=== PATIENT | male | born 1955 | race Caucasian/White ===

== ENCOUNTER → 2016-08-11 | Outpatient (CLI) | payer BC ==
[~2016-08-11] MED LIST: ACT/15 PO; ALLO300T2 PO; ASPCH81X PO; CHOLTAB3 PO; COEN1CAP17 PO; FAMO20TA9 PO; FLAX10007 PO; GLIP-199 PO; MAGN250T3 PO; METO50TA7 PO; MULTTAB58 PO; MYCO250C7 PO; PLN5 PO; PRAV20TA PO; PRED-301 PO; TACR1CAP5 PO
[2016-08-11 09:55] LABS: ESTIMATED AVERAGE GLUCOSE 252 mg/dl; HA1C FLAG Normal (Normal)
== END | disposition home or self-care (01) ==
LOC: C.LAB 08:01
PROVIDERS: ATTEND Internal Medicine
DX: E78.00 Pure hypercholesterolemia, unspecified (principal)

== ENCOUNTER → 2016-10-03 | Outpatient (CLI) | payer BC | END | disposition home or self-care (01) | LOC: C.LAB 08:13 | PROVIDERS: ATTEND Internal Medicine | DX: E11.9 Type 2 diabetes mellitus without complications (principal) ==

== ENCOUNTER → 2017-03-23 | Outpatient (CLI) | payer BC ==
[2017-03-23 11:09] LABS: ESTIMATED AVERAGE GLUCOSE 143 mg/dl; HA1C FLAG Normal (Normal)
== END | disposition home or self-care (01) ==
LOC: C.LAB 07:42
PROVIDERS: ATTEND Internal Medicine
DX: E11.9 Type 2 diabetes mellitus without complications (principal)

== ENCOUNTER → 2017-07-07 | Outpatient (CLI) | payer BC ==
[2017-07-07 10:06] LABS: ESTIMATED AVERAGE GLUCOSE 146 mg/dl; HA1C FLAG Normal (Normal)
[2017-07-07 10:20] LABS: CHOLESTEROL/HDL RATIO 3.4; PROSTATE SPECIFIC ANTIGEN 1.57 ng/ml (0.000-4.000)
== END | disposition home or self-care (01) ==
LOC: C.LAB 07:39
PROVIDERS: ATTEND Internal Medicine
DX: E78.00 Pure hypercholesterolemia, unspecified (principal)

== ENCOUNTER → 2017-10-26 | Outpatient (CLI) | payer BC, OTHER ==
[~2017-10-26] MED LIST changes: -METO50TA7 PO; +METO50TA8 PO
[2017-10-26 10:01] LABS: HEMOGLOBIN A1C 6.8 % (4.5-5.6)
--- NOTE | 2017-11-06 08:41 | CODING QUERY NO DIAGNOSIS ---
TREATMENT RENDERED WITHOUT A DIAGNOSIS 54 To promote full compliance with coding requirements relating to patient care, physician participation is requested in all cases of balance wheel screw hole driller uncertainty. Please assist us with providing a diagnosis/symptom for the test(s) below: A diagnosis/symptom was not documented on your Order. A valid diagnosis/symptom is required to bill all insurances. Please remember that we are unable to code a diagnosis of rule out, probable, possible, questionable, or suspected. DOS 10/26/17 Tests that require a diagnosis: * HEMOGLOBIN A1C DIAGNOSIS: Provider Signature: Date: Thank you Cheryl [facility] [employer] Once completed, please kindly fax back to [phone] For questions please call [phone]
== END | disposition home or self-care (01) ==
LOC: C.LAB 08:20
PROVIDERS: ATTEND Internal Medicine
DX: E11.9 Type 2 diabetes mellitus without complications (principal)

== ENCOUNTER → 2017-11-05 | Outpatient (CLI) | payer OTHER ==
--- NOTE | 2017-11-05 17:17 | DIAGNOSTIC IMAGING REPORT ---
R KNEE 4 OR MORE VIEWS CLINICAL HISTORY: 62 years-old Male presenting with M25.561 Right knee pain after injury. TECHNIQUE: Frontal, lateral, tunnel, and sunrise views of the right knee were obtained. COMPARISON: None. FINDINGS: Chondrocalcinosis suggested in the lateral compartment. No significant joint space loss. No acute fracture or malalignment. No significant osteophytosis. No large knee joint effusion. Prominent ossicle in the distal patellar tendon. Suggest chronic degeneration or prior injury. No patellar subluxation. Atherosclerosis. IMPRESSION: 1. No acute osseous injury of the right knee. 2. No advanced degenerative change. Electronically signed by: Man Aguirre M.D. 11/05/2017 5:15 PM Dictated Date/Time: 11/05/2017 5:13 PM
== END | disposition home or self-care (01) ==
LOC: C.RAD1850 16:50
PROVIDERS: ATTEND Internal Medicine
DX: M25.561 Pain in right knee (principal)

== ENCOUNTER → 2017-11-30 | Outpatient (CLI) | payer OTHER ==
[~2017-11-30] MED LIST changes: +CHOL100010 PO; -CHOLTAB3 PO; +FAMO1TAB68 PO; -FAMO20TA9 PO; +INSU100I23 SQ
[2017-11-30 10:37] LABS: BASO % 0.3 %; BASO ABS # 0.02 K/uL (0-0.2); EOS % 2.6 %; EOS ABS # 0.19 K/uL (0-0.5); HEMATOCRIT 39.9 % (42-52); HEMOGLOBIN 13.2 g/dL (14.0-18.0); IG# 0.03 K/uL (0.00-0.02); LYMPH % 22.6 %; LYMPH ABS # 1.65 K/uL (1.2-3.4); MEAN CORPUSCULAR HEMOGLOBIN 33.1 pg (25-34); MEAN CORPUSCULAR HGB CONC 33.1 g/dl (32-36); MEAN PLATELET VOLUME 10.9 fL (7.4-10.4); MONO % 10.8 %; MONO ABS # 0.79 K/uL (0.11-0.59); NEUT % 63.3 %; NEUT ABS # 4.63 K/uL (1.4-6.5); PLATELET COUNT 194 K/uL (130-400); RED CELL DISTRIBUTION WIDTH CV 14.1 % (11.5-14.5); RED CELL DISTRIBUTION WIDTH SD 51.6 fL (36.4-46.3); WHITE BLOOD COUNT 7.31 K/uL (4.8-10.8)
[2017-11-30 11:04] LABS: BLOOD UREA NITROGEN 44 mg/dl (7-18); CALCIUM 10.1 mg/dl (8.5-10.1); CARBON DIOXIDE 24 mmol/L (21-32); CREATININE 1.98 mg/dl (0.60-1.40); GLUCOSE 172 mg/dl (70-99); POTASSIUM 4.1 mmol/L (3.5-5.1); SODIUM 140 mmol/L (136-145)
== END | disposition home or self-care (01) ==
LOC: C.CPL 08:46
PROVIDERS: ATTEND Physician Assistant
DX: Z01.818 Encounter for other preprocedural examination (principal)

== ENCOUNTER → 2017-12-08 | Day surgery (SDC) | payer OTHER ==
[2017-11-26 10:37] VITALS: Ht 195.6 cm; Wt 110.9 kg
[~2017-12-08] VITALS: Ht 195.6 cm; Wt 110.9 kg
[~2017-12-08] MED LIST changes: +ATROPINE SULFATE 0.1 MG/ML 5ML SYR IV PRN; +BUPIVACAINE/EPINEPHRINE 0.5% MPF 1:200,000 30 ML VIAL ONE; +CEFAZOLIN 2000MG IV PUSH 15 ML IV SCH; +DEXAMETHASONE SOD INJ 4 MG/ML VIAL ONE; +EpHEDrine SULFATE 50MG/5ML SYR ONE; +EpHEDrine SULFATE INJ 50 MG/ML AMP IV PRN; +FENTANYL CITRATE INJ 50 MCG/1 ML 2 ML VIAL ONE; +FLUMAZENIL 0.1 MG/1 ML 10 ML VIAL IV PRN; +HYDROCODONE/ACETAMIN 5/325MG TAB ONE; +HYDROCODONE/ACETAMIN 5/325MG TAB PO PRN; +HYDROCORTISONE SOD SUCCINATE 100 MG/2 ML VIAL IV SCH; +KETOROLAC TROMETHAMINE 30 MG/ML VIAL IV. PRN; +LABETALOL HCL IV 5 MG/ML 20ML IV PRN; +LACTATED RINGER'S 1000ML 1,000 ML IV SCH; +LIDOCAINE HCL 2% 2 ML VIAL (20MG/ML) ONE; +MIDAZOLAM HCL 1 MG/ML 2ML VIAL ONE; +MoRPHine SULFATE PF 1 MG/ML 10 ML AMP/VIAL ONE; +NALOXONE HCL 0.4 MG/1 ML VIAL/CARP IV PRN; +ONDANSETRON INJ 2 MG/ML 2 ML VIAL IV PRN; +ONDANSETRON INJ 2 MG/ML 2 ML VIAL ONE; +OXYCODONE/ACETAMINOPHEN 5-325 TAB PO PRN; +PROMETHAZINE HCL INJ 12.5 MG in SODIUM CHLORIDE 0.9% 50ML 50 ML IV PRN; +PROPOFOL IV EMULSION 10 MG/ML 20 ML VIAL ONE; +SODIUM CHLORIDE 0.9% 1000ML 1,000 ML IV SCH
--- NOTE | 2017-12-08 06:28 | History & Physical Bridge Note ---
H&P Re-Evaluation Bridge Note: I have examined the patient, reviewed the History & Physical and in the interval since the performance of the History & Physical I have noted the following changes of clinical significance: consent obtained.No changes noted
--- NOTE | 2017-12-08 06:30 | Discharge Instructions ---
Discharge Instructions Date of Service December 08, 2017. Visit Reason for Visit: Right Knee Medial And Lateral Meniscus Tears Discharge Discharge Diagnosis / Problem: same Discharge Goals Goal(s): Decrease discomfort, Improve function Medications Stopped Medications Name(s): na Restart Stopped Medication(s): use all scripts as directed Activity Recommendations Activity Limitations: per Instructions/Follow-up section Lifting Limitations: until after follow-up appointment Exercise/Sports Limitations: until after follow-up appointment May Resume Sexual Activity: after follow-up appointment Shower/Bathe: keep incision dry Driving or Machine Use: resume 3 days after discharge Weightbearing Status: Right weightbearing (as tolerated) Anesthesia . Post Anesthesia Instructions: If you have had General Anesthesia or IV Sedation: * Do not drive today. * Resume driving when surgeon permits. * Do not make important decisions or sign legal documents today. * Call surgeon for: 1. Temperature elevations greater than 101 degrees F. 2. Uncontrollable pain. 3. Excessive bleeding. 4. Persistent nausea and vomiting. 5. Medication intolerance (nausea, vomiting or rash). * For nausea and vomiting use only clear liquids such as: tea, soda, bouillon until nausea subsides, then gradually increase diet as tolerated. * If you have any concerns or questions, call your surgeon's office. If physician is unavailable and it is an emergency, call 911 or go to the nearest emergency room. . Instructions / Follow-Up Instructions / Follow-Up The following are instructions to follow after your Arthroscopic Knee Surgery. ACTIVITY RECOMMENDATIONS: * Minimize activity until your first visit after surgery. * No excessive walking, jogging, sports or laboring. * Return to activity is individualized. Most patients are able to return to every day activities within one month. * Return to sports or intensive labor usually occurs at 2-3 months. * Driving is not permitted until at least your first postoperative visit at a minimum. Please ask your doctor when it is safe to resume driving. If you have an automatic vehicle and your left leg has been operated on, then you may begin driving as soon as you are comfortable and can drive safely. SCHOOL/WORK RECOMMENDATIONS: * You may return to sedentary work or school when you are feeling more comfortable. This is usually 3-7 days after surgery. * Expect increased discomfort with increased activity. Continue to elevate and ice the leg as much as possible. MEDICATIONS: * You will have a prescription for pain medication and an anti-inflammatory medication after surgery. * Use the pain medication for severe pain and the anti-inflammatory for less severe pain. Once the pain medication has run out, try to use the anti-inflammatory medication. If this is not effective, contact the office for assistance. * The pain medication may cause nausea, constipation and drowsiness. You should see how they affect you before driving or similar activity. * The anti-inflammatory medication may cause stomach upset and bleeding. If this occurs let your doctor know immediately . * Take a stool softener like Colace or a laxative like Senokot to prevent constipation. DIET: * Resume previous diet. SPECIAL CARE: ICE: You have the option of an ice cooler, gel packs or ice bags. * If you have an ice cooler, refer to the instructions for that device. The ice cooler may be used continuously. * If you do not have an ice cooler, you will need to use ice bags or gel packs. Do not apply ice directly to the skin. Use a thin dressing or mike shirt between the skin and ice bag. Apply ice for 20-30 minutes and repeat every 2-4 hours. This is especially important for the first 7-10 days after surgery. Once the pain improves, use ice as needed. ELEVATION: * Keep your leg elevated at or above the level of your heart as much as possible. * Expect some increased discomfort and swelling if you are standing for any length of time. * When lying down, avoid placing anything under your knee. Rather, prop your leg up by placing several pillows under your heel or calf. DRESSING: * Your dressing will be changed at your first therapy appointment approximately 4-5 days after surgery. Band-aids, tape strips or gauze may be applied. You may then change your dressing daily. * Reapply dressing followed by the Aamir wrap or Tubi-human services program specialist stockinet and EBIce cooling pad (if chosen). * Always wash your hands prior to touching the incision area. * Once the stitches are removed, you may leave the wound open to air or cover with an Aamir wrap or Tubi-human services program specialist stockinet. * If you have been given a white elastic stocking (CRISTELA hose), wear as much as possible for the first 1-3 weeks depending on swelling. * Expect some bloody drainage for the first few days after surgery. * Leave the tape strips, if present, in place for 5-7 days. * Band-aids and gauze may be changed daily. CRUTCHES: * You will need to use crutches after surgery. * You may gradually progress to full weight bearing as tolerated and wean off the crutches unless otherwise advised. * Your therapist can provide assistance weaning off crutches. * Patients who have a microfracture done may need to be toe-touch weight- bearing for 4-6 weeks. BATHING: * You may shower or sponge-bathe immediately after surgery. * The dressing will need to be covered with a plastic bag or plastic wrap until the dressing is changed on the fourth or fifth day after surgery. * Once the dressing has been changed on the fourth or fifth day after surgery, you may shower and get the incision wet. * Wash with regular soap and water. * Do not bathe (submerge the incision), soak, swim or use a hot tub until the incision is completely healed over with normal skin and the doctor has given the OK to proceed. * There is no need to apply any ointments, powders or salves to your incision. * Do not apply alcohol or hydrogen peroxide directly to the incision. * Diluted peroxide (50:50 mixture with sterile saline) may be used to clean dried blood from around the incision area. BRACE: * Bracing is generally not needed after routine Arthroscopic Knee surgery. THERAPY: * You will begin therapy four or five days after surgery. * Organized therapy with the therapist is important for the first 4-6 weeks after surgery. During that time you will attend therapy 1-3 times per week. * You will also need to do daily exercises for range of motion and strength as instructed. PROBLEMS/QUESTIONS: * If you have any problems such as severe pain, numbness, tingling or high fevers or if you have any questions, please contact the office at [phone]. * It is not uncommon to have some numbness and tingling after the surgery especially if you have had a nerve block done. This should gradually improve over the first 1- 2 days. If this persists longer or worsens please contact the office. FOLLOW UP VISIT: * If not already scheduled, please call the office at to schedule a follow-up appointment for 10 days, 6 weeks and 3 months after surgery. Diet Recommendations Recommended Home Diet: resume previous diet Procedures Procedures Performed: see op note Pending Studies Studies pending at discharge: no Medical Emergencies . Who to Call and When: Medical Emergencies: If at any time you feel your situation is an emergency, please call 911 immediately. . Non-Emergent Contact Non-Emergency issues call your: Specialist Call Non-Emergent contact if: wound has increased drainage, wound has increased redness, wound has increased pain . . "Provider Documentation" section prepared by Juve Marti. .
--- NOTE | 2017-12-08 07:31 | [facility] Post Operative Brief Note ---
Immediate Operative Summary Operative Date December 08, 2017. Pre-Operative Diagnosis Right Knee Medial and Lateral Meniscal Tears Post-Operative Diagnosis Same Procedure(s) Performed Right Knee Arthroscopy, Partial Lateral Meniscectomy, Partial Medial Meniscectomy/chondroplasty trochlea Surgeon Dr. Marti Bender Machine Surgeon(s) Soco Draper PA-C Estimated Blood Loss Minimal Findings Consistent with Post-Op Diagnosis Fluids (cc crystalloids) 650cc Specimens None Drains None Anesthesia Type General Complication(s) none Disposition Accompanied Pt To Recovery: no Disposition: Recovery Room / PACU
[2017-12-08] MEDS: FENTANYL CITRATE INJ 50 MCG/1 ML 2 ML VIAL IV PRN ×2 (08:09→08:25)
[2017-12-08 09:00] VITALS: TEMP 36.4
--- NOTE | 2017-12-08 09:12 | Anesthesia Progress Nt - [facility] ---
Anesthesia Post Op Note Date & Time December 08, 2017 at 09:12 Vital Signs Pain Intensity: 2 Vital Signs Past 12 Hours Date Time Temp Pulse Resp B/P (MAP) Pulse Ox O2 Delivery O2 Flow Rate FiO2 12/08/17 08:47 64 5 94 12/08/17 08:47 63 5 12/08/17 08:46 63 9 12/08/17 08:46 63 9 93 12/08/17 08:45 144/69 12/08/17 08:42 36.3 63 12 144/69 93 Room Air 12/08/17 08:41 64 9 96 12/08/17 08:41 64 9 12/08/17 08:40 143/68 12/08/17 08:36 62 6 12/08/17 08:36 62 6 96 12/08/17 08:35 144/72 12/08/17 08:31 60 3 99 12/08/17 08:31 61 3 12/08/17 08:30 143/69 12/08/17 08:26 61 4 12/08/17 08:26 61 4 97 12/08/17 08:25 138/69 12/08/17 08:21 62 5 94 12/08/17 08:21 62 5 12/08/17 08:20 142/72 12/08/17 08:16 62 11 98 12/08/17 08:16 62 11 12/08/17 08:15 135/74 12/08/17 08:11 62 13 98 12/08/17 08:11 62 13 12/08/17 08:10 139/69 12/08/17 08:08 62 11 12/08/17 08:08 62 11 98 12/08/17 08:05 142/68 12/08/17 08:03 63 16 12/08/17 08:03 63 16 99 12/08/17 08:00 137/71 12/08/17 07:58 63 6 12/08/17 07:58 63 6 98 12/08/17 07:55 136/70 12/08/17 07:53 65 8 12/08/17 07:53 65 8 97 12/08/17 07:52 128/62 12/08/17 07:51 66 4 90 12/08/17 07:51 65 4 12/08/17 07:46 69 18 97 12/08/17 07:46 69 18 12/08/17 07:45 123/54 12/08/17 07:41 36.3 72 12 141/72 94 Room Air 6 12/08/17 07:41 72 141/72 91 12/08/17 07:41 72 12/08/17 06:44 36.7 74 16 155/82 (106) 95 Room Air Notes Mental Status: alert / awake / arousable, participated in evaluation Pt Amnestic to Procedure: Yes Nausea / Vomiting: adequately controlled Pain: adequately controlled Airway Patency, RR, SpO2: stable & adequate BP & HR: stable & adequate Hydration State: stable & adequate Anesthetic Complications: no major complications apparent
--- NOTE | 2017-12-08 09:31 | [facility] Operative Report ---
Operative Report Operative Date December 08, 2017. Pre-Operative Diagnosis Right Knee Medial and Lateral Meniscal Tears Post-Operative Diagnosis Right knee same Procedure(s) Performed Right Knee Arthroscopy, Partial Lateral Meniscectomy, Partial Medial Meniscectomy/chondroplasty trochlea Surgeon Dr. Marti Bulk Plant Manager Surgeon(s) Soco Draper PA-C Estimated Blood Loss Minimal Findings Medial and lateral meniscal tears, chondromalacia of the trochlea Fluids 650cc Specimens None Drains None Anesthesia Type General Complication(s) none Disposition no Recovery Room / PACU Indications This 62-year-old white male presented to the office with complaints of right knee pain. He had tried conservative care measures without improvement. X-ray and MRI were obtained. He elected to proceed with surgical intervention after being educated about potential risks and outcomes. Description of Procedure Patient was taken to the operating room where he was given general anesthesia. He was prepped and draped in usual sterile fashion. Please see Dr. Marti's operative report for specifics of the procedure. I was present for the entire case from initial patient positioning through final wound closure. Assistance was provided in patient positioning, arthroscopy, and final wound closure. Patient was taken to the recovery room in satisfactory condition. I attest to the content of the Intraoperative Record and any orders documented therein. Any exceptions are noted below.
[2017-12-08 09:46] VITALS: BP 160/74; PULSE 68; O2SAT 97
--- NOTE | 2017-12-08 10:22 | OPERATIVE REPORT ---
DATE OF OPERATION: 12/08/2017 SURGEON: Juve Marti MD INDIGO MIXER: Philippe Draper PA-C No resident or fellow available. PREOPERATIVE DIAGNOSIS: Medial and lateral meniscus tears, possible early articular disease, right knee. POSTOPERATIVE DIAGNOSIS: Medial and lateral meniscus tears, possible early articular disease, right knee with grade 4 disease, patellofemoral joint. OPERATION PERFORMED: 1. Exam under anesthesia. 2. Diagnostic arthroscopy. 3. Arthroscopic partial medial meniscectomy. 4. Arthroscopic partial lateral meniscectomy. 5. Arthroscopic chondroplasty of trochlea, grade 4 lesion with articular flaps. PERIOPERATIVE SITUATION: Medically cleared male with intractable pain, has history of having a kidney transplant. At this point in time, his standing x-rays did not reveal significant disease for knee replacement. However, he does have physical exam, x-ray, and MRI scan consistent with meniscal pathology. He wants to proceed with this. There was some articular disease of the patella. He understands that this may not cure him completely. DESCRIPTION OF PROCEDURE: The patient was appropriately identified, site verified, consent verified, 2 g of Ancef was being given. Right lower extremity was examined revealing no instability. He was then sterilely injected with 20 mL of 0.5% Marcaine with epinephrine and 5 mg of Duramorph for postop pain control. The knee was then prepped and draped in usual routine fashion. No tourniquet was utilized or applied. The inferomedial and inferolateral portals were then marked and injected with 5 mL of 0.5% Marcaine with epinephrine. The knee was then inspected through an inferolateral portal and the inferomedial portal made with needle localization, anterior synovectomy completed. The grade 4 disease of the medial trochlea noted. There were some articular flaps that they were debrided. There was also smaller area on the lateral trochlea, which was debrided that was about 50% of the lateral trochlea and was about 100% of the medial trochanter. The patella had some chondral changes which were incidentally debrided. The medial and lateral gutters were cleaned off any debris. Medial meniscus had a significant posterior horn tear with mucoid degeneration and horizontal cleavage tear. This was resected to a stable balanced contoured rim leaving approximately 70% of the meniscus. The articular surface of the medial compartment had some softening but no exposed bone. The ACL and PCL were normal. The lateral meniscus had a very large horizontal cleavage tear with a large flipped anterior fragments which was shaved and then debrided with hand and power instrumentation. The parameniscal cyst was then trephinated and decompressed. The lateral compartment articular surfaces were relatively healthy. Approximately 35% of the lateral meniscus was removed. The procedure was then terminated after all instruments and fluid removed and the parameniscal cyst was evacuated. The portals were closed with 3-0 nylon, dressed with Xeroform, 4 x 4 gauze, sterile Webril, ABD pads and above knee CRISTELA stocking. The patient will be weightbearing to tolerance. DVT prophylaxis with aspirin. Overall prognosis for knee replacement is relatively high based on the patellofemoral disease. He is that is likely where his articular surface problems have come from. I attest to the content of the Intraoperative Record and any orders documented therein. Any exception s are noted below.
== END | disposition home or self-care (01) ==
LOC: X.SURG 06:19
PROVIDERS: ATTEND Physical Medicine & Rehabilitation Sports Medicine
DX: S83.241A Other tear of medial meniscus, current injury, right knee, initial encounter (principal); S83.281A Other tear of lateral meniscus, current injury, right knee, initial encounter; X58.XXXA Exposure to other specified factors, initial encounter; I12.9 Hypertensive chronic kidney disease with stage 1 through stage 4 chronic kidney disease, or unspecified chronic kidney disease; E78.00 Pure hypercholesterolemia, unspecified; E10.22 Type 1 diabetes mellitus with diabetic chronic kidney disease; J45.909 Unspecified asthma, uncomplicated; Z94.0 Kidney transplant status; Z98.890 Other specified postprocedural states; Z79.899 Other long term (current) drug therapy; N18.9 Chronic kidney disease, unspecified; Z79.82 Long term (current) use of aspirin; Z98.41 Cataract extraction status, right eye; Z98.42 Cataract extraction status, left eye; Z90.89 Acquired absence of other organs

== ENCOUNTER → 2018-02-23 | Outpatient (CLI) | payer OTHER ==
[~2018-02-23] MED LIST changes: -ATROPINE SULFATE 0.1 MG/ML 5ML SYR IV PRN; -BUPIVACAINE/EPINEPHRINE 0.5% MPF 1:200,000 30 ML VIAL ONE; -CEFAZOLIN 2000MG IV PUSH 15 ML IV SCH; -DEXAMETHASONE SOD INJ 4 MG/ML VIAL ONE; -EpHEDrine SULFATE 50MG/5ML SYR ONE; -EpHEDrine SULFATE INJ 50 MG/ML AMP IV PRN; -FENTANYL CITRATE INJ 50 MCG/1 ML 2 ML VIAL ONE; -FLUMAZENIL 0.1 MG/1 ML 10 ML VIAL IV PRN; -HYDROCODONE/ACETAMIN 5/325MG TAB ONE; -HYDROCODONE/ACETAMIN 5/325MG TAB PO PRN; -HYDROCORTISONE SOD SUCCINATE 100 MG/2 ML VIAL IV SCH; -KETOROLAC TROMETHAMINE 30 MG/ML VIAL IV. PRN; -LABETALOL HCL IV 5 MG/ML 20ML IV PRN; -LACTATED RINGER'S 1000ML 1,000 ML IV SCH; -LIDOCAINE HCL 2% 2 ML VIAL (20MG/ML) ONE; -MIDAZOLAM HCL 1 MG/ML 2ML VIAL ONE; -MoRPHine SULFATE PF 1 MG/ML 10 ML AMP/VIAL ONE; -NALOXONE HCL 0.4 MG/1 ML VIAL/CARP IV PRN; -ONDANSETRON INJ 2 MG/ML 2 ML VIAL IV PRN; -ONDANSETRON INJ 2 MG/ML 2 ML VIAL ONE; -OXYCODONE/ACETAMINOPHEN 5-325 TAB PO PRN; -PROMETHAZINE HCL INJ 12.5 MG in SODIUM CHLORIDE 0.9% 50ML 50 ML IV PRN; -PROPOFOL IV EMULSION 10 MG/ML 20 ML VIAL ONE; -SODIUM CHLORIDE 0.9% 1000ML 1,000 ML IV SCH
[2018-02-24 05:53] LABS: HEMOGLOBIN A1C 7.2 % (4.5-5.6)
== END | disposition home or self-care (01) ==
LOC: C.LAB1850 13:22
PROVIDERS: ATTEND Internal Medicine
DX: E11.9 Type 2 diabetes mellitus without complications (principal)

== ENCOUNTER 2019-07-14 05:35 | Inpatient (IN) ==
[2019-07-14] MEDS ORDERED: SODIUM CHLORIDE 0.9% 1000ML 1,000 ML IV ONE (05:48)
[2019-07-14] MEDS ORDERED: fentaNYL citrate 100 MCG/2 ML VIAL IV STA ×2 (05:51→06:10)
[2019-07-14 05:56] LABS: Hematocrit (blood only) 38.6 % (42-52); Hemoglobin 12.5 g/dL (14.0-18.0); Mean Corpuscular Hemoglobin 32.1 pg (25-34); Mean Corpuscular Hgb Conc 32.4 g/dL (32-36); Mean Platelet Volume 9.9 fL (7.4-10.4); Platelet Count 236 K/uL (130-400); White Blood Count 12.02 K/uL (4.8-10.8)
--- NOTE | 2019-07-14 06:08 | XRay Report ---
XR chest 1V portable CLINICAL HISTORY: Chest Pain dyspnea COMPARISON STUDY: 04/07/2016 FINDINGS: Increased pulmonary vessels compared to the prior exam. Mild cardiac enlargement. Diaphragm s are smooth. IMPRESSION: Developing congestive failure versus early pulmonary edema. The above report was generated using voice recognition software. It may contain grammatical, syntax or spelling errors. Electronically signed by: Jose Ochoa M.D. 07/14/2019 6:06 AM
[2019-07-14 06:13] LABS: BUN Creatinine Ratio 16.9 (10-20); Calcium 9.2 mg/dl (8.5-10.1); Creatinine Clr Calc Pharmacy 37.9 ml/min; Potassium 3.1 mmol/L (3.5-5.1)
[2019-07-14 06:18] LABS: Albumin Globulin Ratio 0.9 (0.9-2); Bilirubin,Total 0.2 mg/dl (0.2-1); Globulin 3.4 gm/dl (2.5-4.0); Total Protein 6.4 gm/dl (6.4-8.2); Troponin I 0.033 ng/ml (0-0.045)
[2019-07-14] MEDS ORDERED: NiCARDipine HCL INJ 2.5 MG/ML 10 ML AMP ONE (06:20)
[2019-07-14] MEDS ORDERED: HEPARIN (PORCINE) 1000 UNIT/ML 10 ML (CATH LAB USE ONLY) ONE ×2 (06:20→07:06)
[2019-07-14] MEDS ORDERED: MIDAZOLAM HCL 1 MG/ML 2ML VIAL ONE (06:21)
[2019-07-14] MEDS ORDERED: fentaNYL citrate 100 MCG/2 ML VIAL ONE ×2 (06:21→09:18)
[2019-07-14 06:23] LABS: iSTAT Creatinine 2.6 mg/dl (0.6-1.3); iSTAT Hemoglobin 12.2 g/dl (14.0-18.0); iSTAT Ionized Calcium 1.23 mmol/l (1.12-1.32)
[2019-07-14] MEDS ORDERED: NITROGLYCERIN/D5W 100MCG/ML 20ML SYR ONE (06:25)
--- NOTE | 2019-07-14 06:46 | Pre Anesthesia Assessment ---
Date of Service July 14, 2019 Pre Sedation Assessment Vital Signs Temp Pulse Pulse Resp BP BP Pulse Ox 07/14/19 06:35 67 17 114/60 99 07/14/19 06:30 66 20 119/61 100 07/14/19 06:25 69 20 105/57 L 100 07/14/19 06:20 66 20 102/58 L 100 07/14/19 06:15 64 25 H 99/51 L 100 07/14/19 06:10 66 19 94/55 L 100 07/14/19 06:04 65 25 H 95/52 L 100 07/14/19 05:59 66 19 95/52 L 99 07/14/19 05:53 69 19 111/54 L 99 07/14/19 05:50 68 15 99 07/14/19 05:41 97.9 F 65 21 104/62 100 Cardiovascular RRR, no murmur, no edema Respiratory normal respiratory effort, lungs clear to auscultation Pre-Sedation Airway Assessment Smoking Status: Never smoker Hx Sleep Apnea: No Hx Difficult Intubation: No Short, Thick Neck: No Thyromental Distance: > or= 3.5 Finger Breadths Mallampati Class: III ASA: ASA4 Procedure Planning Contraindications for Sedation: none Notes The planned sedation has been discussed with the patient. Informed Consent was obtained. I have identified the patient, determined the appropriateness of sedation and have assessed the patient immediately prior to the procedure. All medicine(s) and interventions are by my order.
--- NOTE | 2019-07-14 06:46 | Cardiology Consultation ---
Date of Consultation July 14, 2019 Assessment & Plan (1) ST elevation myocardial infarction (STEMI): Presentation consistent with anterior STEMI and recommend proceeding with emergent cardiac catheterization and likely primary PCI. No apparent contraindications to procedure. Discussed risks, benefits, alternatives of procedure with patient and they are willing to proceed. Further recommendations pending findings of coronary angiography. History of Present Illness Attending Physician: Rickey Daley MD History of Present Illness 64-year-old man here with acute chest pain and ECG concerning for acute OH. Patient seen emergently in the ED after heart alert activated after second EKG. No prior cardiac history. Patient has a history of polycystic kidney disease post renal transplant in the followed by Dr. Eugene. History of steroid- induced insulin-dependent diabetes, hypertension, osteoarthritis. Chest pain began approximately 90 minutes prior to arrival while in bed. No prior similar pain in the past. Chest pain at time of arrival 04/12. Hemodynamically stable. Subsequent EKG showed anterior ST elevations with inferior ST depressions. Allergies Allergy/AdvReac Type Severity Reaction Status Date / Time No Known Allergies Allergy Unverified 07/14/19 06:02 Home Medications Home Medications Medication Instructions Recorded Confirmed Type allopurinol 300 mg tablet 300 mg PO DAILY #90 tab 03/03/19 07/14/19 History coenzyme Q10 100 mg capsule 100 mg PO BID cap 03/03/19 07/14/19 History famotidine 10 mg tablet 10 mg PO DAILY 03/03/19 07/14/19 History felodipine 5 mg tablet,extended 5 mg PO DAILY 03/03/19 07/14/19 History release 24 hr flaxseed oil 1,000 mg capsule 1,000 mg PO DAILY cap 03/03/19 07/14/19 History glipizide 10 mg tablet 10 mg PO BID 03/03/19 07/14/19 History insulin glargine 100 unit/mL (3 20 units SUBCUT DAILY #6 ml 03/03/19 07/14/19 History mL) subcutaneous pen magnesium oxide 250 mg (as 250 mg PO BID tab 03/03/19 07/14/19 History magnesium oxide) tablet metoprolol succinate 50 mg 50 mg PO DAILY #90 tab 03/03/19 07/14/19 History tablet,extended release 24 hr multivitamin 1 tab PO DAILY 03/03/19 07/14/19 History mycophenolate mofetil 500 mg tablet See Rx Instructions PO BID tab 03/03/19 07/14/19 History prednisone 5 mg tablet 5 mg PO DAILY #90 tab 03/03/19 07/14/19 History tacrolimus 1 mg capsule 1 mg PO Q12H cap 03/03/19 07/14/19 History blood sugar diagnostic #10 ea 03/24/19 06/10/19 History blood sugar diagnostic #10 ea 03/24/19 06/10/19 History blood-glucose meter #1 ea 03/24/19 06/10/19 History lancets #50 ea 03/24/19 06/10/19 History lancets 30 gauge #25 ea 03/24/19 06/10/19 History pen needle, diabetic 32 gauge x #10 ea 03/24/19 06/10/19 History " pravastatin 20 mg tablet 20 mg PO DAILY #90 tab 06/10/19 07/14/19 Rx pioglitazone 15 mg tablet 30 mg PO .COMPLEX #60 tab 06/20/19 07/14/19 Rx Patient History Medical History Diverticulosis (Acute) Gout, joint (Acute) Hypercholesterolemia (Acute) Myalgia (Acute) Polycystic kidney (Acute) Renal insufficiency (Acute) Surgical History Renal transplant recipient (Acute) Social History Feels Safe at Home: Yes Smoking Status: Never smoker Review of Systems Review of Systems: Not obtained the setting of emergent situation Physical Exam Physical Exam: General: Uncomfortable HEENT: Sclerae anicteric, mucous membranes moist Lungs: Clear to auscultation bilaterally Cardiac: Regular rate and rhythm, no murmurs. Abdomen: Soft, nontender, nondistended, positive bowel sounds. Extremities: Warm, well perfused, no edema. 2+ radial pulses Skin: No rashes or lesions. Neuro: Nonfocal Psych: Alert orient x3 Results & Data Vital Signs (Past 12 Hours) Vital Signs Temp Pulse Pulse Resp BP BP Pulse Ox 07/14/19 06:35 67 17 114/60 99 07/14/19 06:30 66 20 119/61 100 07/14/19 06:25 69 20 105/57 L 100 07/14/19 06:20 66 20 102/58 L 100 07/14/19 06:15 64 25 H 99/51 L 100 07/14/19 06:10 66 19 94/55 L 100 07/14/19 06:04 65 25 H 95/52 L 100 07/14/19 05:59 66 19 95/52 L 99 07/14/19 05:53 69 19 111/54 L 99 07/14/19 05:50 68 15 99 07/14/19 05:41 97.9 F 65 21 104/62 100 PG Care Time/CCT Total # of Minutes Spent Total Time Spent with Patient: Total time spent is greater than 50% in coordination of care (as documented) at patient's floor/unit and/or counseling patient: (1) ST elevation myocardial infarction (STEMI) Involved coronary artery: unspecified coronary artery Qualified Code(s): I21.3 - ST elevation (STEMI) myocardial infarction of unspecified site
[2019-07-14 06:52] LABS: Basophils # (auto) 0.02 K/uL (0-0.2); Basophils % (auto) 0.2 %; Eosinophils # (auto) 0.12 K/uL (0-0.5); Immature Granulocytes # (auto) 0.03 K/uL (0.00-0.02); Immature Granulocytes % (auto) 0.2 %; Lymphocytes % (auto) 43.3 %; Monocytes # (auto) 1.26 K/uL (0.11-0.59); Monocytes % (auto) 10.5 %; Neutrophils # (auto) 5.39 K/uL (1.4-6.5); Neutrophils % (auto) 44.8 %
[2019-07-14] MEDS ORDERED: EPTIFIBATIDE 2 MG/ML 10 ML VIAL (CATH LAB USE ONLY) IV ONE (07:02)
[2019-07-14] MEDS ORDERED: ATROPINE SULFATE 0.1 MG/ML 10ML SYR IV ONE ×2 (07:06→07:23)
[2019-07-14] MEDS ORDERED: NOREPINEPHRINE BITARTRATE 1 MG/ML 4 ML VIAL (CATH LAB USE ONLY) ONE (07:06)
--- NOTE | 2019-07-14 07:06 | Emergency Department Note ---
Entered by Rina Mei acting as a scribe for Hair Kern DO History of Present Illness General Chief complaint: Chest Pain Stated complaint: CHEST PAIN,PAIN UNDER ARM,NAUSEA Source: patient History of Present Illness Provider complaint: chest pain Onset (ago): hour(s) 1 Location: chest Severity: similar to prior episodes (slightly) Quality: + other (chest pain) Relieved By: + rest Exacerbated By: + movement Associated symptoms: + nausea/vomiting (Positive nausea; Negative vomiting) and + other (Negative abdominal pain) The patient, who is a 64 year old male with a medical history of diverticulosis, myalgia and diabetes, renal transplant on tacrolimus, who presents to the Emergency Room with complaints of chest pain that started just over an hour ago. The patient states that 0430 he felt pain on the right side of his chest towards the armpit shoulder region. The patient states that this pain radiates down his right arm. The patient expresses that he is nauseous. The patient denies abdominal pain. The patient explains that he had mildly similar episodes throughout the he received when he was exerting himself. The patient states that during thee previous episodes this chest pain was alleviated with rest. The patient denies any previous artifacts. Patient also admits to history of diabetes, HLD in combination with his hypertension. Home Medications Home Medications Medication Instructions Recorded Confirmed Type allopurinol 300 mg tablet 300 mg PO DAILY #90 tab 03/03/19 07/14/19 History coenzyme Q10 100 mg capsule 100 mg PO BID cap 03/03/19 07/14/19 History famotidine 10 mg tablet 10 mg PO DAILY 03/03/19 07/14/19 History felodipine 5 mg tablet,extended 5 mg PO DAILY 03/03/19 07/14/19 History release 24 hr flaxseed oil 1,000 mg capsule 1,000 mg PO DAILY cap 03/03/19 07/14/19 History glipizide 10 mg tablet 10 mg PO BID 03/03/19 07/14/19 History insulin glargine 100 unit/mL (3 20 units SUBCUT DAILY #6 ml 03/03/19 07/14/19 History mL) subcutaneous pen magnesium oxide 250 mg (as 250 mg PO BID tab 03/03/19 07/14/19 History magnesium oxide) tablet metoprolol succinate 50 mg 50 mg PO DAILY #90 tab 03/03/19 07/14/19 History tablet,extended release 24 hr multivitamin 1 tab PO DAILY 03/03/19 07/14/19 History mycophenolate mofetil 500 mg tablet See Rx Instructions PO BID tab 03/03/19 07/14/19 History prednisone 5 mg tablet 5 mg PO DAILY #90 tab 03/03/19 07/14/19 History tacrolimus 1 mg capsule 1 mg PO Q12H cap 03/03/19 07/14/19 History blood sugar diagnostic #10 ea 03/24/19 06/10/19 History blood sugar diagnostic #10 ea 03/24/19 06/10/19 History blood-glucose meter #1 ea 03/24/19 06/10/19 History lancets #50 ea 03/24/19 06/10/19 History lancets 30 gauge #25 ea 03/24/19 06/10/19 History pen needle, diabetic 32 gauge x #10 ea 03/24/19 06/10/19 History 5/32" pravastatin 20 mg tablet 20 mg PO DAILY #90 tab 06/10/19 07/14/19 Rx pioglitazone 15 mg tablet 30 mg PO .COMPLEX #60 tab 06/20/19 07/14/19 Rx Allergies Allergy/AdvReac Type Severity Reaction Status Date / Time No Known Allergies Allergy Unverified 07/14/19 06:02 Past Med/Surg History Medical History Diverticulosis (Acute) Gout, joint (Acute) Hypercholesterolemia (Acute) Myalgia (Acute) Polycystic kidney (Acute) Renal insufficiency (Acute) Surgical History Renal transplant recipient (Acute) Social History Feels Safe at Home: Yes Smoking Status: Never smoker Review of Systems See HPI for pertinent positives & negatives. and A total of 10 systems reviewed and were otherwise negative Physical Exam Vital Signs Vital Signs - 24 hr 07/14/19 05:41 07/14/19 05:50 07/14/19 05:53 Temperature 36.6 C Temperature Source Oral Pulse Rate 65 68 Pulse Rate [Apical] 69 Respiratory Rate 21 15 19 Respiratory Effort / Characteristics Labored Labored Blood Pressure 104/62 Blood Pressure [Right Arm] 111/54 L Blood Pressure Mean 76 Blood Pressure Mean [Right Arm] 73 Blood Pressure Position [Right Arm] Lying Pulse Oximetry 100 99 99 Oxygen Delivery Method Room Air Room Air Room Air Oxygen Flow Rate Sepsis Recent Fever Within 48 Hours No Sepsis Action Taken by Nursing No Action Required 07/14/19 05:59 07/14/19 06:04 07/14/19 06:10 Temperature Temperature Source Pulse Rate Pulse Rate [Apical] 66 65 66 Respiratory Rate 19 25 H 19 Respiratory Effort / Characteristics Labored Blood Pressure Blood Pressure [Right Arm] 95/52 L 95/52 L 94/55 L Blood Pressure Mean Blood Pressure Mean [Right Arm] 66 66 68 Blood Pressure Position [Right Arm] Lying Lying Lying Pulse Oximetry 99 100 100 Oxygen Delivery Method Room Air Nasal Cannula Nasal Cannula Oxygen Flow Rate 2 2 Sepsis Recent Fever Within 48 Hours Sepsis Action Taken by Nursing 07/14/19 06:15 07/14/19 06:20 07/14/19 06:25 Temperature Temperature Source Pulse Rate Pulse Rate [Apical] 64 66 69 Respiratory Rate 25 H 20 20 Respiratory Effort / Characteristics Blood Pressure Blood Pressure [Right Arm] 99/51 L 102/58 L 105/57 L Blood Pressure Mean Blood Pressure Mean [Right Arm] 67 72 73 Blood Pressure Position [Right Arm] Lying Lying Pulse Oximetry 100 100 100 Oxygen Delivery Method Nasal Cannula Nasal Cannula Nasal Cannula Oxygen Flow Rate 2 2 2 Sepsis Recent Fever Within 48 Hours Sepsis Action Taken by Nursing 07/14/19 06:30 07/14/19 06:35 Temperature Temperature Source Pulse Rate Pulse Rate [Apical] 66 67 Respiratory Rate 20 17 Respiratory Effort / Characteristics Blood Pressure Blood Pressure [Right Arm] 119/61 114/60 Blood Pressure Mean Blood Pressure Mean [Right Arm] 80 78 Blood Pressure Position [Right Arm] Lying Lying Pulse Oximetry 100 99 Oxygen Delivery Method Nasal Cannula Nasal Cannula Oxygen Flow Rate 2 2 Sepsis Recent Fever Within 48 Hours Sepsis Action Taken by Nursing GENERAL: laying in bed, diaphoretic, ill-appearing EYE EXAM: normal conjunctiva OROPHARYNX: no exudate, no erythema, lips, buccal mucosa, and tongue normal and mucous membranes are moist NECK: supple, no nuchal rigidity, no adenopathy, non-tender LUNGS: Clear to auscultation. Normal chest wall mechanics HEART: no murmurs, S1 normal and S2 normal ABDOMEN: abdomen soft, non-tender, normo-active bowel sounds, no masses, no rebound or guarding. old lower abdomen incision SKIN: no rashes and no bruising UPPER EXTREMITIES: upper extremities are grossly normal. fistula left distal forearm with thrill LOWER EXTREMITIES: Faint pitting edema NEURO EXAM: Normal sensorium, cranial nerves II-XII grossly intact, normal speech, no gross weakness of arms, no gross weakness of legs. Course Course ED COURSE: Vital signs were reviewed and showed hypotensive. The patients medical record was reviewed The above diagnostic studies were performed and reviewed. ED treatments and interventions as stated above. 0543: The patient was evaluated in room A10. A complete history and physical examination was performed. 0551: I reviewed the patient's case with Dr. Daley, Cardiology. He suggested to repeat and EKG in 10 minutes and he will evaluate the patient for further management. 0555: I reassessed the patient and ordered Fentanyl to be administered. The EKG being repeated. 0608: I reassessed the patient who is doing fine and expresses his pain is getting better. 0613: I reassessed the patient who had a BP of 94. The patient is improving. I observed that the patients creatine was 2.6. 25 mcg of Fentanyl has been administered. 0616: I reviewed the patient's case with Dr. [facility]. He will evaluate the patient for further management. Based on the patients age, coexisting illnesses, exam and lab findings the decision to treat as an inpatient was made. The patient remained stable while under my care. The patient will be evaluated for further management. Consultations Consultation #1: I reviewed the patient's case with Dr. Daley, Cardiology. He suggested to repeat and EKG in 0 minutes and he will evaluate the patient for further management. Time: 05:51 Consultation #2: I reviewed the patient's case with Dr. Landers [facility]. He will evaluate the patient for further management. Time: 06:16 Administered Medications Discontinued Medications Fentanyl Citrate (Fentanyl Citrate) 50 mcg IV NOW STA Stop: 07/14/19 05:52 Last Admin: 07/14/19 05:55 Dose: 50 mcg Documented by: [id number] Fentanyl Citrate (Fentanyl Citrate) 50 mcg IV NOW STA Stop: 07/14/19 06:11 Last Admin: 07/14/19 06:11 Dose: 25 mcg Documented by: [id number] Fentanyl Citrate (Fentanyl Citrate) Confirm Administered Dose 100 mcg .ROUTE .STK-MED ONE Stop: 07/14/19 06:22 Last Admin: 07/14/19 06:29 Dose: 25 mcg Documented by: [id number] Sodium Chloride (Nss 1000ml) 1,000 mls @ 999 mls/hr IV .Q1H1M ONE Stop: 07/14/19 06:48 Last Admin: 07/14/19 05:49 Dose: 999 mls/hr Documented by: [id number] Critical Care Time Critical Care Time: Yes Total Critical Care Time: 35 I have personally spent 35 minutes of critical care time in the direct management of this patient. This includes bedside care, interpretation of diagnostic studies, and testing, discussion with consultants, patient, and family members, and other required patient management activities. This 35 minutes is in excess of all separately billable procedures. Medical Decision Making Differential Diagnosis Differential diagnosis includes: cardiac ischemia, aortic dissection, pulmonary embolism, pneumonia, pneumothorax, musculoskeletal, infections, pericarditis, myocarditis, esophageal rupture, gastrointestinal, as well as others were entertained. Medical Records Attestation: I reviewed the patient's medical records. Home Medications Current Medication List: was personally reviewed by me Laboratory Data Attestation: I reviewed the patient's lab results. Result diagrams: 07/14/19 05:45 07/14/19 05:46 Lab Results 07/14/19 07/14/19 07/14/19 Range/Units 05:43 05:45 05:46 WBC 12.02 H (4.8-10.8) K/uL RBC 3.90 L (4.7-6.1) M/uL Hgb 12.5 L (14.0-18.0) g/dL POC Hgb (14.0-18.0) g/dl Hct 38.6 L (42-52) % POC Hct (42-52) % MCV 99.0 (80-100) fL MCH 32.1 (25-34) pg MCHC 32.4 (32-36) g/dL RDW Std Deviation 50.0 H (36.4-46.3) fL RDW Coeff of Mir 14.0 (11.5-14.5) % Plt Count 236 (130-400) K/uL MPV 9.9 (7.4-10.4) fL Immature Gran % (Auto) 0.2 % Neut % (Auto) 44.8 % Lymph % (Auto) 43.3 % [place] % (Auto) 10.5 % Eos % (Auto) 1.0 % Baso % (Auto) 0.2 % Immature Gran # (Auto) 0.03 H (0.00-0.02) K/uL Neut # (Auto) 5.39 (1.4-6.5) K/uL Lymph # (Auto) 5.20 H (1.2-3.4) K/uL [place] # (Auto) 1.26 H (0.11-0.59) K/uL Eos # (Auto) 0.12 (0-0.5) K/uL Baso # (Auto) 0.02 (0-0.2) K/uL POC Sodium (135-144) mEq/L Sodium 140 (136-145) mmol/L POC Potassium (3.3-5.0) mEq/L Potassium 3.1 L (3.5-5.1) mmol/L POC Chloride (101-112) mEq/L Chloride 111 H (98-107) mmol/L Carbon Dioxide 23 (21-32) mmol/L POC Total CO2 (24-31) mEq/l Anion Gap 6.0 (3-11) POC Anion Gap (16-25) mmol/L POC BUN (7-18) mg/dl BUN 44 H (7-18) mg/dl Creatinine 2.58 H (0.6-1.4) mg/dl POC Creatinine (0.6-1.3) mg/dl Est Cr Clr Drug Dosing 37.9 ml/min Est GFR ( Amer) 29.0 Est GFR (Non-Af Amer) 25.0 BUN/Creatinine Ratio 16.9 (10-20) Glucose 185 H (70-99) mg/dl POC Glucose 201 H (70-99) POC Glucose (other) (70-99) mg/dl Calcium 9.2 (8.5-10.1) mg/dl POC Ioniz Calcium Maren (1.12-1.32) mmol/l Total Bilirubin 0.2 (0.2-1) mg/dl AST 17 (15-37) U/L ALT 20 (12-78) U/L Alkaline Phosphatase 81 (45-117) U/L Troponin I 0.033 (0-0.045) ng/ml Total Protein 6.4 (6.4-8.2) gm/dl Albumin 3.0 L (3.4-5.0) gm/dl Globulin 3.4 (2.5-4.0) gm/dl Albumin/Globulin Ratio 0.9 (0.9-2) Lipase 242 (73-393) U/L 07/14/19 Range/Units 06:11 WBC (4.8-10.8) K/uL RBC (4.7-6.1) M/uL Hgb (14.0-18.0) g/dL POC Hgb 12.2 L (14.0-18.0) g/dl Hct (42-52) % POC Hct 36 L (42-52) % MCV (80-100) fL MCH (25-34) pg MCHC (32-36) g/dL RDW Std Deviation (36.4-46.3) fL RDW Coeff of Mir (11.5-14.5) % Plt Count (130-400) K/uL MPV (7.4-10.4) fL Immature Gran % (Auto) % Neut % (Auto) % Lymph % (Auto) % [place] % (Auto) % Eos % (Auto) % Baso % (Auto) % Immature Gran # (Auto) (0.00-0.02) K/uL Neut # (Auto) (1.4-6.5) K/uL Lymph # (Auto) (1.2-3.4) K/uL [place] # (Auto) (0.11-0.59) K/uL Eos # (Auto) (0-0.5) K/uL Baso # (Auto) (0-0.2) K/uL POC Sodium 140 (135-144) mEq/L Sodium (136-145) mmol/L POC Potassium 3.0 L (3.3-5.0) mEq/L Potassium (3.5-5.1) mmol/L POC Chloride 109 (101-112) mEq/L Chloride (98-107) mmol/L Carbon Dioxide (21-32) mmol/L POC Total CO2 19 L (24-31) mEq/l Anion Gap (3-11) POC Anion Gap 16.0 (16-25) mmol/L POC BUN 38 H (7-18) mg/dl BUN (7-18) mg/dl Creatinine (0.6-1.4) mg/dl POC Creatinine 2.6 H (0.6-1.3) mg/dl Est Cr Clr Drug Dosing ml/min Est GFR ( Amer) Est GFR (Non-Af Amer) BUN/Creatinine Ratio (10-20) Glucose (70-99) mg/dl POC Glucose (70-99) POC Glucose (other) 188 H (70-99) mg/dl Calcium (8.5-10.1) mg/dl POC Ioniz Calcium Maren 1.23 (1.12-1.32) mmol/l Total Bilirubin (0.2-1) mg/dl AST (15-37) U/L ALT (12-78) U/L Alkaline Phosphatase (45-117) U/L Troponin I (0-0.045) ng/ml Total Protein (6.4-8.2) gm/dl Albumin (3.4-5.0) gm/dl Globulin (2.5-4.0) gm/dl Albumin/Globulin Ratio (0.9-2) Lipase (73-393) U/L Imaging Data My Impression: Portable AP upright 1 View No focal infiltrate Cephalization with a widen mediastinum. ECG Data Attestation: I personally reviewed and interpreted this ECG as follows: Indication: + chest pain Rate (beats per minute): 64 Rhythm: + sinus rhythm ECG ST segments: + ST depression, + ST elevation and + T-wave inversions (Inferior) ECG Findings: + Peaked T waves (Hyperacute T waves in V2 and V3) Additional Comments: T wave unchanged from old MDM Narrative Patient is a 64-year-old male who presents the ER for chest pain associated with shortness of breath rating to his right arm. Upon arrival he is ill-appearing and diaphoretic. IV was established blood work was obtained. EKG was initially concerning and consequently I contacted Dr. Daley from interventional cardiology. Patient was given IV fluids and oral aspirin. Systolic blood pressures were marginal at 100 and consequently he was not given any nitro. Patient was given several doses of IV fentanyl 25 mcg intermittently. Pain did improve. Chest x-ray with some CHF and a slightly enlarged mediastinum in comparison to old. Shortly after read as normal per radiology following my bedside ultrasound. Labs show a leukocytosis of 12,000. Mild anemia 12.5. BMP with mild hypokalemia 3.1 and a creatinine at 2.58 up from a baseline of about 1.7. LFTs were unremarkable. Troponin was detectable at 0.033 but not positive. Lipase was unremarkable. Bedside ultrasound showed no pericardial effusion. On reevaluation just under 10 minutes repeat EKG shows STEMI. STEMI alert was called. Patient was monitored closely and reassessed on multiple occ asions. Held on heparin drip and bolus as patient was taken emergently to the [facility] by interventional cardiology. Heart rate was in the low 60s and consequently held on Lopressor as well at this time. Pain did improve with the fentanyl as stated previously. Do not favor that this consistent with a dissection. Impression & Plan ST elevation myocardial infarction (STEMI), CHF (congestive heart failure), WERNER (acute kidney injury) Discharge Plan Visit Data *Final* Discharge Date/Time: 07/14/19 06:45 Chief Complaint: Chest Pain Stated Complaint: CHEST PAIN,PAIN UNDER ARM,NAUSEA ED Provider: Hair Kern Discharge Problem: ST elevation myocardial infarction (STEMI), CHF (congestive heart failure), WERNER (acute kidney injury) Patient Disposition: Admitted As Inpatient Discharge Instructions Interventions: ED Discharge Assessment Last Done: 07/14/19 06:40 Discharge Problem: ST elevation myocardial infarction (STEMI) Qualifiers: Involved coronary artery: unspecified coronary artery Qualified Code(s): I21.3 - ST elevation (STEMI) myocardial infarction of unspecified site CHF (congestive heart failure) Qualifiers: Heart failure type: unspecified Heart failure chronicity: unspecified Qualified Code(s): I50.9 - Heart failure, unspecified The scribe's documentation has been prepared under my direction and personally reviewed by me in its entirety. I confirm that the note above accurately reflects all work, treatment, procedures, and medical decision making performed by me.
[2019-07-14] MEDS ORDERED: EPTIFIBATIDE 0.75 MG/ML 75MG VIAL (CATH LAB USE ONLY) ONE (07:12)
[2019-07-14] MEDS ORDERED: DOBUTamine 500MG / 250ML D5W (CATH LAB USE ONLY) ONE (07:44)
[2019-07-14] MEDS ORDERED: TICAGRELOR 90 MG TAB PO ONE (08:25)
--- NOTE | 2019-07-14 08:36 | Post Anesthesia Assessment ---
Date of Service July 14, 2019 Post Sedation Assessment Vital Signs Temp Pulse Pulse Resp BP BP Pulse Ox 07/14/19 06:35 67 17 114/60 99 07/14/19 06:30 66 20 119/61 100 07/14/19 06:25 69 20 105/57 L 100 07/14/19 06:20 66 20 102/58 L 100 07/14/19 06:15 64 25 H 99/51 L 100 07/14/19 06:10 66 19 94/55 L 100 07/14/19 06:04 65 25 H 95/52 L 100 07/14/19 05:59 66 19 95/52 L 99 07/14/19 05:53 69 19 111/54 L 99 07/14/19 05:50 68 15 99 07/14/19 05:41 97.9 F 65 21 104/62 100 Discharge Sedation Level of Care: Higher Level of Care Post Sedation Plan On clinical assessment, the patient appears to have tolerated the sedation without complications. Patient is recovering as anticipated. Patient will continue to be monitored by nursing and may be discharged when sedation discharge criteria are met per below protocol. Upon Completions of procedure up to 15 minutes continue every 5 minute vital signs and the P.A.R. score; then discharge to a Phase I or Fast Track to Phase II per the following guidelines: * Discharge Patient to appropriate Phase II area if PAR is 8 or greater or return to pre- procedure baseline. The post - procedure orders will be as directed. * If PAR score is less than 8 or not return to pre-procedure baseline then patient will follow Phase I monitoring till PAR is reached for Phase II. The Phase I may be done in procedure room or may call to secure a Phase I area. * If naloxone or flumazenil are used for reversal, hold in Phase I for continued monitoring from when last reversal dose was given for a minimum of 60 minutes or longer pending the nurse and/or physician discretion of patient condition before discharge to Phase II. Please call the Sedation Physician to re-evaluate and complete post-note for discharge to Phase II area. Do NOT discharge from procedure sedation or Phase 1 until post- sedation evaluation note is complete by procedure /sedation MD Sedation Discharge Instructions to be given to the patient at discharge to home.
--- NOTE | 2019-07-14 09:01 | Critical Care Consultation ---
Date of Consultation July 14, 2019 History of Present Illness Attending Physician: Rickey Daley MD Allergies Allergy/AdvReac Type Severity Reaction Status Date / Time No Known Allergies Allergy Unverified 07/14/19 06:02 Home Medications Home Medications Medication Instructions Recorded Confirmed Type allopurinol 300 mg tablet 300 mg PO DAILY #90 tab 03/03/19 07/14/19 History coenzyme Q10 100 mg capsule 100 mg PO BID cap 03/03/19 07/14/19 History famotidine 10 mg tablet 10 mg PO DAILY 03/03/19 07/14/19 History felodipine 5 mg tablet,extended 5 mg PO DAILY 03/03/19 07/14/19 History release 24 hr flaxseed oil 1,000 mg capsule 1,000 mg PO DAILY cap 03/03/19 07/14/19 History glipizide 10 mg tablet 10 mg PO BID 03/03/19 07/14/19 History insulin glargine 100 unit/mL (3 20 units SUBCUT DAILY #6 ml 03/03/19 07/14/19 History mL) subcutaneous pen magnesium oxide 250 mg (as 250 mg PO BID tab 03/03/19 07/14/19 History magnesium oxide) tablet metoprolol succinate 50 mg 50 mg PO DAILY #90 tab 03/03/19 07/14/19 History tablet,extended release 24 hr multivitamin 1 tab PO DAILY 03/03/19 07/14/19 History mycophenolate mofetil 500 mg tablet See Rx Instructions PO BID tab 03/03/19 07/14/19 History prednisone 5 mg tablet 5 mg PO DAILY #90 tab 03/03/19 07/14/19 History tacrolimus 1 mg capsule 1 mg PO Q12H cap 03/03/19 07/14/19 History blood sugar diagnostic #10 ea 03/24/19 06/10/19 History blood sugar diagnostic #10 ea 03/24/19 06/10/19 History blood-glucose meter #1 ea 03/24/19 06/10/19 History lancets #50 ea 03/24/19 06/10/19 History lancets 30 gauge #25 ea 03/24/19 06/10/19 History pen needle, diabetic 32 gauge x #10 ea 03/24/19 06/10/19 History 5/32" pravastatin 20 mg tablet 20 mg PO DAILY #90 tab 06/10/19 07/14/19 Rx pioglitazone 15 mg tablet 30 mg PO .COMPLEX #60 tab 06/20/19 07/14/19 Rx Patient History Medical History Diverticulosis (Acute) Gout, joint (Acute) Hypercholesterolemia (Acute) Myalgia (Acute) Polycystic kidney (Acute) Renal insufficiency (Acute) Surgical History Renal transplant recipient (Acute) Social History Feels Safe at Home: Yes Smoking Status: Never smoker Results & Data Vital Signs (Past 12 Hours) Vital Signs Temp Pulse Pulse Resp BP BP Pulse Ox 07/14/19 06:35 67 17 114/60 99 07/14/19 06:30 66 20 119/61 100 07/14/19 06:25 69 20 105/57 L 100 07/14/19 06:20 66 20 102/58 L 100 07/14/19 06:15 64 25 H 99/51 L 100 07/14/19 06:10 66 19 94/55 L 100 07/14/19 06:04 65 25 H 95/52 L 100 07/14/19 05:59 66 19 95/52 L 99 07/14/19 05:53 69 19 111/54 L 99 07/14/19 05:50 68 15 99 07/14/19 05:41 36.6 C 65 21 104/62 100 Laboratory Results 07/14/19 07/14/19 07/14/19 Range/Units 06:11 05:46 05:45 WBC 12.02 H (4.8-10.8) K/uL RBC 3.90 L (4.7-6.1) M/uL Hgb 12.5 L (14.0-18.0) g/dL POC Hgb 12.2 L (14.0-18.0) g/dl Hct 38.6 L (42-52) % POC Hct 36 L (42-52) % MCV 99.0 (80-100) fL MCH 32.1 (25-34) pg MCHC 32.4 (32-36) g/dL RDW Std Deviation 50.0 H (36.4-46.3) fL RDW Coeff of Mir 14.0 (11.5-14.5) % Plt Count 236 (130-400) K/uL MPV 9.9 (7.4-10.4) fL Immature Gran % (Auto) 0.2 % Neut % (Auto) 44.8 % Lymph % (Auto) 43.3 % [place] % (Auto) 10.5 % Eos % (Auto) 1.0 % Baso % (Auto) 0.2 % Immature Gran # (Auto) 0.03 H (0.00-0.02) K/uL Neut # (Auto) 5.39 (1.4-6.5) K/uL Lymph # (Auto) 5.20 H (1.2-3.4) K/uL [place] # (Auto) 1.26 H (0.11-0.59) K/uL Eos # (Auto) 0.12 (0-0.5) K/uL Baso # (Auto) 0.02 (0-0.2) K/uL Blood Smear Review POC Sodium 140 (135-144) mEq/L Sodium 140 (136-145) mmol/L POC Potassium 3.0 L (3.3-5.0) mEq/L Potassium 3.1 L (3.5-5.1) mmol/L POC Chloride 109 (101-112) mEq/L Chloride 111 H (98-107) mmol/L Carbon Dioxide 23 (21-32) mmol/L POC Total CO2 19 L (24-31) mEq/l Anion Gap 6.0 (3-11) POC Anion Gap 16.0 (16-25) mmol/L POC BUN 38 H (7-18) mg/dl BUN 44 H (7-18) mg/dl Creatinine 2.58 H (0.6-1.4) mg/dl POC Creatinine 2.6 H (0.6-1.3) mg/dl Est Cr Clr Drug Dosing 37.9 ml/min Est GFR ( Amer) 29.0 Est GFR (Non-Af Amer) 25.0 BUN/Creatinine Ratio 16.9 (10-20) Glucose 185 H (70-99) mg/dl POC Glucose (70-99) POC Glucose (other) 188 H (70-99) mg/dl Calcium 9.2 (8.5-10.1) mg/dl POC Ioniz Calcium Maren 1.23 (1.12-1.32) mmol/l Total Bilirubin 0.2 (0.2-1) mg/dl AST 17 (15-37) U/L ALT 20 (12-78) U/L Alkaline Phosphatase 81 (45-117) U/L Troponin I 0.033 (0-0.045) ng/ml Total Protein 6.4 (6.4-8.2) gm/dl Albumin 3.0 L (3.4-5.0) gm/dl Globulin 3.4 (2.5-4.0) gm/dl Albumin/Globulin Ratio 0.9 (0.9-2) Lipase 242 (73-393) U/L 07/14/19 Range/Units 05:43 WBC (4.8-10.8) K/uL RBC (4.7-6.1) M/uL Hgb (14.0-18.0) g/dL POC Hgb (14.0-18.0) g/dl Hct (42-52) % POC Hct (42-52) % MCV (80-100) fL MCH (25-34) pg MCHC (32-36) g/dL RDW Std Deviation (36.4-46.3) fL RDW Coeff of Mir (11.5-14.5) % Plt Count (130-400) K/uL MPV (7.4-10.4) fL Immature Gran % (Auto) % Neut % (Auto) % Lymph % (Auto) % [place] % (Auto) % Eos % (Auto) % Baso % (Auto) % Immature Gran # (Auto) (0.00-0.02) K/uL Neut # (Auto) (1.4-6.5) K/uL Lymph # (Auto) (1.2-3.4) K/uL [place] # (Auto) (0.11-0.59) K/uL Eos # (Auto) (0-0.5) K/uL Baso # (Auto) (0-0.2) K/uL Blood Smear Review POC Sodium (135-144) mEq/L Sodium (136-145) mmol/L POC Potassium (3.3-5.0) mEq/L Potassium (3.5-5.1) mmol/L POC Chloride (101-112) mEq/L Chloride (98-107) mmol/L Carbon Dioxide (21-32) mmol/L POC Total CO2 (24-31) mEq/l Anion Gap (3-11) POC Anion Gap (16-25) mmol/L POC BUN (7-18) mg/dl BUN (7-18) mg/dl Creatinine (0.6-1.4) mg/dl POC Creatinine (0.6-1.3) mg/dl Est Cr Clr Drug Dosing ml/min Est GFR ( Amer) Est GFR (Non-Af Amer) BUN/Creatinine Ratio (10-20) Glucose (70-99) mg/dl POC Glucose 201 H (70-99) POC Glucose (other) (70-99) mg/dl Calcium (8.5-10.1) mg/dl POC Ioniz Calcium Maren (1.12-1.32) mmol/l Total Bilirubin (0.2-1) mg/dl AST (15-37) U/L ALT (12-78) U/L Alkaline Phosphatase (45-117) U/L Troponin I (0-0.045) ng/ml Total Protein (6.4-8.2) gm/dl Albumin (3.4-5.0) gm/dl Globulin (2.5-4.0) gm/dl Albumin/Globulin Ratio (0.9-2) Lipase (73-393) U/L
--- NOTE | 2019-07-14 09:05 | Cardiac Catheterization ---
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 Cardiac Status Clinical evaluation leading to the procedure CAD Presenation: STEMI Anginal Classification: CCS IV Heart Failure: No Cardiogenic Shock within 24 Hours: No Cardiac Arrest within 24 Hours: No Imaging Studies Past 6 Months: No Stress Studies Past 6 Months: No Diagnostic Physicians Name: Rickey Daley MD Status: Emergency Closure Device Percutaneous Entry Location: Radial Closure Device: Radial Band Recommendations: PCI without planned CABG PCI Indication: Immediate PCI for STEMI Lesion Segment Name: proximal LAD Culprit Artery: Yes Stenosis Prior to Rx (%): 100 Chronic Total Occlusion: No IVUS: No FFR: No Pre-Procedure CLARE Flow: 0 Previously Treated Lesion: No Lesion Complexity: Non-High/Non-C Lesion Length (mm): 15 Thrombus Present: Yes Bifurcation Lesion: No Guidewire Across Lesion: Stenosis Post-Procedure (%): 0 Post-Procedure CLARE Flow: 3 Devices(s) Deployed: Yes Yes Intraprocedure Events Significant Disection: No Perforation: No Cardiac Cath Procedure Full Procedure Date July 14, 2019 Pre-Procedure Diagnosis Pre-Procedure Diagnosis: STEMI AUC Score AUC Score: 9 Post-Procedure Diagnosis Post-Procedure Diagnosis: Severe CAD, Successful PCI, Decreased LV Systolic Function and Elevated Intracardiac Pressures Procedure(s) Performed Procedure(s) Performed: Coronary Angiography, Left Heart Cath, Right Heart Cath, Drug Eluting Stent and Ultrasound Guided Vascular Access Toe Stripper Rickey Daley MD Language Therapist(s) Angel Estimated Blood Loss Estimated Blood Loss: 15 Medication(s) Medication(s): Atropine, Fentanyl, Heparin, Integrilin, Lidocaine 1%, Nicardipine, Nitroglycerin and Versed Medication(s): Norepinephrine, dobutamine Summary of Findings Indication: STEMI/Heart Alert Access: 6 Fr right radial artery Catheters: EBU 3.5 guide Findings: LM -medium caliber, luminal irregularities LAD -acute 100% proximal occlusion Circumflex -medium caliber vessel, luminal irregularities RCA -large caliber vessel, dominant, distal luminal regularities. Large PDA, PLB without significant disease -- PCI -- Antithrombotic therapy: Heparin, Integrilin, ticagrelor Procedure: Left main cannulated with EBU 3.5 guide BMW wire passed across lesion into distal vessel Proximal LAD lesion predilated with 2.5 compliant balloon Dilated lesion stented with 3.5 x 23 Xience Amy drug-eluting stent Slow flow with possible thrombus in distal LAD and started on Integrilin Stent post-dilated with 3.5 noncompliant balloon Post procedure CLARE 3 flow, stent well expanded with minimal residual stenosis. Intraprocedure patient hypotensive requiring norepinephrine, IV fluids Bradycardic with high degree AV block Hypoxic with O2 sats in the high 80s on 10 to 15 L O2 nonrebreather Started on dobutamine with improved HRs, Pa Sat Post procedure right heart catheterization RA 7 RV 54/7 PA 55/21 (33) LV 23 Initial on 10 L PaSat 34% AoSat 80% On 15 L, 10 dobutamine PaSat 49% Arterial Closure: TR band Summary: 1. Anterior STEMI/100% proximal LAD occlusion 2. Minimal non-culprit vessel coronary artery disease 3. Cardiogenic shock 4. High degree AV block 5. Successful PCI of proximal LAD with single drug-eluting stent (3.5 x 23 mm Xience Amy). Recommendations: Discussed with critical care and [facility] information technology security analyst. In the setting of cardiogenic shock, chronic kidney disease post kidney transplant will plan to transfer to [facility] for additional monitoring potential need for additional hemodynamic support. 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 Any exceptions are noted below. [facility] Card Cath Procedure Codes Cardiac Catheterization Procedure 1: Cardiovascular Cath Procedures: 07301 Coronaries & LHC (+/-LV) & RHC Therapeutic Services & Ancillary Proc Procedure 1: Cardiovascular Tx and Anc Procedures: 40567 Ultrasonic Guidance Vascular Access Moderate Sedation Procedure 1: Sedation/Anesthesia: 39763 Mod Sedation by the same physician;Init15 Min Child Age 5 & Up Procedure 2: Sedation/Anesthesia: 75235 Mod Sedation by the same physician; Ea [id number] Minutes Stenting Procedure 1: Cardiovascular Stent Procedures: 13040 Perc transluminal revascularization of acute sub/total occl, aMI PG Care Time/CCT Total # of Minutes Spent Total Time Spent with Patient: Total time spent is greater than 50% in coordination of care (as documented) at patient's floor/unit and/or counseling patient:
[2019-07-14] MEDS ORDERED: ONDANSETRON INJ 2 MG/ML 2 ML VIAL IV PRN (09:13)
[2019-07-14] MEDS ORDERED: SODIUM CHLORIDE 0.9% 1000ML 1,000 ML IV SCH (09:15)
[2019-07-14] MEDS ORDERED: NITROGLYCERIN/D5W 100MCG/ML 250 ML IV SCH ×2 (09:17→09:45)
[2019-07-14] MEDS ORDERED: fentaNYL citrate 100 MCG/2 ML VIAL IV PRN (09:17)
[2019-07-14] MEDS ORDERED: DOBUTamine / D5W 500 MG/250 ML BAG IV SCH (09:17)
[2019-07-14] MEDS ORDERED: NITROGLYCERIN/D5W 100 MCG/ML BTL ONE (09:25)
--- NOTE | 2019-07-14 09:27 | Critical Care Consultation ---
Date of Consultation July 14, 2019 Assessment & Plan (1) Admitted to intensive care unit: (2) WERNER (acute kidney injury): (3) CHF (congestive heart failure): (4) ST elevation myocardial infarction (STEMI): (5) Hypercholesterolemia: (6) Myalgia: (7) Polycystic kidney: (8) Renal insufficiency: (9) Renal transplant recipient: (10) Type 2 diabetes mellitus: (11) Fatigue: (12) Fever: History of Present Illness Attending Physician: Rickey Daley MD Allergies Allergy/AdvReac Type Severity Reaction Status Date / Time No Known Allergies Allergy Unverified 07/14/19 06:02 Home Medications Home Medications Medication Instructions Recorded Confirmed Type allopurinol 300 mg tablet 300 mg PO DAILY #90 tab 03/03/19 07/14/19 History coenzyme Q10 100 mg capsule 100 mg PO BID cap 03/03/19 07/14/19 History famotidine 10 mg tablet 10 mg PO DAILY 03/03/19 07/14/19 History felodipine 5 mg tablet,extended 5 mg PO DAILY 03/03/19 07/14/19 History release 24 hr flaxseed oil 1,000 mg capsule 1,000 mg PO DAILY cap 03/03/19 07/14/19 History glipizide 10 mg tablet 10 mg PO BID 03/03/19 07/14/19 History insulin glargine 100 unit/mL (3 20 units SUBCUT DAILY #6 ml 03/03/19 07/14/19 History mL) subcutaneous pen magnesium oxide 250 mg (as 250 mg PO BID tab 03/03/19 07/14/19 History magnesium oxide) tablet metoprolol succinate 50 mg 50 mg PO DAILY #90 tab 03/03/19 07/14/19 History tablet,extended release 24 hr multivitamin 1 tab PO DAILY 03/03/19 07/14/19 History mycophenolate mofetil 500 mg tablet See Rx Instructions PO BID tab 03/03/19 07/14/19 History prednisone 5 mg tablet 5 mg PO DAILY #90 tab 03/03/19 07/14/19 History tacrolimus 1 mg capsule 1 mg PO Q12H cap 03/03/19 07/14/19 History blood sugar diagnostic #10 ea 03/24/19 06/10/19 History blood sugar diagnostic #10 ea 03/24/19 06/10/19 History blood-glucose meter #1 ea 03/24/19 06/10/19 History lancets #50 ea 03/24/19 06/10/19 History lancets 30 gauge #25 ea 03/24/19 06/10/19 History pen needle, diabetic 32 gauge x #10 ea 03/24/19 06/10/19 History 5/32" pravastatin 20 mg tablet 20 mg PO DAILY #90 tab 06/10/19 07/14/19 Rx pioglitazone 15 mg tablet 30 mg PO .COMPLEX #60 tab 06/20/19 07/14/19 Rx Patient History Medical History Diverticulosis (Acute) Gout, joint (Acute) Hypercholesterolemia (Acute) Myalgia (Acute) Polycystic kidney (Acute) Renal insufficiency (Acute) Surgical History Renal transplant recipient (Acute) Social History Feels Safe at Home: Yes Smoking Status: Never smoker Results & Data Vital Signs (Past 12 Hours) Vital Signs Temp Pulse Pulse Resp BP BP Pulse Ox 07/14/19 09:01 73 12 199/86 H 94 07/14/19 09:00 77 9 L 93 07/14/19 08:56 89 13 198/76 H 94 07/14/19 08:52 96 H 23 196/85 H 95 07/14/19 08:50 103 H 25 H 92 07/14/19 08:46 101 H 19 198/77 H 95 07/14/19 08:45 98 H 18 95 07/14/19 06:35 67 17 114/60 99 07/14/19 06:30 66 20 119/61 100 07/14/19 06:25 69 20 105/57 L 100 07/14/19 06:20 66 20 102/58 L 100 07/14/19 06:15 64 25 H 99/51 L 100 07/14/19 06:10 66 19 94/55 L 100 07/14/19 06:04 65 25 H 95/52 L 100 07/14/19 05:59 66 19 95/52 L 99 07/14/19 05:53 69 19 111/54 L 99 07/14/19 05:50 68 15 99 07/14/19 05:41 36.6 C 65 21 104/62 100 (1) CHF (congestive heart failure) Heart failure chronicity: unspecified Heart failure type: unspecified Qualified Code(s): I50.9 - Heart failure, unspecified (2) ST elevation myocardial infarction (STEMI) Involved coronary artery: unspecified coronary artery Qualified Code(s): I21.3 - ST elevation (STEMI) myocardial infarction of unspecified site
[2019-07-14] MEDS ORDERED: ONDANSETRON INJ 2 MG/ML 2 ML VIAL ONE (09:29)
[2019-07-14] MEDS ORDERED: DOBUTamine / D5W 500 MG/250 ML BAG IV PRN (09:45)
--- NOTE | 2019-07-14 15:38 | Critical Care Consultation ---
Date of Consultation July 14, 2019 History of Present Illness Attending Physician: Rickey Daley MD History of Present Illness Attending: Dr. Avendaño Is a 64-year-old male that was brought over to the intensive care pending transfer. He was in the cardiac catheterization lab and it was decided that the patient to be transferred to a tertiary care facility. Patient was admitted but was not seen by the intensive care staff. No orders were placed on this patient by critical care staff Patient was not examined by critical care staff prior to transfer emergently via helicopter Please do not charge for a consult for the patient as no critical care services were provided. Allergies Allergy/AdvReac Type Severity Reaction Status Date / Time No Known Allergies Allergy Unverified 07/14/19 06:02 Home Medications Home Medications Medication Instructions Recorded Confirmed Type allopurinol 300 mg tablet 300 mg PO DAILY #90 tab 03/03/19 07/14/19 History coenzyme Q10 100 mg capsule 100 mg PO BID cap 03/03/19 07/14/19 History famotidine 10 mg tablet 10 mg PO DAILY 03/03/19 07/14/19 History felodipine 5 mg tablet,extended 5 mg PO DAILY 03/03/19 07/14/19 History release 24 hr flaxseed oil 1,000 mg capsule 1,000 mg PO DAILY cap 03/03/19 07/14/19 History glipizide 10 mg tablet 10 mg PO BID 03/03/19 07/14/19 History insulin glargine 100 unit/mL (3 20 units SUBCUT DAILY #6 ml 03/03/19 07/14/19 History mL) subcutaneous pen magnesium oxide 250 mg (as 250 mg PO BID tab 03/03/19 07/14/19 History magnesium oxide) tablet metoprolol succinate 50 mg 50 mg PO DAILY #90 tab 03/03/19 07/14/19 History tablet,extended release 24 hr multivitamin 1 tab PO DAILY 03/03/19 07/14/19 History mycophenolate mofetil 500 mg tablet See Rx Instructions PO BID tab 03/03/19 07/14/19 History prednisone 5 mg tablet 5 mg PO DAILY #90 tab 03/03/19 07/14/19 History tacrolimus 1 mg capsule 1 mg PO Q12H cap 03/03/19 07/14/19 History blood sugar diagnostic #10 ea 03/24/19 06/10/19 History blood sugar diagnostic #10 ea 03/24/19 06/10/19 History blood-glucose meter #1 ea 03/24/19 06/10/19 History lancets #50 ea 03/24/19 06/10/19 History lancets 30 gauge #25 ea 03/24/19 06/10/19 History pen needle, diabetic 32 gauge x #10 ea 03/24/19 06/10/19 History 5/32" pravastatin 20 mg tablet 20 mg PO DAILY #90 tab 06/10/19 07/14/19 Rx pioglitazone 15 mg tablet 30 mg PO .COMPLEX #60 tab 06/20/19 07/14/19 Rx Patient History Medical History Diverticulosis (Acute) Gout, joint (Acute) Hypercholesterolemia (Acute) Myalgia (Acute) Polycystic kidney (Acute) Renal insufficiency (Acute) Surgical History Renal transplant recipient (Acute) Social History Feels Safe at Home: Yes Smoking Status: Never smoker Results & Data Vital Signs (Past 12 Hours) Vital Signs Temp Pulse Pulse Resp BP BP Pulse Ox 07/14/19 09:37 205/87 H 96 07/14/19 09:31 100 H 12 205/87 H 94 07/14/19 09:30 99 H 15 98 07/14/19 09:26 103 H 20 210/79 H 95 07/14/19 09:21 91 H 16 193/90 H 97 07/14/19 09:20 95 H 17 96 07/14/19 09:17 96 H 23 188/84 H 96 07/14/19 09:12 88 19 148/85 H 96 07/14/19 09:10 87 19 96 07/14/19 09:07 89 15 180/82 H 95 07/14/19 09:01 73 12 199/86 H 94 07/14/19 09:00 77 9 L 93 07/14/19 08:56 89 13 198/76 H 94 07/14/19 08:52 96 H 23 196/85 H 95 07/14/19 08:50 103 H 25 H 92 07/14/19 08:46 101 H 19 198/77 H 95 07/14/19 08:45 98 H 18 95 07/14/19 06:35 67 17 114/60 99 07/14/19 06:30 66 20 119/61 100 07/14/19 06:25 69 20 105/57 L 100 07/14/19 06:20 66 20 102/58 L 100 07/14/19 06:15 64 25 H 99/51 L 100 07/14/19 06:10 66 19 94/55 L 100 07/14/19 06:04 65 25 H 95/52 L 100 07/14/19 05:59 66 19 95/52 L 99 07/14/19 05:53 69 19 111/54 L 99 07/14/19 05:50 68 15 99 07/14/19 05:41 36.6 C 65 21 104/62 100 Coding Level of Care Code None Comment Patient transferred emergently by helicopter before being seen by critical care staff.
[2019-07-14] MEDS ORDERED: TICAGRELOR 90 MG TAB PO SCH (21:00)
[2019-07-15] MEDS ORDERED: ASPIRIN 81 MG ECTAB PO SCH (09:00)
--- NOTE | 2019-07-16 17:50 | Discharge Summary ---
Date of Service July 16, 2019 Admission HPI Per Admitting Provider 64-year-old man here with acute chest pain and ECG concerning for acute MO. Patient seen emergently in the ED after heart alert activated after second EKG. No prior cardiac history. Patient has a history of polycystic kidney disease post renal transplant in the followed by Dr. Eugene. History of steroid- induced insulin-dependent diabetes, hypertension, osteoarthritis. Chest pain began approximately 90 minutes prior to arrival while in bed. No prior similar pain in the past. Chest pain at time of arrival 04/12. Hemodynamically stable. Subsequent EKG showed anterior ST elevations with inferior ST depressions. Discharge Data Consultations 07/14/19 06:14 ED Decision to Admit Stat 07/14/19 06:20 ED Decision to Admit Stat 07/14/19 08:54 Consult Is/It Project Manager Routine Procedures Performed Operation Date: 07/14/19 06:00 Actual Procedures s Cineradiography w/Routine Exam - Jeronimo Daley MD p Cath, Right and Left Heart - Jeronimo Daley MD p Aspiration/PCI w/ALEXUS for Stemi - Jeronimo Daley MD s Ins/RemTemporary Transvenous Pacer - Jeronimo Daley MD s Ultrasound Vascular Access(Not Applicable) - Jeronimo Daley MD Hospital Course (1) ST elevation myocardial infarction (STEMI): Emergent cardiac cath revealed a proximal LAD occlusion treated with 1 ALEXUS. Intraprocedure patient hypotensive requiring norepinephrine/IV fluids, bradycardic with high degree AV block, and hypoxic with O2 sats in the high 80s on 10 to 15 L O2 nonrebreather. Started on dobutamine with improved HRs, Pa Sat. Discussed with critical care and [facility] graphic designer. In the setting of cardiogenic shock, chronic kidney disease post kidney transplant decision made to transfer to [facility] for additional monitoring potential need for hemodynamic support or ELECTRON MICROSCOPIST. Patient monitored briefly in ICU. Norepinephrine weaned off and was actually hypertensive to 180s. Dobutamine reduced and nitro drip started. Transferred to [facility] via air.
[2019-07-18 07:45] LABS: iSTAT Arterial Blood Gas HCO3 16 meg/L (19-24); iSTAT Arterial Blood Gas pCO2 30 mmHg (35-46); iSTAT Arterial Blood Gas pH 7.33 (7.35-7.45); iSTAT Arterial Blood Gas pO2 46 mmHg (80-95); iSTAT Carbon Dioxide 16 mEq/l (24-31)
[2019-07-18 07:45] LABS: iSTAT Arterial Blood Gas HCO3 18 meg/L (19-24); iSTAT Arterial Blood Gas pCO2 35 mmHg (35-46); iSTAT Arterial Blood Gas pH 7.32 (7.35-7.45); iSTAT Arterial Blood Gas pO2 < 32 mmHg (80-95); iSTAT Carbon Dioxide 19 mEq/l (24-31)
== END 2019-07-14 10:07 | disposition short-term general hospital (02) | DRG 229 ==
LOC: ED 05:35 → CC 06:45 → 1E 08:53

== ENCOUNTER 2021-01-31 07:56 | Inpatient (IN) ==
[2021-01-31] MEDS ORDERED: SODIUM CHLORIDE 0.9% 1000ML 1,000 ML IV SCH (08:15)
--- NOTE | 2021-01-31 08:15 | Emergency Department Note ---
History of Present Illness General Chief complaint: Illness Stated complaint: WEAKNESS, ILLNESS Time Seen by Provider: 01/31/21 07:58 Source: patient Mode of arrival: ambulatory Limitations: no limitations History of Present Illness Provider complaint: weakness, dizziness, chills Onset (ago): day(s) 2 Associated symptoms: + fever/chills, + loss of appetite, + malaise and + weakness; no nausea/vomiting and no shortness of breath Treatments prior to arrival: other This is a 66-year-old male presents the emergency department due to weakness and dizziness. Patient states 2 days ago he began noting weakness and dizziness, and shortly after that began having subjective fevers and chills. He denies any known sick contact. Denies any change in his medications. He denies chest pain, abdominal pain, cough, shortness of breath, headaches, nausea or vomiting. Patient had one episode of diarrhea, nonbloody. Patient is a former transplant patient, of about 24 years. No issues since the transplant, he no longer needs dialysis. He denies leg swelling, rashes or sores. EMS reports mildly low glucose in the low 70s initially, so he was given 1 tube of oral glucose, repeat check by the director of home care hospice was 99. Patient also noted to be mildly hypoxic at 89 to 90% on room air on BLS arrival, he was placed on 2 L via nasal cannula and had improvement of 97%. Patient does still follow with [facility] transplant doctors. Pt seen during a time of high acuity and national emergency pandemic while we aring PPE. Home Medications Medication Instructions Recorded Confirmed Type coenzyme Q10 100 mg capsule 100 mg PO BID cap 03/03/19 01/31/21 History famotidine 10 mg tablet 10 mg PO QAM 03/03/19 01/31/21 History flaxseed oil 1,000 mg capsule 1,000 mg PO QAM cap 03/03/19 01/31/21 History magnesium oxide 250 mg PO BID tab 03/03/19 01/31/21 History multivitamin 1 tab PO QAM 03/03/19 01/31/21 History prednisone 5 mg tablet 5 mg PO QAM #90 tab 03/03/19 01/31/21 History blood-glucose meter #1 ea 03/24/19 01/03/21 History atorvastatin 40 mg tablet 40 mg PO PM 09/13/19 01/31/21 History carvedilol 12.5 mg tablet 6.25 mg PO BID tab 05/07/20 01/31/21 History pen needle, diabetic 32 gauge x #90 ea 09/26/20 01/03/21 Rx 5/32" glipizide 10 mg tablet 10 mg PO BID #90 tab 11/30/20 01/31/21 Rx lancets #4 box 12/06/20 01/03/21 Rx blood sugar diagnostic #4 box 12/25/20 01/03/21 Rx tacrolimus 0.5 mg capsule, 0.5 mg PO Q12H cap 01/24/21 01/31/21 History immediate-release acetaminophen [Tylenol Extra 500 mg PO Q6H PRN 01/31/21 01/31/21 History Strength] allopurinol 300 mg PO PM 01/31/21 01/31/21 History amoxicillin 500 mg PO ONCE 01/31/21 01/31/21 History furosemide [Lasix] 40 mg PO QAM 01/31/21 01/31/21 History insulin glargine [Basaglar KwikPen 20 unit SUBCUT PM 01/31/21 01/31/21 History U-100 Insulin] losartan 50 mg PO QAM 01/31/21 01/31/21 History mycophenolate mofetil 250 mg PO BID 01/31/21 01/31/21 History Allergies Allergy/AdvReac Type Severity Reaction Status Date / Time No Known Allergies Allergy Verified 01/31/21 09:55 Past Med/Surg History Medical History Diverticulosis Gout, joint Hypercholesterolemia Myalgia Myocardial Infarction Polycystic kidney Renal insufficiency Surgical History History of heart artery stent Renal transplant recipient Social History (Updated 01/31/21 @ 15:50 by Larry Stokes MD) Smoking Status: Never smoker Hx Alcohol Use: No Hx Substance Use: No Preferred Language: Syriac Communication Ability: Effective Envelope Maker Required: No Beliefs That Will Affect Care: None Current Living Situation: Spouse 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 and A total of 10 systems reviewed and were otherwise negative Physical Exam Vital Signs Vital Signs - 24 hr 01/31/21 08:00 01/31/21 08:04 01/31/21 08:09 Temperature 37.9 C H Temperature Source Oral Pulse Rate 94 H 93 H Pulse Rate [Apical] Pulse Rate from SpO2 Sensor 93 H Pulse Rhythm Regular Pulse Rhythm [Apical] Pulse Strength Normal Respiratory Rate 24 33 H Respiratory Effort / Characteristics Non-Labored Spontaneous Respiratory Depth Normal Respiratory Pattern Regular Blood Pressure 144/65 H 144/65 H Blood Pressure [Right Arm] Blood Pressure Mean 91 91 Blood Pressure Mean [Right Arm] Blood Pressure Position Lying Blood Pressure Position [Right Arm] Pulse Oximetry 93 93 93 Oxygen Delivery Method Room Air Room Air Room Air Oxygen Flow Rate Sepsis Recent Fever Within 48 Hours Yes Sepsis New/Unexplained Change in Mental Status No Sepsis Action Taken by Nursing No Action Required 01/31/21 08:30 01/31/21 09:00 01/31/21 09:30 Temperature Temperature Source Pulse Rate 90 90 94 H Pulse Rate [Apical] Pulse Rate from SpO2 Sensor 90 88 94 H Pulse Rhythm Pulse Rhythm [Apical] Pulse Strength Respiratory Rate 32 H 26 H 27 H Respiratory Effort / Characteristics Respiratory Depth Respiratory Pattern Blood Pressure 149/58 H 133/57 L 150/61 H Blood Pressure [Right Arm] Blood Pressure Mean 88 82 90 Blood Pressure Mean [Right Arm] Blood Pressure Position Blood Pressure Position [Right Arm] Pulse Oximetry 93 90 94 Oxygen Delivery Method Room Air Room Air Room Air Oxygen Flow Rate Sepsis Recent Fever Within 48 Hours Sepsis New/Unexplained Change in Mental Status Sepsis Action Taken by Nursing 01/31/21 11:00 Temperature 37.2 C Temperature Source Oral Pulse Rate Pulse Rate [Apical] 86 Pulse Rate from SpO2 Sensor Pulse Rhythm Pulse Rhythm [Apical] Regular Pulse Strength Respiratory Rate 14 Respiratory Effort / Characteristics Non-Labored Respiratory Depth Normal Respiratory Pattern Blood Pressure Blood Pressure [Right Arm] 101/47 L Blood Pressure Mean Blood Pressure Mean [Right Arm] 65 Blood Pressure Position Blood Pressure Position [Right Arm] Lying Pulse Oximetry 92 Oxygen Delivery Method Nasal Cannula Oxygen Flow Rate 2 Sepsis Recent Fever Within 48 Hours Sepsis New/Unexplained Change in Mental Status Sepsis Action Taken by Nursing GENERAL: alert, unwell appearing, well nourished, no distress, non-toxic, shivering EYE EXAM: normal conjunctiva, PERRL and EOM's grossly intact OROPHARYNX: no exudate, no erythema, lips, buccal mucosa, and tongue normal and mucous membranes are moist NECK: supple, no nuchal rigidity, no adenopathy, non-tender LUNGS: Clear to auscultation. Normal chest wall mechanics, no w/r/r HEART: no murmurs, S1 normal and S2 normal ABDOMEN: abdomen soft, non-tender, normo-active bowel sounds, no masses, no rebound or guarding. BACK: Back is symmetrical on inspection and there is no deformity, no midline tenderness, no CVA tenderness. SKIN: no rashes and no bruising UPPER EXTREMITIES: upper extremities are grossly normal. FROM, nml pulses b/l. Fistula noted to left forearm. LOWER EXTREMITIES: No pitting edema. FROM, nml pulses b/l. NEURO EXAM: Normal sensorium, cranial nerves II-XII grossly intact, normal speech, no gross weakness of arms, no gross weakness of legs. Gross sensation intact. Course Course 901: Discussed with pt's at bedside. She states pt began having diarrhea Thursday night after eating clams from [place]. She states they both had salmon and she did not get sick however she states she did not have any other clams as he did. She states he has had numerous episodes of explosive diarrhea over the last several days. She has not noted any blood. She states with this he has become weaker and more washed out. She states they were attempting to keep him hydrated despite not having an appetite. Administered Medications Lactated Ringer's (Lr) 1,000 mls @ 100 mls/hr IV .Q10H ZOEY Stop: 03/02/21 13:19 Last Admin: 01/31/21 14:04 Dose: 100 mls/hr Documented by: [id number] Discontinued Medications Sodium Chloride (Nss 1000ml) 1,000 mls @ 125 mls/hr IV .Q8H ZOEY Stop: 03/02/21 08:14 Last Admin: 01/31/21 08:42 Dose: 125 mls/hr Documented by: [id number] Cefepime HCl (Maxipime) 2,000 mg in 20 mls @ 5 mls/min IV NOW STA Stop: 01/31/21 08:56 Last Admin: 01/31/21 09:24 Dose: 5 mls/min Documented by: [id number] Acetaminophen (Ofirmev) 1,000 mg in 100 mls @ 400 mls/hr IV NOW STA Stop: 01/31/21 09:08 Last Infusion: 01/31/21 09:51 Dose: 0 mls/hr Documented by: [id number] Admin: 01/31/21 09:27 Dose: 400 mls/hr Documented by: [id number] Medical Decision Making Differential Diagnosis Differential diagnosis: Etiologies such as viral syndrome, otitis, pharyngitis, pneumonia, influenza, meningitis, urinary tract infection, sepsis, bacteremia, as well as others were entertained. Medical Records Attestation: I reviewed the patient's medical records. Home Medications Current Medication List: was personally reviewed by me Laboratory Data Attestation: I reviewed the patient's lab results. Result diagrams: 01/31/21 08:18 01/31/21 08:18 Lab Results 01/31/21 01/31/21 01/31/21 Range/Units 08:18 08:18 08:18 WBC 5.68 (4.8-10.8) K/uL RBC 2.92 L (4.7-6.1) M/uL Hgb 9.4 L (14.0-18.0) g/dL Hct 29.0 L (42-52) % MCV 99.3 (80-100) fL MCH 32.2 (25-34) pg MCHC 32.4 (32-36) g/dL RDW Std Deviation 49.7 H (36.4-46.3) fL RDW Coeff of Mir 13.8 (11.5-14.5) % Plt Count 110 L (130-400) K/uL MPV 12.6 H (7.4-10.4) fL Immature Gran % (Auto) 0.2 % Neut % (Auto) 92.9 % Lymph % (Auto) 3.9 % [place] % (Auto) 3.0 % Eos % (Auto) 0.0 % Baso % (Auto) 0.0 % Neut # (Auto) 5.28 (1.4-6.5) K/uL Lymph # (Auto) 0.22 L (1.2-3.4) K/uL [place] # (Auto) 0.17 (0.11-0.59) K/uL Eos # (Auto) 0.00 (0-0.5) K/uL Baso # (Auto) 0.00 (0-0.2) K/uL Immature Gran # (Auto) 0.01 (0.00-0.02) K/uL Toxic Vacuolation 1+ Acanthocytes (Spur) 1+ PT (9.0-12.0) Seconds INR (0.9-1.1) APTT (21.0-31.0) Seconds PTT Ratio Sodium 134 L (136-145) mmol/L Potassium 4.6 (3.5-5.1) mmol/L Chloride 106 (98-107) mmol/L Carbon Dioxide 19 L (21-32) mmol/L Anion Gap 9.0 (3-11) BUN 86 H (7-18) mg/dl Creatinine 4.77 H* (0.6-1.4) mg/dl Est Cr Clr Drug Dosing 18.9 ml/min Est GFR ( Amer) 13.6 ml/min Est GFR (Non-Af Amer) 11.7 ml/min BUN/Creatinine Ratio 17.8 (10-20) Glucose 177 H (70-99) mg/dl Lactate (0.4-2.0) mmol/L Calcium 8.4 L (8.5-10.1) mg/dl Magnesium 2.0 (1.8-2.4) mg/dl Total Bilirubin 0.4 (0.2-1) mg/dl AST 22 (15-37) U/L ALT 17 (12-78) U/L Alkaline Phosphatase 59 (45-117) U/L Troponin I 0.096 H* (0-0.045) ng/ml Total Protein 5.7 L (6.4-8.2) gm/dl Albumin 2.9 L (3.4-5.0) gm/dl Globulin 2.8 (2.5-4.0) gm/dl Albumin/Globulin Ratio 1.0 (0.9-2) Procalcitonin 2.32 H (0-0.5) ng/ml COVID-19 Eval Order SARS-CoV-2 (PCR) (Negative) 01/31/21 01/31/21 01/31/21 Range/Units 08:18 08:18 08:19 WBC (4.8-10.8) K/uL RBC (4.7-6.1) M/uL Hgb (14.0-18.0) g/dL Hct (42-52) % MCV (80-100) fL MCH (25-34) pg MCHC (32-36) g/dL RDW Std Deviation (36.4-46.3) fL RDW Coeff of Mir (11.5-14.5) % Plt Count (130-400) K/uL MPV (7.4-10.4) fL Immature Gran % (Auto) % Neut % (Auto) % Lymph % (Auto) % [place] % (Auto) % Eos % (Auto) % Baso % (Auto) % Neut # (Auto) (1.4-6.5) K/uL Lymph # (Auto) (1.2-3.4) K/uL [place] # (Auto) (0.11-0.59) K/uL Eos # (Auto) (0-0.5) K/uL Baso # (Auto) (0-0.2) K/uL Immature Gran # (Auto) (0.00-0.02) K/uL Toxic Vacuolation Acanthocytes (Spur) PT 11.2 (9.0-12.0) Seconds INR 1.1 (0.9-1.1) APTT 31.3 H (21.0-31.0) Seconds PTT Ratio 1.2 Sodium (136-145) mmol/L Potassium (3.5-5.1) mmol/L Chloride (98-107) mmol/L Carbon Dioxide (21-32) mmol/L Anion Gap (3-11) BUN (7-18) mg/dl Creatinine (0.6-1.4) mg/dl Est Cr Clr Drug Dosing ml/min Est GFR ( Amer) ml/min Est GFR (Non-Af Amer) ml/min BUN/Creatinine Ratio (10-20) Glucose (70-99) mg/dl Lactate 2.7 H* (0.4-2.0) mmol/L Calcium (8.5-10.1) mg/dl Magnesium (1.8-2.4) mg/dl Total Bilirubin (0.2-1) mg/dl AST (15-37) U/L ALT (12-78) U/L Alkaline Phosphatase (45-117) U/L Troponin I (0-0.045) ng/ml Total Protein (6.4-8.2) gm/dl Albumin (3.4-5.0) gm/dl Globulin (2.5-4.0) gm/dl Albumin/Globulin Ratio (0.9-2) Procalcitonin (0-0.5) ng/ml COVID-19 Eval Order Covid19 at [facility] SARS-CoV-2 (PCR) (Negative) 01/31/21 01/31/21 Range/Units 08:19 10:10 WBC (4.8-10.8) K/uL RBC (4.7-6.1) M/uL Hgb (14.0-18.0) g/dL Hct (42-52) % MCV (80-100) fL MCH (25-34) pg MCHC (32-36) g/dL RDW Std Deviation (36.4-46.3) fL RDW Coeff of Mir (11.5-14.5) % Plt Count (130-400) K/uL MPV (7.4-10.4) fL Immature Gran % (Auto) % Neut % (Auto) % Lymph % (Auto) % [place] % (Auto) % Eos % (Auto) % Baso % (Auto) % Neut # (Auto) (1.4-6.5) K/uL Lymph # (Auto) (1.2-3.4) K/uL [place] # (Auto) (0.11-0.59) K/uL Eos # (Auto) (0-0.5) K/uL Baso # (Auto) (0-0.2) K/uL Immature Gran # (Auto) (0.00-0.02) K/uL Toxic Vacuolation Acanthocytes (Spur) PT (9.0-12.0) Seconds INR (0.9-1.1) APTT (21.0-31.0) Seconds PTT Ratio Sodium (136-145) mmol/L Potassium (3.5-5.1) mmol/L Chloride (98-107) mmol/L Carbon Dioxide (21-32) mmol/L Anion Gap (3-11) BUN (7-18) mg/dl Creatinine (0.6-1.4) mg/dl Est Cr Clr Drug Dosing ml/min Est GFR ( Amer) ml/min Est GFR (Non-Af Amer) ml/min BUN/Creatinine Ratio (10-20) Glucose (70-99) mg/dl Lactate 1.4 (0.4-2.0) mmol/L Calcium (8.5-10.1) mg/dl Magnesium (1.8-2.4) mg/dl Total Bilirubin (0.2-1) mg/dl AST (15-37) U/L ALT (12-78) U/L Alkaline Phosphatase (45-117) U/L Troponin I (0-0.045) ng/ml Total Protein (6.4-8.2) gm/dl Albumin (3.4-5.0) gm/dl Globulin (2.5-4.0) gm/dl Albumin/Globulin Ratio (0.9-2) Procalcitonin (0-0.5) ng/ml COVID-19 Eval Order SARS-CoV-2 (PCR) NEGATIVE (Negative) Imaging Data Radiologist's Impression: Chest X-Ray 01/31/21 08:04 XR chest 1V portable CLINICAL HISTORY: SEPSIS COMPARISON STUDY: 07/14/2019 FINDINGS: The heart is enlarged. There is mild interstitial thickening less pronounced than on the prior study. There is no lobar consolidation. There are no significant pleural effusions[ IMPRESSION: 1. Mild nonspecific interstitial thickening, a finding less pronounced than on the preceding study 2. No evidence of lobar consolidation ACT 112: Negative or not required by law. Electronically signed by: Amrit Wood M.D. 01/31/2021 9:09 AM ECG Data Attestation: I personally reviewed and interpreted this ECG as follows: Indication: + weakness Rate (beats per minute): 94 Rhythm: + normal sinus ECG Intervals/blocks: + Normal QRS and + Normal QT ECG Lynch: + Normal ECG ST segments: + Nonspecific ST abnormalities MDM Narrative This is a 66-year-old male who presents with plaints of weakness and diarrhea. Patient with remote history of a renal transplant, has been well controlled and does follow with nephrology regularly. Patient's provided much more additional details and the patient did stating that he began getting sick after eating clams on Thursday evening and has had multiple episodes of diarrhea over the last 3 days. No blood noted. She was concerned this patient continued to become weaker with poor appetite. She was concern for possible dehydration and injury to his kidneys. Patient was found to have acute on chronic renal failure likely secondary to volume loss and dehydration. He was started on cautious IV fluid rehydration. Labs including cultures were sent. Stool cultures were ordered also in case of episodes here that could be tested. Patient denied abdominal pain and had a soft and nontender abdomen on exam. When asked about prior episodes of pain over the last 3 days he denies. Patient had no leukocytosis, did have an elevated lactic acid which did improve on repeat after IV fluids. Procalcitonin was also elevated. Due to initial report of possible respiratory component given mild hypoxia noted, patient was given 2 g of cefepime IV for possible pulmonary etiology. Patient was hemodynamically stable here despite symptoms. Patient's troponin found to be elevated also otherwise suspect this is likely from WERNER and less likely from cardiac etiology. An order was placed for continuous cardiac monitoring. The monitor shows a rate of _88_ with normal sinus_ rhythm. Impression & Plan Weakness, Dehydration, WERNER (acute kidney injury), Diarrhea, Elevated troponin, Anemia, Thrombocytopenia Discharge Plan Visit Data Chief Complaint: Illness Stated Complaint: WEAKNESS, ILLNESS ED Provider: Mahsa Madison Discharge Problem: Weakness, Dehydration, WERNER (acute kidney injury), Diarrhea, Elevated troponin, Anemia, Thrombocytopenia Patient Disposition: Admitted As Inpatient Discharge Instructions Interventions: ED Discharge Assessment Last Done: 01/31/21 12:36 Discharge Problem: Diarrhea Qualifiers: Diarrhea type: unspecified type Qualified Code(s): R19.7 - Diarrhea, unsp ecified Anemia Qualifiers: Anemia type: unspecified type Qualified Code(s): D64.9 - Anemia, unspecified
[2021-01-31 08:36] LABS: Hemoglobin 9.4 g/dL (14.0-18.0); Mean Corpuscular Hemoglobin 32.2 pg (25-34); Mean Corpuscular Hgb Conc 32.4 g/dL (32-36); Mean Corpuscular Volume 99.3 fL (80-100); RDW Coefficient of Variation 13.8 % (11.5-14.5); RDW Standard Deviation 49.7 fL (36.4-46.3); Red Blood Count 2.92 M/uL (4.7-6.1); White Blood Count 5.68 K/uL (4.8-10.8)
[2021-01-31 08:42] LABS: INR 1.1 (0.9-1.1); Partial Thromboplastin Ratio 1.2; Partial Thromboplastin Time 31.3 Seconds (21.0-31.0); Prothrombin Time 11.2 Seconds (9.0-12.0)
[2021-01-31] MEDS ORDERED: CEFEPIME 2,000 MG/20 ML VIAL IV STA (08:53)
[2021-01-31] MEDS ORDERED: ACETAMINOPHEN 1,000 MG/100 ML VIAL IV STA (08:54)
[2021-01-31 09:00] LABS: Albumin Level 2.9 gm/dl (3.4-5.0); BUN Creatinine Ratio 17.8 (10-20); Bilirubin,Total 0.4 mg/dl (0.2-1); Calcium 8.4 mg/dl (8.5-10.1); Creatinine Clr Calc Pharmacy 18.9 ml/min; Est GFR (African American) 13.6 ml/min; Est GFR (Non-African American) 11.7 ml/min; Globulin 2.8 gm/dl (2.5-4.0); Potassium 4.6 mmol/L (3.5-5.1); Total Protein 5.7 gm/dl (6.4-8.2); Troponin I 0.096 ng/ml (0-0.045)
[2021-01-31 09:06] LABS: Acanthocytes 1+; Immature Granulocytes # (auto) 0.01 K/uL (0.00-0.02); Immature Granulocytes % (auto) 0.2 %; Lymphocytes # (auto) 0.22 K/uL (1.2-3.4); Lymphocytes % (auto) 3.9 %; Mean Platelet Volume 12.6 fL (7.4-10.4); Monocytes # (auto) 0.17 K/uL (0.11-0.59); Neutrophils # (auto) 5.28 K/uL (1.4-6.5); Neutrophils % (auto) 92.9 %; Platelet Count 110 K/uL (130-400); Toxic Vacuolation 1+
--- NOTE | 2021-01-31 09:11 | XRay Report ---
XR chest 1V portable CLINICAL HISTORY: SEPSIS COMPARISON STUDY: 07/14/2019 FINDINGS: The heart is enlarged. There is mild interstitial thickening less pronounced than on the pr ior study. There is no lobar consolidation. There are no significant pleural effusions[ IMPRESSION: 1. Mild nonspecific interstitial thickening, a finding less pronounced than on the preceding study 2. No evidence of lobar consolidation ACT 112: Negative or not required by law. Electronically signed by: Amrit Wood M.D. 01/31/2021 9:09 AM
--- NOTE | 2021-01-31 11:48 | History & Physical Report ---
Date of Service January 31, 2021 Assessment & Plan (1) Diarrhea: (2) Acute renal failure: (3) CKD (chronic kidney disease), stage IV: (4) Renal transplant recipient: (5) Hypotension: (6) Type 2 diabetes mellitus: (7) CHF (congestive heart failure): (8) Coronary artery disease: (9) HTN (hypertension): (10) Hypercholesterolemia: (11) Weakness: 66 y/o M with h/o renal transplant here with diarrhea and feeling weak Sepsis - Procalcitonin of 2.3 (CKD and shock could raise procal level). Lactate 2.7. Normal WBC. had blood culture drawn. CXR with interstitial infiltrate but no respiratory symptoms. COVID neg. UA pending. Stool studies as below. started on cefepime in ED- continue. added daptomycin. Nausea and Diarrhea- sec to food poisoning. check stool culture. less likely c diff - will rule out. Clear liquids and advance as tolerate. Hypotension - sec to sepsis. Received 1L NSS in ED. continue LR. hold carvedilol, losartan, lasix. On 5mgs prednisone - since BP stable - hold stress dose steroid. Thrombocytopenia - infection response. WERNER on CKD-4 - sec to sepsis. hold diurectics. IVF. hold nephrotoxics - losartan. consult nephro s/p Kidney transplant - tacrolimus, mycophenolate, prednisone. DM - with hypoglyemic this am. hold glipizide. continue lantus home dose. add SSI. BSG CAD - holding b benjamin, losartan. hold statin while on daptomycin. Chronic systolic chf - recent increase in diuretics 2 wks ago for fluid overload. currently hypovolemic. holding lasix. Heparin, LR at 100ml/hr carb consistent, heart healthy diet full code History of Present Illness Primary Care Provider: Jayson Eugene MD 66 y/o M with h/o renal transplant and on chronic immunosuppression here with complain of watery, non-bloody diarrhea since 2 days and weakness & dizziness. He had clams from store followed by two explosive loose stools and another one the day after. Last loose stool was this am. Denied any vomiting, abdominal pain. Appetite has been low. [place] feverish with temp of 99 degrees in ED. Denied chest pain, cough, shortness of breath, headache. Per EMS - his bsg was in 70s initially and he received oral glucose. Recheck bsg was 90s. Also noted to have lower pulse ox of 89-90% on RA. Pulse at the time of exam was 97% on RA. He was recently diuresed aggressively by double of home dose lasix 2 wks ago. His leg swelling has significantly decreased since then. Allergies Allergy/AdvReac Type Severity Reaction Status Date / Time No Known Allergies Allergy Verified 01/31/21 09:55 Home Medications Medication Instructions Recorded Confirmed Type coenzyme Q10 100 mg capsule 100 mg PO BID cap 03/03/19 01/31/21 History famotidine 10 mg tablet 10 mg PO QAM 03/03/19 01/31/21 History flaxseed oil 1,000 mg capsule 1,000 mg PO QAM cap 03/03/19 01/31/21 History magnesium oxide 250 mg PO BID tab 03/03/19 01/31/21 History multivitamin 1 tab PO QAM 03/03/19 01/31/21 History prednisone 5 mg tablet 5 mg PO QAM #90 tab 03/03/19 01/31/21 History blood-glucose meter #1 ea 03/24/19 01/03/21 History atorvastatin 40 mg tablet 40 mg PO PM 09/13/19 01/31/21 History carvedilol 12.5 mg tablet 6.25 mg PO BID tab 05/07/20 01/31/21 History pen needle, diabetic 32 gauge x #90 ea 09/26/20 01/03/21 Rx 5/32" glipizide 10 mg tablet 10 mg PO BID #90 tab 11/30/20 01/31/21 Rx lancets #4 box 12/06/20 01/03/21 Rx blood sugar diagnostic #4 box 12/25/20 01/03/21 Rx tacrolimus 0.5 mg capsule, 0.5 mg PO Q12H cap 01/24/21 01/31/21 History immediate-release acetaminophen [Tylenol Extra 500 mg PO Q6H PRN 01/31/21 01/31/21 History Strength] allopurinol 300 mg PO PM 01/31/21 01/31/21 History amoxicillin 500 mg PO ONCE 01/31/21 01/31/21 History furosemide [Lasix] 40 mg PO QAM 01/31/21 01/31/21 History insulin glargine [Basaglar KwikPen 20 unit SUBCUT PM 01/31/21 01/31/21 History U-100 Insulin] losartan 50 mg PO QAM 01/31/21 01/31/21 History mycophenolate mofetil 250 mg PO BID 01/31/21 01/31/21 History Past Med/Surg History Medical History Diverticulosis Gout, joint Hypercholesterolemia Myalgia Myocardial Infarction Polycystic kidney Renal insufficiency Surgical History History of heart artery stent Renal transplant recipient Family History (Updated 01/31/21 @ 18:34 by Sayda Patel MD) Mother Breast cancer Father Stroke Polycystic kidney disease Social History (Updated 01/31/21 @ 15:50 by Larry Stokes MD) Smoking Status: Never smoker Hx Alcohol Use: No Hx Substance Use: No Preferred Language: Yemeni Communication Ability: Effective Shoe Cutter Required: No Beliefs That Will Affect Care: None Current Living Situation: Spouse 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 ENMT: external ear and nose normal, oropharynx normal Neck: trachea midline, no thyromegaly Respiratory: normal respiratory effort, lungs clear to auscultation Cardiovascular: RRR, no murmur, no edema Gastrointestinal (Abdomen): normal bowel sounds, soft, nontender, no hepatosplenomegaly Musculoskeletal: no cyanosis or clubbing, extremities motor strength 5/5 Skin: no rashes, warm and dry Neurologic: No focal deficits Psychiatric: A+Ox3, euthymic affect Results & Data Results & Data ([facility]) Vital Signs (Past 12 Hours) Vital Signs Temp Pulse Pulse Resp BP BP Pulse Ox 01/31/21 11:00 37.2 C 86 14 101/47 L 92 01/31/21 09:30 94 H 27 H 150/61 H 94 01/31/21 09:00 90 26 H 133/57 L 90 01/31/21 08:30 90 32 H 149/58 H 93 01/31/21 08:09 93 H 33 H 144/65 H 93 01/31/21 08:04 93 01/31/21 08:00 37.9 C H 94 H 24 144/65 H 93 (1) CHF (congestive heart failure) Heart failure chronicity: unspecified Heart failure type: unspecified Qualified Code(s): I50.9 - Heart failure, unspecified
[2021-01-31] MEDS ORDERED: GLUCOSE 40% GEL 15 GM TUBE PO PRN (13:20)
[2021-01-31] MEDS ORDERED: ONDANSETRON INJ 2 MG/ML 2 ML VIAL IV PRN (13:20)
[2021-01-31] MEDS ORDERED: GLUCAGON FOR INJ 1 MG VIAL SQ PRN (13:20)
[2021-01-31] MEDS ORDERED: GLUCOSE 10 TABS/TUBE PO PRN (13:20)
[2021-01-31] MEDS: LACTATED RINGER'S 1,000 ML IV SCH ×2 (14:04→23:59)
--- NOTE | 2021-01-31 15:18 | Electrocardiogram Report ---
Test Reason : Blood Pressure : / mmHG Vent. Rate : 094 BPM Atrial Rate : 094 BPM P-R Int : 172 ms QRS Dur : 074 ms QT Int : 322 ms P-R-T Axes : -12 012 101 degrees QTc Int : 402 ms Poor data quality, interpretation may be adversely affected Normal sinus rhythm Nonspecific ST and T wave abnormality Abnormal ECG When compared with ECG of 14-JUL-2019 09:09, Premature ventricular complexes are no longer Present Confirmed by Barry Palm ([id number]) on 01/31/2021 3:17:32 PM Referred By: REFERRED SELF Confirmed By:Barry Palm
--- NOTE | 2021-01-31 15:38 | Nephrology Consultation ---
Date of Consultation January 31, 2021 Assessment & Plan (1) Acute renal failure: * WERNER related to diarrhea, dehydration * Hold Losartan * Agree w/ IV LR * Will order transplant renal US * Monitor PRP * No acute indication for HD at this time (2) CKD (chronic kidney disease), stage IV: * ADPKD s/p renal transplant * Baseline Cr 4.2 (3) Kidney transplanted: * Continue current immunosuppressive regimen (4) Diarrhea: * Resolved * Blood and urine cultures are pending * Recommend stool studies for pathogens History of Present Illness Reason for Consultation: WERNER/CKD Attending Physician: Sayda Patel MD History of Present Illness Mr. Andrea is a 66 year old white male who is seen at the request of Dr. Patel for evaluation of WERNER/CKD. Medical records in the EMR were reviewed today and are summarized as follows: Mr. Andrea has ADPKD. In 1996 he [place] [facility] [place] Cr stabilized at ~ 1.5. Immunosuppressive regimen has consisted of Tacrolimus, Cellcept and Prednisone. 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 He has been on oral hypoglycemic agents. Insulin was added ~ 1 year ago. In 11/21 renal allograft biopsy was performed at [facility] due to progressive CKD w/ proteinuria. 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 Losartan was added to his medical regimen. Despite these measures, Cr increased to 3.2 and evaluation for possible second transplant has been initiated at [facility]. Mr. Andrea presented to the ED this morning for evaluation of diarrhea, weakness and rigors. He recently had eaten seafood from the local grocery store. This was followed by at least 3 episodes of diarrhea and rigors. In the ED Mr. Andrea was found to be hypoglycemic and febrile to 37.9. Cr has risen to 4.7. Blood cultures have been obtained and IV LR provided. Patient has received 2g IV Cefepime. PMH: ADPKD s/p transplant 1996, PTDM, HTN, gout, hypercholesterolemia and ASCVD s/p ALEXUS to proximal LAD 07/14 Allergies Allergy/AdvReac Type Severity Reaction Status Date / Time No Known Allergies Allergy Verified 01/31/21 09:55 Home Medications Medication Instructions Recorded Confirmed Type coenzyme Q10 100 mg capsule 100 mg PO BID cap 03/03/19 01/31/21 History famotidine 10 mg tablet 10 mg PO QAM 03/03/19 01/31/21 History flaxseed oil 1,000 mg capsule 1,000 mg PO QAM cap 03/03/19 01/31/21 History magnesium oxide 250 mg PO BID tab 03/03/19 01/31/21 History multivitamin 1 tab PO QAM 03/03/19 01/31/21 History prednisone 5 mg tablet 5 mg PO QAM #90 tab 03/03/19 01/31/21 History blood-glucose meter #1 ea 03/24/19 01/03/21 History atorvastatin 40 mg tablet 40 mg PO PM 09/13/19 01/31/21 History carvedilol 12.5 mg tablet 6.25 mg PO BID tab 05/07/20 01/31/21 History pen needle, diabetic 32 gauge x #90 ea 09/26/20 01/03/21 Rx 5/32" glipizide 10 mg tablet 10 mg PO BID #90 tab 11/30/20 01/31/21 Rx lancets #4 box 12/06/20 01/03/21 Rx blood sugar diagnostic #4 box 12/25/20 01/03/21 Rx tacrolimus 0.5 mg capsule, 0.5 mg PO Q12H cap 01/24/21 01/31/21 History immediate-release acetaminophen [Tylenol Extra 500 mg PO Q6H PRN 01/31/21 01/31/21 History Strength] allopurinol 300 mg PO PM 01/31/21 01/31/21 History amoxicillin 500 mg PO ONCE 01/31/21 01/31/21 History furosemide [Lasix] 40 mg PO QAM 01/31/21 01/31/21 History insulin glargine [Basaglar KwikPen 20 unit SUBCUT PM 01/31/21 01/31/21 History U-100 Insulin] losartan 50 mg PO QAM 01/31/21 01/31/21 History mycophenolate mofetil 750 mg PO BID 01/31/21 01/31/21 History Patient History Medical History Diverticulosis Gout, joint Hypercholesterolemia Myalgia Myocardial Infarction Polycystic kidney Renal insufficiency Surgical History History of heart artery stent Renal transplant recipient Family History (Updated 01/31/21 @ 18:34 by Sayda Patel MD) Mother Breast cancer Father Stroke Polycystic kidney disease Social History (Updated 01/31/21 @ 15:50 by Larry Stokes MD) Smoking Status: Never smoker Hx Alcohol Use: No Hx Substance Use: No Preferred Language: [place] Communication Ability: Effective Quality Assurance Manager Required: No Beliefs That Will Affect Care: None Current Living Situation: Spouse 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 Other Information That Helps Us Care for You: No Feels Safe at Home: Yes Safety Concerns: Feels Safe At This Time Assistive Devices: None Review of Systems Constitutional: + fever, + chills and + weakness Eyes: no problem reported Ear, Nose, Mouth, Throat: no problem reported Respiratory: no dyspnea Cardiovascular: no chest pain, no palpitations and no edema Gastrointestinal: + nausea and + diarrhea/loose stools; no abdominal pain and no vomiting Genitourinary: no dysuria, no urinary hesitancy and no hematuria Musculoskeletal: no back pain Integumentary: no rash Neurologic: no dizziness and no confusion Physical Exam Constitutional: + ill appearing (with rigors) Eyes: PERRL, conjunctivae normal, anicteric sclerae ENMT: external ear and nose normal, oropharynx normal Neck: trachea midline, no thyromegaly Respiratory: normal respiratory effort, lungs clear to auscultation Cardiovascular: RRR, no murmur, no edema Gastrointestinal (Abdomen): Inspection/Auscultation: normal bowel sounds Percussion/Palpation: abdomen soft; abdomen nontender and no guarding LLQ kidney allograft NT, no bruit Musculoskeletal: Extremities: no cyanosis Skin: no rashes, warm and dry Neurologic: awake; not confused Results & Data ([facility]) Vital Signs (Past 12 Hours) Vital Signs Temp Pulse Pulse Resp BP BP Pulse Ox 01/31/21 13:22 37.9 C H 80 18 122/61 94 01/31/21 12:36 85 16 106/49 L 93 01/31/21 11:00 37.2 C 86 14 101/47 L 92 01/31/21 09:30 94 H 27 H 150/61 H 94 01/31/21 09:00 90 26 H 133/57 L 90 01/31/21 08:30 90 32 H 149/58 H 93 01/31/21 08:09 93 H 33 H 144/65 H 93 01/31/21 08:04 93 01/31/21 08:00 37.9 C H 94 H 24 144/65 H 93 Laboratory Tests 01/31/21 01/31/21 01/31/21 08:18 08:18 08:19 WBC 5.68 Hgb 9.4 L Hct 29.0 L Plt Count 110 L Sodium 134 L Potassium 4.6 Chloride 106 Carbon Dioxide 19 L BUN 86 H Creatinine 4.77 H* Glucose 177 H Calcium 8.4 L Magnesium 2.0 Troponin I 0.096 H* Albumin 2.9 L SARS-CoV-2 (PCR) NEGATIVE CXR 01/31/21: The heart is enlarged. There is mild interstitial thickening less pronounced than on the prior study. There is no lobar consolidation. There are n o significant pleural effusions PG Care Time/CCT Total # of Minutes Spent Total Time Spent with Patient: Total time spent is greater than 50% in coordination of care (as documented) at patient's floor/unit and/or counseling patient: Coding Level of Care Code 01636 Inpt Consult Level 5 Diagnoses Acute renal failure N17.9 CKD (chronic kidney disease), stage IV N18.4 Kidney transplanted Z94.0 Diarrhea R19.7
[2021-01-31] MEDS: HEPARIN SOD 5,000 UNIT/0.5 ML VIAL SQ SCH ×2 (16:43→21:08)
[2021-01-31] MEDS: ACETAMINOPHEN 325 MG TAB PO PRN ×2 (16:48→23:22)
--- NOTE | 2021-01-31 16:51 | Ultrasound Report ---
ULTRASOUND RENAL TRANSPLANT CLINICAL HISTORY: Acute renal insufficiency. COMPARISON STUDY: Renal ultrasound dated 11/09/2020. TECHNIQUE: Multiple rocha scale, color Doppler, and spectral Doppler sonograms of the transplanted shoshana imller were obtained in the transverse and longitudinal planes. FINDINGS: The transcend kidney is identified in the left pelvis, and measures 13.5 cm in length. Bibiana l echotexture is within normal limits with no evidence of hydronephrosis. A 1.7 cm cyst is noted in t he lower pole. The resistive indices measure 1.0 throughout. Velocities within the main renal artery measure up to 106 cm/s. Mildly elevated velocities are suggested at the anastomosis measuring 194 cm/ s. The main renal vein is patent. No perirenal fluid collection is seen. The prostate gland is enlarged noting median lobe hypertrophy. The bladder wall is thickened and trab eculated indicating chronic outlet obstruction. IMPRESSION: 1. The renal transplant is normal in size and without hydronephrosis. 2. Elevated intrarenal resistive indices suggest medical renal disease. 3. Mildly elevated velocities at the arterial anastomosis are nonspecific and may be related to turbu lent flow. Normal arterial velocities are seen within the main renal artery. ACT 112: Negative or not required by law. Electronically signed by: Eliceo Rojas M.D. 01/31/2021 4:50 PM
[2021-01-31] MEDS ORDERED: DAPTOmycin 525 MG in SYRINGE 0 ML IV ONE (17:00)
[2021-01-31] MEDS: INSULIN ASPART 100 UNITS/ML 3 ML PEN SC SCH ×2 (17:01→21:10)
[2021-01-31] MEDS: MAGNESIUM OXIDE 400 MG TAB PO SCH (20:17)
[2021-01-31] MEDS: allopurinoL 300 MG TAB PO SCH (20:17)
[2021-01-31] MEDS: TACROLIMUS 0.5 MG CAP PO SCH (20:17)
[2021-01-31] MEDS ORDERED: MYCOPHENOLATE MOFETIL 250 MG CAP PO SCH (21:00)
[2021-01-31] MEDS ORDERED: NON-FORMULARY MEDICATION (Coenzyme Q10 100 mg capsule) PO SCH (21:00)
[2021-01-31] MEDS ORDERED: ATORVASTATIN 40 MG TAB PO SCH (21:00)
[2021-01-31] MEDS ORDERED: INSULIN GLARGINE SOLOSTAR 100 UNITS/ML 3 ML PEN SQ SCH (21:00)
[2021-01-31] MEDS: MYCOPHENOLATE MOFETIL 250 MG CAP PO SCH (21:08)
[2021-01-31 22:06] LABS: Appearance Urine Cloudy (Clear); Bacteria Urine Automated Negative (Negative); Bilirubin Urine Negative (Negative); Blood Urine 1+ (Negative); Color Urine Yellow; Glucose Urine UA Negative (Negative); Ketones Urine Negative (Negative); Leukocyte Esterase Urine Negative (Negative); Nitrite Urine Negative (Negative); Protein Urine 3+ (Negative); RBC Urine Automated 0-4 /hpf (0-4); Specific Gravity Urine 1.019 (1.000-1.030); Urobilinogen Urine Negative (Negative)
[2021-02-01] MEDS: HEPARIN SOD 5,000 UNIT/0.5 ML VIAL SQ SCH ×3 (05:20→21:36)
[2021-02-01 06:07] LABS: Albumin Level 2.7 gm/dl (3.4-5.0); BUN Creatinine Ratio 18.5 (10-20); Bilirubin,Total 0.5 mg/dl (0.2-1); Calcium 8.4 mg/dl (8.5-10.1); Creatinine Clr Calc Pharmacy 18.4 ml/min; Est GFR (African American) 13.2 ml/min; Est GFR (Non-African American) 11.4 ml/min; Globulin 2.8 gm/dl (2.5-4.0); Potassium 4.1 mmol/L (3.5-5.1); Total Protein 5.5 gm/dl (6.4-8.2)
[2021-02-01] MEDS: CARBOHYDRATES FOR HYPOGLYCEMIA PO PRN (06:08)
[2021-02-01 06:13] LABS: Hematocrit (blood only) 31.2 % (42-52); Hemoglobin 10.1 g/dL (14.0-18.0); Lymphocytes # (auto) 0.25 K/uL (1.2-3.4); Lymphocytes % (auto) 7.4 %; Mean Corpuscular Hemoglobin 32.3 pg (25-34); Mean Corpuscular Hgb Conc 32.4 g/dL (32-36); Mean Corpuscular Volume 99.7 fL (80-100); Mean Platelet Volume 13.2 fL (7.4-10.4); Monocytes # (auto) 0.04 K/uL (0.11-0.59); Monocytes % (auto) 1.2 %; Neutrophils % (auto) 91.4 %; Platelet Count 65 K/uL (130-400); Platelet Estimate Decreased (Normal); RDW Coefficient of Variation 13.9 % (11.5-14.5); RDW Standard Deviation 50.7 fL (36.4-46.3); Red Blood Count 3.13 M/uL (4.7-6.1); White Blood Count 3.39 K/uL (4.8-10.8)
[2021-02-01] MEDS: DEXTROSE 50% 50 ML SYRINGE IV PRN (06:39)
[2021-02-01] MEDS: ACETAMINOPHEN 325 MG TAB PO PRN ×4 (07:40→21:49)
[2021-02-01] MEDS ORDERED: CEFEPIME 2,000 MG in SYRINGE 0 ML IV SCH (08:00)
[2021-02-01] MEDS ORDERED: SODIUM CHLORIDE 0.9% 250 ML IV ONE (08:33)
--- NOTE | 2021-02-01 08:44 | XRay Report ---
XR chest 1V portable CLINICAL HISTORY: tachypnea/hypoxia COMPARISON STUDY: Chest radiograph January 31, 2021. FINDINGS: Lung volumes are normal. There is no pneumothorax or pleural effusion. Cardiomediastinal si lhouette is stable. Mild nonspecific interstitial thickening persists. There may be mild left basilar opacity. IMPRESSION: 1. Possible minimal left basilar opacity. 2. Stable mild nonspecific interstitial thickening. ACT 112: Negative or not required by law. Electronically signed by: Gino Whyte M.D. 02/01/2021 8:43 AM
[2021-02-01] MEDS: INSULIN ASPART 100 UNITS/ML 3 ML PEN SC SCH ×4 (09:00→21:34)
[2021-02-01] MEDS: MAGNESIUM OXIDE 400 MG TAB PO SCH ×2 (09:02→19:35)
[2021-02-01] MEDS: FAMOTIDINE 10 MG TABLET PO SCH (09:02)
[2021-02-01] MEDS: predniSONE 5 MG TAB PO SCH (09:02)
[2021-02-01] MEDS: MULTIVITAMIN TAB PO SCH (09:02)
[2021-02-01] MEDS: TACROLIMUS 0.5 MG CAP PO SCH ×2 (09:03→19:35)
[2021-02-01] MEDS: MYCOPHENOLATE MOFETIL 250 MG CAP PO SCH ×2 (09:03→19:36)
[2021-02-01 09:28] LABS: Anaplasmosis Smear(Rpt to DOH) Pos for Anaplasma
--- NOTE | 2021-02-01 09:38 | Medical Student Progress Note ---
Date of Service February 01, 2021 Assessment & Plan (1) Acute renal failure: Mr. 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 Sepsis secondary to anaplasmosis Acute febrile illness, pancytopenia, elevated AST, smear positive for anaplasmosis, and negative blood culture to date suggestive of anaplasmosis - Fever, hypotension, elevated lactate- sepsis - WBC 3.39, Hgb 10.1, Plt 65, lactate 318 - Blood culture no growth 24 hours - UA culture pending - Stool culture ordered - Began doxycycline 100mg PO BID x14 days - Cefepime/Daptomycin discontinued - trend CBC daily WERNER on CKD IV, secondary to infection - Baseline Cr 4.2 --> 4.9 today - Secondary to acute illness, dehydration, and diarrhea - Recommendations from nephro appreciated - LR 70mls/hr, NSS bolus this morning Acute hypoxic respiratory failure, secondary to infection - tachypneic to mid 20-30s, no O2 requirement at home now needing 4-6L- continue as needed - CXR unremarkable and unchanged from yesterday Elevated troponin - 0.226, trending to peak - Pt asymptomatic, likely due to demand ischemia H/o Kidney transplant - Continue home prednisone, tacrolimus, and mycophenolate T2DM -Insulin glargine 20u QPM, SSI CHF - Hold furosemide HLD - Hold atorvastatin and CoQ10 HTN - Hold losartan, carvedilol, atorvastatin Gout - Hold allopurinol Dispo: PCU with tele FEN/GI: Carb consistent, heart healthy, LR @70cc/hr DVT prophylaxis: heparin SQ Code Status: FULL CODE Admission and Anticipated Discharge Date Admission Date: January 31, 2021 Subjective Appears tachypneic on 4 L of O2, saturating in the low 90s. Was on up to 6L of O2 earlier after desaturations into the low 80s were noted by nursing. Pt appears more confused than yesterday and has rigors. Fever also noted earlier this morning. Denies any headache, chest pain, shortness of breath, abdominal pain, nausea/ vomiting. Denies subjective fever/ chill at this time. Per nursing he has an episode of bowel and urinary incontinence last night. Review of Systems Review of Systems: See HPI Physical Exam Physical Exam: GENERAL: ill appearing with rigors HEENT: conjunctiva without injection b/l, oropharynx dry, external nose and pinna are normal CHEST: tachypnic, cta bilaterally with no wheezes, rhonchi or rales CARDIOVASCULAR: heart regular rate and rhythm, no murmurs, gallops or rubs, no lower extremity edema ABD: no hepatosplenomegaly or masses, nontender to palpation, nondistended, normal active bowel sounds SKIN: no rashes or suspicious lesions noted NEURO: PERRLA, confused but oriented to person, place, and time when prompted Results & Data ([facility]) Vital Signs (Past 12 Hours) Vital Signs Temp Pulse Resp BP Pulse Ox 02/01/21 07:32 39.2 C H 94 H 20 147/77 H 100 02/01/21 03:36 36.6 C 89 20 154/74 H 92 02/01/21 01:28 92 01/31/21 23:58 38.8 C H 01/31/21 23:27 37.3 C 92 H 24 133/83 92 Resident Activity Tracking Resident Involvement: Resident Care Provided Care Provided: [facility] Medicine Addendum (Blank) Addendum February 01, 2021 16:32 I was present with the medical student during the service, interview and the physical exam. I independently interviewed the patient and performed the physical exam, reviewed the chart and verified the documentation and I agree with the assessment and plan of Vira Judd. Attending Physicain Medical Student Supervision Note: I independently interviewed and examined the patient and verified the jarrett history and physical, reviewed labs and image studies, discussed the case with the medical student Vira Judd and the Resident physician Dr. Ballesteros and agree with the findings and care plan.
--- NOTE | 2021-02-01 09:44 | Nephrology Progress Note ---
Date of Service February 01, 2021 Assessment & Plan (1) Acute renal failure: * WERNER related to diarrhea, dehydration * Remains nonoliguric. Electrolyte balance is acceptable. No acute indication for HD at this time * Hold Losartan * Appears volume contracted. Continue IV hydration * US renal allograft: No obstruction * Urinalysis w/ pyuria. Await urine culture. No casts reported * Monitor PRP (2) CKD (chronic kidney disease), stage IV: * ADPKD s/p renal transplant * Baseline Cr 4.2 (3) Kidney transplanted: * Continue current immunosuppressive regimen (4) Diarrhea: * Resolved * Blood and urine cultures are pending * Recommend stool studies for pathogens * On Cefepime and Doxycycline * Pancytopenia w/ progressive thrombocytopenia and elevated LDH. Will consult pathology/hematology for review of peripheral blood smear Admission and Anticipated Discharge Date Admission Date: January 31, 2021 Subjective Mr. Andrea was seen & examined in his hospital room this morning. He is febrile and agitated but oriented x3. He reports that his diarrhea has resolved and denies dysuria, pain overlying his renal allograft, dyspnea or abdominal discomfort. Review of Systems Constitutional: + fever and + weakness Eyes: no problem reported Ear, Nose, Mouth, Throat: no problem reported Respiratory: no dyspnea Cardiovascular: no chest pain, no palpitations and no edema Gastrointestinal: + nausea and + diarrhea/loose stools; no abdominal pain and no vomiting Genitourinary: no dysuria, no urinary hesitancy and no hematuria Musculoskeletal: no back pain Integumentary: no rash Neurologic: no dizziness and no confusion Physical Exam Constitutional: + ill appearing Eyes: PERRL, conjunctivae normal, anicteric sclerae ENMT: external ear and nose normal, oropharynx normal Neck: trachea midline, no thyromegaly Respiratory: normal respiratory effort, lungs clear to auscultation Cardiovascular: RRR, no murmur, no edema Gastrointestinal (Abdomen): Inspection/Auscultation: normal bowel sounds Percussion/Palpation: abdomen soft; abdomen nontender and no guarding Musculoskeletal: Extremities: no cyanosis Skin: no rashes, warm and dry Neurologic: awake; not confused Results & Data ([facility]) Vital Signs (Past 12 Hours) Vital Signs Temp Pulse Resp BP Pulse Ox 02/01/21 07:32 39.2 C H 94 H 20 147/77 H 100 02/01/21 03:36 36.6 C 89 20 154/74 H 92 02/01/21 01:28 92 01/31/21 23:58 38.8 C H 01/31/21 23:27 37.3 C 92 H 24 133/83 92 Laboratory Tests 01/15/21 01/31/21 02/01/21 07:56 08:18 05:22 WBC 3.39 L Hgb 10.1 L Hct 31.2 L Plt Count 65 L Sodium Potassium Chloride Carbon Dioxide BUN Creatinine 3.18 H 4.77 H* Glucose Calcium Total Bilirubin AST ALT Lactate Dehydrogenase Albumin 02/01/21 02/01/21 05:22 05:22 WBC Hgb Hct Plt Count Sodium 137 Potassium 4.1 Chloride 111 H Carbon Dioxide 19 L BUN 91 H Creatinine 4.90 H* Glucose 49 L* Calcium 8.4 L Total Bilirubin 0.5 AST 62 H ALT 26 Lactate Dehydrogenase 318 H Albumin 2.7 L Laboratory Tests 01/31/21 08:18 INR 1.1 01/31/21 US renal allograft: Transplant kidney in the left pelvis, and measures 13.5 cm. Renal echotexture is within normal limits with no evidence of hydronephrosis. A 1.7 cm cyst is noted in the lower pole. The resistive indices measure 1.0 throughout. Velocities within the main renal artery measure up to 106 cm/s. Mildly elevated velocities are suggested at the anastomosis measuring 194 cm/s. The main renal vein is patent. No perirenal fluid collection is seen. The prostate gland is enlarged noting median lobe hypertrophy. The bladder wall is thickened and trabeculated indicating chronic outlet obstruction. PG Care Time/CCT Total # of Minutes Spent Total Time Spent with Patient: Total time spent is greater than 50% in coordination of care (as documented) at patient's floor/unit and/or counseling patient: Coding Level of Care Code 08633 Subseq Hosp Care Lvl 3 Diagnoses Acute renal failure N17.9 CKD (chronic kidney disease), stage IV N18.4 Kidney transplanted Z94.0 Diarrhea R19.7 Diarrhea type: unspecified type (1) Diarrhea Diarrhea type: unspecified type Qualified Code(s): R19.7 - Diarrhea, unspecified
[2021-02-01] MEDS ORDERED: CEFEPIME CONSULT ACTIVE PRN (09:55)
[2021-02-01] MEDS: LACTATED RINGER'S 1,000 ML IV SCH ×2 (09:56→18:10)
[2021-02-01 10:06] LABS: Troponin I 0.226 ng/ml (0-0.045)
[2021-02-01] MEDS: DOXYCYCLINE HYCLATE 100 MG in DEXTROSE 5% 100 ML IV SCH ×2 (11:26→21:43)
[2021-02-01] MEDS: allopurinoL 300 MG TAB PO SCH (19:35)
[2021-02-01] MEDS: INSULIN GLARGINE SOLOSTAR 100 UNITS/ML 3 ML PEN SQ SCH (21:33)
[2021-02-02] MEDS: ACETAMINOPHEN 325 MG TAB PO PRN (03:10)
[2021-02-02] MEDS: HEPARIN SOD 5,000 UNIT/0.5 ML VIAL SQ SCH ×3 (05:37→20:25)
[2021-02-02 07:16] LABS: Mean Corpuscular Hgb Conc 33.2 g/dL (32-36)
[2021-02-02 07:20] LABS: Hematocrit (blood only) 28.3 % (42-52); Hemoglobin 9.4 g/dL (14.0-18.0); Mean Corpuscular Hemoglobin 31.9 pg (25-34); Mean Corpuscular Volume 95.9 fL (80-100); RDW Coefficient of Variation 13.9 % (11.5-14.5); RDW Standard Deviation 48.5 fL (36.4-46.3); Red Blood Count 2.95 M/uL (4.7-6.1); White Blood Count 3.03 K/uL (4.8-10.8)
[2021-02-02 07:44] LABS: Echinocytes 1+; Lymphocytes # (auto) 0.61 K/uL (1.2-3.4); Lymphocytes % (auto) 20.1 %; Monocytes # (auto) 0.19 K/uL (0.11-0.59); Monocytes % (auto) 6.3 %; Neutrophils # (auto) 2.23 K/uL (1.4-6.5); Neutrophils % (auto) 73.6 %; Platelet Count 42 K/uL (130-400); Platelet Estimate Decreased (Normal)
[2021-02-02] MEDS: CARBOHYDRATES FOR HYPOGLYCEMIA PO PRN ×2 (07:49→08:05)
[2021-02-02 08:18] LABS: Albumin Globulin Ratio 0.9 (0.9-2); Albumin Level 2.3 gm/dl (3.4-5.0); BUN Creatinine Ratio 18.1 (10-20); Bilirubin,Total 0.4 mg/dl (0.2-1); Calcium 8.4 mg/dl (8.5-10.1); Creatinine Clr Calc Pharmacy 17.2 ml/min; Est GFR (African American) 12.1 ml/min; Est GFR (Non-African American) 10.4 ml/min; Globulin 2.5 gm/dl (2.5-4.0); Magnesium 2.2 mg/dl (1.8-2.4); Phosphorus 4.5 mg/dl (2.5-4.9); Potassium 4.3 mmol/L (3.5-5.1); Total Protein 4.8 gm/dl (6.4-8.2)
[2021-02-02] MEDS: DEXTROSE 50% 50 ML SYRINGE IV PRN (08:25)
[2021-02-02] MEDS: DOXYCYCLINE HYCLATE 100 MG in DEXTROSE 5% 100 ML IV SCH ×2 (09:51→20:39)
[2021-02-02] MEDS: MYCOPHENOLATE MOFETIL 250 MG CAP PO SCH ×2 (09:52→20:27)
[2021-02-02] MEDS: predniSONE 5 MG TAB PO SCH (09:52)
[2021-02-02] MEDS: TACROLIMUS 0.5 MG CAP PO SCH ×2 (09:53→20:27)
[2021-02-02] MEDS: FAMOTIDINE 10 MG TABLET PO SCH (09:53)
[2021-02-02] MEDS: MULTIVITAMIN TAB PO SCH (09:53)
[2021-02-02] MEDS: MAGNESIUM OXIDE 400 MG TAB PO SCH ×2 (09:53→20:27)
[2021-02-02] MEDS: INSULIN ASPART 100 UNITS/ML 3 ML PEN SC SCH ×4 (10:26→20:35)
--- NOTE | 2021-02-02 10:33 | Hospitalist Progress Note ---
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 Sepsis secondary to anaplasmosis Acute febrile illness, pancytopenia, elevated AST, smear positive for anaplasmosis, and negative blood culture to date suggestive of anaplasmosis - fever, hypotension, elevated lactate- sepsis - WBC 3, Hgb 9.4, Plt 38, lactate 318 - blood culture no growth 48 hours - UA culture no growth final - stool culture ordered - continue Doxycycline 100mg PO BID x14 days - Cefepime/Daptomycin discontinued Thrombocytopenia in the setting of Anaplasmosis Differential includes DIC as a complication of Anaplasmosis as the patient is immunosuppression, although DIC labs reassuring expected elevation in aPTT in setting of heparin use otherwise nl. fibrinogen and PT - platelet count: 65 --> 42 --> 38 - continue to monitor platelet count and signs of bleeding WERNER on CKD IV, secondary to infection - Baseline Cr 4.2 --> 4.9 --> 5.26 today - Secondary to acute illness, dehydration, and diarrhea - Nephro consulted - potentially 2/2 progression of CKD - EPO started - L arm precautions - LR 70mls/hr. Once adequate PO intake - d/c IVF Acute hypoxic respiratory failure, - no O2 requirement at home. - tachypneic to mid 20-30s, needed 4-6L- continue as needed - CXR unremarkable x 2. - Resolved Elevated troponin - elevated and stabilized at 0.321 - Pt asymptomatic, likely due to demand ischemia/anaplasmosis related myocardial enzyme leak. H/o Kidney transplant - Continue home prednisone, tacrolimus, and mycophenolate T2DM - hypoglycemic this morning to the 50's - Insulin glargine decreased to 15U QPM, SSI CHF - Hold furosemide HLD - Hold atorvastatin and CoQ10 HTN - Hold losartan, carvedilol, atorvastatin Gout - Hold allopurinol Dispo: PCU with tele FEN/GI: Carb consistent, heart healthy, LR @70cc/hr DVT prophylaxis: heparin SQ Code Status: FULL CODE Supervising Physician Co-Signing Physician Notes Resident Physician Supervision Note: I independently interviewed and examined the patient and verified the jarrett history and physical, reviewed labs and image studies and agree with resident Dr. Donnelly findings and care plan. Subjective Rafael Andrea was doing okay this morning. He felt warm and was having chills overnight, and has had a cough for over a month that has been stable. He said he also felt presyncopal this morning when his blood sugar was in the 50's. We reviewed his creatinine, platelets and troponin level. Review of Systems Review of Systems: Constitutional: admits fevers, chills Cardiac: denies chest pain, palpitations; admits pre-syncope (relates to hypoglycemia) GI: denies nausea, vomiting Pulm.: denies shortness of breath, sputum production; admits chronic cough Physical Exam Constitutional: WD/WN, vitals as above Eyes: PERRL, conjunctivae normal, anicteric sclerae ENMT: external ear and nose normal, oropharynx normal Neck: normal visual inspection Respiratory: normal respiratory effort, lungs clear to auscultation Cardiovascular: RRR, no murmur, no edema Gastrointestinal (Abdomen): normal bowel sounds, soft, nontender, no hepatosplenomegaly Skin: - slight, petechia in the right upper chest Neurologic: awake; not confused Results & Data Results & Data ([facility]) Vital Signs (Past 12 Hours) Vital Signs Temp Pulse Pulse Resp BP Pulse Ox 02/02/21 07:37 36.4 C L 68 18 116/69 99 02/02/21 03:54 36.5 C 72 20 120/69 91 02/02/21 03:12 36.6 C 68 18 98/65 L 99 02/01/21 23:44 36.6 C 72 20 127/72 97 CBC Results Results Complete Blood Count Results: RBC 2.88 M/uL (4.7-6.1) L 02/02/21 WBC 2.32 K/uL (4.8-10.8) L 02/02/21 Hgb 9.3 g/dL (14.0-18.0) L 02/02/21 Hct 27.5 % (42-52) L 02/02/21 Plt Count 38 K/uL (130-400) L 02/02/21 Chemistry (BMP) Results BMP Results: Sodium 138 mmol/L (136-145) 02/02/21 Potassium 4.3 mmol/L (3.5-5.1) 02/02/21 Chloride 112 mmol/L (98-107) H 02/02/21 BUN 95 mg/dl (7-18) H 02/02/21 Creatinine 5.26 mg/dl (0.6-1.4) H* 02/02/21 Glucose 48 mg/dl (70-99) L* 02/02/21 Resident Activity Tracking Resident Involvement: Resident Care Provided Care Provided: [facility] Medicine
[2021-02-02] MEDS: LACTATED RINGER'S 1,000 ML IV SCH (10:40)
[2021-02-02 11:49] LABS: Echinocytes 2+; Hematocrit (blood only) 27.5 % (42-52); Hemoglobin 9.3 g/dL (14.0-18.0); Lymphocytes # (auto) 0.47 K/uL (1.2-3.4); Lymphocytes % (auto) 20.3 %; Mean Corpuscular Hemoglobin 32.3 pg (25-34); Mean Corpuscular Hgb Conc 33.8 g/dL (32-36); Mean Corpuscular Volume 95.5 fL (80-100); Monocytes # (auto) 0.15 K/uL (0.11-0.59); Monocytes % (auto) 6.5 %; Neutrophils % (auto) 73.2 %; Platelet Count 38 K/uL (130-400); Platelet Estimate SIGNIFIC DECREASED (Normal); RDW Coefficient of Variation 13.8 % (11.5-14.5); RDW Standard Deviation 48.4 fL (36.4-46.3); Red Blood Count 2.88 M/uL (4.7-6.1); White Blood Count 2.32 K/uL (4.8-10.8)
[2021-02-02 12:19] LABS: Fibrinogen 264 mg/dl (184-400); INR 1.1 (0.9-1.1); Partial Thromboplastin Ratio 4.1; Prothrombin Time 11.2 Seconds (9.0-12.0)
[2021-02-02] MEDS ORDERED: EPOETIN ALFA 20,000 UNITS/ML VIAL SQ STA (12:33)
--- NOTE | 2021-02-02 12:33 | Nephrology Progress Note ---
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 admitted to the hospital on 01/31/2021 with 2 days history of fever, chills, diarrhea, progres sive fatigue and weakness for days to weeks. On admission he was thought to be volume depleted with a prior diarrhea and being on diuretic. 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 Has been getting IV hydration. His on admission creatinine was 4.7 which has been slowly worsening and up to 5.3 this morning. Has metabolic acidosis. Hemoglobin has been low, decent iron store. History of renal transplant in 1995 after being on dialysis for 3 years for ADP KD. Had left radiocephalic AV fistula which currently nonfunctional. Renal function has been slowly worsening with high-grade proteinuria up prompting allograft biopsy which showed diabetic nephropathy. he was started on Lasix 40 mg twice a day for lower extremity edema which resolved and has been taking 40 mg at home. Also he was on losartan 100 mg daily both currently on hold. Following with [facility] for evaluation for another transplant. Renal function has been slowly worsening however has been voiding normally, blood pressure well controlled, potassium normal. no sign of volume overload. Has anemia and metabolic acidosis. WERNER could be secondary to volume depletion with recent diarrhea and being on diuretics. -- encourage increase p.o. intake, If p.o. intake remained adequate blood pressure well controlled, IV fluid can be discontinued -- start on sodium bicarbonate 650 mg twice a day -- Epogen 50750 units x 1 dose -- no indication for dialysis at this time however will need close monitoring of renal function, electrolyte and volume status -- left arm nephrology precaution for possible need for AV fistula in future will follow. (2) CKD (chronic kidney disease), stage IV: (3) Anemia: (4) Metabolic acidosis: (5) Renal transplant recipient: (6) Coronary artery disease: (7) HTN (hypertension): Admission and Anticipated Discharge Date Admission Date: January 31, 2021 Subjective Rafael feeling slightly better today, denies shortness of breath or chest pain. No episode of fever or chills. No nausea, vomiting or abdominal pain. P.o. intake has been low because of being on liquid diet which he did not like. Feels hungry as diet changes to regular, looking forward to have lunch. has been voiding normally. Blood pressure stable. Renal function continues to worsen with the metabolic acidosis and anemia. Review of Systems Review of Systems: All systems reviewed & are unremarkable except as noted in Subjective Physical Exam Constitutional: well developed and well nourished; no acute distress Respiratory: normal respiratory effort, lungs clear to auscultation Cardiovascular: RRR, no murmur, no edema Neurologic: moves all extremities and awake; not confused Psychiatric: A+Ox3, euthymic affect Results & Data ([facility]) Vital Signs (Past 12 Hours) Vital Signs Temp Pulse Pulse Pulse Resp BP Pulse Ox 02/02/21 11:56 36.7 C 80 18 123/76 96 02/02/21 08:00 72 02/02/21 07:37 36.4 C L 68 18 116/69 99 02/02/21 03:54 36.5 C 72 20 120/69 91 02/02/21 03:12 36.6 C 68 18 98/65 L 99 Pulse Ox 02/02/21 11:56 02/02/21 08:00 94 02/02/21 07:37 02/02/21 03:54 02/02/21 03:12 PG Care Time/CCT Total # of Minutes Spent Total Time Spent with Patient: Total time spent is greater than 50% in coordination of care (as documented) at patient's floor/unit and/or counseling patient: Coding Level of Care Code 02666 Subseq Hosp Care Lvl 3 Diagnoses Acute renal failure N17.9 CKD (chronic kidney disease), stage IV N18.4 Anemia D64.9 Anemia type: unspecified type Metabolic acidosis E87.2 Renal transplant recipient Z94.0 Coronary artery disease I25.10 HTN (hypertension) I10 (1) Anemia Anemia type: unspecified type Qualified Code(s): D64.9 - Anemia, unspecified
[2021-02-02] MEDS: CALCIUM CARBONATE 500 MG CHEWABLE TAB PO PRN (12:59)
[2021-02-02] MEDS: SODIUM BICARBONATE 650 MG TAB PO SCH (20:27)
[2021-02-02] MEDS: allopurinoL 300 MG TAB PO SCH (20:27)
[2021-02-02] MEDS: INSULIN GLARGINE SOLOSTAR 100 UNITS/ML 3 ML PEN SQ SCH (20:34)
[2021-02-03] MEDS: LACTATED RINGER'S 1,000 ML IV SCH ×3 (04:45→20:41)
[2021-02-03] MEDS: HEPARIN SOD 5,000 UNIT/0.5 ML VIAL SQ SCH ×3 (04:47→20:48)
[2021-02-03 06:23] LABS: Mean Corpuscular Hgb Conc 33.7 g/dL (32-36)
[2021-02-03 06:29] LABS: Hematocrit (blood only) 28.8 % (42-52); Hemoglobin 9.7 g/dL (14.0-18.0); RDW Standard Deviation 48.3 fL (36.4-46.3); Red Blood Count 3.03 M/uL (4.7-6.1); White Blood Count 3.02 K/uL (4.8-10.8)
--- NOTE | 2021-02-03 07:00 | Hospitalist Progress Note ---
Date of Service February 03, 2021 Assessment & Plan (1) Acute renal failure: Mr. 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 Sepsis secondary to anaplasmosis Acute febrile illness, pancytopenia, elevated AST, smear positive for anaplasmosis, and negative blood culture to date suggestive of anaplasmosis - Fever, hypotension, elevated lactate- sepsis - WBC 3.39, Hgb 10.1, Plt 65, lactate 318 - Blood culture no growth 48 hours, urine cx negative - Continue doxycycline 100mg PO BID x14 days (day 314) - platelet count improving - 41k - trend CBC daily WERNER on CKD IV, WERNER resolving Suspect ATN 2/2 sepsis. Cr 5.26 --> 4.66 today - Nephrology on board - appreciate recs - s/p Epoetin abbey 20,000 units x1 on 02/02 - continue mIVFs: LR 70mls/hr - continue sodium bicarbonate 650mg PO BID - trend BMP daily Acute hypoxic respiratory failure, resolved Initially tachypneic to mid 20-30s and required 4-6L NC - weaned to RA today. Suspect 2/2 sepsis which is improving with Doxycycline. Elevated troponin Trop peak at 0.321, EKG without ST/T changes, no chest pain --> suspect demand ischemia H/o Kidney transplant - Continue home prednisone, tacrolimus, and mycophenolate T2DM -Insulin glargine 20u QPM, SSI CHF - Hold furosemide HLD - Hold atorvastatin and CoQ10 HTN - Hold losartan and carvedilol Gout - Hold allopurinol Dispo: PCU with tele FEN/GI: Carb consistent, heart healthy, LR @70cc/hr DVT prophylaxis: heparin SQ Code Status: FULL CODE Admission and Anticipated Discharge Date Admission Date: January 31, 2021 Supervising Physician Co-Signing Physician Notes Resident Physician Supervision Note: I independently interviewed and examined the patient and verified the jarrett history and physical, reviewed labs and image studies and agree with resident Dr. Ballesteros findings and care plan. Subjective No acute events overnight. Patient has been afebrile for >48 hours. No complaints this morning. Feels better with more energy and has a good appetite. Review of Systems Review of Systems: Denies fever/chills, chest pain, palpitations, SOB, cough, N/V, abdominal pain, rash. Physical Exam Physical Exam: General: A&Ox3. NAD. Cooperative. HEENT: Atraumatic, normocephalic. Pulm: CTAB A&P. -wheezes, -rales, -rhonchi. Symmetrical chest rise. No increase work of breathing. No respiratory distress. Cardiac: RRR, -mrg. Radial pulses intact and symmetrical. Abdominal: soft, non-tender, non-distended, BS x 4 Skin: warm, dry, no rash. Results & Data Results & Data ([facility]) Vital Signs (Past 12 Hours) Vital Signs Temp Pulse Resp BP Pulse Ox 02/03/21 04:46 36.4 C L 71 18 159/83 H 97 02/02/21 23:26 36.3 C L 74 22 150/74 H 99 02/02/21 20:17 36.6 C 74 16 147/80 H 98 Resident Activity Tracking Resident Involvement: Resident Care Provided Care Provided: Adult Hospital Medicine
[2021-02-03 07:22] LABS: Albumin Level 2.3 gm/dl (3.4-5.0); BUN Creatinine Ratio 19.5 (10-20); Calcium 8.6 mg/dl (8.5-10.1); Creatinine Clr Calc Pharmacy 19.4 ml/min; Est GFR (Non-African American) 12.1 ml/min; Phosphorus 3.2 mg/dl (2.5-4.9); Potassium 4.5 mmol/L (3.5-5.1)
[2021-02-03 07:25] LABS: Platelet Count 41 K/uL (130-400); Platelet Estimate Decreased (Normal)
[2021-02-03] MEDS: MAGNESIUM OXIDE 400 MG TAB PO SCH ×2 (08:18→20:06)
[2021-02-03] MEDS: predniSONE 5 MG TAB PO SCH (08:18)
[2021-02-03] MEDS: FAMOTIDINE 10 MG TABLET PO SCH (08:18)
[2021-02-03] MEDS: MULTIVITAMIN TAB PO SCH (08:18)
[2021-02-03] MEDS: TACROLIMUS 0.5 MG CAP PO SCH ×2 (08:18→20:05)
[2021-02-03] MEDS: MYCOPHENOLATE MOFETIL 250 MG CAP PO SCH ×2 (08:19→20:06)
[2021-02-03] MEDS: SODIUM BICARBONATE 650 MG TAB PO SCH ×2 (08:19→20:06)
[2021-02-03] MEDS: INSULIN ASPART 100 UNITS/ML 3 ML PEN SC SCH ×4 (09:16→20:42)
[2021-02-03] MEDS: CALCIUM CARBONATE 500 MG CHEWABLE TAB PO PRN ×2 (11:18→20:04)
[2021-02-03] MEDS: DOXYCYCLINE HYCLATE 100 MG in DEXTROSE 5% 100 ML IV SCH ×2 (11:18→21:37)
--- NOTE | 2021-02-03 11:40 | Nephrology Progress Note ---
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 admitted to the hospital on 01/31/2021 with 2 days history of fever, chills, diarrhea, progres sive fatigue and weakness for days to weeks. On admission he was thought to be volume depleted with a prior diarrhea and being on diuretic. 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 Has been getting IV hydration. His on admission creatinine was 4.7 which has been slowly worsening and up to 5.3 this morning. Has metabolic acidosis. Hemoglobin has been low, decent iron store. History of renal transplant in 1995 after being on dialysis for 3 years for ADP KD. Had left radiocephalic AV fistula which currently nonfunctional. Renal function has been slowly worsening with high-grade proteinuria up prompting allograft biopsy which showed diabetic nephropathy. he was started on Lasix 40 mg twice a day for lower extremity edema which resolved and has been taking 40 mg at home. Also he was on losartan 100 mg daily both currently on hold. Following with [facility]ito for evaluation for another transplant. Renal function Started to improve, creatinine down to 4.7, potassium normal. Bicarb stable. -- encourage increase p.o. intake. -- on sodium bicarbonate 650 mg twice a day -- Epogen 56776 units x 1 dose Given on 02/02/2021 -- left arm nephrology precaution for possible need for AV fistula in future -- hopefully discharge tomorrow if clinically stable and renal function continues to improve the will follow. (2) CKD (chronic kidney disease), stage IV: * ADPKD s/p renal transplant * Baseline Cr 4.2 (3) Anemia: (4) Metabolic acidosis: (5) Renal transplant recipient: (6) Coronary artery disease: (7) HTN (hypertension): Admission and Anticipated Discharge Date Admission Date: January 31, 2021 Subjective Rafael feels well and denies any specific symptoms. BP and Volume status acceptable. Net negative more than 1 liter. renal function improved, creatinine down to 4.7. Hemoglobin and platelet stable. Review of Systems Review of Systems: All systems reviewed & are unremarkable except as noted in Subjective Physical Exam Constitutional: well developed and well nourished; no acute distress Respiratory: normal respiratory effort, lungs clear to auscultation Cardiovascular: RRR, no murmur, no edema Neurologic: moves all extremities and awake; not confused Psychiatric: A+Ox3, euthymic affect Results & Data ([facility]) Vital Signs (Past 12 Hours) Vital Signs Temp Pulse Pulse Resp BP Pulse Ox Pulse Ox 02/03/21 08:00 71 95 02/03/21 07:34 36.7 C 66 18 145/78 H 95 02/03/21 04:46 36.4 C L 71 18 159/83 H 97 PG Care Time/CCT Total # of Minutes Spent Total Time Spent with Patient: Total time spent is greater than 50% in coordination of care (as documented) at patient's floor/unit and/or counseling patient: Coding Level of Care Code 81992 Subseq Hosp Care Lvl 3 Diagnoses Acute renal failure N17.9 CKD (chronic kidney disease), stage IV N18.4 Anemia D64.9 Anemia type: unspecified type Metabolic acidosis E87.2 Renal transplant recipient Z94.0 Coronary artery disease I25.10 HTN (hypertension) I10 (1) Anemia Anemia type: unspecified type Qualified Code(s): D64.9 - Anemia, unspecified
[2021-02-03] MEDS: allopurinoL 300 MG TAB PO SCH (20:06)
[2021-02-03] MEDS: INSULIN GLARGINE SOLOSTAR 100 UNITS/ML 3 ML PEN SQ SCH (20:45)
[2021-02-04] MEDS: HEPARIN SOD 5,000 UNIT/0.5 ML VIAL SQ SCH (06:05)
[2021-02-04 07:20] LABS: Hematocrit (blood only) 28.5 % (42-52); Hemoglobin 9.6 g/dL (14.0-18.0); Mean Corpuscular Hemoglobin 31.9 pg (25-34); Mean Corpuscular Hgb Conc 33.7 g/dL (32-36); Mean Corpuscular Volume 94.7 fL (80-100); Mean Platelet Volume 13.6 fL (7.4-10.4); Platelet Count 57 K/uL (130-400); RDW Standard Deviation 48.1 fL (36.4-46.3); Red Blood Count 3.01 M/uL (4.7-6.1)
[2021-02-04 07:21] LABS: Platelet Estimate Decreased (Normal)
[2021-02-04 07:32] LABS: Albumin Level 2.4 gm/dl (3.4-5.0); BUN Creatinine Ratio 20.7 (10-20); Calcium 8.9 mg/dl (8.5-10.1); Est GFR (African American) 15.4 ml/min; Est GFR (Non-African American) 13.3 ml/min; Potassium 4.4 mmol/L (3.5-5.1)
[2021-02-04 07:38] LABS: Phosphorus 2.5 mg/dl (2.5-4.9)
[2021-02-04] MEDS: SODIUM BICARBONATE 650 MG TAB PO SCH (08:00)
[2021-02-04] MEDS: MYCOPHENOLATE MOFETIL 250 MG CAP PO SCH (08:00)
[2021-02-04] MEDS: predniSONE 5 MG TAB PO SCH (08:00)
[2021-02-04] MEDS: MAGNESIUM OXIDE 400 MG TAB PO SCH (08:00)
[2021-02-04] MEDS: TACROLIMUS 0.5 MG CAP PO SCH (08:01)
[2021-02-04] MEDS: FAMOTIDINE 10 MG TABLET PO SCH (08:01)
[2021-02-04] MEDS: MULTIVITAMIN TAB PO SCH (08:01)
[2021-02-04] MEDS: INSULIN ASPART 100 UNITS/ML 3 ML PEN SC SCH ×2 (09:05→12:58)
[2021-02-04] MEDS: DOXYCYCLINE HYCLATE 100 MG in DEXTROSE 5% 100 ML IV SCH (09:50)
--- NOTE | 2021-02-04 11:08 | Nephrology Progress Note ---
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 admitted to the hospital on 01/31/2021 with 2 days history of fever, chills, diarrhea, progressive f atigue and weakness for days to weeks. On admission he was thought to be volume depleted with a prior diarrhea and being on diuretic. 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 Has been getting IV hydration. Cr on admission was 4.7 which has worsened up to 5.3 this morning. Has metabolic acidosis. Hemoglobin has been low, decent iron store. History of renal transplant in 1995 after being on dialysis for 3 years for ADPKD. Had left radiocephalic AV fistula which currently nonfunctional. Renal function has been slowly worsening with high- grade proteinuria prompting allograft biopsy which showed diabetic nephropathy. He was started on Lasix 40 mg twice a day for lower extremity edema which resolved and has been taking 40 mg at home. Also he was on losartan 100 mg daily both currently on hold. Following with Julito for evaluation for another transplant. Renal function continues to improve, creatinine down to 4.3, potassium normal. Bicarb stable. -- DC IV fluid, encourage increase p.o. intake. -- plan to continue Doxycycline 100 bid for total 14 days -- continue on sodium bicarbonate 650 mg twice a day on DC -- Epogen 72063 units x 1 dose Given on 02/02/2021 -- left arm nephrology precaution for possible need for AV fistula in future -- Continue to hold Losartan and Lasix on DC, OK to be discharged, has outpt f/u with Dr. Eugene on 02/05/21. will follow while inpatient. (2) CKD (chronic kidney disease), stage IV: * ADPKD s/p renal transplant * Baseline Cr 4.2 (3) Anemia: (4) Metabolic acidosis: (5) Renal transplant recipient: (6) Coronary artery disease: (7) HTN (hypertension): Admission and Anticipated Discharge Date Admission Date: January 31, 2021 Subjective Rafael has been afebrile >48 h. Overall he continues to feel well and denies any specific symptoms. BP and Volume status acceptable. Renal function continues to improve, creatinine down to 4.3. Hemoglobin stable and platelet improving. Review of Systems Review of Systems: All systems reviewed & are unremarkable except as noted in Subjective Physical Exam Constitutional: well developed and well nourished; no acute distress Respiratory: normal respiratory effort, lungs clear to auscultation Cardiovascular: RRR, no murmur, no edema Neurologic: moves all extremities and awake; not confused Psychiatric: A+Ox3, euthymic affect Results & Data ([facility]) Vital Signs (Past 12 Hours) Vital Signs Temp Pulse Pulse Resp BP Pulse Ox Pulse Ox 02/04/21 11:03 36.8 C 70 18 151/81 H 97 02/04/21 08:00 68 96 02/04/21 07:08 36.7 C 76 18 146/76 H 97 02/04/21 04:17 36.9 C 72 20 156/83 H 96 02/04/21 00:09 36.5 C 73 18 168/82 H 99 02/04/21 00:00 73 PG Care Time/CCT Total # of Minutes Spent Total Time Spent with Patient: Total time spent is greater than 50% in coordination of care (as documented) at patient's floor/unit and/or counseling patient: Coding Level of Care Code 11085 Subseq Hosp Care Lvl 3 Diagnoses Acute renal failure N17.9 CKD (chronic kidney disease), stage IV N18.4 Anemia D64.9 Anemia type: unspecified type Metabolic acidosis E87.2 Renal transplant recipient Z94.0 Coronary artery disease I25.10 HTN (hypertension) I10 (1) Anemia Anemia type: unspecified type Qualified Code(s): D64.9 - Anemia, unspecified
--- NOTE | 2021-02-04 13:59 | Discharge Summary ---
Date of Service February 04, 2021 Admission HPI Per Admitting Provider 66 y/o M with h/o renal transplant and on chronic immunosuppression here with complain of watery, non-bloody diarrhea since 2 days and weakness & dizziness. He had clams from store followed by two explosive loose stools and another one the day after. Last loose stool was this am. Denied any vomiting, abdominal pain. Appetite has been low. [place] feverish with temp of 99 degrees in ED. Denied chest pain, cough, shortness of breath, headache. Per EMS - his bsg was in 70s initially and he received oral glucose. Recheck bsg was 90s. Also noted to have lower pulse ox of 89-90% on RA. Pulse at the time of exam was 97% on RA. He was recently diuresed aggressively by double of home dose lasix 2 wks ago. His leg swelling has significantly decreased since then. Admission Exam Per Admitting Provider Constitutional: well developed and + ill appearing Eyes: Normal conjunctiva. ENMT: external ear and nose normal, oropharynx normal Neck: trachea midline, no thyromegaly Respiratory: normal respiratory effort, lungs clear to auscultation Cardiovascular: RRR, no murmur, no edema Gastrointestinal (Abdomen): normal bowel sounds, soft, nontender, no hepatosplenomegaly Musculoskeletal: no cyanosis or clubbing, extremities motor strength 5/5 Skin: no rashes, warm and dry Neurologic: No focal deficits Psychiatric: A+Ox3, euthymic affect Principal Diagnosis anaplasmosis, ARF on CKD IV Discharge Exam Constitutional: elderly appearing, in no apparent distress, sitting comfortably in bed, in good spirits Eyes: EOMI, pupils equal and reactive bilaterally, no scleral icterus Cardiac: RRR, no murmurs, gallops or rubs. Normal S1, S2 Pulm: CTA BL, no wheezes, rhonchi, crackles or rubs, moving air well throughout both lungs Abd: soft, nontender, nondistended, normal bowel sounds, no rebound or guarding Extremities: 2+ peripheral pulses, no edema Neuro: no focal deficits, moving all 4 limbs, A&Ox3 Discharge Data Allergies Allergy/AdvReac Type Severity Reaction Status Date / Time No Known Allergies Allergy Verified 01/31/21 09:55 Consultations 01/31/21 10:13 ED Decision to Admit Stat 01/31/21 13:20 Consult Nephrology Routine Ordered Studies 01/31/21 15:22 US renal transplant LT Routine Hospital Course (1) Acute renal failure: Mr. 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 Sepsis secondary to anaplasmosis Acute febrile illness, pancytopenia, elevated AST, smear positive for anaplasmosis, and negative blood culture to date suggestive of anaplasmosis Treated with Doxycycline 100 mg BID, 10 day course to be completed on 02/10/21. WERNER on CKD IV in patient s/p renal transplant - s/p Epoetin abbey 20,000 units x1 on 02/02 - continue sodium bicarbonate 650mg PO BID - encourage PO fluid intake - recommend follow up BMP. Discharge Cr 4.3 - lasix, losartan held during admission for renal protection. Discuss restarting medications at hospital follow up. All other medical problems managed per home regimens. Total Time Total Time Spent Total Time Spent (In Minutes): <30 Discharge Plan Discharge Items Patient Disposition: Home - Self-Care Reason For Visit: ACUTE RENAL FAILURE DEHYDRATION Discharge Diagnosis: Anaplasmosis, Acute Renal Failure Activity: Resume your previous activity Non-emergency contact: Primary Care Provider and Mechanical Maintenance Supervisor Call non-emergency contact if: you have any medication questions Follow-up/Referrals: Mi Stallworth CRNP [Nurse Practitioner] - 02/05/21 1:00 pm Diet: Dialysis Renal Ambulatory Orders: Basic Metabolic Panel (Routine) Timeframe: 3 Days Location: Determined by Patient Ordered By: Nery Ventura Complete Blood Count no Diff (Routine) Timeframe: 3 Days Location: Determined by Patient Ordered By: Nery Ventura Addtl Attending Provider Instructions: You were seen in the hospital for acute diarrhea and ill symptoms found to be secondary to a tick-borne illness called Anaplasmosis. You were appropriately t reated with antibiotics and will finish this course of antibiotics at home. Because of the stress of illness and dehydration, your kidneys went into acute renal failure, but have been improving with fluid management and treatment of the illness. We recommend following up with your primary care physician and getting follow up labs in the next 2-3 days to make sure your kidney function continues to improve. Medication Changes: - stopped Lasix and Losartan [discuss restarting with PCP at follow up] - started Bicarbonate tabs twice a day - Doxycycline (Antibiotic) 1 tab twice a day for a total of 10 days. Last day of treatment is 02/10/21. Pending Studies at Discharge: No Stand-Alone Forms: My [facility], Smoking Cessation Medications and DC Order Prescriptions: New sodium bicarbonate 650 mg Tablet 650 mg PO BID 30 Days Qty: 60 RF: 0 doxycycline monohydrate 100 mg capsule 100 mg PO BID Qty: 12 RF: 0 Continued (DME) pen needle, diabetic [BD Ultra-Fine Onedia Pen Needle] 32 gauge x 5/32" needle See Dose Instructions .ROUTE .MEDSUPPLY Qty: 90 RF: 3 glipizide 10 mg tablet 10 mg PO BID Qty: 90 RF: 3 (DME) lancets [Accu-Chek Softclix Lancets] Misc See Rx Instructions .ROUTE .MEDSUPPLY Qty: 4 RF: 3 (DME) Accu-Chek Anastacia Plus test strp Strip See Dose Instructions .ROUTE .MEDSUPPLY Qty: 4 RF: 3 tacrolimus [Prograf] 0.5 mg capsule 0.5 mg PO Q12H RF: 0 (DME) blood-glucose meter [Accu-Chek Anastacia Plus Meter] misc See Dose Instructions .ROUTE .MEDSUPPLY Qty: 1 RF: 0 coenzyme Q10 100 mg capsule 100 mg PO BID RF: 0 flaxseed oil 1,000 mg capsule 1,000 mg PO QAM RF: 0 magnesium oxide 250 mg magnesium tablet 250 mg PO BID RF: 0 famotidine 10 mg tablet 10 mg PO QAM RF: 0 multivitamin [Multiple Vitamins] tablet 1 tab PO QAM RF: 0 prednisone 5 mg tablet 5 mg PO QAM Qty: 90 RF: 0 atorvastatin 40 mg tablet 40 mg PO PM RF: 0 carvedilol 12.5 mg tablet 6.25 mg PO BID RF: 0 mycophenolate mofetil 250 mg capsule 750 mg PO BID RF: 0 acetaminophen [Tylenol Extra Strength] 500 mg Tablet 500 mg PO Q6H PRN (Reason: Pain) RF: 0 amoxicillin 500 mg capsule 500 mg PO ONCE RF: 0 allopurinol 300 mg tablet 300 mg PO PM RF: 0 Basaglar KwikPen U-100 Insulin 100 unit/mL (3 mL) insulin pen 20 unit subcut PM RF: 0 Discontinued losartan 50 mg tablet 50 mg PO QAM RF: 0 furosemide [Lasix] 40 mg tablet 40 mg PO QAM RF: 0 Discharge Orders: Discharge Order (Routine); Ordered 02/04/21 Ordered By: Nery Ventura Admission Data Admit Date/Time: 01/31/21 11:56 Attending Provider: Hair Luz Admit Provider: Sayda Patel Primary Care Provider: Jayson Eugene Other Providers: Sayda Patel ; Jayson Eugene Other Interventions: Discharge Summary Assessment (RN) Last Done: 02/04/21 12:12 Supervising Physician Co-Signing Physician Notes I personally examined the patient and verified all jarrett points of history and exam, discussed case, and agree with decision making with Dr Ventura feeling better overall feeling up to going home vitals noted nad heent nc at mmm breathing unlabored no accessory muscles good effort skin no rashes no pallor or icterus anaplasmosis, ARF on CKD IV -- all improving. safe for home on doxy (ADRs outlined) f/u as outpt otherwise as above Resident Activity Tracking Resident Involvement: Resident Care Provided Care Provided: Adult Hospital Medicine
--- NOTE | 2021-02-04 15:09 | Billing Data ---
Date of Service February 04, 2021 Coding Level of Care Code D/C Day Management <30 mins
== END 2021-02-04 13:12 | disposition home or self-care (01) | DRG 871 ==
LOC: ED 07:56 → 2E 11:56 → SUATTDRO 11:56 → 2E 12:36

== ENCOUNTER 2021-06-03 14:40 | Inpatient (IN) ==
--- NOTE | 2021-06-03 15:14 | Emergency Department Note ---
Impression & Plan Acute subdural hematoma, CKD (chronic kidney disease), stage IV, Headache, Chronic subdural hematoma ED Provider Note NAME: MICHAEL VENTURA AGE: 66 SEX: M ARRIVES VIA: Walk-In INFORMANT: Patient, ED PROVIDER(S): Juan Bueno MD CHIEF COMPLAINT: Headache, weakness. PLAN: Disposition: Admit MEDICAL DECISION MAKING: The patient is a pleasant 66-year-old gentleman with a past medical history of subdural hematoma which occurred in March 2021 and then required second evacuation the end of April 2021in setting being diagnosed with anaplasmos is, history of failed kidney transplant/CKD, hypertension, CAD who presents to the emergency department accompanied by his for generalized weakness, malaise, nausea, lightheadedness in his concern for recurrence of left leg weakness which is what he had experienced as a deficit related to a subdural hematoma. The patient reports that since doing physical therapy he was recently released several weeks ago and to his impression felt that his strength recovered completely though he does acknowledge that he was recommended by his therapist to walk with a cane. He denies any fevers but has felt malaise, feverishness. He had his COVID-19 booster numerous weeks ago. He denies any known COVID-19 exposures. He denies diarrhea, constipation, urinary symptoms. Patient admits he has not been eating or drinking much and did not drink any thing today. He reports today he got significantly lightheaded and felt weak where he ended up falling in the bathroom but did not hit his head but fell onto his tailbone. The patient is chronically ill-appearing, fatigued but no acute distress, afeb rile stable vital signs. He appears clinically dry. Orthostatic vital signs per RN were positive suggestive of component of dehydration. He has 4-4+/5 strength of the left lower extremity. He has 5/5 strength of all other extremities. EKG without overt acute ischemia. Chest x-ray negative for acute cardiopulmonary process. WBC and platelets within normal limits. H/H 9.6/30.8 similar to prior range of values. Chemistry without significant acidosis. Creatinine 3 at patient's baseline for CKD. Electrolytes LFTs without significant abnormality. Troponin 0.037, within normal limits. Lipase is not elevated. TSH within normal limits. COVID-[address] of the head demonstrates "Interval development of acute subdural hematoma along the right tentorium and falx and adjacent to the left parietal lobe" and "increase in size of subacute and chronic subdural hematomas bilaterally", with increase in size proximately 6 mm. I reviewed the patient's case with [place]gr[place], [facility] [place] He does agree with plan for transfer and accepts the patient. However, unfortunately they have no beds available at this time with no definitive timeframe when 1 will be available though it is suspected and has been the pattern that 1 should become available in the morning. Thus, given the patient's neurologic status is stable no indication to emergently transfer for intervention. Agrees with admission here if possible until a bed becomes available. They are available for consultation for any questions. The patient agrees with plan for admission here until [facility] [place]. Case was discussed with Dr. Smith, [facility] hospitalist, and [facility] who will evaluate the patient for admission. Triage Nursing notes reviewed and agree them. Prior medical records reviewed Vital Signs: reviewed and remarkable for hypertension. Differential diagnosis: Migraine headache, meningitis, sinusitis, CO exposure, ICH, SAH, infection, tumor, headache, sinus thrombosis, arterial dissection, as well as other patholo gies. ER treatment provided: See below. Diagnostics interpreted by me: ECG: Normal sinus rhythm with PACs, 75 bpm, LVH, T wave abnormality, no overt ST elevation or depression, QTC 431, QRS 82. Cardiac Monitoring: An order for continuous cardiac monitoring was placed and demonstrated Normal sinus rhythm with PACs, 75 bpm. Laboratory studies: See below Imaging studies: See below Consultation(s): Dr. Negron, [facility] [place]. [place]. Smith, [facility] hospitalist, and [facility] HPI: The patient is a pleasant 66-year-old gentleman with a past medical history of subdural hematoma which occurred in March 2021 and then required second evacuation the end of April 2021in setting being diagnosed with anaplasmosis, history of failed kidney transplant/CKD, hypertension, CAD who presents to the emergency department accompanied by his for generalized weakness, malaise, nausea, lightheadedness in his concern for recurrence of left leg weakness which is what he had experienced as a deficit related to a subdural hematoma. The patient reports that since doing physical therapy he was recently released several weeks ago and to his impression felt that his strength recove red completely though he does acknowledge that he was recommended by his therapist to walk with a cane. He denies any fevers but has felt malaise, feverishness. He had his COVID-19 booster numerous weeks ago. He denies any known COVID-19 exposures. He denies diarrhea, constipation, urinary symptoms. Patient admits he has not been eating or drinking much and did not drink any thing today. He reports today he got significantly lightheaded and felt weak where he ended up falling in the bathroom but did not hit his head but fell onto his tailbone. ROS: See above HPI for pertinent positives & negatives. A total of 10 systems reviewed and were otherwise negative. PAST MEDICAL HISTORY:See Below PAST SURGICAL HISTORY:See Below FAMILY HISTORY:See Below SOCIAL HISTORY:See Below HOME MEDICATIONS:See Below ALLERGIES:See Below VITALS:See Below PHYSICAL EXAMINATION: GENERAL: Awake, alert, chronically ill-appearing, in no distress HENT: Normocephalic, atraumatic. Oropharynx with dry mucous membranes and otherwise unremarkable. EYES: Normal conjunctiva. Sclera non-icteric. NECK: Supple. No nuchal rigidity. FROM. No JVD. RESPIRATORY: Clear to auscultation. CARDIAC: Regular rate, normal rhythm. Extremities warm and well perfused. Pulses equal. ABDOMEN: Soft, non-distended. No tenderness to palpation. No rebound or guarding. No masses. RECTAL: Deferred. MUSCULOSKELETAL: Chest examination reveals no tenderness. The back is symmetrical on inspection without obvious abnormality. There is no CVA tenderness to palpation. No joint edema. LOWER EXTREMITIES: Calves are equal size bilaterally and non-tender. No edema. No discoloration. NEURO: 4-4+/5 strength of the left lower extremity. He has 5/5 strength of all other extremities. SKIN: No rash or jaundice noted. ED COURSE: Critical Care: I have personally spent greater than 35 minutes of critical care time in the direct management of this patient. This includes bedside care, interpretation of diagnostic studies, and testing, discussion with consultants, patient, and family members, and other required patient management activities. This 35 minutes is in excess of all separately billable procedures. Juan Bueno MD Past Med/Surg History Medical History WERNER (acute kidney injury) Anaplasmosis CHF (congestive heart failure) COVID-19 vaccine administered Dehydration Diarrhea Diverticulosis Elevated troponin Gout, joint Hypercholesterolemia Myocardial Infarction Polycystic kidney ST elevation myocardial infarction (STEMI) Weakness Surgical History History of heart artery stent Renal transplant recipient Family History Mother Breast cancer Father Stroke Polycystic kidney disease Denies family history of Ovarian cancer Prostate cancer Myocardial infarction Colorectal cancer Social History Smoking Status: Never smoker Hx Alcohol Use: No Hx Substance Use: No Preferred Language: Burkinan Communication Ability: Effective Protection [employer] Required: No Beliefs That Will Affect Care: None marital status: Current Living Situation: Spouse 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 Other Information That Helps Us Care for You: No Feels Safe at Home: Yes Safety Concerns: Feels Safe At This Time Dental Care, Regularly: Yes Physical Activity Frequency: 3-4 Times per Week Seatbelt Use: always Assistive Devices: Cane, Glasses and Walker Allergies Allergies Allergy/AdvReac Type Severity Reaction Status Date / Time No Known Allergies Allergy Verified 06/03/21 15:53 Home Meds Home Medications Medication Instructions Recorded Confirmed coenzyme Q10 100 mg capsule (Co 100 mg PO BID cap 03/03/19 06/03/21 Q-10) famotidine 10 mg tablet (Acid 10 mg PO QAM 03/03/19 06/03/21 [employer] (Cad) (famotidine)) flaxseed oil 1,000 mg capsule 1,000 mg PO HS cap 03/03/19 06/03/21 ([place]-3 Flaxseed Oil) magnesium oxide 250 mg PO BID tab 03/03/19 06/03/21 multivitamin (Multiple Vitamins) 1 tab PO QAM 03/03/19 06/03/21 prednisone 5 mg tablet 5 mg PO QAM #90 tab 03/03/19 06/03/21 atorvastatin 40 mg tablet (Lipitor) 40 mg PO HS 09/13/19 06/03/21 carvedilol 12.5 mg tablet (Coreg) 6.25 mg PO BID tab 05/07/20 06/03/21 tacrolimus 0.5 mg capsule, 0.5 mg PO Q12H cap 01/24/21 06/03/21 immediate-release (Prograf) allopurinol 300 mg tablet 300 mg PO HS 01/31/21 06/03/21 amoxicillin 500 mg capsule 500 mg PO DIRECTED PRN 01/31/21 06/03/21 mycophenolate mofetil 250 mg 750 mg PO BID 01/31/21 06/03/21 capsule (CellCept) glipizide 10 mg tablet (Glucotrol) 10 mg PO QAM tab 03/16/21 06/03/21 mecobalamin (vitamin B12) 1,000 1,000 mcg PO QAM 03/26/21 06/03/21 mcg chewable tablet (B12 Active) insulin glargine 100 unit/mL (3 15 unit SUBCUT HS ml 05/19/21 06/03/21 mL) subcutaneous pen (Basaglar KwikPen U-100 Insulin) Previous Rx's Medication Instructions Recorded ondansetron 4 mg disintegrating 4 - 8 mg PO Q8H PRN #14 tab 04/30/21 tablet losartan 25 mg tablet 25 mg PO DAILY #90 tab 05/28/21 glipizide 5 mg tablet 2.5 mg PO HS #45 tab 05/30/21 Results & Data (ED) Vital Signs Vital Signs - 24 hr 06/03/21 14:44 06/03/21 15:01 06/03/21 15:12 Temperature 36.6 C Temperature Source Temporal Artery Scan Pulse Rate - Lying 75 Pulse Rate - Sitting 75 Pulse Rate - Standing 92 H Pulse Rate 90 81 Pulse Rate [Left Radial] Pulse Rate from SpO2 Sensor Pulse Rhythm Regular Pulse Strength Normal Respiratory Rate 20 15 Respiratory Effort / Characteristics Non-Labored Spontaneous Respiratory Depth Normal Respiratory Pattern Regular Blood Pressure - Lying 163/94 H Blood Pressure - Sitting 162/100 H Blood Pressure- Standing 136/99 Blood Pressure 152/91 H 165/88 H Blood Pressure [Right Arm] Blood Pressure Mean 111 113 Blood Pressure Mean [Right Arm] Blood Pressure Position Sitting Pulse Oximetry 98 Oxygen Delivery Method Room Air Sepsis Recent Fever Within 48 Hours No Sepsis New/Unexplained Change in Mental Status No Sepsis Action Taken by Nursing No Action Required 06/03/21 15:30 06/03/21 16:00 06/03/21 16:30 Temperature Temperature Source Pulse Rate - Lying Pulse Rate - Sitting Pulse Rate - Standing Pulse Rate 73 74 72 Pulse Rate [Left Radial] Pulse Rate from SpO2 Sensor Pulse Rhythm Pulse Strength Respiratory Rate 16 15 21 Respiratory Effort / Characteristics Respiratory Depth Respiratory Pattern Blood Pressure - Lying Blood Pressure - Sitting Blood Pressure- Standing Blood Pressure Blood Pressure [Right Arm] Blood Pressure Mean Blood Pressure Mean [Right Arm] Blood Pressure Position Pulse Oximetry Oxygen Delivery Method Sepsis Recent Fever Within 48 Hours Sepsis New/Unexplained Change in Mental Status Sepsis Action Taken by Nursing 06/03/21 17:00 06/03/21 17:30 06/03/21 18:00 Temperature Temperature Source Pulse Rate - Lying Pulse Rate - Sitting Pulse Rate - Standing Pulse Rate 75 76 74 Pulse Rate [Left Radial] Pulse Rate from SpO2 Sensor Pulse Rhythm Pulse Strength Respiratory Rate 22 14 18 Respiratory Effort / Characteristics Respiratory Depth Respiratory Pattern Blood Pressure - Lying Blood Pressure - Sitting Blood Pressure- Standing Blood Pressure 165/91 H 179/93 H Blood Pressure [Right Arm] Blood Pressure Mean 115 121 Blood Pressure Mean [Right Arm] Blood Pressure Position Pulse Oximetry Oxygen Delivery Method Sepsis Recent Fever Within 48 Hours Sepsis New/Unexplained Change in Mental Status Sepsis Action Taken by Nursing 06/03/21 18:30 06/03/21 19:45 06/03/21 20:00 Temperature Temperature Source Pulse Rate - Lying Pulse Rate - Sitting Pulse Rate - Standing Pulse Rate 75 72 Pulse Rate [Left Radial] 71 Pulse Rate from SpO2 Sensor 71 Pulse Rhythm Pulse Strength Respiratory Rate 17 18 13 Respiratory Effort / Characteristics Respiratory Depth Respiratory Pattern Blood Pressure - Lying Blood Pressure - Sitting Blood Pressure- Standing Blood Pressure 167/91 H Blood Pressure [Right Arm] 171/102 H Blood Pressure Mean 116 Blood Pressure Mean [Right Arm] 125 Blood Pressure Position Pulse Oximetry 97 98 Oxygen Delivery Method Room Air Sepsis Recent Fever Within 48 Hours Sepsis New/Unexplained Change in Mental Status Sepsis Action Taken by Nursing 06/03/21 20:30 Temperature Temperature Source Pulse Rate - Lying Pulse Rate - Sitting Pulse Rate - Standing Pulse Rate 71 Pulse Rate [Left Radial] Pulse Rate from SpO2 Sensor Pulse Rhythm Pulse Strength Respiratory Rate 19 Respiratory Effort / Characteristics Respiratory Depth Respiratory Pattern Blood Pressure - Lying Blood Pressure - Sitting Blood Pressure- Standing Blood Pressure Blood Pressure [Right Arm] Blood Pressure Mean Blood Pressure Mean [Right Arm] Blood Pressure Position Pulse Oximetry Oxygen Delivery Method Sepsis Recent Fever Within 48 Hours Sepsis New/Unexplained Change in Mental Status Sepsis Action Taken by Nursing Laboratory Data Attestation: I reviewed the patient's lab results. Result diagrams: 06/03/21 15:08 06/03/21 15:08 Lab Results 06/03/21 06/03/21 06/03/21 Range/Units 15:08 15:08 16:31 WBC 6.40 (4.8-10.8) K/uL RBC 3.02 L (4.7-6.1) M/uL Hgb 9.6 L (14.0-18.0) g/dL Hct 30.8 L (42-52) % MCV 102.0 H (80-100) fL MCH 31.8 (25-34) pg MCHC 31.2 L (32-36) g/dL RDW Std Deviation 55.3 H (36.4-46.3) fL RDW Coeff of Mir 14.9 H (11.5-14.5) % Plt Count 214 (130-400) K/uL MPV 10.9 H (7.4-10.4) fL Immature Gran % (Auto) 0.2 % Neut % (Auto) 77.4 % Lymph % (Auto) 13.8 % Harrison % (Auto) 8.3 % Eos % (Auto) 0.3 % Baso % (Auto) 0.0 % Neut # (Auto) 4.96 (1.4-6.5) K/uL Lymph # (Auto) 0.88 L (1.2-3.4) K/uL Harrison # (Auto) 0.53 (0.11-0.59) K/uL Eos # (Auto) 0.02 (0-0.5) K/uL Baso # (Auto) 0.00 (0-0.2) K/uL Immature Gran # (Auto) 0.01 (0.00-0.02) K/uL PT (9.0-12.0) Seconds INR (0.9-1.1) APTT (21.0-31.0) Seconds PTT Ratio Fibrinogen (184-400) mg/dl Sodium 137 (136-145) mmol/L Potassium 4.7 (3.5-5.1) mmol/L Chloride 110 H (98-107) mmol/L Carbon Dioxide 20 L (21-32) mmol/L Anion Gap 7.0 (3-11) BUN 52 H (7-18) mg/dl Creatinine 3.00 H (0.6-1.4) mg/dl Est Cr Clr Drug Dosing Not Reportable Est GFR ( Amer) 23.8 ml/min Est GFR (Non-Af Amer) 20.5 ml/min BUN/Creatinine Ratio 17.4 (10-20) Glucose 196 H (70-99) mg/dl Calcium 9.5 (8.5-10.1) mg/dl Phosphorus 3.0 (2.5-4.9) mg/dl Magnesium 2.1 (1.8-2.4) mg/dl Total Bilirubin 0.3 (0.2-1) mg/dl AST 12 L (15-37) U/L ALT 19 (12-78) U/L Alkaline Phosphatase 89 (45-117) U/L Troponin I 0.037 (0-0.045) ng/ml Total Protein 5.9 L (6.4-8.2) gm/dl Albumin 2.9 L (3.4-5.0) gm/dl Globulin 3.0 (2.5-4.0) gm/dl Albumin/Globulin Ratio 1.0 (0.9-2) Lipase 322 (73-393) U/L TSH 1.050 (0.300-4.500) uIu/ml COVID-19 Eval Order Covid19 at [facility] SARS-CoV-2 (PCR) (Negative) 06/03/21 06/03/21 Range/Units 16:31 20:27 WBC (4.8-10.8) K/uL RBC (4.7-6.1) M/uL Hgb (14.0-18.0) g/dL Hct (42-52) % MCV (80-100) fL MCH (25-34) pg MCHC (32-36) g/dL RDW Std Deviation (36.4-46.3) fL RDW Coeff of Mir (11.5-14.5) % Plt Count (130-400) K/uL MPV (7.4-10.4) fL Immature Gran % (Auto) % Neut % (Auto) % Lymph % (Auto) % Harrison % (Auto) % Eos % (Auto) % Baso % (Auto) % Neut # (Auto) (1.4-6.5) K/uL Lymph # (Auto) (1.2-3.4) K/uL Harrison # (Auto) (0.11-0.59) K/uL Eos # (Auto) (0-0.5) K/uL Baso # (Auto) (0-0.2) K/uL Immature Gran # (Auto) (0.00-0.02) K/uL PT 10.3 (9.0-12.0) Seconds INR 1.0 (0.9-1.1) APTT 27.6 (21.0-31.0) Seconds PTT Ratio 1.0 Fibrinogen 269 (184-400) mg/dl Sodium (136-145) mmol/L Potassium (3.5-5.1) mmol/L Chloride (98-107) mmol/L Carbon Dioxide (21-32) mmol/L Anion Gap (3-11) BUN (7-18) mg/dl Creatinine (0.6-1.4) mg/dl Est Cr Clr Drug Dosing Est GFR ( Amer) ml/min Est GFR (Non-Af Amer) ml/min BUN/Creatinine Ratio (10-20) Glucose (70-99) mg/dl Calcium (8.5-10.1) mg/dl Phosphorus (2.5-4.9) mg/dl Magnesium (1.8-2.4) mg/dl Total Bilirubin (0.2-1) mg/dl AST (15-37) U/L ALT (12-78) U/L Alkaline Phosphatase (45-117) U/L Troponin I (0-0.045) ng/ml Total Protein (6.4-8.2) gm/dl Albumin (3.4-5.0) gm/dl Globulin (2.5-4.0) gm/dl Albumin/Globulin Ratio (0.9-2) Lipase (73-393) U/L TSH (0.300-4.500) uIu/ml COVID-19 Eval Order SARS-CoV-2 (PCR) NEGATIVE (Negative) Administered Medications Atorvastatin Calcium (Atorvastatin 40 Mg Tab) 40 mg PO HS ZOEY Stop: 07/03/21 21:59 Last Admin: 06/03/21 22:59 Dose: 40 mg Documented by: [id number] Carvedilol (Carvedilol 6.25 Mg Tab) 6.25 mg PO BID ZOEY Stop: 07/03/21 21:59 Last Admin: 06/03/21 22:58 Dose: 6.25 mg Documented by: [id number] Insulin Aspart (Insulin Aspart 100 Units/Ml 3 Ml Pen) 0 units SC ACHS ZOEY Stop: 07/03/21 21:59 Last Admin: 06/03/21 23:01 Dose: Not Given Documented by: [id number] Cosigned by: [id number] Insulin Glargine (Insulin Glargine Solostar 100 Units/Ml 3 Ml Pen) 15 units SQ HS ZOEY Stop: 07/03/21 21:59 Last Admin: 06/03/21 23:02 Dose: 15 units Documented by: [id number] Cosigned by: [id number] Mycophenolate Mofetil (Mycophenolate Mofetil 250 Mg Cap) 750 mg PO BID ZOEY Stop: 07/03/21 21:59 Last Admin: 06/03/21 22:55 Dose: 750 mg Documented by: [id number] Tacrolimus (Tacrolimus 0.5 Mg Cap) 0.5 mg PO BID ZOEY Stop: 07/03/21 21:59 Last Admin: 06/03/21 22:55 Dose: 0.5 mg Documented by: [id number] Discontinued Medications Dexamethasone Sodium Phosphate (DexamethasonePf 10 Mg/Ml Vial) 10 mg IV NOW ONE Stop: 06/03/21 18:25 Last Admin: 06/03/21 19:01 Dose: 10 mg Documented by: [id number] Sodium Chloride (Nss 1000ml) 1,000 mls @ 999 mls/hr IV .Q1H1M ONE Stop: 06/03/21 16:32 Last Infusion: 06/03/21 17:37 Dose: 0 mls/hr Documented by: [id number] Admin: 06/03/21 16:05 Dose: 999 mls/hr Documented by: [id number] Famotidine (Pepcid 20mg Iv Push) 20 mg in 5 mls @ 2.5 mls/min IV NOW STA Stop: 06/03/21 15:35 Last Admin: 06/03/21 16:04 Dose: 2.5 mls/min Documented by: [id number] Acetaminophen (Ofirmev) 1,000 mg in 100 mls @ 400 mls/hr IV NOW STA Stop: 06/03/21 17:51 Last Infusion: 06/03/21 19:13 Dose: 0 mls/hr Documented by: [id number] Admin: 06/03/21 17:45 Dose: 400 mls/hr Documented by: [id number] Imaging Data Radiologist's Impression: Head CT 06/03/21 15:32 CT head/brain wo con CLINICAL HISTORY: weakness, h/o SDH with previous surgery, LLE weakness from baseline . Headache for 2 days. COMPARISON STUDY: 05/08/2021 CT DOSE: 691.05 mGy.cm TECHNIQUE: Standard CT of the Brain was performed without IV contrast. A dose lowering technique was utilized adhering to the principles of ALARA. FINDINGS: Extraaxial space: Compared to the previous examination, there has been interval development of an acute subdural hematoma on the right with increased attenuation blood seen along the right tentorium and also within the falx. There is also minimal amount of acute hemorrhage seen along the left parietal lobe as seen on image 20 of 36. Additionally, there is increase in subacute and chronic subdural hematomas as well bilaterally. The right-sided subdural fluid collection anteriorly now measures 1.8 cm compared to 1.2 cm in the previous study. The left-sided anterior subdural fluid collection now measures 1.6 cm when compared to 1.0 cm in the previous study. Ventricles and cisterns: The ventricles are normal in size and configuration. There is no evidence for midline shift or mass effect. Parenchyma: There is no subarachnoid or intraparenchymal hemorrhage. There is no evidence for an acute infarct or cerebral edema. There is homogeneous attenuation of the brain parenchyma. There are no gross mass lesions. Osseous structures: Previous craniotomy defects are again seen. There is no evidence for an acute fracture. The visualized paranasal sinuses are clear. The mastoid air cells are clear bilaterally. Soft tissues: There is no evidence for focal soft tissue swelling. IMPRESSION: 1. Interval development of acute subdural hematoma along the right tentorium and falx and adjacent to the left parietal lobe. 2. Increase in size of subacute and chronic subdural hematomas bilaterally. 3. No intraparenchymal hematoma or subarachnoid hemorrhage is identified. A stat report will be called to the emergency Department. ACT 112: Negative or not required by law. Electronically signed by: Tong Ashton 06/03/2021 4:42 PM Discharge Plan Visit Data Chief Complaint: Weakness Stated Complaint: HEADACHE,WEAKNESS ON LEFT SIDE,FALL ED Provider: Juan Bueno Discharge Problem: Acute subdural hematoma, CKD (chronic kidney disease), stage IV, Headache, Chr onic subdural hematoma Patient Disposition: Admitted As Inpatient Discharge Instructions Interventions: ED Discharge Assessment Last Done: 06/03/21 21:22 Discharge Problem: Headache Qualifiers: Headache type: unspecified Headache chronicity pattern: chronic headache Intractability: not intractable Qualified Code(s): R51.9 - Headache, unspecified
[2021-06-03 15:19] LABS: Eosinophils # (auto) 0.02 K/uL (0-0.5); Eosinophils % (auto) 0.3 %; Hematocrit (blood only) 30.8 % (42-52); Hemoglobin 9.6 g/dL (14.0-18.0); Immature Granulocytes # (auto) 0.01 K/uL (0.00-0.02); Immature Granulocytes % (auto) 0.2 %; Lymphocytes # (auto) 0.88 K/uL (1.2-3.4); Lymphocytes % (auto) 13.8 %; Mean Corpuscular Hemoglobin 31.8 pg (25-34); Mean Corpuscular Hgb Conc 31.2 g/dL (32-36); Mean Platelet Volume 10.9 fL (7.4-10.4); Monocytes # (auto) 0.53 K/uL (0.11-0.59); Monocytes % (auto) 8.3 %; Neutrophils # (auto) 4.96 K/uL (1.4-6.5); Neutrophils % (auto) 77.4 %; Platelet Count 214 K/uL (130-400); RDW Coefficient of Variation 14.9 % (11.5-14.5); RDW Standard Deviation 55.3 fL (36.4-46.3); Red Blood Count 3.02 M/uL (4.7-6.1)
[2021-06-03] MEDS ORDERED: SODIUM CHLORIDE 0.9% 1000ML 1,000 ML IV ONE (15:32)
--- NOTE | 2021-06-03 15:32 | XRay Report ---
XR chest 1V portable CLINICAL HISTORY: weakness COMPARISON STUDY: Chest CT March 26, 2021. Chest radiograph April 22, 2021. FINDINGS: Lung volumes are normal. Lungs are clear. There is no pneumothorax or pleural effusion. Car diac size is normal. Mediastinal contours are normal. There is no evidence for pulmonary edema. Subtl e interstitial thickening is unchanged and likely reflects underlying interstitial lung disease. IMPRESSION: No acute cardiopulmonary findings. ACT 112: Negative or not required by law. Electronically signed by: Gino Whyte M.D. 06/03/2021 3:31 PM
[2021-06-03] MEDS ORDERED: FAMOTIDINE 20MG IV PUSH 20 MG/5 ML SYR IV STA (15:34)
[2021-06-03 15:48] LABS: Alanine Aminotransferase 19 U/L (12-78); Albumin Level 2.9 gm/dl (3.4-5.0); Aspartate Aminotransferase 12 U/L (15-37); BUN Creatinine Ratio 17.4 (10-20); Blood Urea Nitrogen 52 mg/dl (7-18); Calcium 9.5 mg/dl (8.5-10.1); Carbon Dioxide 20 mmol/L (21-32); Chloride 110 mmol/L (98-107); Est GFR (African American) 23.8 ml/min; Est GFR (Non-African American) 20.5 ml/min; Glucose 196 mg/dl (70-99); Potassium 4.7 mmol/L (3.5-5.1); Sodium 137 mmol/L (136-145)
[2021-06-03 15:51] LABS: Alkaline Phosphatase 89 U/L (45-117); Bilirubin,Total 0.3 mg/dl (0.2-1); Total Protein 5.9 gm/dl (6.4-8.2)
[2021-06-03 15:58] LABS: Lipase 322 U/L (73-393); Magnesium 2.1 mg/dl (1.8-2.4); Troponin I 0.037 ng/ml (0-0.045)
--- NOTE | 2021-06-03 17:32 | Electrocardiogram Report ---
Test Reason : Blood Pressure : / mmHG Vent. Rate : 075 BPM Atrial Rate : 075 BPM P-R Int : 176 ms QRS Dur : 082 ms QT Int : 386 ms P-R-T Axes : 011 -25 116 degrees QTc Int : 431 ms Normal sinus rhythm with pacs Minimal voltage criteria for LVH, may be normal variant Cannot rule out Anterior infarct (cited on or before 03-JUN-2021) T wave abnormality, consider lateral ischemia Abnormal ECG Confirmed by Rickey James ([id number]) on 06/03/2021 5:32:22 PM Referred By: Confirmed By:Simeon James
[2021-06-03] MEDS ORDERED: ACETAMINOPHEN 1,000 MG/100 ML VIAL IV STA (17:37)
--- NOTE | 2021-06-03 17:50 | CT Scan Report ---
CT head/brain wo con CLINICAL HISTORY: weakness, h/o SDH with previous surgery, LLE weakness from baseline . Headache for 2 days. COMPARISON STUDY: 05/08/2021 CT DOSE: 691.05 mGy.cm TECHNIQUE: Standard CT of the Brain was performed without IV contrast. A dose lowering technique was utilized adhering to the principles of ALARA. FINDINGS: Extraaxial space: Compared to the previous examination, there has been interval development of an acu te subdural hematoma on the right with increased attenuation blood seen along the right tentorium and also within the falx. There is also minimal amount of acute hemorrhage seen along the left parietal lobe as seen on image 20 of 36. Additionally, there is increase in subacute and chronic subdural hematomas as well bilaterally. The r ight-sided subdural fluid collection anteriorly now measures 1.8 cm compared to 1.2 cm in the previou s study. The left-sided anterior subdural fluid collection now measures 1.6 cm when compared to 1.0 c m in the previous study. Ventricles and cisterns: The ventricles are normal in size and configuration. There is no evidence f or midline shift or mass effect. Parenchyma: There is no subarachnoid or intraparenchymal hemorrhage. There is no evidence for an acu te infarct or cerebral edema. There is homogeneous attenuation of the brain parenchyma. There are no gross mass lesions. Osseous structures: Previous craniotomy defects are again seen. There is no evidence for an acute fra cture. The visualized paranasal sinuses are clear. The mastoid air cells are clear bilaterally. Soft tissues: There is no evidence for focal soft tissue swelling. IMPRESSION: 1. Interval development of acute subdural hematoma along the right tentorium and falx and adjacent to the left parietal lobe. 2. Increase in size of subacute and chronic subdural hematomas bilaterally. 3. No intraparenchymal hematoma or subarachnoid hemorrhage is identified. A stat report will be called to the emergency Department. ACT 112: Negative or not required by law. Electronically signed by: Tong Ahston 06/03/2021 4:42 PM
[2021-06-03] MEDS ORDERED: dexAMETHasone**PF** 10 MG/ML VIAL IV ONE (18:24)
--- NOTE | 2021-06-03 19:42 | History & Physical Report ---
Date of Service June 03, 2021 Assessment & Plan (1) Subdural hematoma: Plan: acute/subacute/chronic- with interval increase from imaging in May - GCS 15 with brisk pupils, normal respirations and pulse oximeter - Left leg weakness / - Normotensive/hypertensive at this time- PRN Labetalol for SBP > 180 or DBP > 100 - should receive his night time medications and maintain normo to slight hypertension - IF acute worsening in symptoms evaluate for emergent transfer- discuss with [facility] neurosurgery for osmotic therapy prior to emergent transfer - Neuro checks q2 hours (2) CKD (chronic kidney disease), stage IV: Plan: Chronic with renal transplant recipient- secondary to renal allograft diabetic nephropathy - Baseline 2.7-3.2 - continue with cell cept, prednisone, and tacrolimus (3) Renal transplant recipient: Plan: As above - Last tacrolimus level in April-4.2 - Seen 05/28/21- continue evaluation for re-isting as transplant [facility] - If remains in house- consult nephrology to follow renal function and tacrolimus levels (4) Anemia: Plan: Iron deficient in past as well as macrocytic - follow was on B12 supplementation in January - Not acute (5) HTN (hypertension): Plan: Continue ARB- follow renal function - Continue Carvedilol - Labetalol PRN SBP>180 and/or DBP >100 (6) Type 2 diabetes mellitus: Plan: Continue Lantus - Aspart sliding scale with CF 20 and 1:10 carb ratio (7) Hypercholesterolemia: Plan: Cotninue statin History of Present Illness Primary Care Provider: Shelli Ashraf MD 66 YOM with past medical history of: Anaplasmosis, Renal Transplant on chronic immunosuppression, CKD IV, HTN, DMII, HLD, Sub-dural hematoma x2 requiring evacuation-03/27 and 04/23 at [facility]. The patient presents today again with headache on the left temporal and pressure behind his eyes and feels his left leg is weaker than it has been. In the EMD the patient had a repeat head CT scan that revealed Interval development of acute subdural hematoma along the right tentorium and falx 1.8 (1.2) CM and adjacent to the left parietal lobe and Increase in size 1.6CM(1.0) of subacute and chronic subdural hematomas barbara aterally; without midline shift or mass effect. The patient has been accepted to [facility] neurosurgery Dr. Negron; however a bed is not available. It was relayed that: not emergent need for intervention that patient be admitted until a bed becomes available, the hospitalist service was consulted for admission. Patient is not on any antiplatelet medications or blood thinners. PT/PTT/INR and Fibrinogen sent. He received 10mg of Decadron in EMD. Patient is awake and alert, pupils are equal and reactive, he has 4/5 strength to his left upper arm and 3/5 strength to his left lower extremity and right side is 5/5 upper and lower. His pupils are brisk and equal, he has normal respirations. Patient denies any trauma or strenuous activity over the past 2 weeks. He does state that he fell off his bench today but was on to his buttocks secondary to his left leg weakness, he says that he caught himself and lowered himself down. He has no bruises and head is a-traumatic. Patient will be admitted to PCU for frequent neurological exams and BP control, while awaiting bed at [facility]. Patient has had his COVID vaccine and his COVID test on admission is: NEGATIVE Allergies Allergy/AdvReac Type Severity Reaction Status Date / Time No Known Allergies Allergy Verified 06/03/21 15:53 Home Medications Medication Instructions Recorded Confirmed Type coenzyme Q10 100 mg capsule (Co 100 mg PO BID cap 03/03/19 06/03/21 History Q-10) famotidine 10 mg tablet (Acid 10 mg PO QAM 03/03/19 06/03/21 History Rebar Worker (famotidine)) flaxseed oil 1,000 mg capsule 1,000 mg PO HS cap 03/03/19 06/03/21 History ([place]-3 Flaxseed Oil) magnesium oxide 250 mg PO BID tab 03/03/19 06/03/21 History multivitamin (Multiple Vitamins) 1 tab PO QAM 03/03/19 06/03/21 History prednisone 5 mg tablet 5 mg PO QAM #90 tab 03/03/19 06/03/21 History atorvastatin 40 mg tablet (Lipitor) 40 mg PO HS 09/13/19 06/03/21 History carvedilol 12.5 mg tablet (Coreg) 6.25 mg PO BID tab 05/07/20 06/03/21 History tacrolimus 0.5 mg capsule, 0.5 mg PO Q12H cap 01/24/21 06/03/21 History immediate-release (Prograf) allopurinol 300 mg tablet 300 mg PO HS 01/31/21 06/03/21 History amoxicillin 500 mg capsule 500 mg PO DIRECTED PRN 01/31/21 06/03/21 History mycophenolate mofetil 250 mg 750 mg PO BID 01/31/21 06/03/21 History capsule (CellCept) glipizide 10 mg tablet (Glucotrol) 10 mg PO QAM tab 03/16/21 06/03/21 History mecobalamin (vitamin B12) 1,000 1,000 mcg PO QAM 03/26/21 06/03/21 History mcg chewable tablet (B12 Active) ondansetron 4 mg disintegrating 4 - 8 mg PO Q8H PRN #14 tab 04/30/21 06/03/21 Rx tablet insulin glargine 100 unit/mL (3 15 unit SUBCUT HS ml 05/19/21 06/03/21 History mL) subcutaneous pen (Basaglar KwikPen U-100 Insulin) losartan 25 mg tablet 25 mg PO DAILY #90 tab 05/28/21 06/03/21 Rx glipizide 5 mg tablet 2.5 mg PO HS #45 tab 05/30/21 06/03/21 Rx Past Med/Surg History Medical History WERNER (acute kidney injury) Anaplasmosis CHF (congestive heart failure) COVID-19 vaccine administered Dehydration Diarrhea Diverticulosis Elevated troponin Gout, joint Hypercholesterolemia Myocardial Infarction Polycystic kidney ST elevation myocardial infarction (STEMI) Weakness Surgical History History of heart artery stent Renal transplant recipient Family History Mother Breast cancer Father Stroke Polycystic kidney disease Denies family history of Ovarian cancer Prostate cancer Myocardial infarction Colorectal cancer Social History Smoking Status: Never smoker Hx Alcohol Use: No Hx Substance Use: No Preferred Language: Albanian Communication Ability: Effective Manager Progressive Care Required: No Beliefs That Will Affect Care: None marital status: Current Living Situation: Spouse 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 Other Information That Helps Us Care for You: No Feels Safe at Home: Yes Safety Concerns: Feels Safe At This Time Dental Care, Regularly: Yes Physical Activity Frequency: 3-4 Times per Week Seatbelt Use: always Assistive Devices: Cane, Glasses and Walker Review of Systems Review of Systems: REVIEW OF SYSTEMS: Constitutional: (+) headache, No fever, sweats or chills Eyes: No diplopia, no worsening or blurred vision ENT: normal hearing, no trouble swallowing Respiratory: No cough, sputum, dyspnea at rest or on exertion Cardiovascular: No chest pain, tightness or palpitations Abdomen: No pain, nausea, vomiting, diarrhea or constipation Musculoskeletal: No joint pain, calf pain, swelling Neurologic: (+) weakness left leg, numbness/tingling, or balance problems Psychiatric: No anxiety or depression Skin: No rash or itch Physical Exam Physical Exam: PHYSICAL EXAM: General: awake, alert, Head: Normocephalic, atraumatic ENT: PERRL, EOMI, no pharyngeal exudate, mucous membranes moist Neuro: AAO x 3, speech clear and appropriate, strength intact bilaterally 5/5 right, 4/5 LUE 3/5 LLE, sensation intact and equal all extremities and dermatomes, no nausea, no vision changes, Pupils brisk Chest: equal rise and fall of the chest, no accessory muscle use, no heaves or thrills, Clear to auscultation, on room air, Cardiac: Regular rate and rhythm, telemetry reviewed, skin warm dry, cap refill <3 seconds, peripheral pules +2 no JVD, no murmur, no edema GI: NABS x 4 quadrants, soft, nontender to palpation, no rebound, guarding or tenderness : Spontaneously voiding, no pain, no CVA tenderness, Extremities: Normal inspection, no peripheral edema or erythema, calfs nontender to palpation Psych: Normal mood and affect Skin: no rash or erythema Results & Data Results & Data ([facility]) Vital Signs (Past 12 Hours) Vital Signs Temp Pulse Resp BP Pulse Ox 06/03/21 18:30 75 17 06/03/21 18:00 74 18 179/93 H 06/03/21 17:30 76 14 165/91 H 06/03/21 17:00 75 22 06/03/21 16:30 72 21 06/03/21 16:00 74 15 06/03/21 15:30 73 16 06/03/21 15:01 81 15 165/88 H 06/03/21 14:44 36.6 C 90 20 152/91 H 98 Laboratory Results Abnormal lab results 06/03/21 06/03/21 Range/Units 15:08 15:08 RBC 3.02 L (4.7-6.1) M/uL Hgb 9.6 L (14.0-18.0) g/dL Hct 30.8 L (42-52) % MCV 102.0 H (80-100) fL MCHC 31.2 L (32-36) g/dL RDW Std Deviation 55.3 H (36.4-46.3) fL RDW Coeff of Mir 14.9 H (11.5-14.5) % MPV 10.9 H (7.4-10.4) fL Lymph # (Auto) 0.88 L (1.2-3.4) K/uL Chloride 110 H (98-107) mmol/L Carbon Dioxide 20 L (21-32) mmol/L BUN 52 H (7-18) mg/dl Creatinine 3.00 H (0.6-1.4) mg/dl Glucose 196 H (70-99) mg/dl AST 12 L (15-37) U/L Total Protein 5.9 L (6.4-8.2) gm/dl Albumin 2.9 L (3.4-5.0) gm/dl Diagnostic Findings Chest X-Ray 06/03/21 14:49 XR chest 1V portable CLINICAL HISTORY: weakness COMPARISON STUDY: Chest CT March 26, 2021. Chest radiograph April 22, 2021. FINDINGS: Lung volumes are normal. Lungs are clear. There is no pneumothorax or pleural effusion. Cardiac size is normal. Mediastinal contours are normal. There is no evidence for pulmonary edema. Subtle interstitial thickening is unchanged and likely reflects underlying interstitial lung disease. IMPRESSION: No acute cardiopulmonary findings. ACT 112: Negative or not required by law. Electronically signed by: Gino Whyte M.D. 06/03/2021 3:[address] 06/03/21 15:32 CT head/brain wo con CLINICAL HISTORY: weakness, h/o SDH with previous surgery, LLE weakness from baseline . Headache for 2 days. COMPARISON STUDY: 05/08/2021 CT DOSE: 691.05 mGy.cm TECHNIQUE: Standard CT of the Brain was performed without IV contrast. A dose lowering technique was utilized adhering to the principles of ALARA. FINDINGS: Extraaxial space: Compared to the previous examination, there has been interval development of an acute subdural hematoma on the right with increased attenuation blood seen along the right tentorium and also within the falx. There is also minimal amount of acute hemorrhage seen along the left parietal lobe as seen on image 20 of 36. Additionally, there is increase in subacute and chronic subdural hematomas as well bilaterally. The right-sided subdural fluid collection anteriorly now measures 1.8 cm compared to 1.2 cm in the previous study. The left-sided anterior subdural fluid collection now measures 1.6 cm when compared to 1.0 cm in the previous study. Ventricles and cisterns: The ventricles are normal in size and configuration. There is no evidence for midline shift or mass effect. Parenchyma: There is no subarachnoid or intraparenchymal hemorrhage. There is no evidence for an acute infarct or cerebral edema. There is homogeneous attenuation of the brain parenchyma. There are no gross mass lesions. Osseous structures: Previous craniotomy defects are again seen. There is no evidence for an acute fracture. The visualized paranasal sinuses are clear. The mastoid air cells are clear bilaterally. Soft tissues: There is no evidence for focal soft tissue swelling. IMPRESSION: 1. Interval development of acute subdural hematoma along the right tentorium and falx and adjacent to the left parietal lobe. 2. Increase in size of subacute and chronic subdural hematomas bilaterally. 3. No intraparenchymal hematoma or subarachnoid hemorrhage is identified. A stat report will be called to the emergency Department. ACT 112: Negative or not required by law. Electronically signed by: Tong Ashton 06/03/2021 4:42 PM Medications Administered Home Medications coenzyme Q10 100 mg capsule (Co Q-10) 100 mg PO BID cap 03/03/19 [History Confirmed 06/03/21] famotidine 10 mg tablet (Acid Rebar Worker (famotidine)) 10 mg PO QAM 03/03/19 [History Confirmed 06/03/21] flaxseed oil 1,000 mg capsule ([place]-3 Flaxseed Oil) 1,000 mg PO HS cap 03/03/19 [History Confirmed 06/03/21] magnesium oxide 250 mg PO BID tab 03/03/19 [History Confirmed 06/03/21] multivitamin (Multiple Vitamins) 1 tab PO QAM 03/03/19 [History Confirmed 06/03/21] prednisone 5 mg tablet 5 mg PO QAM #90 tab 03/03/19 [History Confirmed 06/03/21] atorvastatin 40 mg tablet (Lipitor) 40 mg PO HS 09/13/19 [History Confirmed 06/03/21] carvedilol 12.5 mg tablet (Coreg) 6.25 mg PO BID tab 05/07/20 [History Confir med 06/03/21] tacrolimus 0.5 mg capsule, immediate-release (Prograf) 0.5 mg PO Q12H cap 01/24/21 [History Confirmed 06/03/21] allopurinol 300 mg tablet 300 mg PO HS 01/31/21 [History Confirmed 06/03/21] amoxicillin 500 mg capsule 500 mg PO DIRECTED PRN 01/31/21 [History Confirmed 06/03/21] mycophenolate mofetil 250 mg capsule (CellCept) 750 mg PO BID 01/31/21 [History Confirmed 06/03/21] glipizide 10 mg tablet (Glucotrol) 10 mg PO QAM tab 03/16/21 [History Confirmed 06/03/21] mecobalamin (vitamin B12) 1,000 mcg chewable tablet (B12 Active) 1,000 mcg PO QAM 03/26/21 [History Confirmed 06/03/21] ondansetron 4 mg disintegrating tablet 4 - 8 mg PO Q8H PRN #14 tab 04/30/21 [Rx Confirmed 06/03/21] insulin glargine 100 unit/mL (3 mL) subcutaneous pen (Basaglar KwikPen U-100 Insulin) 15 unit SUBCUT HS ml 05/19/21 [History Confirmed 06/03/21] losartan 25 mg tablet 25 mg PO DAILY #90 tab 05/28/21 [Rx Confirmed 06/03/21] glipizide 5 mg tablet 2.5 mg PO HS #45 tab 05/30/21 [Rx Confirmed 06/03/21] Discontinued Medications Dexamethasone Sodium Phosphate (DexamethasonePf 10 Mg/Ml Vial) 10 mg IV NOW ONE Stop: 06/03/21 18:25 Last Admin: 06/03/21 19:01 Dose: 10 mg Documented by: [id number] Sodium Chloride (Nss 1000ml) 1,000 mls @ 999 mls/hr IV .Q1H1M ONE Stop: 06/03/21 16:32 Last Infusion: 06/03/21 17:37 Dose: 0 mls/hr Documented by: [id number] Admin: 06/03/21 16:05 Dose: 999 mls/hr Documented by: [id number] Famotidine (Pepcid 20mg Iv Push) 20 mg in 5 mls @ 2.5 mls/min IV NOW STA Stop: 06/03/21 15:35 Last Admin: 06/03/21 16:04 Dose: 2.5 mls/min Documented by: [id number] Acetaminophen (Ofirmev) 1,000 mg in 100 mls @ 400 mls/hr IV NOW STA Stop: 06/03/21 17:51 Last Infusion: 06/03/21 19:13 Dose: 0 mls/hr Documented by: [id number] Admin: 06/03/21 17:45 Dose: 400 mls/hr Documented by: [id number] ECG Additional Comments: Normal sinus rhythm with pacs Minimal voltage criteria for LVH, may be normal variant Cannot rule out Anterior infarct (cited on or before 03-JUN-2021) T wave abnormality, consider lateral ischemia Abnormal ECG Code Status & VTE Plan Code Status CODE: FULL VTE: SCDs, No chemoprophylaxis Supervising Physician Co-Signing Physician Notes Attending Attestation & Admission Note - Pt seen/examined, chart reviewed, care plan d/w TAQUERIA Estrada. I agree w/ the jarrett components of his admission documentation. 66yo male - renal transplant patient on multiple immunosuppressants and baseline CKD stage 4 of his transplant, SDH s/p evacuation x 2 in March and then in April, macrocytic anemia, T2DM - presents with several days of frontal headaches with development of LLE weakness starting this am. LUE also with trace amount of weakness as well. Headache improved s/p steroids in ER. ER attending did speak with neurosurgery at [facility] (where he had prior evacuations of his SDH) and he has been accepted there in transfer but no bed available at this time. PMH, PSH, allergies, meds, sochx, famhx - reviewed VSS, afebrile gen - speech clear, a/o x 3 eyes - PERRL, EOMI neck - no JVD heart - RRR, s1 s2, no murmur lungs - CTA b/l abd - soft NT ND BS+, no HSM; scar LLQ (renal transplant) ext - no edema, pulses 2+ b/l; AV fistula LUE neuro - 4-5/5 strength LUE; RUE/RLE 5/5; LLE - 3-4/5 strength hip flexion, ankle dorsiflexion/plantarflexion labs reviewed CT head reviewed A/P: 1. acute/chronic SDH with recent h/o evacuation x 2 at [facility]; etiology of recurrent SDH? No trauma/falls. Platelets wnl. No coagulopathy. On no antiplatelet agents or anticoagulants. Related to immunosuppressant agents?? 2. LLE weakness +/- LUE weakness - 2nd to #1. 3. renal transplant status with CKD stage 4, Cr today 3 4. macrocytic anemia with B12 def 5. T2DM 6. headache - 2nd to #1 - improved * serial neuro checks * defer on additional IV steroids * cont immunosuppressant agents for #3 * would inform Dr Grissom and/or transplant team at [facility] about pt's status - can defer that until the am * repeat CT head at 24 hour vandana (tomorrow - noon) while awaiting transfer to [facility] * labs am * repeat INR pending * would stop sulfonylurea given his impaired renal function - this would put him at risk of hypoglycemia, etc Jayson Smith MD PG Care Time/CCT Total # of Minutes Spent Total Time Spent with Patient: Total time spent is greater than 50% in coordination of care (as documented) at patient's floor/unit and/or counseling patient: Coding Level of Care Code 80462 Initial Inpt Care Lvl 3 Diagnoses Subdural hematoma S06.5X9A CKD (chronic kidney disease), stage IV N18.4 Renal transplant recipient Z94.0 Anemia D64.9 Anemia type: unspecified type HTN (hypertension) I10 Type 2 diabetes mellitus E11.9 Hypercholesterolemia E78.00 (1) Anemia Anemia type: unspecified type Qualified Code(s): D64.9 - Anemia, unspecified
[2021-06-03 21:11] LABS: Fibrinogen 269 mg/dl (184-400); Partial Thromboplastin Time 27.6 Seconds (21.0-31.0); Prothrombin Time 10.3 Seconds (9.0-12.0)
--- NOTE | 2021-06-03 21:23 | Discharge Summary ---
Date of Service June 03, 2021 Admission HPI Per Admitting Provider 66 YOM with past medical history of: Anaplasmosis, Renal Transplant on chronic immunosuppression, CKD IV, HTN, DMII, HLD, Sub-dural hematoma x2 requiring evacuation-03/27 and 04/23 at [facility]. The patient presents today again with headache on the left temporal and pressure behind his eyes and feels his left leg is weaker than it has been. In the EMD the patient had a repeat head CT scan that revealed Interval development of acute subdural hematoma along the right tentorium and falx 1.8 (1.2) CM and adjacent to the left parietal lobe and Increase in size 1.6CM(1.0) of subacute and chronic subdural hematomas bilaterally; without midline shift or mass effect. The patient has been accepted to [facility] neurosurgery Dr. Negron; however a bed is not available. It was relayed that: not emergent need for intervention that patient be admitted until a bed becomes available, the hospitalist service was consulted for admission. Patient is not on any antiplatelet medications or blood thinners. PT/PTT/INR and Fibrinogen sent. He received 10mg of Decadron in EMD. Patient is awake and alert, pupils are equal and reactive, he has 4/5 strength to his left upper arm and 3/5 strength to his left lower extremity and right side is 5/5 upper and lower. His pupils are brisk and equal, he has normal respirations. Patient denies any trauma or strenuous activity over the past 2 weeks. He does state that he fell off his bench today but was on to his buttocks secondary to his left leg weakness, he says that he caught himself and lowered himself down. He has no bruises and head is a-traumatic. Patient will be admitted to PCU for frequent neurological exams and BP control, while awaiting bed at [facility]. Patient has had his COVID vaccine and his COVID test on admission is: NEGATIVE Discharge Data Consultations 06/03/21 18:41 ED Decision to Admit Stat Hospital Course (1) Subdural hematoma: acute/subacute/chronic- with interval increase from imaging in May - GCS 15 with brisk pupils, normal respirations and pulse oximeter - Left leg weakness 3/5 - Normotensive/hypertensive at this time- PRN Labetalol for SBP > 180 or DBP > 100 - should receive his night time medications and maintain normo to slight hypertension - IF acute worsening in symptoms evaluate for emergent transfer- discuss with [facility] neurosurgery for osmotic therapy prior to emergent transfer - Neuro checks q2 hours - CT non con daily to follow SDH (2) CKD (chronic kidney disease), stage IV: Chronic with renal transplant recipient- secondary to renal allograft diabetic nephropathy - Baseline 2.7-3.2 - continue with cell cept, prednisone, and tacrolimus (3) Renal transplant recipient: As above - Last tacrolimus level in April-4.2 - Seen 05/28/21- continue evaluation for re-isting as transplant [facility] - If remains in house- consult nephrology to follow renal function and tacrolimus levels (4) Anemia: Iron deficient in past as well as macrocytic - follow was on B12 supplementation in January - Not acute (5) HTN (hypertension): Continue ARB- follow renal function - Continue Carvedilol - Labetalol PRN SBP>180 and/or DBP >100 (6) Type 2 diabetes mellitus: Continue Lantus - Aspart sliding scale with CF 20 and 1:10 carb ratio (7) Hypercholesterolemia: Cotninue statin Coding Level of Care Code D/C DAY MANAGEMENT >30 MINS Diagnoses Subdural hematoma S06.5X9A CKD (chronic kidney disease), stage IV N18.4 Renal transplant recipient Z94.0 Anemia D64.9 Anemia type: unspecified type HTN (hypertension) I10 Type 2 diabetes mellitus E11.9 Hypercholesterolemia E78.00
[2021-06-03] MEDS ORDERED: GLUCAGON FOR INJ 1 MG VIAL SQ PRN (21:27)
[2021-06-03] MEDS ORDERED: GLUCOSE 10 TABS/TUBE PO PRN (21:27)
[2021-06-03] MEDS ORDERED: GLUCOSE 40% GEL 15 GM TUBE PO PRN (21:27)
[2021-06-03] MEDS ORDERED: LABETALOL HCL IV 5 MG/ML 20ML IV PRN (21:27)
[2021-06-03] MEDS ORDERED: DEXTROSE 50% 50 ML SYRINGE IV PRN (21:27)
[2021-06-03] MEDS ORDERED: CARBOHYDRATES FOR HYPOGLYCEMIA PO PRN (21:27)
[2021-06-03] MEDS ORDERED: POLYETHYLENE (MIRALAX) 17 GM PACK PO PRN (21:27)
[2021-06-03] MEDS ORDERED: INSULIN GLARGINE SOLOSTAR 100 UNITS/ML 3 ML PEN SQ SCH (22:00)
[2021-06-03] MEDS: TACROLIMUS 0.5 MG CAP PO SCH (22:55)
[2021-06-03] MEDS: MYCOPHENOLATE MOFETIL 250 MG CAP PO SCH (22:55)
[2021-06-03] MEDS: carvediloL 6.25 MG TAB PO SCH (22:58)
[2021-06-03] MEDS: ATORVASTATIN 40 MG TAB PO SCH (22:59)
[2021-06-03] MEDS: INSULIN ASPART 100 UNITS/ML 3 ML PEN SC SCH (23:01)
[2021-06-04 06:11] LABS: Hematocrit (blood only) 31.5 % (42-52); Hemoglobin 9.8 g/dL (14.0-18.0); Immature Granulocytes # (auto) 0.01 K/uL (0.00-0.02); Immature Granulocytes % (auto) 0.2 %; Lymphocytes % (auto) 11.3 %; Mean Corpuscular Hemoglobin 32.1 pg (25-34); Mean Corpuscular Hgb Conc 31.1 g/dL (32-36); Mean Corpuscular Volume 103.3 fL (80-100); Mean Platelet Volume 11.2 fL (7.4-10.4); Monocytes # (auto) 0.08 K/uL (0.11-0.59); Monocytes % (auto) 1.3 %; Neutrophils # (auto) 5.38 K/uL (1.4-6.5); Neutrophils % (auto) 87.2 %; Platelet Count 197 K/uL (130-400); RDW Coefficient of Variation 14.6 % (11.5-14.5); RDW Standard Deviation 55.4 fL (36.4-46.3); Red Blood Count 3.05 M/uL (4.7-6.1); White Blood Count 6.17 K/uL (4.8-10.8)
[2021-06-04 07:01] LABS: BUN Creatinine Ratio 18.4 (10-20); Calcium 9.3 mg/dl (8.5-10.1); Creatinine Clr Calc Pharmacy 25.9 ml/min; Est GFR (African American) 23.3 ml/min; Est GFR (Non-African American) 20.1 ml/min; Magnesium 2.1 mg/dl (1.8-2.4)
[2021-06-04] MEDS: INSULIN ASPART 100 UNITS/ML 3 ML PEN SC SCH ×4 (08:18→20:27)
[2021-06-04] MEDS: carvediloL 6.25 MG TAB PO SCH ×2 (08:18→20:29)
[2021-06-04] MEDS: FAMOTIDINE 10 MG TABLET PO SCH (08:18)
[2021-06-04] MEDS: LOSARTAN POTASSIUM 25 MG TAB PO SCH (08:18)
[2021-06-04] MEDS: MYCOPHENOLATE MOFETIL 250 MG CAP PO SCH ×2 (08:19→20:27)
[2021-06-04] MEDS: predniSONE 5 MG TAB PO SCH (08:19)
[2021-06-04] MEDS: TACROLIMUS 0.5 MG CAP PO SCH ×2 (08:19→20:28)
--- NOTE | 2021-06-04 11:39 | Hospitalist Progress Note ---
Date of Service June 04, 2021 Assessment & Plan (1) Subdural hematoma: Plan: acute/subacute/chronic- with interval increase from imaging in May - Left leg weakness -11/05 - Mildly hypertensive at this time- PRN Labetalol on board for SBP > 180 or DBP > 100 - Received Coreg and Losartan this AM. Continue monitoring BP. - If acute worsening in symptoms evaluate for emergent transfer- discuss with [facility] [place] for osmotic therapy prior to emergent transfer - Continue Neuro checks q2 hours - Follow up head CT @ noon - Await bed assignment from [facility] (2) CKD (chronic kidney disease), stage IV: Plan: Chronic with renal transplant recipient- secondary to renal allograft diabetic nephropathy - Stable within his baseline 2.7-3.2 - Continue with CellCept, prednisone, and tacrolimus (3) Renal transplant recipient: Plan: As above - Last tacrolimus level in April-. - Seen 05/28/21- continue evaluation for re-isting as transplant [facility] - Transfer pending, in the interim will consult nephrology to follow renal function and tacrolimus levels (4) Anemia: Plan: Iron deficient in past as well as macrocytic - Stable, previously on B12 supplementation in January - Not acute (5) HTN (hypertension): Plan: Continue Losartan- follow renal function - Continue Carvedilol - Labetalol PRN SBP>180 and/or DBP >100 (6) Type 2 diabetes mellitus: Plan: Continue Lantus, uptitrate to 20 at HS for better glycemic control - FBS this AM 227 - Aspart sliding scale with CF 20 and 1:10 carb ratio (7) Hypercholesterolemia: Plan: Continue statin Admission and Anticipated Discharge Date Admission Date: June 03, 2021 Subjective Mr. Andrea was seen on rounds this morning. Pt is a 66 yo WM w/ h/o renal transplant w/ CKD stage 4 and recent h/o SDH s/p evacuation x 2 at [facility], first in Mar and second in Apr 23. Pt presented to ED yesterday c/o headaches. CT findings noted new acute SDH R tentorium and falx and adjacent L parietal lobe, in addition to increase in size of acute on chronic SDH bilaterally. Pt accepted to [facility]; however, no bed available at this time and subsequently admitted to hospitalists service until bed available. Pt currently resting comfortably in bed, offers no new complaints. Reports headaches have subsided, rated 1/10, right jew area. No blurred vision, denies focal weakness other than LLE weakness which he states has been present since first event in Mar. Pt denies numbness, tingling, dysphagia, chest pain, dyspnea, n/v/d, fever, chills, or symptoms. Pt remains in ED awaiting bed assignment. No issues verbalized by RN in ED. Review of Systems Review of Systems: All systems reviewed & are unremarkable except as noted in HPI & below Neurologic: + headache(s) (see subjective) Physical Exam Constitutional: WD/WN, vitals as above Eyes: PERRL, conjunctivae normal, anicteric sclerae Respiratory: normal respiratory effort, lungs clear to auscultation Cardiovascular: RRR, no murmur, no edema Gastrointestinal (Abdomen): normal bowel sounds, soft, nontender, no hepatosplenomegaly Musculoskeletal: Extremities: extremities normal to inspection and + abnormal strength (strength in RLE 5/5 and 3-4/5 in LLE) Skin: no rashes, warm and dry Neurologic: CN's II-XI intact bilaterally and moves all extremities Psychiatric: A+Ox3, euthymic affect Results & Data Results & Data ([facility]) Vital Signs (Past 12 Hours) Vital Signs Temp Pulse Pulse Resp BP Pulse Ox 06/04/21 10:29 85 16 162/87 H 98 06/04/21 05:01 36.9 C 78 19 163/93 H 98 06/04/21 00:29 95 Laboratory Results Laboratory Results - last 24 hr 06/03/21 06/03/21 06/03/21 15:08 15:08 16:31 WBC 6.40 RBC 3.02 L Hgb 9.6 L Hct 30.8 L MCV 102.0 H MCH 31.8 MCHC 31.2 L RDW Std Deviation 55.3 H RDW Coeff of Imr 14.9 H Plt Count 214 MPV 10.9 H Immature Gran % (Auto) 0.2 Neut % (Auto) 77.4 Lymph % (Auto) 13.8 Storey % (Auto) 8.3 Eos % (Auto) 0.3 Baso % (Auto) 0.0 Neut # (Auto) 4.96 Lymph # (Auto) 0.88 L Storey # (Auto) 0.53 Eos # (Auto) 0.02 Baso # (Auto) 0.00 Immature Gran # (Auto) 0.01 PT INR APTT PTT Ratio Fibrinogen Sodium 137 Potassium 4.7 Chloride 110 H Carbon Dioxide 20 L Anion Gap 7.0 BUN 52 H Creatinine 3.00 H Est Cr Clr Drug Dosing Not Reportable Est GFR ( Amer) 23.8 Est GFR (Non-Af Amer) 20.5 BUN/Creatinine Ratio 17.4 Glucose 196 H POC Glucose Calcium 9.5 Phosphorus 3.0 Magnesium 2.1 Total Bilirubin 0.3 AST 12 L ALT 19 Alkaline Phosphatase 89 Troponin I 0.037 Total Protein 5.9 L Albumin 2.9 L Globulin 3.0 Albumin/Globulin Ratio 1.0 Lipase 322 TSH 1.050 COVID-19 Eval Order Covid19 at [facility] SARS-CoV-2 (PCR) 06/03/21 06/03/21 06/03/21 16:31 20:27 21:17 WBC RBC Hgb Hct MCV MCH MCHC RDW Std Deviation RDW Coeff of Mir Plt Count MPV Immature Gran % (Auto) Neut % (Auto) Lymph % (Auto) Storey % (Auto) Eos % (Auto) Baso % (Auto) Neut # (Auto) Lymph # (Auto) Storey # (Auto) Eos # (Auto) Baso # (Auto) Immature Gran # (Auto) PT 10.3 INR 1.0 APTT 27.6 PTT Ratio 1.0 Fibrinogen 269 Sodium Potassium Chloride Carbon Dioxide Anion Gap BUN Creatinine Est Cr Clr Drug Dosing Est GFR ( Amer) Est GFR (Non-Af Amer) BUN/Creatinine Ratio Glucose POC Glucose 125 H Calcium Phosphorus Magnesium Total Bilirubin AST ALT Alkaline Phosphatase Troponin I Total Protein Albumin Globulin Albumin/Globulin Ratio Lipase TSH COVID-19 Eval Order SARS-CoV-2 (PCR) NEGATIVE 06/04/21 06/04/21 06/04/21 05:37 05:37 07:41 WBC 6.17 RBC 3.05 L Hgb 9.8 L Hct 31.5 L MCV 103.3 H MCH 32.1 MCHC 31.1 L RDW Std Deviation 55.4 H RDW Coeff of Mir 14.6 H Plt Count 197 MPV 11.2 H Immature Gran % (Auto) 0.2 Neut % (Auto) 87.2 Lymph % (Auto) 11.3 Storey % (Auto) 1.3 Eos % (Auto) 0.0 Baso % (Auto) 0.0 Neut # (Auto) 5.38 Lymph # (Auto) 0.70 L Storey # (Auto) 0.08 L Eos # (Auto) 0.00 Baso # (Auto) 0.00 Immature Gran # (Auto) 0.01 PT INR APTT PTT Ratio Fibrinogen Sodium 139 Potassium 5.0 Chloride 113 H Carbon Dioxide 18 L Anion Gap 8.0 BUN 56 H Creatinine 3.05 H Est Cr Clr Drug Dosing 25.9 Est GFR ( Amer) 23.3 Est GFR (Non-Af Amer) 20.1 BUN/Creatinine Ratio 18.4 Glucose 227 H POC Glucose 231 H Calcium 9.3 Phosphorus Magnesium 2.1 Total Bilirubin AST ALT Alkaline Phosphatase Troponin I Total Protein Albumin Globulin Albumin/Globulin Ratio Lipase TSH COVID-19 Eval Order SARS-CoV-2 (PCR) Diagnostic Findings Chest X-Ray 06/03/21 14:49 XR chest 1V portable CLINICAL HISTORY: weakness COMPARISON STUDY: Chest CT March 26, 2021. Chest radiograph April 22, 2021. FINDINGS: Lung volumes are normal. Lungs are clear. There is no pneumothorax or pleural effusion. Cardiac size is normal. Mediastinal contours are normal. There is no evidence for pulmonary edema. Subtle interstitial thickening is unchanged and likely reflects underlying interstitial lung disease. IMPRESSION: No acute cardiopulmonary findings. ACT 112: Negative or not required by law. Electronically signed by: Gino Whyte M.D. 06/03/2021 3:[address] 06/03/21 15:32 CT head/brain wo con CLINICAL HISTORY: weakness, h/o SDH with previous surgery, LLE weakness from baseline . Headache for 2 days. COMPARISON STUDY: 05/08/2021 CT DOSE: 691.05 mGy.cm TECHNIQUE: Standard CT of the Brain was performed without IV contrast. A dose lowering technique was utilized adhering to the principles of ALARA. FINDINGS: Extraaxial space: Compared to the previous examination, there has been interval development of an acute subdural hematoma on the right with increased attenuation blood seen along the right tentorium and also within the falx. There is also minimal amount of acute hemorrhage seen along the left parietal lobe as seen on image 20 of 36. Additionally, there is increase in subacute and chronic subdural hematomas as well bilaterally. The right-sided subdural fluid collection anteriorly now measures 1.8 cm compared to 1.2 cm in the previous study. The left-sided anterior subdural fluid collection now measures 1.6 cm when compared to 1.0 cm in the previous study. Ventricles and cisterns: The ventricles are normal in size and configuration. There is no evidence for midline shift or mass effect. Parenchyma: There is no subarachnoid or intraparenchymal hemorrhage. There is no evidence for an acute infarct or cerebral edema. There is homogeneous attenuation of the brain parenchyma. There are no gross mass lesions. Osseous structures: Previous craniotomy defects are again seen. There is no evidence for an acute fracture. The visualized paranasal sinuses are clear. The mastoid air cells are clear bilaterally. Soft tissues: There is no evidence for focal soft tissue swelling. IMPRESSION: 1. Interval development of acute subdural hematoma along the right tentorium and falx and adjacent to the left parietal lobe. 2. Increase in size of subacute and chronic subdural hematomas bilaterally. 3. No intraparenchymal hematoma or subarachnoid hemorrhage is identified. A stat report will be called to the emergency Department. ACT 112: Negative or not required by law. Electronically signed by: Tong Ashton 06/03/2021 4:42 PM Medications Administered Current Medications Acetaminophen (Acetaminophen 325 Mg Tab) 650 mg PO Q4H PRN PRN Reason: Pain or Fever Stop: 07/03/21 21:26 Atorvastatin Calcium (Atorvastatin 40 Mg Tab) 40 mg PO HS ZOEY Stop: 07/03/21 21:59 Last Admin: 06/03/21 22:59 Dose: 40 mg Documented by: Carvedilol (Carvedilol 6.25 Mg Tab) 6.25 mg PO BID ZOEY Stop: 07/03/21 21:59 Last Admin: 06/04/21 08:18 Dose: 6.25 mg Documented by: Famotidine (Famotidine 10 Mg Tablet) 10 mg PO QAM ZOEY Stop: 07/04/21 08:59 Last Admin: 06/04/21 08:18 Dose: 10 mg Insulin Aspart (Insulin Aspart 100 Units/Ml 3 Ml Pen) 0 units SC ACHS ZOEY Stop: 07/03/21 21:59 Last Admin: 06/04/21 08:18 Dose: 10 units Insulin Glargine (Insulin Glargine Solostar 100 Units/Ml 3 Ml Pen) 15 units SQ HS ZOEY Stop: 07/03/21 21:59 Last Admin: 06/03/21 23:02 Dose: 15 units Labetalol HCl (Labetalol Hcl Iv 5 Mg/Ml 20ml) 10 mg IV Q4H PRN PRN Reason: SBP >180 or DBP >100 Stop: 07/03/21 21:26 Losartan Potassium (Losartan Potassium 25 Mg Tab) 25 mg PO DAILY ZOEY Stop: 07/04/21 08:59 Last Admin: 06/04/21 08:18 Dose: 25 mg Miscellaneous (Carbohydrates For Hypoglycemia ) 15 - 30 gm PO UD PRN PRN Reason: Hypoglycemia Protocol Stop: 07/03/21 21:26 Mycophenolate Mofetil (Mycophenolate Mofetil 250 Mg Cap) 750 mg PO BID [facility] Stop: 07/03/21 21:59 Last Admin: 06/04/21 08:19 Dose: 750 mg Ondansetron HCl (Ondansetron Inj 2 Mg/Ml 2 Ml Vial) 4 mg IV Q6H PRN PRN Reason: Nausea Stop: 07/03/21 21:26 Polyethylene Glycol (Polyethylene (Miralax) 17 Gm Pack) 17 gm PO DAILY PRN PRN Reason: Constipation Stop: 07/03/21 21:26 Prednisone (Prednisone 5 Mg Tab) 5 mg PO QAM [facility] Stop: 07/04/21 08:59 Last Admin: 06/04/21 08:19 Dose: 5 mg Tacrolimus (Tacrolimus 0.5 Mg Cap) 0.5 mg PO BID ZOEY Stop: 07/03/21 21:59 Last Admin: 06/04/21 08:19 Dose: 0.5 mg PG Care Time/CCT Total # of Minutes Spent Total Time Spent with Patient: Total time spent is greater than 50% in coordination of care (as documented) at patient's floor/unit and/or counseling patient: Prolonged Care Time Prolonged Care Time: No Critical Care Time: No [place] [address] Subseq Hosp Care Lvl 2 Patient Type Established History Expanded Problem Focused Exam Comprehensive Medical Decision Making Moderate Complexity Diagnoses Subdural hematoma S06.5X9A CKD (chronic kidney disease), stage IV N18.4 Renal transplant recipient Z94.0 Anemia D64.9 Anemia type: unspecified type HTN (hypertension) I10 Type 2 diabetes mellitus E11.9 Hypercholesterolemia E78.00 (1) Anemia Anemia type: unspecified type Qualified Code(s): D64.9 - Anemia, unspecified
--- NOTE | 2021-06-04 12:23 | CT Scan Report ---
CT head/brain wo con CLINICAL HISTORY: 66 years-old Male with interval change SDH. Follow-up study in a patient with know n subdural hematoma TECHNIQUE: Multiple axial CT images of the head were obtained without contrast. A dose lowering tech nique was utilized adhering to the principles of ALARA. CT DOSE: 788.63 mGycm COMPARISON: Head CT 06/03/2021, 05/08/2021 FINDINGS: Prior right-sided craniotomy. Subacute appearing bilateral subdural hematomas have increased in atten uation from prior however are stable in size measuring 2.1 cm on the right and 1 cm on the left. Smal l amount of acute subdural hematoma layering along the right aspect of the falx cerebri and tentorium measures up to 5 mm, unchanged from yesterday's study. Acute subdural hematoma of the right middle c ranial fossa measuring up to 4 mm on image 8 series 2 is also unchanged. No midline shift. Mass effec t of the right frontal lobe is unchanged. No acute intra-axial hemorrhage. Cerebral vascular calcific ations. No acute territorial infarct or hydrocephalus. No acute calvarial fracture. Unremarkable soft tissues and orbits. Prior bilateral lens repair. IMPRESSION: 1. Right greater than left subacute subdural hematomas measuring up to approximately 2 cm on the righ t and 1 cm on the left are generally unchanged in size from yesterday's exam however demonstrate incr eased attenuation compatible with mixing of acute and subacute blood products. 2. Subcentimeter acute subdural hematoma layering along the falx cerebri and tentorium extending into the right middle cranial fossa is unchanged from 06/03/2021. 3. Mass effect of the right frontal lobe redemonstrated without midline shift or hydrocephalus. ACT 112: Negative or not required by law. The above report was generated using voice recognition software. It may contain grammatical, syntax o r spelling errors. Electronically signed by: Geovanni Murillo M.D. 06/04/2021 12:22 PM
--- NOTE | 2021-06-04 16:00 | Nephrology Consultation ---
Date of Consultation June 04, 2021 Assessment & Plan (1) Renal transplant recipient: * CHANNEL ROUGHER function is stable at this time (baseline cr 3.2). Volume status and electrolyte balance are acceptable * Continue current immunosuppressive regimen of Prograf, Mycophenolate and Prednisone * Monitor PRP * Obtain urine for urinalysis w/ microscopy (2) Subdural hematoma: * Physical exam is negative for focal neurologic deficit. Recommend close monitoring * Await transfer to tertiary care center for Neurosurgical evaluation (question whether SDH is associated w/ underlying ADPKD) (3) HTN (hypertension): * Target average SBP 140 mm Hg * Continue Carvedilol and Losartan * PRN Labetalol is available with hold parameters for HR and BP History of Present Illness Reason for Consultation: CHANNEL ROUGHER Attending Physician: Ziggy Erickson MD History of Present Illness Mr. Andrea is a 66 year old white male who is seen at the request of [facility] Hospitalist for evaluation of CHANNEL ROUGHER. Medical records in the EMR were reviewed today and are summarized as follows: Mr. Andrea's primary Furniture Mover Driver is Dr. Grissom. The patient has ADPKD. In 1992 he progress to ESRD and was started on HD. In 1996 he underwent CHANNEL ROUGHER w/ [place]jon [place] [facility] Post transplant Cr was 1.5. Immunosuppressive regimen consisted of Tacrolimus, Cellcept and Prednisone. Mr. Andrea developed PTDM and was started on oral hypoglycemic agents. Insulin was added ~ 1.5 years ago. In 11/21 renal allograft biopsy was performed at [facility] due to progressive CKD w/ proteinuria. 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 Losartan was added to his medical regimen. Despite these measures, Cr increased to 3.2 and evaluation for possible second transplant has been initiated at [facility]. Mr. Andrea presented to the ED yesterday evening for evaluation of AVILEZ. He has a h/o SDH. CT revealed new acute SDH and an increase in the size of his prior SDH. He denies any focal neurologic deficit. He is awaiting transfer [place] [facility] [place]. 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, SDH s/p R mini-craniotomy [place] [facility] 03/[place] Allergies Allergy/AdvReac Type Severity Reaction Status Date / Time No Known Allergies Allergy Verified 06/03/21 15:53 Home Medications Medication Instructions Recorded Confirmed Type coenzyme Q10 100 mg capsule (Co 100 mg PO BID cap 03/03/19 06/03/21 History Q-10) famotidine 10 mg tablet (Acid 10 mg PO QAM 03/03/19 06/03/21 History Oil Refinery Process Technician (famotidine)) flaxseed oil 1,000 mg capsule 1,000 mg PO HS cap 03/03/19 06/03/21 History ([place]-3 Flaxseed Oil) magnesium oxide 250 mg PO BID tab 03/03/19 06/03/21 History multivitamin (Multiple Vitamins) 1 tab PO QAM 03/03/19 06/03/21 History prednisone 5 mg tablet 5 mg PO QAM #90 tab 03/03/19 06/03/21 History atorvastatin 40 mg tablet (Lipitor) 40 mg PO HS 09/13/19 06/03/21 History carvedilol 12.5 mg tablet (Coreg) 6.25 mg PO BID tab 05/07/20 06/03/21 History tacrolimus 0.5 mg capsule, 0.5 mg PO Q12H cap 01/24/21 06/03/21 History immediate-release (Prograf) allopurinol 300 mg tablet 300 mg PO HS 01/31/21 06/03/21 History amoxicillin 500 mg capsule 500 mg PO DIRECTED PRN 01/31/21 06/03/21 History mycophenolate mofetil 250 mg 750 mg PO BID 01/31/21 06/03/21 History capsule (CellCept) glipizide 10 mg tablet (Glucotrol) 10 mg PO QAM tab 03/16/21 06/03/21 History mecobalamin (vitamin B12) 1,000 1,000 mcg PO QAM 03/26/21 06/03/21 History mcg chewable tablet (B12 Active) ondansetron 4 mg disintegrating 4 - 8 mg PO Q8H PRN #14 tab 04/30/21 06/03/21 Rx tablet insulin glargine 100 unit/mL (3 15 unit SUBCUT HS ml 05/19/21 06/03/21 History mL) subcutaneous pen (Basaglar ChristinePen U-100 Insulin) losartan 25 mg tablet 25 mg PO DAILY #90 tab 05/28/21 06/03/21 Rx glipizide 5 mg tablet 2.5 mg PO HS #45 tab 05/30/21 06/03/21 Rx Patient History Medical History WERNER (acute kidney injury) Anaplasmosis CHF (congestive heart failure) COVID-19 vaccine administered Dehydration Diarrhea Diverticulosis Elevated troponin Gout, joint Hypercholesterolemia Myocardial Infarction Polycystic kidney ST elevation myocardial infarction (STEMI) Weakness Surgical History History of heart artery stent Renal transplant recipient Family History Mother Breast cancer Father Stroke Polycystic kidney disease Denies family history of Ovarian cancer Prostate cancer Myocardial infarction Colorectal cancer Social History Smoking Status: Never smoker Hx Alcohol Use: No Hx Substance Use: No Preferred Language: Arabic Communication Ability: Effective Overweaver Required: No Beliefs That Will Affect Care: None marital status: Current Living Situation: Spouse 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 Other Information That Helps Us Care for You: No Feels Safe at Home: Yes Safety Concerns: Feels Safe At This Time Dental Care, Regularly: Yes Physical Activity Frequency: 3-4 Times per Week Seatbelt Use: always Assistive Devices: Cane and Walker Review of Systems Constitutional: no fever Eyes: no worsening vision Ear, Nose, Mouth, Throat: no problem reported Respiratory: no cough and no dyspnea Cardiovascular: no chest pain, no palpitations and no edema Gastrointestinal: no abdominal pain, no nausea, no vomiting and no diarrhea/loose stools Genitourinary: no dysuria, no urinary hesitancy or no hematuria Musculoskeletal: no back pain Integumentary: no rash Neurologic: no dizziness and no confusion Physical Exam Constitutional: not in distress Eyes: PERRL, conjunctivae normal, anicteric sclerae ENMT: external ear and nose normal, oropharynx normal Neck: trachea midline, no thyromegaly Respiratory: normal respiratory effort, lungs clear to auscultation Cardiovascular: RRR, no murmur, no edema Gastrointestinal (Abdomen): Inspection/Auscultation: normal bowel sounds Percussion/Palpation: abdomen soft; abdomen nontender and no guarding LLQ kidney allograft NT, no bruit Musculoskeletal: Extremities: no cyanosis Skin: no rashes, warm and dry Neurologic: awake; not confused Results & Data ([place]) Vital Signs (Past 12 Hours) Vital Signs Temp Pulse Pulse Resp BP Pulse Ox 06/04/21 10:29 85 16 162/87 H 98 06/04/21 05:01 36.9 C 78 19 163/93 H 98 Laboratory Results Laboratory Tests 04/30/21 06/03/21 06/04/21 07:43 20:27 05:37 WBC 6.17 Hgb 9.8 L Hct 31.5 L Plt Count 197 INR 1.0 Sodium Potassium Chloride Carbon Dioxide BUN Creatinine Glucose Calcium Magnesium Tacrolimus 4.2 L 06/04/21 05:37 WBC Hgb Hct Plt Count INR Sodium 139 Potassium 5.0 Chloride 113 H Carbon Dioxide 18 L BUN 56 H Creatinine 3.05 H Glucose 227 H Calcium 9.3 Magnesium 2.1 Tacrolimus PG Care Time/CCT Total # of Minutes Spent Total Time Spent with Patient: Total time spent is greater than 50% in coordination of care (as documented) at patient's floor/unit and/or counseling patient: Coding Level of Care Code 60069 Inpt Consult Level 5 Diagnoses Renal transplant recipient Z94.0 Subdural hematoma S06.5X9A HTN (hypertension) I10
[2021-06-04] MEDS: INSULIN GLARGINE SOLOSTAR 100 UNITS/ML 3 ML PEN SQ SCH (20:26)
[2021-06-04] MEDS: ATORVASTATIN 40 MG TAB PO SCH (20:29)
[2021-06-04] MEDS: ACETAMINOPHEN 325 MG TAB PO PRN (23:36)
[2021-06-04 23:53] LABS: Appearance Urine Clear (Clear); Bacteria Urine Automated Negative (Negative); Bilirubin Urine Negative (Negative); Blood Urine Trace (Negative); Color Urine Yellow; Glucose Urine UA 2+ (Negative); Ketones Urine Negative (Negative); Leukocyte Esterase Urine Negative (Negative); Nitrite Urine Negative (Negative); Protein Urine 3+ (Negative); RBC Urine Automated 0-4 /hpf (0-4); Specific Gravity Urine 1.019 (1.000-1.030); Urobilinogen Urine Negative (Negative)
[2021-06-05 05:55] LABS: Hematocrit (blood only) 26.9 % (42-52); Hemoglobin 8.6 g/dL (14.0-18.0); Immature Granulocytes # (auto) 0.01 K/uL (0.00-0.02); Immature Granulocytes % (auto) 0.1 %; Lymphocytes # (auto) 1.11 K/uL (1.2-3.4); Lymphocytes % (auto) 15.9 %; Mean Platelet Volume 11.4 fL (7.4-10.4); Monocytes # (auto) 0.65 K/uL (0.11-0.59); Monocytes % (auto) 9.3 %; Neutrophils # (auto) 5.19 K/uL (1.4-6.5); Neutrophils % (auto) 74.7 %; Platelet Count 194 K/uL (130-400); RDW Coefficient of Variation 14.5 % (11.5-14.5); RDW Standard Deviation 52.5 fL (36.4-46.3); Red Blood Count 2.69 M/uL (4.7-6.1); White Blood Count 6.96 K/uL (4.8-10.8)
[2021-06-05 06:29] LABS: Calcium 8.9 mg/dl (8.5-10.1); Creatinine Clr Calc Pharmacy 26.6 ml/min; Est GFR (African American) 20.5 ml/min; Est GFR (Non-African American) 17.7 ml/min; Magnesium 2.2 mg/dl (1.8-2.4); Potassium 4.9 mmol/L (3.5-5.1)
[2021-06-05] MEDS: MYCOPHENOLATE MOFETIL 250 MG CAP PO SCH ×2 (08:11→20:32)
[2021-06-05] MEDS: LOSARTAN POTASSIUM 25 MG TAB PO SCH (08:11)
[2021-06-05] MEDS: TACROLIMUS 0.5 MG CAP PO SCH ×2 (08:11→20:32)
[2021-06-05] MEDS: carvediloL 6.25 MG TAB PO SCH ×2 (08:11→20:31)
[2021-06-05] MEDS: FAMOTIDINE 10 MG TABLET PO SCH (08:11)
[2021-06-05] MEDS: predniSONE 5 MG TAB PO SCH (08:11)
[2021-06-05] MEDS: INSULIN ASPART 100 UNITS/ML 3 ML PEN SC SCH ×4 (08:12→20:35)
--- NOTE | 2021-06-05 08:24 | Hospitalist Progress Note ---
Date of Service June 05, 2021 Assessment & Plan (1) Subdural hematoma: Plan: acute/subacute/chronic- with interval increase from imaging in May -- CT from 06/04 demonstrates stable findings. Will repeat CT head w/o contrast today to continue monitoring closely. ICU equal opportunity representative to touch base with [facility] [place] get [place] bed availability. Continue neuro checks q2. BP acceptable. If acute worsening symptoms, will evaluate for emergent transfer- discuss with [facility] [place] for osmotic therapy prior to emergent transfer (2) CKD (chronic kidney disease), stage IV: Plan: Chronic with renal transplant recipient- secondary to renal allograft diabetic nephropathy. Baseline creat 2.7-3.2, creat uptrending. Nephrology on board. Will initiate gentle IVF hydration. Hold ARB. Continue with cell cept, prednisone, and tacrolimus (3) Renal transplant recipient: Plan: As above - Last tacrolimus level in April-.2 - Nephro following (4) Anemia: Plan: Iron deficient in past as well as macrocytic. Was on B12 supplementation in January. Hgb 8.6 this AM, anticipated slight drop with hydration (dilutional). Will follow. Asymptomatic. (5) HTN (hypertension): Plan: Continue Carvedilol. Labetalol ordered PRN SBP>180 and/or DBP >100. Hold ARB due to uptrending creatinine. (6) Type 2 diabetes mellitus: Plan: Continue Lantus, increased HS dose with improvement in FBS this AM. Continue Aspart sliding scale with CF 20 and 1:10 carb ratio Admission and Anticipated Discharge Date Admission Date: June 03, 2021 Subjective Mr. Andrea was seen on rounds this morning. Pt is a 66 yo WM w/ h/o renal transplant w/ CKD stage 4 and recent h/o SDH s/p [place] x 2 [place] [facility] first in Mar and second in Apr 23. Remains hospitalized with worsening SDH bilaterally awaiting bed [place] [facility]. Repeat head CT yesterday afternoon showed stable findings. Pt currently resting comfortably in bed, offers no new complaints. Denies headache, blurred vision, denies focal weakness other than LLE weakness which he states has been present since first event in Mar. Pt denies numbness, tingling, dysphagia, chest pain, dyspnea, n/v/d, fever, chills, or symptoms. No issues verbalized by RN. No updates from [facility] [place] bed availability at this time. Review of Systems Review of Systems: All systems reviewed & are unremarkable except as noted in HPI & below Neurologic: + localized weakness (LLE) Physical Exam Constitutional: WD/WN, vitals as above Eyes: PERRL, conjunctivae normal, anicteric sclerae Respiratory: normal respiratory effort, lungs clear to auscultation Cardiovascular: RRR, no murmur, no edema Gastrointestinal (Abdomen): normal bowel sounds, soft, nontender, no hepatosplenomegaly Musculoskeletal: Extremities: extremities normal to inspection and + abnormal strength (strength in RLE 5/5 and 3-4/5 in LLE) Skin: no rashes, warm and dry Neurologic: CN's II-XI intact bilaterally, normal sensation to monofilament, moves all extremities and awake Psychiatric: A+Ox3, euthymic affect Results & Data Results & Data ([facility]) Vital Signs (Past 12 Hours) Vital Signs Temp Pulse Resp BP Pulse Ox 06/05/21 03:49 36.6 C 85 23 158/100 H 97 06/04/21 23:49 36.6 C 75 14 155/84 H 98 Laboratory Results Laboratory Results - last 24 hr 06/04/21 06/04/21 06/04/21 16:29 16:30 20:18 WBC RBC Hgb Hct MCV MCH MCHC RDW Std Deviation RDW Coeff of Mir Plt Count MPV Immature Gran % (Auto) Neut % (Auto) Lymph % (Auto) [place] % (Auto) Eos % (Auto) Baso % (Auto) Neut # (Auto) Lymph # (Auto) [place] # (Auto) Eos # (Auto) Baso # (Auto) Immature Gran # (Auto) Sodium Potassium Chloride Carbon Dioxide Anion Gap BUN Creatinine Est Cr Clr Drug Dosing Est GFR ( Amer) Est GFR (Non-Af Amer) BUN/Creatinine Ratio Glucose POC Glucose 337 H* 325 H* 186 H Calcium Magnesium Urine Color Urine Appearance Urine pH Ur Specific [place] Urine Protein Urine Glucose (UA) Urine Ketones Urine Blood Urine Nitrite Urine Bilirubin Urine Urobilinogen Ur Leukocyte Esterase Urine WBC (Auto) Urine RBC (Auto) U Hyaline Cast (Auto) U Epithel Cells (Auto) Urine Bacteria (Auto) 06/04/21 06/05/21 06/05/21 23:20 05:12 05:12 WBC 6.96 RBC 2.69 L Hgb 8.6 L Hct 26.9 L MCV 100.0 MCH 32.0 MCHC 32.0 RDW Std Deviation 52.5 H RDW Coeff of Mir 14.5 Plt Count 194 MPV 11.4 H Immature Gran % (Auto) 0.1 Neut % (Auto) 74.7 Lymph % (Auto) 15.9 [place] % (Auto) 9.3 Eos % (Auto) 0.0 Baso % (Auto) 0.0 Neut # (Auto) 5.19 Lymph # (Auto) 1.11 L [place] # (Auto) 0.65 H Eos # (Auto) 0.00 Baso # (Auto) 0.00 Immature Gran # (Auto) 0.01 Sodium 138 Potassium 4.9 Chloride 111 H Carbon Dioxide 22 Anion Gap 5.0 BUN 68 H Creatinine 3.39 H D Est Cr Clr Drug Dosing 26.6 Est GFR ( Amer) 20.5 Est GFR (Non-Af Amer) 17.7 BUN/Creatinine Ratio 20.0 Glucose 177 H POC Glucose Calcium 8.9 Magnesium 2.2 Urine Color Yellow Urine Appearance Clear Urine pH 5.0 Ur Specific [place] 1.019 Urine Protein 3+ H Urine Glucose (UA) 2+ H Urine Ketones Negative Urine Blood Trace H Urine Nitrite Negative Urine Bilirubin Negative Urine Urobilinogen Negative Ur Leukocyte Esterase Negative Urine WBC (Auto) 1-5 Urine RBC (Auto) 0-4 U Hyaline Cast (Auto) 1-5 U Epithel Cells (Auto) 5-10 H Urine Bacteria (Auto) Negative Diagnostic Findings Head CT 06/04/21 12:00 CT head/brain wo con CLINICAL HISTORY: 66 years-old Male with interval change SDH. Follow-up study in a patient with known subdural hematoma TECHNIQUE: Multiple axial CT images of the head were obtained without contrast. A dose lowering technique was utilized adhering to the principles of ALARA. CT DOSE: 788.63 mGycm COMPARISON: Head CT 06/03/2021, 05/08/2021 FINDINGS: Prior right-sided craniotomy. Subacute appearing bilateral subdural hematomas have increased in attenuation from prior however are stable in size measuring 2.1 cm on the right and 1 cm on the left. Small amount of acute subdural hematoma layering along the right aspect of the falx cerebri and tentorium measures up to 5 mm, unchanged from yesterday's study. Acute subdural hematoma of the right middle cranial fossa measuring up to 4 mm on image 8 series 2 is also unchanged. No midline shift. Mass effect of the right frontal lobe is unchanged. No acute intra-axial hemorrhage. Cerebral vascular calcifications. No acute territorial infarct or hydrocephalus. No acute calvarial fracture. Unremarkable soft tissues and orbits. Prior bilateral lens repair. IMPRESSION: 1. Right greater than left subacute subdural hematomas measuring up to approximately 2 cm on the right and 1 cm on the left are generally unchanged in size from yesterday's exam however demonstrate increased attenuation compatible with mixing of acute and subacute blood products. 2. Subcentimeter acute subdural hematoma layering along the falx cerebri and tentorium extending into the right middle cranial fossa is unchanged from 06/03/2021. 3. Mass effect of the right frontal lobe redemonstrated without midline shift or hydrocephalus. ACT 112: Negative or not required by law. The above report was generated using voice recognition software. It may contain grammatical, syntax or spelling errors. Electronically signed by: Geovanni Murillo M.D. 06/04/2021 12:22 PM Medications Administered Current Medications Acetaminophen (Acetaminophen 325 Mg Tab) 650 mg PO Q4H PRN PRN Reason: Pain or Fever Stop: 07/03/21 21:26 Last Admin: 06/04/21 23:36 Dose: 650 mg Atorvastatin Calcium (Atorvastatin 40 Mg Tab) 40 mg PO HS ZOEY Stop: 07/03/21 21:59 Last Admin: 06/04/21 20:29 Dose: 40 mg Carvedilol (Carvedilol 6.25 Mg Tab) 6.25 mg PO BID ZOEY Stop: 07/03/21 21:59 Last Admin: 06/05/21 08:11 Dose: 6.25 mg Dextrose (Dextrose 50% 50 Ml Syringe) 25 - 50 ml IV UD PRN; Protocol PRN Reason: Hypoglycemia Protocol Stop: 07/03/21 21:26 Famotidine (Famotidine 10 Mg Tablet) 10 mg PO QAM ZOEY Stop: 07/04/21 08:59 Last Admin: 06/05/21 08:11 Dose: 10 mg Documented by: Glucagon (Glucagon For Inj 1 Mg Vial) 1 mg SQ UD PRN; Protocol PRN Reason: Hypoglycemia Protocol Stop: 07/03/21 21:26 Glucose (Glucose 10 Tabs/Tube) 4 - 8 tabs PO UD PRN; Protocol PRN Reason: Hypoglycemia Protocol Stop: 07/03/21 21:26 Glucose (Glucose 40% Gel 15 Gm Tube) 15 - 30 gm PO UD PRN; Protocol PRN Reason: Hypoglycemia Protocol Stop: 07/03/21 21:26 Sodium Chloride (1/2 Nss) 1,000 mls @ 80 mls/hr IV .[id number] [facility] Stop: 07/05/21 08:29 Last Admin: 06/05/21 08:43 Dose: 80 mls/hr Documented by: Insulin Aspart (Insulin Aspart 100 Units/Ml 3 Ml Pen) 0 units SC ACHS ZOEY Stop: 07/03/21 21:59 Last Admin: 06/05/21 12:30 Dose: 7 units Insulin Glargine (Insulin Glargine Solostar 100 Units/Ml 3 Ml Pen) 20 units SQ HS [facility] Stop: 07/04/21 20:59 Last Admin: 06/04/21 20:26 Dose: 20 units Labetalol HCl (Labetalol Hcl Iv 5 Mg/Ml 20ml) 10 mg IV Q4H PRN PRN Reason: SBP >180 or DBP >100 Stop: 07/03/21 21:26 Miscellaneous (Carbohydrates For Hypoglycemia ) 15 - 30 gm PO UD PRN PRN Reason: Hypoglycemia Protocol Stop: 07/03/21 21:26 Mycophenolate Mofetil (Mycophenolate Mofetil 250 Mg Cap) 750 mg PO BID [facility] Stop: 07/03/21 21:59 Last Admin: 06/05/21 08:11 Dose: 750 mg Documented by: Ondansetron HCl (Ondansetron Inj 2 Mg/Ml 2 Ml Vial) 4 mg IV Q6H PRN PRN Reason: Nausea Stop: 07/03/21 21:26 Polyethylene Glycol (Polyethylene (Miralax) 17 Gm Pack) 17 gm PO DAILY PRN PRN Reason: Constipation Stop: 07/03/21 21:26 Prednisone (Prednisone 5 Mg Tab) 5 mg PO QAM [facility] Stop: 07/04/21 08:59 Last Admin: 06/05/21 08:11 Dose: 5 mg Tacrolimus (Tacrolimus 0.5 Mg Cap) 0.5 mg PO BID [facility] Stop: 07/03/21 21:59 Last Admin: 06/05/21 08:11 Dose: 0.5 mg PG Care Time/CCT Total # of Minutes Spent Total Time Spent with Patient: Total time spent is greater than 50% in coordination of care (as documented) at patient's floor/unit and/or counseling patient: C[place] [address] Subseq Hosp Care Lvl 3 Patient Type Established History Expanded Problem Focused Exam Comprehensive Medical Decision Making High Complexity Diagnoses Subdural hematoma S06.5X9A CKD (chronic kidney disease), stage IV N18.4 Renal transplant recipient Z94.0 Anemia D64.9 Anemia type: unspecified type HTN (hypertension) I10 Type 2 diabetes mellitus E11.9 (1) Anemia Anemia type: unspecified type Qualified Code(s): D64.9 - Anemia, unspecified
[2021-06-05] MEDS: SODIUM CHLORIDE 0.45 % 1,000 ML IV SCH ×2 (08:43→22:54)
--- NOTE | 2021-06-05 09:15 | Nephrology Progress Note ---
Date of Service June 05, 2021 Assessment & Plan (1) Renal transplant recipient: Plan: * [employer] function is stable at this time (baseline cr 3.2) * On physical exam, patient appears hypovolemic. Agree w/ gentle hydration * Continue current immunosuppressive regimen of Prograf, Mycophenolate and Prednisone * Monitor PRP * Urinalysis is + for protein, c/w prior diagnosis of DKD/FSGS involving renal allograft. Urine microscopy reveals only 0 - 4 rbc/hpf (2) Subdural hematoma: Plan: * Physical exam is negative for focal neurologic deficit. Recommend close monitoring * Question whether recurrent SDH is associated w/ underlying ADPKD. Patient may benefit from MRA. Await transfer to tertiary care center for Neurosurgical evaluation (3) HTN (hypertension): Plan: * Target average SBP 140 mm Hg * Consider increasing Carvedilol to 12.5 mg po BID to improve BP control * Losartan placed on hold yesterday Admission and Anticipated Discharge Date Admission Date: June 03, 2021 Subjective Mr. Andrea was evaluated in the ICU this morning. He was alert and oriented x3. He denied AVILEZ or focal neurologic weakness. He voiced no new medical concerns Review of Systems Constitutional: no fever Eyes: no worsening vision Ear, Nose, Mouth, Throat: no problem reported Respiratory: no cough and no dyspnea Cardiovascular: no chest pain, no palpitations and no edema Gastrointestinal: no abdominal pain, no nausea, no vomiting and no diarrhea/loose stools Genitourinary: no dysuria, no urinary hesitancy or no hematuria Musculoskeletal: no back pain Integumentary: no rash Neurologic: no dizziness and no confusion Physical Exam Constitutional: not in distress Eyes: PERRL, conjunctivae normal, anicteric sclerae ENMT: external ear and nose normal, oropharynx normal Neck: trachea midline, no thyromegaly Respiratory: normal respiratory effort, lungs clear to auscultation Cardiovascular: RRR, no murmur, no edema Gastrointestinal (Abdomen): Inspection/Auscultation: normal bowel sounds Percussion/Palpation: abdomen soft; abdomen nontender and no guarding Musculoskeletal: Extremities: no cyanosis Skin: no rashes, warm and dry Neurologic: awake; not confused Results & Data ([facility]) Vital Signs (Past 12 Hours) Vital Signs Temp Pulse Resp BP Pulse Ox 06/05/21 03:49 36.6 C 85 23 158/100 H 97 1102/21 23:49 36.6 C 75 14 155/84 H 98 Laboratory Results Laboratory Tests 06/05/21 06/05/21 05:12 05:12 WBC 6.96 Hgb 8.6 L Hct 26.9 L Plt Count 194 Sodium 138 Potassium 4.9 Chloride 111 H Carbon Dioxide 22 BUN 68 H Creatinine 3.39 H D PG Care Time/CCT Total # of Minutes Spent Total Time Spent with Patient: Total time spent is greater than 50% in coordination of care (as documented) at patient's floor/unit and/or counseling patient: Coding Level of Care Code 74997 Subseq Hosp Care Lvl 3 Diagnoses Renal transplant recipient Z94.0 Subdural hematoma S06.5X9A HTN (hypertension) I10
[2021-06-05] MEDS: ACETAMINOPHEN 325 MG TAB PO PRN ×2 (15:46→22:47)
--- NOTE | 2021-06-05 16:35 | CT Scan Report ---
HEAD CT NONCONTRAST CT DOSE: 887.21 mGycm HISTORY: Follow-up subdural hematoma. TECHNIQUE: Multiaxial CT images of the head were performed without the use of intravenous contrast. A utomated exposure control was utilized for this study. A dose lowering technique was utilized adheri ng to the principles of ALARA. Comparison: Head CT 06/04/2021. Findings: The paranasal sinuses and mastoid air cells are clear. Postoperative changes consistent wit h prior right-sided craniotomy. Similar appearing bilateral acute on chronic subdural hematomas with significant mass effect along the bilateral frontal lobes, right greater the left. The right frontal subdural hematoma measures up to 2.2 cm in thickness in the left frontal subdural hematoma measuring up to 1.2 centers in thickness. Persistent mass effect along the lateral ventricles and third ventric le. Stable appearance to the posterior fossa. There is 1 mm left midline shift, unchanged. Impression: Moderate to large bilateral acute on chronic subdural hematomas which are similar in size compared to the prior study. There is persistent mass effect along the frontal lobes and lateral ventricles. The re is associated 1 mm of left midline shift, unchanged. ACT 112: Negative or not required by law. Electronically signed by: Kennedy Castellanos M.D. 06/05/2021 4:34 PM
[2021-06-05] MEDS: ATORVASTATIN 40 MG TAB PO SCH (20:31)
[2021-06-05] MEDS: INSULIN GLARGINE SOLOSTAR 100 UNITS/ML 3 ML PEN SQ SCH (20:33)
[2021-06-05] MEDS ORDERED: traMADol HCL 50 MG TABLET PO STA (23:45)
[2021-06-06] MEDS: ONDANSETRON INJ 2 MG/ML 2 ML VIAL IV PRN ×3 (00:32→21:47)
[2021-06-06] MEDS: ACETAMINOPHEN 325 MG TAB PO PRN ×3 (04:56→16:07)
[2021-06-06 05:35] LABS: Eosinophils # (auto) 0.04 K/uL (0-0.5); Eosinophils % (auto) 0.5 %; Hematocrit (blood only) 28.2 % (42-52); Immature Granulocytes # (auto) 0.01 K/uL (0.00-0.02); Immature Granulocytes % (auto) 0.1 %; Lymphocytes # (auto) 1.18 K/uL (1.2-3.4); Mean Corpuscular Hemoglobin 32.3 pg (25-34); Mean Corpuscular Hgb Conc 31.9 g/dL (32-36); Mean Corpuscular Volume 101.1 fL (80-100); Mean Platelet Volume 10.8 fL (7.4-10.4); Monocytes # (auto) 0.87 K/uL (0.11-0.59); Monocytes % (auto) 11.8 %; Neutrophils # (auto) 5.29 K/uL (1.4-6.5); Neutrophils % (auto) 71.6 %; Platelet Count 203 K/uL (130-400); RDW Coefficient of Variation 14.5 % (11.5-14.5); RDW Standard Deviation 53.4 fL (36.4-46.3); Red Blood Count 2.79 M/uL (4.7-6.1); White Blood Count 7.39 K/uL (4.8-10.8)
[2021-06-06 06:16] LABS: BUN Creatinine Ratio 21.9 (10-20); Calcium 8.8 mg/dl (8.5-10.1); Est GFR (African American) 25.7 ml/min; Est GFR (Non-African American) 22.1 ml/min; Potassium 4.1 mmol/L (3.5-5.1)
--- NOTE | 2021-06-06 06:37 | CT Scan Report ---
CT OF THE HEAD WITHOUT CONTRAST CLINICAL HISTORY: known subdural, worsening headache COMPARISON STUDY: Head CT June 05, 2021. CT DOSE: 691.05 mGy.cm TECHNIQUE: Helical axial images of the head were obtained without IV contrast. Automated exposure con trol was utilized for the study. A dose lowering technique was utilized adhering to the principles o f ALARA. FINDINGS: Right-sided craniotomy is again noted. Moderate to large bilateral acute on chronic subdura l hematomas are again noted, right larger than left. Right subdural hematoma measures 2.3 cm in thick ness and the left measures 1.2 cm. Layering hyperdense blood is noted posteriorly. 2 mm of leftward m idline shift is similar to prior exam. Ventricular system is stable. Acute subdural hemorrhage along the right aspect of the tentorium and anterior to the right temporal lobe is unchanged. Sulcal efface ment is unchanged.-Both densities within the bilateral external capsules are unchanged. There are no findings to suggest acute dural sinus thrombosis or acute territorial infarct. No acute calvarial fra cture is noted. IMPRESSION: Moderate to large bilateral acute on chronic subdural hematomas, similar to prior exam. P ersistent mass effect with sulcal effacement with mass effect on the frontal lobes and ventricular sy stem. 2 mm of leftward midline shift which is similar to prior exam. Continued short-term CT follow-u p is recommended. ACT 112: Negative or not required by law. Electronically signed by: Gino Whyte M.D. 06/06/2021 6:35 AM
[2021-06-06] MEDS: INSULIN ASPART 100 UNITS/ML 3 ML PEN SC SCH ×4 (09:37→20:39)
[2021-06-06] MEDS: TACROLIMUS 0.5 MG CAP PO SCH ×2 (09:40→20:39)
[2021-06-06] MEDS: MYCOPHENOLATE MOFETIL 250 MG CAP PO SCH ×2 (09:40→20:39)
[2021-06-06] MEDS: carvediloL 6.25 MG TAB PO SCH (09:40)
[2021-06-06] MEDS: predniSONE 5 MG TAB PO SCH (09:40)
[2021-06-06] MEDS: FAMOTIDINE 10 MG TABLET PO SCH (09:40)
--- NOTE | 2021-06-06 09:58 | Nephrology Progress Note ---
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 Will stop IVF * Continue current immunosuppressive regimen of Prograf, Mycophenolate and Prednisone * Monitor PRP * Urinalysis is + for protein, c/w prior diagnosis of DKD/FSGS involving renal allograft. Urine microscopy reveals only 0 - 4 rbc/hpf (2) Subdural hematoma: Plan: * Physical exam is negative for focal neurologic deficit. 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 Patient may benefit from MRA. Await transfer to tertiary care center for Neurosurgical evaluation (3) HTN (hypertension): Plan: * Target average SBP 140 mm Hg * Consider increasing Carvedilol to 12.5 mg po BID to improve BP control * Losartan placed on hold by primary service Admission and Anticipated Discharge Date Admission Date: June 03, 2021 Subjective Mr. Andrea was evaluated in the ICU this morning. He was alert and oriented x3. His primary concern this morning is AVILEZ Review of Systems Constitutional: no fever Eyes: no worsening vision Ear, Nose, Mouth, Throat: no problem reported Respiratory: no cough and no dyspnea Cardiovascular: no chest pain, no palpitations and no edema Gastrointestinal: no abdominal pain, no nausea, no vomiting and no diarrhea/loose stools Genitourinary: no dysuria, no urinary hesitancy or no hematuria Musculoskeletal: no back pain Integumentary: no rash Neurologic: no dizziness and no confusion Physical Exam Constitutional: not in distress Eyes: PERRL, conjunctivae normal, anicteric sclerae ENMT: external ear and nose normal, oropharynx normal Neck: trachea midline, no thyromegaly Respiratory: normal respiratory effort, lungs clear to auscultation Cardiovascular: RRR, no murmur, no edema Gastrointestinal (Abdomen): Inspection/Auscultation: normal bowel sounds Percussion/Palpation: abdomen soft; abdomen nontender and no guarding Musculoskeletal: Extremities: no cyanosis Skin: no rashes, warm and dry Neurologic: awake; not confused Results & Data ([facility]) Vital Signs (Past 12 Hours) Vital Signs Temp Pulse Pulse Resp BP Pulse Ox 06/06/21 08:02 76 06/06/21 07:50 36.6 C 64 10 L 162/88 H 06/06/21 04:09 36.7 C 61 9 L 175/97 H 96 06/06/21 00:21 36.4 C L 71 16 171/100 H 96 Laboratory Results Laboratory Tests 06/06/21 06/06/21 04:57 04:57 WBC 7.39 Hgb 9.0 L Hct 28.2 L Plt Count 203 Sodium 138 Potassium 4.1 D Chloride 111 H Carbon Dioxide 21 BUN 62 H Creatinine 2.82 H D Glucose 124 H Calcium 8.8 PG Care Time/CCT Total # of Minutes Spent Total Time Spent with Patient: Total time spent is greater than 50% in coordination of care (as documented) at patient's floor/unit and/or counseling patient: Coding Level of Care Code 97969 Subseq Hosp Care Lvl 3 Diagnoses Renal transplant recipient Z94.0 Subdural hematoma S06.5X9A HTN (hypertension) I10
[2021-06-06] MEDS: SODIUM CHLORIDE 0.45 % 1,000 ML IV SCH (10:40)
[2021-06-06] MEDS ORDERED: carvediloL 6.25 MG TAB PO ONE (11:44)
--- NOTE | 2021-06-06 11:53 | Hospitalist Progress Note ---
Date of Service June 06, 2021 Assessment & Plan (1) Subdural hematoma: Plan: acute/subacute/chronic- with interval increase from imaging in May -- CT from 06/05 and early 06/06 (~3am) demonstrates stable findings. Will repeat CT head w/o contrast this afternoon to continue monitoring closely. Continue neuro checks q2. Need better BP control, will adjust Coreg since Losartan has been held. I personally called [facility] [place] transfer line, they were hoping to have a bed for him today, but uncertain. Will send most updated head CTs to [facility] [place] [facility] for neurosurgery to review and make recommendations on dispo. If acute worsening symptoms, will evaluate for emergent transfer. 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 Baseline creat 2.7-3.2, Nephrology on board. Creat uptrending yesterday and has improved with gentle IVF hydration. Pt now appears euvolemic and IVF were discontinued by renal. Continue holding ARB. Continue with cell cept, prednisone, and tacrolimus. (3) Renal transplant recipient: Plan: As above. Last tacrolimus level in April-.2. Nephro following. (4) Anemia: Plan: Iron deficient in past as well as macrocytic. Was on B12 supplementation in Jan. Hgb stable. (5) HTN (hypertension): Plan: Ideally would prefer to see better BP control SBP ~130-140 mmHg. Will increase Coreg to 12.5mg BID, one time dose of 6.25mg PO now. Labetalol ordered PRN SBP>180 and/or DBP >100. ARB held due to worsening renal function. If remains stable could resume tomorrow AM. (6) Type 2 diabetes mellitus: Plan: Continue Lantus, increased HS dose with improvement in FBS this AM. Continue Aspart sliding scale with CF 20 and 1:10 carb ratio Plan: Patient clinically stable - prognosis guarded. Await call back from neurosurgery after imaging reviewed. Still waiting for bed at tertiary center for neurosurgery eval. Admission and Anticipated Discharge Date Admission Date: June 03, 2021 Subjective Mr. Andrea seen on rounds this morning. Remains in ICU as tele overflow with acute on chronic moderate SDH bilaterally. Pt today c/o worsening right sided headache, rated 5/10. Denies blurred vision, photophobia, or phonophobia. Reports he did not sleep well last evening. Denies cp, dyspnea, n/v/d, f/c, or gu symptoms. Still waiting for bed at [facility] [place] under neurosurgery. Review of Systems Review of Systems: All systems reviewed & are unremarkable except as noted in HPI & below Neurologic: + localized weakness (LLE) and + headache(s) Physical Exam Constitutional: WD/WN, vitals as above Eyes: PERRL, conjunctivae normal, anicteric sclerae Respiratory: normal respiratory effort, lungs clear to auscultation Cardiovascular: RRR, no murmur, no edema Gastrointestinal (Abdomen): normal bowel sounds, soft, nontender, no hepatosplenomegaly Musculoskeletal: Extremities: extremities normal to inspection and + abnormal strength (strength in RLE 5/5 and in LLE 3/5 ) Skin: no rashes, warm and dry Neurologic: normal touch/pain/proprioception, CN's II-XI intact bilaterally and moves all extremities decreased LOC today compared to yesterday Psychiatric: A+Ox3, euthymic affect Results & Data Results & Data ([facility]) Vital Signs (Past 12 Hours) Vital Signs Temp Pulse Pulse Resp BP Pulse Ox 06/06/21 08:02 76 06/06/21 07:50 36.6 C 64 10 L 162/88 H 06/06/21 04:09 36.7 C 61 9 L 175/97 H 96 06/06/21 00:21 36.4 C L 71 16 171/100 H 96 Laboratory Results Laboratory Results - last 24 hr 06/05/21 06/05/21 06/06/21 15:50 19:59 04:57 WBC 7.39 RBC 2.79 L Hgb 9.0 L Hct 28.2 L MCV 101.1 H MCH 32.3 MCHC 31.9 L RDW Std Deviation 53.4 H RDW Coeff of Mir 14.5 Plt Count 203 MPV 10.8 H Immature Gran % (Auto) 0.1 Neut % (Auto) 71.6 Lymph % (Auto) 16.0 Bledsoe % (Auto) 11.8 Eos % (Auto) 0.5 Baso % (Auto) 0.0 Neut # (Auto) 5.29 Lymph # (Auto) 1.18 L Bledsoe # (Auto) 0.87 H Eos # (Auto) 0.04 Baso # (Auto) 0.00 Immature Gran # (Auto) 0.01 Sodium Potassium Chloride Carbon Dioxide Anion Gap BUN Creatinine Est Cr Clr Drug Dosing Est GFR ( Amer) Est GFR (Non-Af Amer) BUN/Creatinine Ratio Glucose POC Glucose 197 H 214 H Calcium Magnesium 06/06/21 06/06/21 06/06/21 04:57 07:29 11:41 WBC RBC Hgb Hct MCV MCH MCHC RDW Std Deviation RDW Coeff of Mir Plt Count MPV Immature Gran % (Auto) Neut % (Auto) Lymph % (Auto) Bledsoe % (Auto) Eos % (Auto) Baso % (Auto) Neut # (Auto) Lymph # (Auto) Bledsoe # (Auto) Eos # (Auto) Baso # (Auto) Immature Gran # (Auto) Sodium 138 Potassium 4.1 D Chloride 111 H Carbon Dioxide 21 Anion Gap 6.0 BUN 62 H Creatinine 2.82 H D Est Cr Clr Drug Dosing 32.0 Est GFR ( Amer) 25.7 Est GFR (Non-Af Amer) 22.1 BUN/Creatinine Ratio 21.9 H Glucose 124 H POC Glucose 139 H 124 H Calcium 8.8 Magnesium 2.[address] 06/05/21 15:[address] DOSE: 887.21 mGycm HISTORY: Follow-up subdural hematoma. TECHNIQUE: Multiaxial CT images of the head were performed without the use of intravenous contrast. Automated exposure control was utilized for this study. A dose lowering technique was utilized adhering to the principles of ALARA. Comparison: Head CT 06/04/2021. Findings: The paranasal sinuses and mastoid air cells are clear. Postoperative changes consistent with prior right-sided craniotomy. Similar appearing bilateral acute on chronic subdural hematomas with significant mass effect along the bilateral frontal lobes, right greater the left. The right frontal subdural hematoma measures up to 2.2 cm in thickness in the left frontal subdural hematoma measuring up to 1.2 centers in thickness. Persistent mass effect along the lateral ventricles and third ventricle. Stable appearance to the posterior fossa. There is 1 mm left midline shift, unchanged. Impression: Moderate to large bilateral acute on chronic subdural hematomas which are similar in size compared to the prior study. There is persistent mass effect along the frontal lobes and lateral ventricles. There is associated 1 mm of left midline shift, unchanged. ACT 112: Negative or not required by law. Electronically signed by: Kennedy Castellanos M.D. 06/05/2021 4:[address] 06/06/21 03:26 CT OF THE HEAD WITHOUT CONTRAST CLINICAL HISTORY: known subdural, worsening headache COMPARISON STUDY: Head CT June 05, 2021. CT DOSE: 691.05 mGy.cm TECHNIQUE: Helical axial images of the head were obtained without IV contrast. Automated exposure control was utilized for the study. A dose lowering technique was utilized adhering to the principles of ALARA. FINDINGS: Right-sided craniotomy is again noted. Moderate to large bilateral acute on chronic subdural hematomas are again noted, right larger than left. Right subdural hematoma measures 2.3 cm in thickness and the left measures 1.2 cm. Layering hyperdense blood is noted posteriorly. 2 mm of leftward midline shift is similar to prior exam. Ventricular system is stable. Acute subdural hemorrhage along the right aspect of the tentorium and anterior to the right temporal lobe is unchanged. Sulcal effacement is unchanged.-Both densities within the bilateral external capsules are unchanged. There are no findings to suggest acute dural sinus thrombosis or acute territorial infarct. No acute calvarial fracture is noted. IMPRESSION: Moderate to large bilateral acute on chronic subdural hematomas, similar to prior exam. Persistent mass effect with sulcal effacement with mass effect on the frontal lobes and ventricular system. 2 mm of leftward midline shift which is similar to prior exam. Continued short-term CT follow-up is rec ommended. ACT 112: Negative or not required by law. Electronically signed by: Gino Whyte M.D. 06/06/2021 6:35 AM Medications Administered Current Medications Acetaminophen (Acetaminophen 325 Mg Tab) 650 mg PO Q4H PRN PRN Reason: Pain or Fever Stop: 07/03/21 21:26 Last Admin: 06/06/21 09:41 Dose: 650 mg Atorvastatin Calcium (Atorvastatin 40 Mg Tab) 40 mg PO HS ZOEY Stop: 07/03/21 21:59 Last Admin: 06/05/21 20:31 Dose: 40 mg Carvedilol (Carvedilol 12.5 Mg Tab) 12.5 mg PO BID ZOEY Stop: 07/06/21 20:59 Dextrose (Dextrose 50% 50 Ml Syringe) 25 - 50 ml IV UD PRN; Protocol PRN Reason: Hypoglycemia Protocol Stop: 07/03/21 21:26 Famotidine (Famotidine 10 Mg Tablet) 10 mg PO QAM [facility] Stop: 07/04/21 08:59 Last Admin: 06/06/21 09:40 Dose: 10 mg Glucagon (Glucagon For Inj 1 Mg Vial) 1 mg SQ UD PRN; Protocol PRN Reason: Hypoglycemia Protocol Stop: 07/03/21 21:26 Glucose (Glucose 10 Tabs/Tube) 4 - 8 tabs PO UD PRN; Protocol PRN Reason: Hypoglycemia Protocol Stop: 07/03/21 21:26 Glucose (Glucose 40% Gel 15 Gm Tube) 15 - 30 gm PO UD PRN; Protocol PRN Reason: Hypoglycemia Protocol Stop: 07/03/21 21:26 Insulin Aspart (Insulin Aspart 100 Units/Ml 3 Ml Pen) 0 units SC ACHS [facility] Stop: 07/03/21 21:59 Last Admin: 06/06/21 09:37 Dose: Not Given Insulin Glargine (Insulin Glargine Solostar 100 Units/Ml 3 Ml Pen) 20 units SQ HS [facility] Stop: 07/04/21 20:59 Last Admin: 06/05/21 20:33 Dose: 20 units Labetalol HCl (Labetalol Hcl Iv 5 Mg/Ml 20ml) 10 mg IV Q4H PRN PRN Reason: SBP >180 or DBP >100 Stop: 07/03/21 21:26 Miscellaneous (Carbohydrates For Hypoglycemia ) 15 - 30 gm PO UD PRN PRN Reason: Hypoglycemia Protocol Stop: 07/03/21 21:26 Mycophenolate Mofetil (Mycophenolate Mofetil 250 Mg Cap) 750 mg PO BID [facility] Stop: 07/03/21 21:59 Last Admin: 06/06/21 09:40 Dose: 750 mg Ondansetron HCl (Ondansetron Inj 2 Mg/Ml 2 Ml Vial) 4 mg IV Q6H PRN PRN Reason: Nausea Stop: 07/03/21 21:26 Last Admin: 06/06/21 00:32 Dose: 4 mg Polyethylene Glycol (Polyethylene (Miralax) 17 Gm Pack) 17 gm PO DAILY PRN PRN Reason: Constipation Stop: 07/03/21 21:26 Prednisone (Prednisone 5 Mg Tab) 5 mg PO QAM [facility] Stop: 07/04/21 08:59 Last Admin: 06/06/21 09:40 Dose: 5 mg Tacrolimus (Tacrolimus 0.5 Mg Cap) 0.5 mg PO BID ZOEY Stop: 07/03/21 21:59 Last Admin: 06/06/21 09:40 Dose: 0.5 mg PG Care Time/CCT Total # of Minutes Spent Total Time Spent with Patient: Total time spent is greater than 50% in coordination of care (as documented) at patient's floor/unit and/or counseling patient: C[place] [address] Subseq Hosp Care Lvl 3 Patient Type Established History Expanded Problem Focused Exam Comprehensive Medical Decision Making High Complexity Diagnoses Subdural hematoma S06.5X9A CKD (chronic kidney disease), stage IV N18.4 Renal transplant recipient Z94.0 Anemia D64.9 Anemia type: unspecified type HTN (hypertension) I10 Type 2 diabetes mellitus E11.9 (1) Anemia Anemia type: unspecified type Qualified Code(s): D64.9 - Anemia, unspecified
--- NOTE | 2021-06-06 12:39 | CT Scan Report ---
CT head/brain wo con CLINICAL HISTORY: f/u SDH Technique: Contiguous axial CT images of the head were acquired from the base of the skull to the edwin brittany without intravenous contrast administration. Images were viewed in brain, subdural and bone [facility]. Automated dose lowering techniques and/or adjustment according to patient size were utilized for this exam. Comparison: Comparison is made to CT head 06/06/2021 Findings: Bilateral subdural hemorrhages are again noted, similar in size from prior exam. There is leftward mi dline shift of approximately 4 mm at the level of the anterior lateral ventricles, comparable to prio r. Imaged portions of the paranasal sinuses and mastoid air cells are clear. The orbits appear normal. Postsurgical changes of right craniotomy are again seen. Impression: Bilateral subdural hemorrhages with associated mass effect, essentially unchanged from prior exam. ACT 112: Negative or not required by law. Electronically signed by: Will Wadsworth M.D. 06/06/2021 12:37 PM
[2021-06-06] MEDS ORDERED: LABETALOL HCL IV 5 MG/ML 20ML IV PRN (16:36)
[2021-06-06] MEDS: ATORVASTATIN 40 MG TAB PO SCH (20:38)
[2021-06-06] MEDS: carvediloL 12.5 MG TAB PO SCH (20:38)
[2021-06-06] MEDS: INSULIN GLARGINE SOLOSTAR 100 UNITS/ML 3 ML PEN SQ SCH (20:40)
[2021-06-06] MEDS ORDERED: PROMETHAZINE HCL 6.25 MG in SODIUM CHLORIDE 0.9% 50 ML IV PRN (20:53)
[2021-06-07 05:25] LABS: Hematocrit (blood only) 29.5 % (42-52); Hemoglobin 9.5 g/dL (14.0-18.0); Mean Corpuscular Hemoglobin 32.2 pg (25-34); Mean Corpuscular Hgb Conc 32.2 g/dL (32-36); Mean Platelet Volume 10.5 fL (7.4-10.4); Platelet Count 212 K/uL (130-400); RDW Coefficient of Variation 14.5 % (11.5-14.5); RDW Standard Deviation 52.6 fL (36.4-46.3); Red Blood Count 2.95 M/uL (4.7-6.1); White Blood Count 7.47 K/uL (4.8-10.8)
[2021-06-07 05:45] LABS: BUN Creatinine Ratio 19.8 (10-20); Calcium 8.9 mg/dl (8.5-10.1); Creatinine Clr Calc Pharmacy 33.2 ml/min; Est GFR (African American) 26.8 ml/min; Est GFR (Non-African American) 23.1 ml/min; Potassium 4.1 mmol/L (3.5-5.1)
[2021-06-07] MEDS: INSULIN ASPART 100 UNITS/ML 3 ML PEN SC SCH ×2 (08:00→11:10)
[2021-06-07] MEDS: predniSONE 5 MG TAB PO SCH (08:52)
[2021-06-07] MEDS: carvediloL 12.5 MG TAB PO SCH (08:52)
[2021-06-07] MEDS: TACROLIMUS 0.5 MG CAP PO SCH (08:52)
[2021-06-07] MEDS: MYCOPHENOLATE MOFETIL 250 MG CAP PO SCH (08:52)
[2021-06-07] MEDS: FAMOTIDINE 10 MG TABLET PO SCH (08:52)
[2021-06-07] MEDS: ONDANSETRON INJ 2 MG/ML 2 ML VIAL IV PRN (08:53)
[2021-06-07] MEDS ORDERED: LOSARTAN POTASSIUM 25 MG TAB PO SCH ×2 (09:00→10:00)
--- NOTE | 2021-06-07 09:47 | Nephrology Progress Note ---
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 Hold IVF * Continue current immunosuppressive regimen of Prograf, Mycophenolate and Prednisone * Monitor PRP * Urinalysis is + for protein, c/w prior diagnosis of DKD/FSGS involving renal allograft. Urine microscopy reveals only 0 - 4 rbc/hpf (2) Subdural hematoma: Plan: * Physical exam is negative for focal neurologic deficit (oriented x3, moves all 4 extremities to commands). 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 Association of subarachnoid hemorrhage and intracerebral hematoma in five patients w/ ADPKD. Patient may benefit from MRA. Await transfer to tertiary care center for Neurosurgical evaluation (3) HTN (hypertension): Plan: * Target average SBP 140 mm Hg * Continue Carvedilol 12.5 mg po BID * Resume Losartan 25 mg po qAM * Monitor BP and PRP Admission and Anticipated Discharge Date Admission Date: June 03, 2021 Subjective Mr. Andrea was evaluated in the ICU this morning. He was oriented x3 but more slow to respond compared to yesterday. He c/o AVILEZ Review of Systems Constitutional: no fever Eyes: no worsening vision Ear, Nose, Mouth, Throat: no problem reported Respiratory: no cough and no dyspnea Cardiovascular: no chest pain, no palpitations and no edema Gastrointestinal: no abdominal pain, no nausea, no vomiting and no diarrhea/loose stools Genitourinary: no dysuria, no urinary hesitancy or no hematuria Musculoskeletal: no back pain Integumentary: no rash Neurologic: no dizziness and no confusion Physical Exam Constitutional: not in distress Eyes: PERRL, conjunctivae normal, anicteric sclerae ENMT: external ear and nose normal, oropharynx normal Neck: trachea midline, no thyromegaly Respiratory: normal respiratory effort, lungs clear to auscultation Cardiovascular: RRR, no murmur, no edema Gastrointestinal (Abdomen): Inspection/Auscultation: normal bowel sounds Percussion/Palpation: abdomen soft; abdomen nontender and no guarding Musculoskeletal: Extremities: no cyanosis Skin: no rashes, warm and dry Neurologic: moves all extremities and awake; not confused Results & Data ([facility]) Vital Signs (Past 12 Hours) Vital Signs Temp Pulse Pulse Pulse Resp BP Pulse Ox 06/07/21 09:26 36.6 C 67 14 150/86 H 96 06/07/21 04:05 36.5 C 69 14 154/100 H 95 06/06/21 23:53 71 06/06/21 23:24 36.9 C 70 16 153/94 H 96 Laboratory Results Laboratory Tests 06/07/21 06/07/21 05:13 05:13 WBC 7.47 Hgb 9.5 L Hct 29.5 L Plt Count 212 Sodium 139 Potassium 4.1 Chloride 111 H Carbon Dioxide 23 BUN 54 H Creatinine 2.72 H Glucose 79 PG Care Time/CCT Total # of Minutes Spent Total Time Spent with Patient: Total time spent is greater than 50% in coordination of care (as documented) at patient's floor/unit and/or counseling patient: Coding Level of Care Code 21972 Subseq Hosp Care Lvl 3 Diagnoses Renal transplant recipient Z94.0 Subdural hematoma S06.5X9A HTN (hypertension) I10
--- NOTE | 2021-06-07 12:52 | CT Scan Report ---
CT head/brain wo con CLINICAL HISTORY: 66 years-old Male with f/u SDH. Follow-up study in a patient with subdural hematom a TECHNIQUE: Multiple axial CT images of the head were obtained without contrast. A dose lowering tech nique was utilized adhering to the principles of ALARA. CT DOSE: 821.00 mGycm COMPARISON: Head CT 06/06/2021. FINDINGS: Moderate to large bilateral acute on chronic subdural hematomas are redemonstrated and appear general ly stable from comparison measuring up to 2.5 cm on the right and 1.1 cm and the left resulting in ap proximately 3 mm leftward midline shift. Persistent mass effect with sulcal effacement and partial ve ntricular effacement is unchanged. Acute subdural hematoma layering along the right tentorium and fal x cerebri appears unchanged. No hydrocephalus or acute territorial infarct. Cerebral vascular calcifi cations. No acute calvarial fracture. Right-sided craniotomy. Mastoid air cells and paranasal sinuses are gen erally clear. IMPRESSION: Moderate to large bilateral acute on chronic subdural hematomas, right greater than left appear unchanged from comparison with persistent sulcal effacement and local mass effect. 3 mm leftw mat midline shift is unchanged. Continued follow-up is needed. ACT 112: Negative or not required by law. The above report was generated using voice recognition software. It may contain grammatical, syntax o r spelling errors. Electronically signed by: Geovanni Murillo M.D. 06/07/2021 12:51 PM
--- NOTE | 2021-06-07 13:08 | Discharge Summary ---
Date of Service June 07, 2021 Admission HPI Per Admitting Provider 66 YOM with past medical history of: Anaplasmosis, Renal Transplant on chronic immunosuppression, CKD IV, HTN, DMII, HLD, Sub-dural hematoma x2 requiring evacuation-03/27 and 04/23 at [facility]. The patient presents today again with headache on the left temporal and pressure behind his eyes and feels his left leg is weaker than it has been. In the EMD the patient had a repeat head CT scan that revealed Interval development of acute subdural hematoma along the right tentorium and falx 1.8 (1.2) CM and adjacent to the left parietal lobe and Increase in size 1.6CM(1.0) of subacute and chronic subdural hematomas bilate rally; without midline shift or mass effect. The patient has been accepted to [facility] neurosurgery Dr. Negron; however a bed is not available. It was relayed that: not emergent need for intervention that patient be admitted until a bed becomes available, the hospitalist service was consulted for admission. Patient is not on any antiplatelet medications or blood thinners. PT/PTT/INR and Fibrinogen sent. He received 10mg of Decadron in EMD. Patient is awake and alert, pupils are equal and reactive, he has 4/5 strength to his left upper arm and 3/5 strength to his left lower extremity and right side is 5/5 upper and lower. His pupils are brisk and equal, he has normal respirations. Patient denies any trauma or strenuous activity over the past 2 weeks. He does state that he fell off his bench today but was on to his buttocks secondary to his left leg weakness, he says that he caught himself and lowered himself down. He has no bruises and head is a-traumatic. Patient will be admitted to PCU for frequent neurological exams and BP control, while awaiting bed at [facility]. Patient has had his COVID vaccine and his COVID test on admission is: NEGATIVE Admission Exam Per Admitting Provider General: awake, alert, Head: Normocephalic, atraumatic ENT: PERRL, EOMI, no pharyngeal exudate, mucous membranes moist Neuro: AAO x 3, speech clear and appropriate, strength intact bilaterally 5/5 right, 4/5 LUE 3/5 LLE, sensation intact and equal all extremities and dermatomes, no nausea, no vision changes, Pupils brisk Chest: equal rise and fall of the chest, no accessory muscle use, no heaves or thrills, Clear to auscultation, on room air, Cardiac: Regular rate and rhythm, telemetry reviewed, skin warm dry, cap refill <3 seconds, peripheral pules +2 no JVD, no murmur, no edema GI: NABS x 4 quadrants, soft, nontender to palpation, no rebound, guarding or tenderness : Spontaneously voiding, no pain, no CVA tenderness, Extremities: Normal inspection, no peripheral edema or erythema, calfs nontender to palpation Psych: Normal mood and affect Skin: no rash or erythema Principal Diagnosis Acute on chronic subdural hematomas bilaterally Discharge Exam Vital Signs Temp Pulse Pulse Pulse Resp BP Pulse Ox 06/07/21 11:11 37.0 C 70 18 144/84 H 97 06/07/21 09:26 36.6 C 67 14 150/86 H 96 06/07/21 04:05 36.5 C 69 14 154/100 H 95 06/06/21 23:53 71 06/06/21 23:24 36.9 C 70 16 153/94 H 96 06/06/21 19:36 36.7 C 66 12 154/87 H 97 06/06/21 18:42 66 Intake and Output 06/06/21 06/07/21 06/07/21 22:59 06:59 14:59 Intake Total 50 / 1036 50 / 1036 120 / 120 Output Total 200 / 800 0 / 800 200 / 200 Balance -150 / 236 50 / 236 -80 / -80 Intake: Oral 50 / 100 50 / 100 120 / 120 Output: Urine 200 / 800 200 / 200 # Bowel Movements 0 / 0 0 / 0 Other: Weight 90.3 kg Weight Measurement Method Built in [facility] GENERAL: Well-developed, well-nourished. Sleepy but wakes and answers questions. EYES: EOMI. PERRLA. LUNGS: Clear to auscultation bilaterally. No accessory muscle use. No W/R/R. CARDIOVASCULAR: Regular rate and rhythm. No M/G/R. No JVD. ABDOMEN: Soft, non-tender and non-distended. No palpable masses. Bowel sounds normoactive x 4 quad. EXTREMITIES: No edema. Non-tender. Peripheral pulses +2/4. NEUROLOGIC: Increased lethargy, confusion, and weakness demonstrated L>R. PSYCHIATRIC: Cooperative. SKIN: Warm, dry, intact. No rashes or lesions. Discharge Data Allergies Allergy/AdvReac Type Severity Reaction Status Date / Time No Known Allergies Allergy Verified 06/03/21 15:53 Consultations Nephrology consulted due to h/o CKD stage 4/renal transplant recipient to follow renal function and monitor tacrolimus levels, appreciate input by Dr. Stokes. Procedures Performed None Ordered Studies Chest X-Ray 06/03/21 14:49 XR chest 1V portable CLINICAL HISTORY: weakness COMPARISON STUDY: Chest CT March 26, 2021. Chest radiograph April 22, 2021. FINDINGS: Lung volumes are normal. Lungs are clear. There is no pneumothorax or pleural effusion. Cardiac size is normal. Mediastinal contours are normal. There is no evidence for pulmonary edema. Subtle interstitial thickening is unchanged and likely reflects underlying interstitial lung disease. IMPRESSION: No acute cardiopulmonary findings. ACT 112: Negative or not required by law. Electronically signed by: Gino Whyte M.D. 06/03/2021 3:[address] 06/03/21 15:32 CT head/brain wo con CLINICAL HISTORY: weakness, h/o SDH with previous surgery, LLE weakness from baseline . Headache for 2 days. COMPARISON STUDY: 05/08/2021 CT DOSE: 691.05 mGy.cm TECHNIQUE: Standard CT of the Brain was performed without IV contrast. A dose lowering technique was utilized adhering to the principles of ALARA. FINDINGS: Extraaxial space: Compared to the previous examination, there has been interval development of an acute subdural hematoma on the right with increased attenuation blood seen along the right tentorium and also within the falx. There is also minimal amount of acute hemorrhage seen along the left parietal lobe as seen on image 20 of 36. Additionally, there is increase in subacute and chronic subdural hematomas as well bilaterally. The right-sided subdural fluid collection anteriorly now measures 1.8 cm compared to 1.2 cm in the previous study. The left-sided anterior subdural fluid collection now measures 1.6 cm when compared to 1.0 cm in the previous study. Ventricles and cisterns: The ventricles are normal in size and configuration. There is no evidence for midline shift or mass effect. Parenchyma: There is no subarachnoid or intraparenchymal hemorrhage. There is no evidence for an acute infarct or cerebral edema. There is homogeneous attenua tion of the brain parenchyma. There are no gross mass lesions. Osseous structures: Previous craniotomy defects are again seen. There is no evidence for an acute fracture. The visualized paranasal sinuses are clear. The mastoid air cells are clear bilaterally. Soft tissues: There is no evidence for focal soft tissue swelling. IMPRESSION: 1. Interval development of acute subdural hematoma along the right tentorium and falx and adjacent to the left parietal lobe. 2. Increase in size of subacute and chronic subdural hematomas bilaterally. 3. No intraparenchymal hematoma or subarachnoid hemorrhage is identified. A stat report will be called to the emergency Department. ACT 112: Negative or not required by law. Electronically signed by: Tong Ashton 06/03/2021 4:[address] 06/04/21 12:00 CT head/brain wo con CLINICAL HISTORY: 66 years-old Male with interval change SDH. Follow-up study in a patient with known subdural hematoma TECHNIQUE: Multiple axial CT images of the head were obtained without contrast. A dose lowering technique was utilized adhering to the principles of ALARA. CT DOSE: 788.63 mGycm COMPARISON: Head CT 06/03/2021, 05/08/2021 FINDINGS: Prior right-sided craniotomy. Subacute appearing bilateral subdural hematomas have increased in attenuation from prior however are stable in size measuring 2.1 cm on the right and 1 cm on the left. Small amount of acute subdural hematoma layering along the right aspect of the falx cerebri and tentorium measures up to 5 mm, unchanged from yesterday's study. Acute subdural hematoma of the right middle cranial fossa measuring up to 4 mm on image 8 series 2 is also unchanged. No midline shift. Mass effect of the right frontal lobe is unchanged. No acute intra-axial hemorrhage. Cerebral vascular calcifications. No acute territorial infarct or hydrocephalus. No acute calvarial fracture. Unremarkable soft tissues and orbits. Prior bilateral lens repair. IMPRESSION: 1. Right greater than left subacute subdural hematomas measuring up to approximately 2 cm on the right and 1 cm on the left are generally unchanged in size from yesterday's exam however demonstrate increased attenuation compatible with mixing of acute and subacute blood products. 2. Subcentimeter acute subdural hematoma layering along the falx cerebri and tentorium extending into the right middle cranial fossa is unchanged from 06/03/2021. 3. Mass effect of the right frontal lobe redemonstrated without midline shift or hydrocephalus. ACT 112: Negative or not required by law. The above report was generated using voice recognition software. It may contain grammatical, syntax or spelling errors. Electronically signed by: Geovanni Murillo M.D. 06/04/2021 12:[address] 06/05/21 15:[address] DOSE: 887.21 mGycm HISTORY: Follow-up subdural hematoma. TECHNIQUE: Multiaxial CT images of the head were performed without the use of intravenous contrast. Automated exposure control was utilized for this study. A dose lowering technique was utilized adhering to the principles of ALARA. Comparison: Head CT 06/04/2021. Findings: The paranasal sinuses and mastoid air cells are clear. Postoperative changes consistent with prior right-sided craniotomy. Similar appearing bilateral acute on chronic subdural hematomas with significant mass effect along the bilateral frontal lobes, right greater the left. The right frontal subdural hematoma measures up to 2.2 cm in thickness in the left frontal subdural hematoma measuring up to 1.2 centers in thickness. Persistent mass effect along the lateral ventricles and third ventricle. Stable appearance to the posterior fossa. There is 1 mm left midline shift, unchanged. Impression: Moderate to large bilateral acute on chronic subdural hematomas which are similar in size compared to the prior study. There is persistent mass effect along the frontal lobes and lateral ventricles. There is associated 1 mm of left midline shift, unchanged. ACT 112: Negative or not required by law. Electronically signed by: Kennedy Castellanos M.D. 06/05/2021 4:[address] 06/06/21 03:26 CT OF THE HEAD WITHOUT CONTRAST CLINICAL HISTORY: known subdural, worsening headache COMPARISON STUDY: Head CT June 05, 2021. CT DOSE: 691.05 mGy.cm TECHNIQUE: Helical axial images of the head were obtained without IV contrast. Automated exposure control was utilized for the study. A dose lowering technique was utilized adhering to the principles of ALARA. FINDINGS: Right-sided craniotomy is again noted. Moderate to large bilateral acute on chronic subdural hematomas are again noted, right larger than left. Right subdural hematoma measures 2.3 cm in thickness and the left measures 1.2 cm. Layering hyperdense blood is noted posteriorly. 2 mm of leftward midline shift is similar to prior exam. Ventricular system is stable. Acute subdural hemorrhage along the right aspect of the tentorium and anterior to the right temporal lobe is unchanged. Sulcal effacement is unchanged.-Both densities within the bilateral external capsules are unchanged. There are no findings to suggest acute dural sinus thrombosis or acute territorial infarct. No acute calvarial fracture is noted. IMPRESSION: Moderate to large bilateral acute on chronic subdural hematomas, similar to prior exam. Persistent mass effect with sulcal effacement with mass effect on the frontal lobes and ventricular system. 2 mm of leftward midline shift which is similar to prior exam. Continued short-term CT follow-up is recommended. ACT 112: Negative or not required by law. Electronically signed by: Gino Whyte M.D. 06/06/2021 6:[address] 06/06/21 11:45 CT head/brain wo con CLINICAL HISTORY: f/u SDH Technique: Contiguous axial CT images of the head were acquired from the base of the skull to the vertex without intravenous contrast administration. Images were viewed in brain, subdural and bone windows. Automated dose lowering techniques and/or adjustment according to patient size were utilized for this exam. Comparison: Comparison is made to CT head 06/06/2021 Findings: Bilateral subdural hemorrhages are again noted, similar in size from prior exam. There is leftward midline shift of approximately 4 mm at the level of the anterior lateral ventricles, comparable to prior. Imaged portions of the paranasal sinuses and mastoid air cells are clear. The orbits appear normal. Postsurgical changes of right craniotomy are again seen. Impression: Bilateral subdural hemorrhages with associated mass effect, essentially unchanged from prior exam. ACT 112: Negative or not required by law. Electronically signed by: Will Wadsworth M.D. 06/06/2021 12:[address] 06/07/21 11:45 CT head/brain wo con CLINICAL HISTORY: 66 years-old Male with f/u SDH. Follow-up study in a patient with subdural hematoma TECHNIQUE: Multiple axial CT images of the head were obtained without contrast. A dose lowering technique was utilized adhering to the principles of ALARA. CT DOSE: 821.00 mGycm COMPARISON: Head CT 06/06/2021. FINDINGS: Moderate to large bilateral acute on chronic subdural hematomas are redemonstrated and appear generally stable from comparison measuring up to 2.5 cm on the right and 1.1 cm and the left resulting in approximately 3 mm leftward midline shift. Persistent mass effect with sulcal effacement and partial ventricular effacement is unchanged. Acute subdural hematoma layering along the right tentorium and falx cerebri appears unchanged. No hydrocephalus or acute territorial infarct. Cerebral vascular calcifications. No acute calvarial fracture. Right-sided craniotomy. Mastoid air cells and paranasal sinuses are generally clear. IMPRESSION: Moderate to large bilateral acute on chronic subdural hematomas, ri ght greater than left appear unchanged from comparison with persistent sulcal effacement and local mass effect. 3 mm leftward midline shift is unchanged. Continued follow-up is needed. ACT 112: Negative or not required by law. The above report was generated using voice recognition software. It may contain grammatical, syntax or spelling errors. Electronically signed by: Geovanni Murillo M.D. 06/07/2021 12:51 PM Laboratory Results - last 24 hr 06/06/21 06/06/21 06/07/21 16:35 20:31 05:13 WBC RBC Hgb Hct MCV MCH MCHC RDW Std Deviation RDW Coeff of Mir Plt Count MPV Sodium 139 Potassium 4.1 Chloride 111 H Carbon Dioxide 23 Anion Gap 5.0 BUN 54 H Creatinine 2.72 H Est Cr Clr Drug Dosing 33.2 Est GFR ( Amer) 26.8 Est GFR (Non-Af Amer) 23.1 BUN/Creatinine Ratio 19.8 Glucose 79 POC Glucose 132 H 123 H Calcium 8.9 COVID-19 Eval Order SARS-CoV-2, RNA, NAAT 06/07/21 06/07/21 06/07/21 05:13 07:35 11:02 WBC 7.47 RBC 2.95 L Hgb 9.5 L Hct 29.5 L MCV 100.0 MCH 32.2 MCHC 32.2 RDW Std Deviation 52.6 H RDW Coeff of Mir 14.5 Plt Count 212 MPV 10.5 H Sodium Potassium Chloride Carbon Dioxide Anion Gap BUN Creatinine Est Cr Clr Drug Dosing Est GFR ( Amer) Est GFR (Non-Af Amer) BUN/Creatinine Ratio Glucose POC Glucose 75 88 Calcium COVID-19 Eval Order SARS-CoV-2, RNA, NAAT 06/07/21 06/07/21 11:55 11:55 WBC RBC Hgb Hct MCV MCH MCHC RDW Std Deviation RDW Coeff of Mir Plt Count MPV Sodium Potassium Chloride Carbon Dioxide Anion Gap BUN Creatinine Est Cr Clr Drug Dosing Est GFR ( Amer) Est GFR (Non-Af Amer) BUN/Creatinine Ratio Glucose POC Glucose Calcium COVID-19 Eval Order Covid19 [facility] SARS-CoV-2, RNA, NAAT NEGATIVE Hospital Course (1) Subdural hematoma: acute/subacute/chronic- with interval increase from imaging in May -- Serial head CTs from 06/05, 06/06, 06/07 all show stable findings as above. Patient has remained on transfer list for [facility] since 06/03. I contacted [facility] and spoke directly with patient's neurosurgeon (with whom he is established) Dr. Napoles. Discussed neurological change observed over the past 24 hours. He agreed patient required urgent transfer. Bed assignment received @1245 and pt to be transported @1330. Patient's updated. (2) CKD (chronic kidney disease), stage IV: Chronic with renal transplant recipient- secondary to renal allograft diabetic nephropathy. Baseline creat 2.7-3.2, Nephrology on board, appreciate input. Pt euvolemic and renal function remains stable. Losartan resumed (was placed on hold d/t uptrending creatinine). Continue with cell cept, prednisone, and tacrolimus. (3) Renal transplant recipient: As above. Last tacrolimus level in April-4.2. Nephro following. (4) Anemia: Iron deficient in past as well as macrocytic. Was on B12 supplementation in January. Hgb stable. (5) HTN (hypertension): Goal SBP ~130-140 mmHg. Coreg increased yesterday to 12.5mg BID. Labetalol ordered and adjusted parameters to give for SBP>170 or DBP>100. Losartan resumed this morning and BP reflects better control today. (6) Type 2 diabetes mellitus: Continue Lantus, increased HS dose with improvement in FBS this AM. Continue Aspart sliding scale with CF 20 and 1:10 carb ratio Patient being transported to [facility] today for neurosurgical eval/treatment. Prognosis remains guarded. Discussed case at length with patient's , [facility]. Total Time Total Time Spent Total Time Spent (In Minutes): 45 minutes Discharge Plan Discharge Items Patient Disposition: Transfer Acute Care Hospital Reason For Visit: SUBDURAL HEMATOMA Discharge Diagnosis: Subdural hematoma Activity: As commented below Activity Comment: Bedrest with BRP Lifting: None Non-emergency contact: Primary Care Provider Call non-emergency contact if: you have any medication questions, your symptoms worsen and your pain is not controlled Follow-up/Referrals: Shelli Ashraf MD [Primary Care Provider] - Diet: Carb Consistent or DM2 Addtl Attending Provider Instructions: Follow specialists recomendations Pending Studies at Discharge: No Stand-Alone Forms: My [facility] Skilled Items Patient informed of condition?: Yes DNR: No Discharge Level of Care: Other Communicable Disease: No Discharge Prognosis: Stable Lines: Peripheral IV Urinary Catheter: No Medications and DC Order Prescriptions: Continued glipizide 5 mg tablet 2.5 mg PO HS Qty: 45 RF: 3 tacrolimus [Prograf] 0.5 mg capsule 0.5 mg PO Q12H RF: 0 glipizide [Glucotrol] 10 mg tablet 10 mg PO QAM RF: 0 losartan 25 mg tablet 25 mg PO DAILY Qty: 90 RF: 3 coenzyme Q10 [Co Q-10] 100 mg capsule 100 mg PO BID RF: 0 flaxseed oil [Loomis-3 Flaxseed Oil] 1,000 mg capsule 1,000 mg PO HS RF: 0 magnesium oxide 250 mg magnesium tablet 250 mg PO BID RF: 0 famotidine [Acid [employer] Mounter (famotidine)] 10 mg tablet 10 mg PO QAM RF: 0 multivitamin [Multiple Vitamins] tablet 1 tab PO QAM RF: 0 prednisone 5 mg tablet 5 mg PO QAM Qty: 90 RF: 0 atorvastatin [Lipitor] 40 mg tablet 40 mg PO HS RF: 0 carvedilol [Coreg] 12.5 mg tablet 6.25 mg PO BID RF: 0 Basaglar KwikPen U-100 Insulin 100 unit/mL (3 mL) insulin pen 15 unit subcut HS RF: 0 mycophenolate mofetil [CellCept] 250 mg capsule 750 mg PO BID RF: 0 amoxicillin 500 mg capsule 500 mg PO DIRECTED PRN (Reason: 1 HOUR PRIOR TO DENTAL PROCEDURES.) RF: 0 allopurinol 300 mg tablet 300 mg PO HS RF: 0 B12 Active 1,000 mcg tablet,chewable 1,000 mcg PO QAM RF: 0 ondansetron 4 mg tablet,disintegrating 4 - 8 mg PO Q8H PRN (Reason: nausea and vomiting) Qty: 14 RF: 0 Discharge Orders: Discharge Order (Routine); Ordered 06/07/21 Ordered By: Deyanira Cooney Admission Data Admit Date/Time: 06/03/21 20:34 Attending Provider: Ziggy Erickson Admit Provider: Jayson Smith Primary Care Provider: Shelli Ashraf Other Providers: Jayson Smith ; Mi Stallworth ; Larry Stokes ; Jayson Eugene ; Diane Farah ; Stephen Grissom Coding Level of Care Code D/C DAY MANAGEMENT >30 MINS Diagnoses Subdural hematoma S06.5X9A CKD (chronic kidney disease), stage IV N18.4 Renal transplant recipient Z94.0 Anemia D64.9 Anemia type: unspecified type HTN (hypertension) I10 Type 2 diabetes mellitus E11.9
== END 2021-06-07 14:05 | disposition short-term general hospital (02) | DRG 65 ==
LOC: ED 14:40 → SUATTDRO 20:34 → EDINP 20:34 → 1E 21:22

== ENCOUNTER 2021-06-19 23:21 | Observation (INO) ==
[2021-06-19] MEDS ORDERED: CALCIUM GLUCONATE 10% 1,000 MG in SODIUM CHLORIDE 0.9% 50 ML IV STA (23:23)
--- NOTE | 2021-06-20 00:08 | Emergency Department Note ---
ED Visit Note See note from earlier visit on the same date. .
--- NOTE | 2021-06-20 00:31 | History & Physical Report ---
Date of Service June 20, 2021 Assessment & Plan (1) Left ventricular apical thrombus: Plan: 66-year-old medically complex individual who is being admitted for monitoring and management of acute kidney injury in a transplanted and likely failing kidney. WERNER Creatinine elevated up to 3.47 with BUN 112 Discharge summary from [facility] showing last BUN and creatinine were 78 and 2.93 respectively Possibly secondary to dexamethasone treatment for subdural hemorrhage management versus HHS and dehydration Appreciate nephrology input Urine sodium, urine creatinine, urinalysis pending Less likely to be secondary to chronic allopurinol use Gentle hydration with normal saline at 80 mL/h Trend daily BMP History of transplanted kidney Transplant received for polycystic kidney disease in 1996 Continue tacrolimus twice daily and CellCept twice daily Electrolyte derangements Potassium of 6 in emergency department initially, improved after receiving insulin and fluids Sodium initially 128 at 543, increased to 134 at midnight. Initially likely pseudohyponatremia due to elevated blood sugars BMP as above Subdural hematoma status post evacuation Status post craniotomy for evacuation of subdural hematoma. All drains removed prior to discharge. Discharged from [facility] on 06/14 on dexamethasone 4 mg twice daily x1 month for management of subdural edema Last CT head without contrast on 06/14/2021 as follows: 1. bilateral subdural collection, overall stable in thickness, with unchanged 3 mm left to right midline shift. 2. bilateral frontal pneumocephalus, slightly increased on the right compared to 06/11/2021 with not significantly changed mass-effect over the underlying brain parenchyma due to pneumocephalus. 3. no acute intracranial hemorrhage. Symptoms of hematoma were worsening mental status with left-sided weakness Monitor for neurologic change in the setting of recent surgery Left ventricular thrombus Noted on transthoracic echocardiogram on 06/12/21 at [facility] Findings as follows: Mildly dilated left ventricle, with moderately reduced systolic function. Ejection fraction 35 to 40%. Diffuse hypokinesis with more prominent apical hypokinesis and deep trabeculations that may suggest noncompaction. Presence of spontaneous contrast/swirling at the apex, i.e. prethrombotic state. Probable small apical thrombus. Moderate concentric left ventricular hypertrophy. Normal RV size and function. Mild left atrial dilation. Mild aortic root dilation. Trivial aortic regurgitation. No other valvular abnormalities noted. Left ventricular function appears globally worse compared to 03/28/2021 and there is a probable apical thrombus. Suspicion of LV noncompaction was already suggested. Patient discharged from [facility] on 15 mg twice daily Xarelto to be taken for 20 days and then 20 mg once daily after that. Type 2 diabetes Exacerbated secondary to being on dexamethasone as above Home regimen (which was not changed and her she) 15 units of Lantus at bedtime with 10 mg glipizide in the a.m. and 2.5 mg glipizide in the p.m. A1c in December 2020 was 7.5 Basal insulin continued at this time, sliding scale insulin for mealtime coverage while on steroids. Will likely need to be sent home with sliding scale/instructions for this given that he will be on dexamethasone for at least a month. Chronic Conditions Gout: Continue allopurinol 300 at bedtime Hypertension: Continue amlodipine 10 daily, 3 tabs of carvedilol 6.25 mg twice a day GERD: Continue famotidine 10 mg a.m. CAD status post 1 ALEXUS: Continue atorvastatin 40 mg and daily omega-3. (Per review of outpatient cardiology notes patient had easy bruising while on aspirin) DVT ppx: on eliquis FEN/GI: heart healthy, low salt Bowel regimen: prn miralax Code Status: Full Code Dispo: Med/Tele (2) S/P subdural hematoma evacuation: (3) Acute kidney injury superimposed on CKD: (4) Poor appetite: (5) Immunosuppression: (6) Renal transplant recipient: (7) Gout, joint: (8) Type 2 diabetes mellitus: (9) HTN (hypertension): (10) Coronary artery disease: History of Present Illness Primary Care Provider: Shelli Ashraf MD 66 yo M with [facility] CKD stage IV, PCKD s/p transplant in 1996, DM2, CAD recently hospitalized at [facility] for subdural hematoma requiring evacuation, in ER today for multiple days of elevated BSG. ON dexamethasone for edema control after neurosurgical intervention which has been causing his sugars to increase but was discharged home on usual regimen of 15u lantus at nighttime with glipizide. Hoyos gars decreased with fluid resuscitation, labwork significant for BUN and Cr elevation. BUN/Cr on 06/14/21 day of discharge from [facility] were 78/2.93, today are 112/3.47. Complaining of increased thirst and dry mouth, but no increased frequency of urination, concentration of urine, dysuria, back pain. No fevers, chills. No hematuria. Admitted to hospitalist service for management of WERNER on CKD s/p transplant, nephrology consultation for management of BUN/Cr in setting of steroid use and DM2. Allergies Allergy/AdvReac Type Severity Reaction Status Date / Time No Known Allergies Allergy Verified 06/20/21 00:07 Home Medications Medication Instructions Recorded Confirmed Type famotidine 10 mg tablet (Acid 10 mg PO QAM 03/03/19 06/20/21 History Motor Analyst (famotidine)) magnesium oxide 250 mg PO BID tab 03/03/19 06/20/21 History multivitamin (Multiple Vitamins) 1 tab PO QAM 03/03/19 06/20/21 History prednisone 5 mg tablet 5 mg PO QAM #90 tab 03/03/19 06/20/21 History atorvastatin 40 mg tablet (Lipitor) 40 mg PO HS 09/13/19 06/20/21 History tacrolimus 0.5 mg capsule, 0.5 mg PO Q12H cap 01/24/21 06/20/21 History immediate-release (Prograf) allopurinol 300 mg tablet 300 mg PO HS 01/31/21 06/20/21 History mycophenolate mofetil 250 mg 750 mg PO BID 01/31/21 06/20/21 History capsule (CellCept) glipizide 10 mg tablet (Glucotrol) 10 mg PO QAM tab 03/16/21 06/20/21 History mecobalamin (vitamin B12) 1,000 1,000 mcg PO QPM 03/26/21 06/20/21 History mcg chewable tablet (B12 Active) insulin glargine 100 unit/mL (3 15 unit SUBCUT HS ml 05/19/21 06/20/21 History mL) subcutaneous pen (Basaglar KwikPen U-100 Insulin) glipizide 5 mg tablet 2.5 mg PO HS #45 tab 05/30/21 06/20/21 Rx amlodipine 10 mg tablet 10 mg PO DAILY 06/18/21 06/20/21 History carvedilol 6.25 mg tablet See Rx Instructions PO BID 06/18/21 06/20/21 History dexamethasone 4 mg tablet 4 mg PO BID 06/18/21 06/20/21 History rivaroxaban 20 mg tablet (Xarelto) 20 mg PO QPM 06/18/21 06/20/21 History Ubiquinol Cap 100 mg PO BID 06/19/21 06/20/21 History nitroglycerin 0.4 mg sublingual 0.4 mg SUBLINGUAL DIRECTED PRN 06/19/21 06/20/21 History tablet omega-3 fatty acids-fish oil 684 1 cap PO DAILY 06/19/21 06/20/21 History mg-1,200 mg capsule,delayed release polyethylene glycol 3350 17 17 g PO DAILY 06/19/21 06/20/21 History gram/dose oral powder (Miralax) rivaroxaban 20 mg tablet (Xarelto) 15 mg PO BID 06/20/21 06/20/21 History Past Med/Surg History Medical History (Updated 06/20/21 @ 00:26 by Nery Ventura MD) WERNER (acute kidney injury) Anaplasmosis CHF (congestive heart failure) Chronic subdural hematoma COVID-19 vaccine administered Dehydration Diarrhea Diverticulosis Dizziness Elevated troponin Gout, joint Head ache Headache Hypercholesterolemia Hypoglycemia Myocardial Infarction Nausea Polycystic kidney ST elevation myocardial infarction (STEMI) Weakness Surgical History (Updated 06/20/21 @ 00:31 by Nery Ventura MD) History of jami hole surgery Left jami hole drainage of subdural hematoma, placement of subdural drain 06/09/21 History of heart artery stent Hx of craniotomy redo right craniotomy for evacuation for subdural hematoma 06/07/21 [facility] right minicraniotomy for evacuation of subdural hematoma 03/27/21, 04/23/21 [facility] Renal transplant recipient Family History Mother Breast cancer Father Stroke Polycystic kidney disease Denies family history of Ovarian cancer Prostate cancer Myocardial infarction Colorectal cancer Social History Smoking Status: Never smoker Hx Alcohol Use: No Hx Substance Use: No Preferred Language: Persian Communication Ability: Effective Mobile Marketing Specialist Required: No Beliefs That Will Affect Care: None marital status: Current Living Situation: Spouse 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 Head: sutures on left cranium intact, dry, no bleeding Neck: red/irritated skin on posterior neck at base Eyes: EOMI, pupils equal and reactive bilaterally, no scleral icterus Cardiac: RRR, no murmurs, gallops or rubs. Normal S1, S2 Pulm: CTA BL, no wheezes, rhonchi, crackles or rubs, moving air well throughout both lungs Back: no CVA tenderness Abd: soft, nontender, nondistended, normal bowel sounds, no rebound or guarding Extremities: 1+ peripheral pulses, 2+ pitting edema to ankles bilaterally Neuro: no focal deficits, moving all 4 limbs, A&Ox3 Results & Data Results & Data ([facility]) Vital Signs (Past 12 Hours) Vital Signs Temp Pulse Pulse Resp BP BP Pulse Ox 06/20/21 00:12 99 06/19/21 23:52 36.8 C 82 20 106/69 98 06/19/21 23:39 82 20 106/69 98 Laboratory Results Laboratory Results POC Hgb 10.2 g/dl (14.0-18.0) L 06/20/21 00:19 POC Hct 30 % (42-52) L 06/20/21 00:19 POC Sodium 132 mmol/L (135-144) L 06/20/21 00:19 Sodium 134 mmol/L (136-145) L 06/20/21 00:15 POC Potassium 4.9 mmol/L (3.3-5.0) 06/20/21 00:19 Potassium 4.9 mmol/L (3.5-5.1) D 06/20/21 00:15 POC Chloride 103 mmol/L (101-112) 06/20/21 00:19 Chloride 106 mmol/L (98-107) 06/20/21 00:15 Carbon Dioxide 20 mmol/L (21-32) L 06/20/21 00:15 POC Total CO2 16 mmol/L (24-31) L 06/20/21 00:19 Anion Gap 8.0 (3-11) 06/20/21 00:15 POC Anion Gap 18.0 mmol/L (16-25) 06/20/21 00:19 POC BUN 112 mg/dl (7-18) H* 06/20/21 00:19 BUN 109 mg/dl (7-18) H 06/20/21 00:15 Creatinine 3.24 mg/dl (0.6-1.4) H 06/20/21 00:15 POC Creatinine 3.3 mg/dl (0.6-1.3) H 06/20/21 00:19 Est Cr Clr Drug Dosing Not Reportable 06/20/21 00:15 Est GFR ( Amer) 21.7 ml/min 06/20/21 00:15 Est GFR (Non-Af Amer) 18.7 ml/min 06/20/21 00:15 BUN/Creatinine Ratio 33.7 (10-20) H 06/20/21 00:15 Glucose 203 mg/dl (70-99) H 06/20/21 00:15 POC Glucose 195 mg/dl (70-99) H 06/20/21 03:33 POC Glucose (other) 202 mg/dl (70-99) H 06/20/21 00:19 Calcium 9.8 mg/dl (8.5-10.1) 06/20/21 00:15 POC Ioniz Calcium Maren 1.44 mmol/l (1.12-1.32) H 06/20/21 00:19 Medications Administered Sodium Chloride (Nss 1000ml) 1,000 mls @ 80 mls/hr IV .[id number] [facility] Stop: 07/19/21 23:44 Last Admin: 06/20/21 00:41 Dose: 80 mls/hr Documented by: [id number] Insulin Aspart (Insulin Aspart 100 Units/Ml Vial) 0 units SC ACHS [facility] Stop: 07/20/21 02:59 Last Admin: 06/20/21 03:40 Dose: 2 units Documented by: [id number] Cosigned by: [id number] Discontinued Medications Calcium Gluconate (Calcium Gluconate 1000 Mg/60 Ml Nss) Confirm Administered Dose 1,000 mg IV .STK-MED ONE Stop: 06/20/21 00:39 Last Admin: 06/20/21 00:47 Dose: Not Given Documented by: [id number] Calcium Gluconate 1,000 mg/ (Sodium Chloride) 60 mls @ 240 mls/hr IV NOW STA Stop: 06/19/21 23:37 Last Infusion: 06/20/21 00:55 Dose: 0 mls/hr Documented by: [id number] Admin: 06/20/21 00:40 Dose: 240 mls/hr Documented by: [id number] Insulin Aspart (Insulin Aspart Per Unit) Confirm Administered Dose 2 units .ROUTE .STK-MED ONE Stop: 06/20/21 03:39 Last Admin: 06/20/21 03:42 Dose: Not Given Documented by: [id number] Supervising Physician Co-Signing Physician Notes Patient seen and examined, chart reviewed, case discussd marty Ventura and I agree with the assessment and plan as above Resident Activity Tracking Resident Involvement: Resident Care Provided Care Provided: Adult Hospital Medicine
[2021-06-20 00:32] LABS: iSTAT Creatinine 3.3 mg/dl (0.6-1.3); iSTAT Hemoglobin 10.2 g/dl (14.0-18.0); iSTAT Ionized Calcium 1.44 mmol/l (1.12-1.32); iSTAT Potassium 4.9 mmol/L (3.3-5.0)
[2021-06-20] MEDS ORDERED: CALCIUM GLUCONATE 1000 MG/60 ML NSS IV ONE (00:38)
[2021-06-20] MEDS: SODIUM CHLORIDE 0.9% 1000ML 1,000 ML IV SCH ×2 (00:41→13:26)
[2021-06-20 00:57] LABS: BUN Creatinine Ratio 33.7 (10-20); Blood Urea Nitrogen 109 mg/dl (7-18); Calcium 9.8 mg/dl (8.5-10.1); Carbon Dioxide 20 mmol/L (21-32); Chloride 106 mmol/L (98-107); Est GFR (African American) 21.7 ml/min; Est GFR (Non-African American) 18.7 ml/min; Glucose 203 mg/dl (70-99); Potassium 4.9 mmol/L (3.5-5.1); Sodium 134 mmol/L (136-145)
[2021-06-20] MEDS ORDERED: ONDANSETRON INJ 2 MG/ML 2 ML VIAL IV PRN (02:01)
[2021-06-20] MEDS ORDERED: CARBOHYDRATES FOR HYPOGLYCEMIA PO PRN (02:01)
[2021-06-20] MEDS ORDERED: DEXTROSE 50% 50 ML SYRINGE IV PRN (02:01)
[2021-06-20] MEDS ORDERED: ACETAMINOPHEN 325 MG TAB PO PRN (02:01)
[2021-06-20] MEDS ORDERED: GLUCOSE 10 TABS/TUBE PO PRN (02:01)
[2021-06-20] MEDS ORDERED: GLUCOSE 40% GEL 15 GM TUBE PO PRN (02:01)
[2021-06-20] MEDS ORDERED: GLUCAGON FOR INJ 1 MG VIAL SQ PRN (02:01)
[2021-06-20] MEDS ORDERED: INSULIN ASPART PER UNIT ONE (03:38)
[2021-06-20] MEDS: INSULIN ASPART 100 UNITS/ML VIAL SC SCH ×4 (03:40→18:09)
[2021-06-20 05:30] LABS: Hemoglobin 9.6 g/dL (14.0-18.0); Immature Granulocytes # (auto) 0.02 K/uL (0.00-0.02); Immature Granulocytes % (auto) 0.2 %; Lymphocytes # (auto) 0.55 K/uL (1.2-3.4); Lymphocytes % (auto) 4.7 %; Mean Corpuscular Hemoglobin 31.5 pg (25-34); Mean Corpuscular Hgb Conc 33.1 g/dL (32-36); Mean Corpuscular Volume 95.1 fL (80-100); Mean Platelet Volume 11.2 fL (7.4-10.4); Monocytes # (auto) 0.26 K/uL (0.11-0.59); Monocytes % (auto) 2.2 %; Neutrophils # (auto) 10.87 K/uL (1.4-6.5); Neutrophils % (auto) 92.9 %; Platelet Count 238 K/uL (130-400); RDW Coefficient of Variation 13.1 % (11.5-14.5); RDW Standard Deviation 44.7 fL (36.4-46.3); Red Blood Count 3.05 M/uL (4.7-6.1)
[2021-06-20 06:12] LABS: BUN Creatinine Ratio 35.3 (10-20); Blood Urea Nitrogen 97 mg/dl (7-18); Calcium 8.8 mg/dl (8.5-10.1); Carbon Dioxide 19 mmol/L (21-32); Chloride 111 mmol/L (98-107); Est GFR (African American) 26.3 ml/min; Est GFR (Non-African American) 22.7 ml/min; Glucose 187 mg/dl (70-99); Potassium 4.4 mmol/L (3.5-5.1); Sodium 137 mmol/L (136-145)
--- NOTE | 2021-06-20 07:00 | Hospitalist Progress Note ---
Date of Service June 20, 2021 Assessment & Plan (1) Left ventricular apical thrombus: Plan: 66-year-old medically complex individual who is being admitted for monitoring and management of acute kidney injury in a transplanted and likely failing kidney. 05/07/21 transferred from [facility] [place] [facility] [place] MAS 2/2 subdural hematoma. [place] [facility] [place] s/p tx. complex hx 1996 renal transplant, CAD w/ ALEXUS, recurrent subdural hematomas, recent [facility] [place]. newly on Xarelto for apical thrombus. On steroids for subdural hematoma. ED visit 1: hyperglycemia. Received IV insulin ED visit 2: WERNER, sent home, then returned meds: Holding home glipizide. Continue home allopurinol at 200 instead of 300. Home amlodipine 10. atorva 40. coreg 18.75 BID. Dexa 4 PO BID. famotidine 10 PO. MgOx 250 bid ->400 BID. cellcept 750 bid. miralax. tacrolimus .5 bid. WERNER. likely 2/2 dehydration 2/2 hyperglycemia. returned to baseline. receiving Xarelto for now. hyperK: likely 2/2 hyperglycemic state, resolved. s/p Cagluconate HypoNa: resolved. 2/2 high bsg, not true hypoNa hyperCa hyperglycemia: resolved. received IV insulin daytime of 06/19 in ED mentation intact at admission recurrent subdural hematomas. now on steroids apical thrombus anticoa06/12/21 [facility] cards recommended warfarin as first line AC. repeat tte in few months self: consider fall risk CHF CAD s/p stent 2018 (had post procedure cardiogenic shock new? afib. 06/19. resolved to nsr w/ pacs. WERNER Creatinine elevated up to 3.47 with BUN 112 Discharge summary [place] [facility] [place] last BUN and creatinine were 78 and 2.93 respectively Possibly secondary to dexamethasone treatment for subdural hemorrhage management versus HHS and dehydration Appreciate nephrology input Urine sodium, urine creatinine, urinalysis pending Less likely to be secondary to chronic allopurinol use Gentle hydration with normal saline at 80 mL/h Trend daily BMP History of transplanted kidney Transplant received for polycystic kidney disease in 1996 Continue tacrolimus twice daily and CellCept twice daily Electrolyte derangements Potassium of 6 in emergency department initially, improved after receiving insulin and fluids Sodium initially 128 at 543, increased to 134 at midnight. Initially likely pseudohyponatremia due to elevated blood sugars BMP as above Subdural hematoma status post evacuation Status post craniotomy for evacuation of subdural hematoma. All drains removed prior to discharge. Dis[place] [facility] [place]14 on dexamethasone 4 mg twice daily x1 month for management of subdural edema Last CT head without contrast on 06/14/2021 as follows: 1. bilateral subdural collection, overall stable in thickness, with unchanged 3 mm left to right midline shift. 2. bilateral frontal pneumocephalus, slightly increased on the right compared to 06/11/2021 with not significantly changed mass-effect over the underlying brain parenchyma due to pneumocephalus. 3. no acute intracranial hemorrhage. Symptoms of hematoma were worsening mental status with left-sided weakness Monitor for neurologic change in the setting of recent surgery Left ventricular thrombus Noted on transthoracic echocardiogram on 06/12/21 at [facility] Findings as follows: Mildly dilated left ventricle, with moderately reduced systolic function. Ejection fraction 35 to 40%. Diffuse hypokinesis with more prominent apical hypokinesis and deep trabeculations that may suggest noncompaction. Presence of spontaneous contrast/swirling at the apex, i.e. prethrombotic state. Probable small apical thrombus. Moderate concentric left ventricular hypertrophy. Normal RV size and function. Mild left atrial dilation. Mild aortic root dilation. Trivial aortic regurgitation. No other valvular abnormalities noted. Left ventricular function appears globally worse compared to 03/28/2021 and there is a probable apical thrombus. Suspicion of LV noncompaction was already suggested. Patient discharged from [place] on 15 mg twice daily Xarelto to be taken for 20 days and then 20 mg once daily after that. Type 2 diabetes Exacerbated secondary to being on dexamethasone as above Home regimen (which was not changed at [facility]) 15 units of Lantus at bedtime with 10 mg glipizide in the a.m. and 2.5 mg glipizide in the p.m. A1c 12/2020 7.5 Lantus 15u qhs + SSI while inpatient Chronic Conditions Gout: Continue allopurinol 300 at bedtime Hypertension: Continue amlodipine 10 daily, 3 tabs of carvedilol 6.25 mg BID GERD: Continue famotidine 10 mg qam CAD status post 1 ALEXUS: Continue atorvastatin 40 mg and daily omega-3. (Per review of outpatient cardiology notes patient had easy bruising while on aspirin) FEN/GI: HH. Low Na. DM2. NSS 80/hr. (hyperglycemic resolved. be careful chf) ppx: Ran code: full dispo: med/surg tele (2) S/P subdural hematoma evacuation: (3) Acute kidney injury superimposed on CKD: (4) Poor appetite: (5) Immunosuppression: (6) Renal transplant recipient: (7) Gout, joint: (8) Type 2 diabetes mellitus: (9) HTN (hypertension): (10) Coronary artery disease: Admission and Anticipated Discharge Date Admission Date: June 19, 2021 Subjective [facility] transplant center. Last saw in December. Thinks L transplant issues from chronic DM. Feels good currently. No pain.Makes urine, normal. No hematuria. No dysuria. No abd pain. No fever/chills. No cp sob. No hx afib. Asymptomatic from the hyperglycemia other than fatigue since weekend. States first issue w/ subdural hematomas was mar 2021. Anaplasmosis in January. Went to ED because pcp instructed to check BSG and it was 523. Denies hx of cancer, stroke, or VTE or seizure. Never smoker. No home O2 use. Had some ambulatory wkness yesterday. Uses walker. Hx cataract surgery. 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 Review of Systems Review of Systems: All systems reviewed & are unremarkable except as noted in HPI & below Constitutional: Denies fever. +chills, tremulous. no hx tremor Eyes: Denies blurry vision, vision changes ENT: Denies sore throat Cardiovascular: Denies chest pain, palpitations Respiratory: Denies shortness of breath Gastrointestinal: Denies abdominal pain, nausea, vomiting, constipation, diarrhea Genitourinary: Denies urinary symptoms including dysuria Musculoskeletal: Denies weakness, muscle aches/pain, joint aches/pain Neurological: Denies headache, numbness, tingling, focal weakness, current dizziness Physical Exam Physical Exam: General: A&Ox4. NAD. Cooperative. No confusion. Conversatoinal. HEENT: Atraumatic, normocephalic. EOMI. PERRL. No nystagmus. Pulm: CTAB. -wheezes, -rales, -rhonchi. No respiratory distress. Cardiac: RRR, -mrg. Mild 2+ BLE. States this is not bad day for him. Last time had exac was summer. Former lasix use, none currently. Abdominal: Nontender, nondistended, soft. Neuro: CN II-XII intact. No dysmetria, no dysdiadochokinesia. Strength and sensation of extremities intact. Results & Data Results & Data ([facility]) Vital Signs (Past 12 Hours) Vital Signs bps 140s systolic. afeb. upper 90s on RA. pulse ~70 Temp Pulse Pulse Resp BP BP Pulse Ox 06/20/21 05:00 73 16 147/85 H 98 06/20/21 04:00 69 16 147/78 H 97 06/20/21 03:00 69 16 143/76 H 96 06/20/21 02:17 65 16 136/76 94 06/20/21 00:45 72 18 146/82 H 99 06/20/21 00:12 99 06/19/21 23:52 36.8 C 82 20 106/69 98 06/19/21 23:39 82 20 106/69 98 Pulse Ox 06/20/21 05:00 06/20/21 04:00 06/20/21 03:00 06/20/21 02:17 94 06/20/21 00:45 06/20/21 00:12 06/19/21 23:52 06/19/21 23:39 Laboratory Results wbc 16.63->11.7. Hb stable 9.6. MCV 95.1, had macrocytic in past. vbg pH 7.41. Na 128->134->137. K 6.0->4.9->4.4 Cr 2.93 [facility]. 3.47->3.24->2.76. Baseline ~2.7- >3.2. egfr ~20*. BSG 545->203->187. Ca 10.2->8.8 w/ low Alb 2.7. iCa 1.44H. liver panel wnl. 02/01/21 pos anaplasma smear. 06/15/19 neg lyme Ab and bands. 03/22/19 pos EBV Ab No newimaging this admission pending labs: uCr Yonas, UA, Resident Activity Tracking Resident Involvement: Resident Care Provided Care Provided: [facility] Medicine
--- NOTE | 2021-06-20 07:00 | Billing Data ---
Date of Service June 19, 2021 Coding Level of Care Code 84136 Initial Inpt Care Lvl 3
[2021-06-20] MEDS: carvediloL 6.25 MG TAB PO SCH ×2 (08:39→17:20)
[2021-06-20] MEDS ORDERED: MAGNESIUM OXIDE 400 MG TAB PO SCH (09:00)
[2021-06-20] MEDS ORDERED: FAMOTIDINE 10 MG TABLET PO SCH (09:00)
[2021-06-20] MEDS ORDERED: amLODIPine BESYLATE 5 MG TAB PO SCH (09:00)
[2021-06-20] MEDS ORDERED: MYCOPHENOLATE MOFETIL 250 MG CAP PO SCH (09:00)
[2021-06-20] MEDS ORDERED: dexAMETHasone 4 MG TAB PO SCH (09:00)
[2021-06-20] MEDS ORDERED: UBIQUINOL 100 MG PO SCH (09:00)
[2021-06-20] MEDS ORDERED: TACROLIMUS 0.5 MG CAP PO SCH (09:00)
[2021-06-20] MEDS ORDERED: POLYETHYLENE (MIRALAX) 17 GM PACK PO SCH (09:00)
[2021-06-20] MEDS ORDERED: RIVAROXABAN 15 MG TAB PO SCH (09:00)
--- NOTE | 2021-06-20 09:26 | Electrocardiogram Report ---
Test Reason : Blood Pressure : / mmHG Vent. Rate : 068 BPM Atrial Rate : 068 BPM P-R Int : 160 ms QRS Dur : 090 ms QT Int : 382 ms P-R-T Axes : 005 -11 136 degrees QTc Int : 406 ms Atrial fibrillation Poor R wave progression, consider anterior [place] vs. lead placement vs. LVH Diffuse Nonspecific T wave abnormality Abnormal ECG When compared with ECG of 19-JUN-2021 17:36, No significant change Confirmed by Wm Kim ([id number] on 06/20/2021 9:26:29 AM Referred By: REFERRED SELF Confirmed By:Wm Kim
--- NOTE | 2021-06-20 12:23 | Nephrology Consultation ---
Date of Consultation June 20, 2021 Assessment & Plan (1) Left ventricular apical thrombus: (2) Acute kidney injury superimposed on CKD: (3) Acute subdural hematoma: (4) Kidney transplant failure: (5) Type 2 diabetes mellitus: Rafael is weak with understandable debility. He does plan to return home. We discussed potential indications for subacute rehab. His appetite has been decreased. Blood glucose has been elevated in response to steroids however. Overall, with blood glucose control and hydration, kidney dysfunction has returned to baseline. Medications are appropriate for kidney dysfunction. Losartan has been held. BP is reasonable. Volume status acceptable. Electrolytes are controlled. There is no emergent indication for dialysis. I suspect it would be safe to consider discharge at this time with close outpatient follow up. We did discuss potential future indications for dialysis this AM. We reviewed goals of care. Records regarding recent hospitalization have been sent to his rehabilitation case coordinator. Rafael will be status 7 given recent change in health. Xarelto would not be my preferred anticoagulation in the setting of kidney dysfunction, unless cardiology and neurosurgery feel strongly about this agent. If other providers are agreeable, I would consider acceptable alternatives such as Eliquis or Warfarin. Discussion with the Coumadin clinic at [facility] would be encouraged given the complexity of the patient. Cellcept and Prograf should be continued as Rx. I will arrange outpatient follow up in the nephrology clinic for next week. History of Present Illness Reason for Consultation: WERNER/CKD Requesting Physician: Sayda Patel MD Attending Physician: Sayda Patel MD History of Present Illness Mr. Andrea was seen and evaluated in the ER this AM. Plan of care was discussed with Dr. Coles and Dr. Patel. Rafael is known well to me. 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 In 1992 he progressed to ESRD and was started on HD. In 1996 he underwent kidney transplant w/ L [place] nephrectomy at [facility]. Post transplant Cr was 1.5. Immunosuppressive regimen consisted of Tacrolimus, Cellcept and Prednisone. Mr. Andrea developed PTDM and was started on oral hypoglycemic agents. Insulin was added ~ 1.5 years ago. In 11/21 renal allograft biopsy was performed at [facility] due to progressive CKD w/ proteinuria. 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 Losartan was added to his medical regimen. Despite these measures, Cr increased to 3.2 and evaluation for possible second transplant has been initiated at [facility]. Mr. Andrea unfortunately suffered a subdural hematoma requiring neurosurgical intervention at [facility]. He was readmitted and recently discharged from [facility] on 06/14/21 with acute on chronic intracranial subdural hematoma.Unfortunately, he was tired, weak, and appetite was poor at home. Rafael presented to the ER yesterday volume depleted with prerenal WERNER.He has not seen PT at home yet. OT did a home evaluation. Rafael is planning to start therapy at home post discharge. He has received IVF overnight and noted improvement during my evaluation this AM. He is non-oliguric. At [facility] redo craniotomy for evacuation of subdural hematoma on the right with a left [place] hole drainage of subdural hematoma, placement of subdural drain was performed. Creatinine was stable at 3.0 mg/dL at discharge. TTE did demonstrate a suspected V thrombus for anticoagulation with Xarelto was started. He remains on dexamethaxone. Losartan was held. 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, SDH s/p R mini-craniotomy at [facility] 03/23 Allergies Allergy/AdvReac Type Severity Reaction Status Date / Time No Known Allergies Allergy Verified 06/20/21 00:07 Home Medications Medication Instructions Recorded Confirmed Type famotidine 10 mg tablet (Acid 10 mg PO QAM 03/03/19 06/20/21 History Android Ui Developer (famotidine)) magnesium oxide 250 mg PO BID tab 03/03/19 06/20/21 History multivitamin (Multiple Vitamins) 1 tab PO QAM 03/03/19 06/20/21 History prednisone 5 mg tablet 5 mg PO QAM #90 tab 03/03/19 06/20/21 History atorvastatin 40 mg tablet (Lipitor) 40 mg PO HS 09/13/19 06/20/21 History tacrolimus 0.5 mg capsule, 0.5 mg PO Q12H cap 01/24/21 06/20/21 History immediate-release (Prograf) allopurinol 300 mg tablet 300 mg PO HS 01/31/21 06/20/21 History mycophenolate mofetil 250 mg 750 mg PO BID 01/31/21 06/20/21 History capsule (CellCept) glipizide 10 mg tablet (Glucotrol) 10 mg PO QAM tab 03/16/21 06/20/21 History mecobalamin (vitamin B12) 1,000 1,000 mcg PO QPM 03/26/21 06/20/21 History mcg chewable tablet (B12 Active) insulin glargine 100 unit/mL (3 15 unit SUBCUT HS ml 05/19/21 06/20/21 History mL) subcutaneous pen (Basaglar KwikPen U-100 Insulin) glipizide 5 mg tablet 2.5 mg PO HS #45 tab 05/30/21 06/20/21 Rx amlodipine 10 mg tablet 10 mg PO DAILY 06/18/21 06/20/21 History carvedilol 6.25 mg tablet See Rx Instructions PO BID 06/18/21 06/20/21 History dexamethasone 4 mg tablet 4 mg PO BID 06/18/21 06/20/21 History rivaroxaban 20 mg tablet (Xarelto) 20 mg PO QPM 06/18/21 06/20/21 History Ubiquinol Cap 100 mg PO BID 06/19/21 06/20/21 History nitroglycerin 0.4 mg sublingual 0.4 mg SUBLINGUAL DIRECTED PRN 06/19/21 06/20/21 History tablet omega-3 fatty acids-fish oil 684 1 cap PO DAILY 06/19/21 06/20/21 History mg-1,200 mg capsule,delayed release polyethylene glycol 3350 17 17 g PO DAILY 06/19/21 06/20/21 History gram/dose oral powder (Miralax) rivaroxaban 20 mg tablet (Xarelto) 15 mg PO BID 06/20/21 06/20/21 History Patient History Medical History (Updated 06/20/21 @ 00:26 by Nery Ventura MD) WERNER (acute kidney injury) Anaplasmosis CHF (congestive heart failure) Chronic subdural hematoma COVID-19 vaccine administered Dehydration Diarrhea Diverticulosis Dizziness Elevated troponin Gout, joint Head ache Headache Hypercholesterolemia Hypoglycemia Myocardial Infarction Nausea Polycystic kidney ST elevation myocardial infarction (STEMI) Weakness Surgical History (Updated 06/20/21 @ 00:31 by Nery Ventura MD) History of jami hole surgery Left jami hole drainage of subdural hematoma, placement of subdural drain 06/09/21 History of heart artery stent Hx of craniotomy redo right craniotomy for evacuation for subdural hematoma 06/07/21 [facility] right minicraniotomy for evacuation of subdural hematoma 03/27/21, 04/23/21 [facility] Renal transplant recipient Family History Mother Breast cancer Father Stroke Polycystic kidney disease Denies family history of Ovarian cancer Prostate cancer Myocardial infarction Colorectal cancer Social History Smoking Status: Never smoker Hx Alcohol Use: No Hx Substance Use: No Preferred Language: Citizen Of [place] Communication Ability: Effective Art Teacher Required: No Beliefs That Will Affect Care: None marital status: Current Living Situation: Spouse 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 Feels Safe at Home: Yes Dental Care, Regularly: Yes Physical Activity Frequency: 3-4 Times per Week Seatbelt Use: always Assistive Devices: Glasses Review of Systems Review of Systems: All systems reviewed & are unremarkable except as noted in HPI & below Physical Exam Constitutional: well developed; no acute distress Eyes: + anicteric sclerae; no corneal abnormality ENMT: Mouth: + dry oral mucous membranes; no oral mucosal abnormality Neck: normal visual inspection and trachea midline Respiratory: normal respiratory effort Auscultation: lungs clear to auscultation bilaterally Cardiovascular: Rate/Rhythm: regular rate Heart Sounds: normal S1 and normal S2 Extremities: + pedal edema Gastrointestinal (Abdomen): Percussion/Palpation: abdomen soft; abdomen nontender Musculoskeletal: Extremities: no cyanosis and no clubbing Skin: normal turgor; no lesions Neurologic: Motor/Sensory: + tremor; no asterixis Psychiatric: Orientation: alert and oriented x 3 Results & Data ([facility]) Vital Signs (Past 12 Hours) Vital Signs Pulse Pulse Resp BP BP Pulse Ox Pulse Ox 06/20/21 11:00 69 17 137/89 06/20/21 10:00 66 19 145/74 H 06/20/21 09:00 75 21 130/99 06/20/21 08:00 81 13 161/103 H 06/20/21 07:30 71 14 98 06/20/21 07:00 70 14 145/78 H 95 06/20/21 05:00 73 16 147/85 H 98 06/20/21 04:00 69 16 147/78 H 97 06/20/21 03:00 69 16 143/76 H 96 06/20/21 02:17 65 16 136/76 94 94 06/20/21 00:45 72 18 146/82 H 99 Laboratory Results Laboratory Results - last 24 hr 06/20/21 06/20/21 06/20/21 00:15 00:19 03:33 WBC RBC Hgb POC Hgb 10.2 L Hct POC Hct 30 L MCV MCH MCHC RDW Std Deviation RDW Coeff of Mir Plt Count MPV Immature Gran % (Auto) Neut % (Auto) Lymph % (Auto) [place] % (Auto) Eos % (Auto) Baso % (Auto) Neut # (Auto) Lymph # (Auto) [place] # (Auto) Eos # (Auto) Baso # (Auto) Immature Gran # (Auto) POC Sodium 132 L Sodium 134 L POC Potassium 4.9 Potassium 4.9 D POC Chloride 103 Chloride 106 Carbon Dioxide 20 L POC Total CO2 16 L Anion Gap 8.0 POC Anion Gap 18.0 POC BUN 112 H* BUN 109 H Creatinine 3.24 H POC Creatinine 3.3 H Est Cr Clr Drug Dosing Not Reportable Est GFR ( Amer) 21.7 Est GFR (Non-Af Amer) 18.7 BUN/Creatinine Ratio 33.7 H Glucose 203 H POC Glucose 195 H POC Glucose (other) 202 H Calcium 9.8 POC Ioniz Calcium Maren 1.44 H 06/20/21 06/20/21 06/20/21 05:08 05:08 07:33 WBC 11.70 H RBC 3.05 L Hgb 9.6 L POC Hgb Hct 29.0 L POC Hct MCV 95.1 MCH 31.5 MCHC 33.1 RDW Std Deviation 44.7 RDW Coeff of Mri 13.1 Plt Count 238 MPV 11.2 H Immature Gran % (Auto) 0.2 Neut % (Auto) 92.9 Lymph % (Auto) 4.7 [place] % (Auto) 2.2 Eos % (Auto) 0.0 Baso % (Auto) 0.0 Neut # (Auto) 10.87 H Lymph # (Auto) 0.55 L [place] # (Auto) 0.26 Eos # (Auto) 0.00 Baso # (Auto) 0.00 Immature Gran # (Auto) 0.02 POC Sodium Sodium 137 POC Potassium Potassium 4.4 POC Chloride Chloride 111 H Carbon Dioxide 19 L POC Total CO2 Anion Gap 7.0 POC Anion Gap POC BUN BUN 97 H Creatinine 2.76 H D POC Creatinine Est Cr Clr Drug Dosing Not Reportable Est GFR ( Amer) 26.3 Est GFR (Non-Af Amer) 22.7 BUN/Creatinine Ratio 35.3 H Glucose 187 H POC Glucose 205 H POC Glucose (other) Calcium 8.8 POC Ioniz Calcium Maren 06/20/21 11:48 WBC RBC Hgb POC Hgb Hct POC Hct MCV MCH MCHC RDW Std Deviation RDW Coeff of Mir Plt Count MPV Immature Gran % (Auto) Neut % (Auto) Lymph % (Auto) [place] % (Auto) Eos % (Auto) Baso % (Auto) Neut # (Auto) Lymph # (Auto) [place] # (Auto) Eos # (Auto) Baso # (Auto) Immature Gran # (Auto) POC Sodium Sodium POC Potassium Potassium POC Chloride Chloride Carbon Dioxide POC Total CO2 Anion Gap POC Anion Gap POC BUN BUN Creatinine POC Creatinine Est Cr Clr Drug Dosing Est GFR ( Amer) Est GFR (Non-Af Amer) BUN/Creatinine Ratio Glucose POC Glucose 192 H POC Glucose (other) Calcium POC Ioniz Calcium Maren PG Care Time/CCT Total # of Minutes Spent Total Time Spent with Patient: Total time spent is greater than 50% in coordination of care (as documented) at patient's floor/unit and/or counseling patient: Coding Level of Care Code 82612 Inpt Consult Level 4 Diagnoses Left ventricular apical thrombus I51.3 Acute kidney injury superimposed on CKD N17.9; N18.9 Acute subdural hematoma S06.5X9A Kidney transplant failure T86.12 Type 2 diabetes mellitus E11.9
[2021-06-20 17:34] LABS: Appearance Urine Clear (Clear); Bacteria Urine Automated Negative (Negative); Bilirubin Urine Negative (Negative); Blood Urine Trace (Negative); Color Urine Yellow; Glucose Urine UA 2+ (Negative); Ketones Urine Negative (Negative); Leukocyte Esterase Urine Negative (Negative); Nitrite Urine Negative (Negative); Protein Urine 3+ (Negative); RBC Urine Automated 0-4 /hpf (0-4); Specific Gravity Urine 1.018 (1.000-1.030); Urobilinogen Urine Negative (Negative)
[2021-06-20 17:48] LABS: Creatinine Urine Random 49.2 mg/dl
--- NOTE | 2021-06-20 19:46 | Discharge Summary ---
Date of Service June 20, 2021 Admission HPI Per Admitting Provider 66 yo M with H CKD stage IV, PCKD s/p transplant in 1996, DM2, CAD recently hospitalized at [facility] for subdural hematoma requiring evacuation, in ER today for multiple days of elevated BSG. ON dexamethasone for edema control after neurosurgical intervention which has been causing his sugars to increase but was discharged home on usual regimen of 15u lantus at nighttime with glipizide. Sugars decreased with fluid resuscitation, labwork significant for BUN and Cr elevation. BUN/Cr on 06/14/21 day of discharge from [facility] were 78/2.93, today are 112/3.47. Complaining of increased thirst and dry mouth, but no increased frequency of urination, concentration of urine, dysuria, back pain. No fevers, chills. No hematuria. Admitted to hospitalist service for management of WERNER on CKD s/p transplant, nephrology consultation for management of BUN/Cr in setting of steroid use and DM2. Admission Exam Per Admitting Provider Constitutional: elderly appearing, in no apparent distress, sitting comfortably in bed. Head: sutures on left cranium intact, dry, no bleeding Neck: red/irritated skin on posterior neck at base Eyes: EOMI, pupils equal and reactive bilaterally, no scleral icterus Cardiac: RRR, no murmurs, gallops or rubs. Normal S1, S2 Pulm: CTA BL, no wheezes, rhonchi, crackles or rubs, moving air well throughout both lungs Back: no CVA tenderness Abd: soft, nontender, nondistended, normal bowel sounds, no rebound or guarding Extremities: 1+ peripheral pulses, 2+ pitting edema to ankles bilaterally Neuro: no focal deficits, moving all 4 limbs, A&Ox3 Principal Diagnosis hyperglycemia, acute kidney injury Discharge Exam General: A&Ox4. NAD. Cooperative. No confusion. Conversatoinal. HEENT: Atraumatic, normocephalic. EOMI. PERRL. No nystagmus. Pulm: CTAB. -wheezes, -rales, -rhonchi. No respiratory distress. Cardiac: RRR, -mrg. Mild 2+ BLE. States this is not bad day for him. Last time had exac was summer. Former lasix use, none currently. Abdominal: Nontender, nondistended, soft. Neuro: CN II-XII intact. No dysmetria, no dysdiadochokinesia. Strength and sensation of extremities intact. Discharge Data Allergies Allergy/AdvReac Type Severity Reaction Status Date / Time No Known Allergies Allergy Verified 06/20/21 00:07 Consultations 06/19/21 23:43 ED Decision to Admit Stat 06/20/21 02:01 Consult Nephrology Routine Ordered Studies 06/20/21 05:08 06/20/21 05:08 Hospital Course (1) Left ventricular apical thrombus: 66-year-old w/ complex PMHx of 1996 renal transplant on Cellcept and Prograf, CAD w/ ALEXUS, recurrent subdural hematomas (recent [facility] hosp discharge 06/14), anticoagulant use for apical thrombus who was admitted to [facility] for WERNER in setting of hyperglycemia most likely from recent increased systemic corticosteroid use. hyperglycemia 500s, asymptomatic other than fatigue Patient was discharged on dexamethasone 4mg PO BID s/p subdural hematoma evaculation from [facility]. He presented w/ BSG 500s and this was treated. His home long acting 15u qhs will be continued. Home PO glipizide will be held. He will be on a SSI insuline aspart w/ BSG checked 3 times a day, before breakfast, lunch, and dinner. Goal is <150. Correction factor 30. Carb ratio 10. Acute kidney injury on chronic kidney disease, anticoagulation use Baseline Cr 2.7-3.2 w/ Cr of 2.9 upon [facility] discharge. Cr 3.4 at admission w/ quick return to baseline 2.7 the following morning, secondary to correction of hyperglycemia and dehydration. Nephrology was consulted regarding patient's recent initiation of Xarelto 1 wk prior while at [facility]. In context of CKD and hx of transplant, considered alternatives, Eliquis vs warfarin. Reached out to Coumadin clinic provider and pharmacist to discuss, particularly in regards to use for small apical thrombus in context of CKD and increased bleeding risk. Changing anticoagulation to Eliquis 5mg BID. Can consider warfarin at a later time for more favorable middle or intermediate school principal interaction/side effect profile. Switching would require bridge. Atrial fibrillation Paroxsymal x 1 episode during hyperglycemia. Anticoagulation as above Subdural hematoma status post evacuation (during [facility] hospitalization discharged on 06/14) Last CT head without contrast on 06/14/2021 as follows: 1. bilateral subdural collection, overall stable in thickness, with unchanged 3 mm left to right midline shift. 2. bilateral frontal pneumocephalus, slightly increased on the right compared to 06/11/2021 with not significantly changed mass-effect over the underlying brain parenchyma due to pneumocephalus. 3. no acute intracranial hemorrhage. -No AMS during [facility] admission. Small apical left ventricular thrombus Noted on transthoracic echocardiogram on 06/12/21 at [facility] -See anticoagulation regimen above. [facility] discharged on Xarelto -[facility] cards had recommended warfarin as first line AC. Repeat TTE in several months. HyperK: likely 2/2 hyperglycemic state, resolved. s/p Ca gluconate HypoNa: resolved. 2/2 high bsg, not true hypoNa Chronic Systolic CHF: home meds continued Gout: Continue home regimen Hypertension: Continue home regimen GERD: Continue home regimen CAD status post 1 ALEXUS: Continue atorvastatin 40 mg and daily omega-3. (Per review of outpatient cardiology notes patient had easy bruising while on aspirin) (2) S/P subdural hematoma evacuation: (3) Acute kidney injury superimposed on CKD: (4) Poor appetite: (5) Immunosuppression: (6) Renal transplant recipient: (7) Gout, joint: (8) Type 2 diabetes mellitus: (9) HTN (hypertension): (10) Coronary artery disease: Total Time Total Time Spent Total Time Spent (In Minutes): <30 Discharge Plan Discharge Items Patient Disposition: Home - Home Health Services Reason For Visit: HYPERGLYCEMIA, WERNER Discharge Diagnosis: hyperglycemia Activity: Per Instructions section Non-emergency contact: Primary Care Provider Call non-emergency contact if: you have any medication questions, your symptoms worsen and you have a fever Follow-up/Referrals: Shelli Ashraf MD [Primary Care Provider] - Diet: Carb Consistent or DM2 Addtl Attending Provider Instructions: Hi Mr. Andrea, You were admitted to [facility] for high/uncontrolled blood sugar. This led to worsening of your kidney function and high potassium. These abnormalities have resolved after your sugars were corrected. Keep your long acting insulin at 15u at night. I will add a sliding scale regimen. Check your blood sugar 3 times a day, before breakfast, lunch, and dinner. Goal is <150. Correction factor 30. This means when you check your blood sugar, if you take 1 unit short acting insulin for every 30 points above goal of 150. Carb ratio 10. This means you count up how many carbs you will eat in the upcoming meal. For example, 20g total carbs means you take 2 units of short acting insulin. Hold the short acting insulin if your blood sugar is <100. IF you feel dizzy and blood sugar is <100, drink some juice. Please follow closely with your primary care doctor who will help adjust as needed. Dr. Grissom, your kidney doctor, was consulted. He will follow up with you in the outpatient clinic. Regarding your anticoagulation for the clot in your heart, I will be switched your medication from Xarelto to Eliquis because it is more preferred for kidney disease. Please follow up with your [facility] doctors routinely. Take Eliquis 5 mg twice a day starting tonight. If you develop any new or worsening symptoms including fever, chills, sweats, chest pain, chest pressure, difficulty breathing, uncontrolled nausea/vomiting, rash, wheezing, passing out or nearly passing out, bleeding, black/bloody bowel movements, or other new or concerning symptoms please call your primary care physician, or call 911 for re-evaluation in the emergency department if you are very concerned. Pending Studies at Discharge: No Stand-Alone Forms: My [facility] [employer], Smoking Cessation Medications and DC Order Prescriptions: New Eliquis 5 mg tablet 5 mg PO BID Qty: 30 RF: 1 (DME) pen needle, diabetic 31 gauge x 5/32" needle See Rx Instructions .Route Qty: 100 RF: 0 insulin aspart U-100 100 unit/mL (3 mL) insulin pen 1 sliding scale dose subcut USEASDIRECTD Qty: 15 RF: 0 Continued Basaglar KwikPen U-100 Insulin 100 unit/mL (3 mL) insulin pen 15 unit subcut HS Qty: 45 RF: 3 tacrolimus [Prograf] 0.5 mg capsule 0.5 mg PO Q12H RF: 0 magnesium oxide 250 mg magnesium tablet 250 mg PO BID RF: 0 famotidine [Acid Ground Water Pump Installer (famotidine)] 10 mg tablet 10 mg PO QAM RF: 0 multivitamin [Multiple Vitamins] tablet 1 tab PO QAM RF: 0 atorvastatin [Lipitor] 40 mg tablet 40 mg PO HS RF: 0 dexamethasone 4 mg tablet 4 mg PO BID RF: 0 amlodipine 10 mg tablet 10 mg PO DAILY RF: 0 carvedilol 6.25 mg tablet 18.75 mg PO BID RF: 0 mycophenolate mofetil [CellCept] 250 mg capsule 750 mg PO BID RF: 0 allopurinol 300 mg tablet 300 mg PO HS RF: 0 B12 Active 1,000 mcg tablet,chewable 1,000 mcg PO QPM RF: 0 polyethylene glycol 3350 [Miralax] 17 gram/dose Powder 17 g PO DAILY PRN (Reason: Constipation) RF: 0 coenzyme Q10 [CoQ-10] 100 mg Capsule 100 mg PO BID RF: 0 Discontinued glipizide 5 mg tablet 2.5 mg PO HS Qty: 45 RF: 3 glipizide [Glucotrol] 10 mg tablet 10 mg PO QAM RF: 0 nitroglycerin 0.4 mg Tablet, Sublingual 0.4 mg sublingual DIRECTED PRN (Reason: Chest Pain) RF: 0 [place] 3 Fish Oil 684-1,200 mg Capsule,Delayed Release(Dr/Ec) 1 cap PO DAILY RF: 0 Discharge Orders: Discharge Order (Routine); Ordered 06/20/21 Ordered By: Kristopher Coles Admission Data Admit Date/Time: 06/19/21 23:58 Attending Provider: Sayda Patel Admit Provider: Nery Ventura Primary Care Provider: Shelli Ashraf Other Providers: Carmen Stallworth Kevin C. ; [place] Other Interventions: Discharge Summary Assessment (RN) Last Done: 06/20/21 20:00 Supervising Physician Co-Signing Physician Notes Resident Physician Supervision Note: I independently interviewed and examined the patient and verified the jarrett history and physical, reviewed labs and image studies and agree with resident Dr. Coles findings and care plan. Resident Activity Tracking Resident Involvement: Resident Care Provided Care Provided: Adult Hospital Medicine
[2021-06-20] MEDS ORDERED: ATORVASTATIN 40 MG TAB PO SCH (21:00)
[2021-06-20] MEDS ORDERED: INSULIN GLARGINE SOLOSTAR 100 UNITS/ML 3 ML PEN SC SCH (21:00)
[2021-06-20] MEDS ORDERED: allopurinoL 100 MG TAB PO SCH (21:00)
--- NOTE | 2021-07-02 10:58 | Coding Query ---
CODING QUERY To promote full compliance with coding requirements relating to patient care, provider participation is requested in all cases of community engagement manager uncertainty. Please assist us with the question(s) below: Coding Question(s): 1. There is documentation of hyperglycemia in the record and the H&P documents under WERNER, "Possibly secondary to dexamethasone treatment for subdural hemorrhage management versus HHS and dehydration". HHS is not documented past the H&P and is it not clear if HHS was still possible or ruled-out. Please specify below, in your clinical opinion. ( ) HHS - Hyperglycemic Hyperosmolar Syndrome was treated during this admission ( x ) HHS - Hyperglycemic Hyperosmolar Syndrome was Ruled-Out ( ) Other: Please Specify Physician's Response(s): Thank you La Nena Puentes Principal Diagnosis: "that condition established after study, to be chiefly responsible for occasioning the admission of the patient to the hospital for care." Co-Existing Principal Diagnosis: "when two or more diagnoses equally meet the criteria for principal diagnosis as determined by the circumstances of admission, diagnostic work up, and/or therapy provided, and the Alphabetic Index, Tabular List, or another coding guideline does not provide sequencing direction, any one of the diagnoses may be sequenced first." "When the physician has documented what appears to be a current diagnosis in the body of the record, but has not included the diagnosis in the final diagnostic statement, the physician should be asked whether the diagnosis should be added." ([facility] 2 QTR90. p3-4) CHRISTOPHER
--- NOTE | 2021-07-02 11:05 | Coding Query ---
CODING QUERY To promote full compliance with coding requirements relating to patient care, provider participation is requested in all cases of marriage and family teacher uncertainty. Please assist us with the question(s) below: Coding Question(s): The H&P documents, "66-year-old medically complex individual who is being admitted for monitoring and management of acute kidney injury in a transplanted and likely failing kidney" and the Discharge Summary documents under the Admission HPI, "Admitted to hospitalist service for management of WERNER on CKD s/p transplant, nephrology consultation for management of BUN/Cr in setting of steroid use and DM2", and under the Hospital Course, "admitted to [facility] for WERNER in setting of hyperglycemia most likely from recent increased systemic corticosteroid use", and under the Discharge Plan, "You were admitted to [facility] for high/uncontrolled blood sugar. This led to worsening of your kidney function and high potassium". Please specify below, in your clinical opinion, the diagnosis that was most responsible for the Inpatient admission. ( x ) Acute Kidney Injury and high/uncontrolled blood sugar/hyperglycemia were equally responsible for the admission ( ) Acute Kidney Injury was most responsible for the admission ( ) high/uncontrolled blood sugar/hyperglycemia was most responsible for the admission ( ) Other: Please Specify Physician's Response(s): Thank you La Nena Puentes Principal Diagnosis: "that condition established after study, to be chiefly responsible for occasioning the admission of the patient to the hospital for care." Co-Existing Principal Diagnosis: "when two or more diagnoses equally meet the criteria for principal diagnosis as determined by the circumstances of admission, diagnostic work up, and/or therapy provided, and the Alphabetic Index, Tabular List, or another coding guideline does not provide sequencing direction, any one of the diagnoses may be sequenced first." "When the physician has documented what appears to be a current diagnosis in the body of the record, but has not included the diagnosis in the final diagnostic statement, the physician should be asked whether the diagnosis should be added." ([facility] 2 QTR90. p3-4) CHRISTOPHER
--- NOTE | 2021-07-02 11:10 | Coding Query ---
CODING QUERY To promote full compliance with coding requirements relating to patient care, provider participation is requested in all cases of seed tester uncertainty. Please assist us with the question(s) below: Coding Question(s): The H&P documents, Subdural hematoma s/p evacuation and documents, "Discharged from [facility] on 06/14 on dexamethasone 4 mg twice daily x1 month for management of subdural edema". The Nephrology Consultation documents Acute Subdural Hematoma. Please specify below, in your clinical opinion. ( x) patient has no current subdural hematoma and is being treated with Dexamethasone for subdural edema ( ) patient has Acute Subdural Hematoma and is being treated with Dexamethasone for subdural edema ( ) Other: Please Specify Physician's Response(s): Thank you La Nena Puentes Principal Diagnosis: "that condition established after study, to be chiefly responsible for occasioning the admission of the patient to the hospital for care." Co-Existing Principal Diagnosis: "when two or more diagnoses equally meet the criteria for principal diagnosis as determined by the circumstances of admission, diagnostic work up, and/or therapy provided, and the Alphabetic Index, Tabular List, or another coding guideline does not provide sequencing direction, any one of the diagnoses may be sequenced first." "When the physician has documented what appears to be a current diagnosis in the body of the record, but has not included the diagnosis in the final diagnostic statement, the physician should be asked whether the diagnosis should be added." ([facility] 2 QTR90. p3-4) CHRISTOPHER
[2021-07-05] MEDS ORDERED: RIVAROXABAN 20 MG TAB PO SCH (09:00)
== END 2021-06-20 21:01 | disposition home health service (06) | DRG 698 ==
LOC: ED 23:21 → EDINP 23:58 → INTOOBSV 23:58 → SUATTDRO 23:58 → OBSVTOIN 23:58 → EDINP 06-20 02:00

== ENCOUNTER 2021-06-22 14:03 | Inpatient (IN) ==
[2021-06-22 14:34] LABS: iSTAT Blood Urea Nitrogen > 140 mg/dl (7-18); iSTAT Carbon Dioxide 17 mmol/L (24-31); iSTAT Chloride 101 mmol/L (101-112); iSTAT Creatinine 3.7 mg/dl (0.6-1.3); iSTAT Glucose 240 mg/dl (70-99); iSTAT Hematocrit 25 % (42-52); iSTAT Hemoglobin 8.5 g/dl (14.0-18.0); iSTAT Ionized Calcium 1.28 mmol/l (1.12-1.32); iSTAT Potassium 6.2 mmol/L (3.3-5.0); iSTAT Sodium 126 mmol/L (135-144)
--- NOTE | 2021-06-22 14:39 | Emergency Department Note ---
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 Patient states he was at home today and had bloody diarrhea around 11 AM. He states he passed several large clots. He had a second episode around 1 PM. Patient is on Eliquis. He was on Xarelto after his recent craniotomy, but was switched to Eliquis 2 days ago by his order management specialist. This is also to treat his mural wall thrombus. Surgery was done in [place]. He currently states he feels weak. Denies any chest pain, shortness of breath, nausea, vomiting, or abdominal pain. He states there is a history of transfusion 6 years ago. Neurologist is Dr. Howard in [place]. PCP is Dr. Ashraf with [facility]. 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 (famotidine)) magnesium oxide 250 mg PO BID tab 03/03/19 06/22/21 History multivitamin (Multiple Vitamins) 1 tab PO QAM 03/03/19 06/22/21 History atorvastatin 40 mg tablet (Lipitor) 40 mg PO HS 09/13/19 06/22/21 History tacrolimus 0.5 mg capsule, 0.5 mg PO Q12H cap 01/24/21 06/22/21 History immediate-release (Prograf) allopurinol 300 mg tablet 300 mg PO HS 01/31/21 06/22/21 History mycophenolate mofetil 250 mg 750 mg PO BID 01/31/21 06/22/21 History capsule (CellCept) glipizide 10 mg tablet (Glucotrol) 10 mg PO QAM tab 03/16/21 06/22/21 History mecobalamin (vitamin B12) 1,000 1,000 mcg PO QPM 03/26/21 06/22/21 History mcg chewable tablet (B12 Active) glipizide 5 mg tablet 2.5 mg PO HS #45 tab 05/30/21 06/22/21 Rx amlodipine 10 mg tablet 10 mg PO DAILY 06/18/21 06/22/21 History carvedilol 6.25 mg tablet 18.75 mg PO BID 06/18/21 06/22/21 History dexamethasone 4 mg tablet 4 mg PO BID 06/18/21 06/22/21 History polyethylene glycol 3350 17 17 g PO DAILY PRN 06/19/21 06/22/21 History gram/dose oral powder (Miralax) apixaban 5 mg tablet (Eliquis) 5 mg PO BID #30 tab 06/20/21 06/22/21 Rx insulin aspart U-100 100 unit/mL 1 sliding scale dose SUBCUT 06/20/21 06/22/21 Rx (3 mL) subcutaneous pen USEASDIRECTD #15 ml pen needle, diabetic 31 gauge x #100 ea 06/20/21 06/22/21 Rx " insulin glargine 100 unit/mL (3 15 unit SUBCUT HS #45 ml 06/21/21 06/22/21 Rx mL) subcutaneous pen (Basaglar KwikPen U-100 Insulin) coenzyme Q10 100 mg capsule 100 mg PO BID 06/22/21 06/22/21 History (CoQ-10) Allergies Allergy/AdvReac Type Severity Reaction Status Date / Time No Known Allergies Allergy Verified 06/20/21 00:07 Past Med/Surg History Medical History WERNER (acute kidney injury) Anaplasmosis CHF (congestive heart failure) Chronic subdural hematoma COVID-19 vaccine administered Dehydration Diarrhea Diverticulosis Dizziness Elevated troponin Gout, joint Head ache Headache Hypercholesterolemia Hypoglycemia Myocardial Infarction Nausea Polycystic kidney ST elevation myocardial infarction (STEMI) Weakness Surgical History History of jami hole surgery Left jami hole drainage of subdural hematoma, placement of subdural drain 06/09/21 History of heart artery stent Hx of craniotomy redo right craniotomy for evacuation for subdural hematoma 06/07/21 [facility] right minicraniotomy for evacuation of subdural hematoma 03/27/21, 04/23/21 [facility] Renal transplant recipient Family History Mother Breast cancer Father Stroke Polycystic kidney disease Denies family history of Ovarian cancer Prostate cancer Myocardial infarction Colorectal cancer Social History Smoking Status: Never smoker Second Hand Exposure: No; Hx Alcohol Use: No Hx Substance Use: No Preferred Language: Slovenian Communication Ability: Effective Certified Nuclear Medicine Technologist Required: No Beliefs That Will Affect Care: None marital status: Current Living Situation: Spouse 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 Feels Safe at Home: Yes Dental Care, Regularly: Yes Physical Activity Frequency: 3-4 Times per Week Seatbelt Use: always Assistive Devices: Walker Review of Systems A total of 10 systems reviewed and were otherwise negative Physical Exam Vital Signs Vital Signs - 24 hr 06/22/21 14:23 06/22/21 14:34 06/22/21 14:45 Temperature 36.4 C L Temperature Source Oral Pulse Rate 66 66 65 Pulse Rate from SpO2 Sensor 67 65 Respiratory Rate 14 12 9 L Blood Pressure 101/61 Blood Pressure Mean 74 Pulse Oximetry 99 100 99 Oxygen Delivery Method Room Air Sepsis Recent Fever Within 48 Hours No Sepsis New/Unexplained Change in Mental Status No Sepsis Action Taken by Nursing No Action Required 06/22/21 15:00 06/22/21 15:15 06/22/21 15:33 Temperature Temperature Source Pulse Rate 65 64 66 Pulse Rate from SpO2 Sensor 66 66 67 Respiratory Rate 12 14 12 Blood Pressure 122/72 Blood Pressure Mean 88 Pulse Oximetry 93 99 100 Oxygen Delivery Method Sepsis Recent Fever Within 48 Hours Sepsis New/Unexplained Change in Mental Status Sepsis Action Taken by Nursing 06/22/21 15:45 06/22/21 16:00 06/22/21 16:15 Temperature Temperature Source Pulse Rate 66 65 66 Pulse Rate from SpO2 Sensor 64 65 61 Respiratory Rate 7 L 10 L 10 L Blood Pressure Blood Pressure Mean Pulse Oximetry 98 99 98 Oxygen Delivery Method Sepsis Recent Fever Within 48 Hours Sepsis New/Unexplained Change in Mental Status Sepsis Action Taken by Nursing 06/22/21 16:30 06/22/21 16:45 06/22/21 17:00 Temperature Temperature Source Pulse Rate 63 64 67 Pulse Rate from SpO2 Sensor 63 64 67 Respiratory Rate 11 L 11 L 9 L Blood Pressure Blood Pressure Mean Pulse Oximetry 99 97 99 Oxygen Delivery Method Sepsis Recent Fever Within 48 Hours Sepsis New/Unexplained Change in Mental Status Sepsis Action Taken by Nursing 06/22/21 17:15 06/22/21 17:30 06/22/21 17:45 Temperature Temperature Source Pulse Rate 63 62 63 Pulse Rate from SpO2 Sensor 63 62 62 Respiratory Rate 9 L 10 L 11 L Blood Pressure 104/62 Blood Pressure Mean 76 Pulse Oximetry 99 99 97 Oxygen Delivery Method Sepsis Recent Fever Within 48 Hours Sepsis New/Unexplained Change in Mental Status Sepsis Action Taken by Nursing General: Well-developed, well-nourished, elderly white male, in no acute distress. Laying on the bed. Alert and oriented. Flat affect. Pale. Skin: Warm and dry with good turgor. No rashes or lesions. No ecchymosis or erythema. He has 2 postsurgical wounds on his scalp. Sutures are intact on the right side, silvester are intact on the left. Wounds look good. No current drainage. Nonfluctuant. They are well sealed. The patient is not diaphoretic. No abrasions. 1+ peripheral edema in his lower extremities. HEENT: Normocephalic atraumatic. Eyes PERRLA, EOMI. No conjunctiva or scleral injection. Wears glasses. Ears TMs intact bilaterally with good light reflexes. No erythema or bulging. No hemotympanum. Canals are patent. Nares patent bilaterally without turbinate enlargement. No significant drainage. No epistaxis. Oropharynx without erythema or exudate. Uvula midline, oral mucosa moist. No lesions present. Heart: Heart RRR. No MGR. Peripheral pulses are 2+. Lungs: Lungs are clear to auscultation. No crackles rhonchi or wheezing. Good air movement. The patient is able to take a deep breath. Abdomen: Abdomen was inspected, auscultated, and palpated. Bowel sounds present x 4. Soft, nontender to palpation. No hepato-splenomegaly. No masses noted. No rebound, negative Gaffney sign. No pain over McBurney's point. No CVA tenderness. Musculoskeletal: Gross motor function of his upper extremities is intact but there is obvious weakness on the left side. Rectal: Patient has amrik dark blood clots present at his rectum. External hemorrhoids are noted. These are nonbleeding. Good sphincter tone. Neurologic: Gross sensation is intact across the upper and lower extremities by soft touch. Course Administered Medications Acetaminophen (Acetaminophen 325 Mg Tab) 650 mg PO Q4H PRN PRN Reason: Pain or Fever Stop: 07/22/21 21:18 Last Admin: 06/23/21 20:33 Dose: 650 mg Documented by: [id number] Allopurinol (Allopurinol 100 Mg Tab) 100 mg PO HS ZOEY Stop: 07/22/21 21:29 Last Admin: 06/23/21 20:35 Dose: 100 mg Documented by: [id number] Admin: 06/22/21 22:35 Dose: 100 mg Documented by: [id number] Amiodarone HCl (Amiodarone 200 Mg Tab) 400 mg PO BIDM ZOEY Stop: 07/24/21 16:59 Last Admin: 06/24/21 17:07 Dose: 400 mg Documented by: [id number] Amlodipine Besylate (Amlodipine Besylate 5 Mg Tab) 10 mg PO DAILY ZOEY Stop: 07/23/21 08:59 Last Admin: 06/23/21 09:14 Dose: 10 mg Documented by: [id number] Atorvastatin Calcium (Atorvastatin 40 Mg Tab) 40 mg PO HS ZOEY Stop: 07/22/21 21:29 Last Admin: 06/23/21 20:35 Dose: 40 mg Documented by: [id number] Admin: 06/22/21 22:35 Dose: 40 mg Documented by: [id number] Dexamethasone (Dexamethasone 4 Mg Tab) 4 mg PO BID ZOEY Stop: 07/22/21 21:29 Last Admin: 06/24/21 10:24 Dose: 4 mg Documented by: [id number] Admin: 06/23/21 20:35 Dose: 4 mg Documented by: [id number] Admin: 06/23/21 09:14 Dose: 4 mg Documented by: [id number] Admin: 06/22/21 22:35 Dose: 4 mg Documented by: [id number] Pantoprazole Sodium 40 mg/ (Dextrose) 100 mls @ 20 mls/hr IV Q5H ZOEY Stop: 07/23/21 20:44 Last Admin: 06/24/21 18:37 Dose: 8 mg/hr, 20 mls/hr Documented by: [id number] Infusion: 06/24/21 18:24 Dose: 8 mg/hr, 20 mls/hr Documented by: [id number] Admin: 06/24/21 13:24 Dose: 8 mg/hr, 20 mls/hr Documented by: [id number] Infusion: 06/24/21 13:24 Dose: 8 mg/hr, 20 mls/hr Documented by: [id number] Admin: 06/24/21 08:36 Dose: 8 mg/hr, 20 mls/hr Documented by: [id number] Infusion: 06/24/21 08:36 Dose: 8 mg/hr, 20 mls/hr Documented by: [id number] Admin: 06/24/21 05:56 Dose: 8 mg/hr, 20 mls/hr Documented by: [id number] Infusion: 06/24/21 01:52 Dose: 8 mg/hr, 20 mls/hr Documented by: [id number] Admin: 06/23/21 20:52 Dose: 8 mg/hr, 20 mls/hr Documented by: [id number] Sodium Bicarbonate 150 meq/ (Sterile Water) 1,150 mls @ 100 mls/hr IV .[id number] ZOEY Stop: 07/24/21 04:44 Last Admin: 06/24/21 18:37 Dose: 100 mls/hr Documented by: [id number] Infusion: 06/24/21 18:37 Dose: 100 mls/hr Documented by: [id number] Admin: 06/24/21 07:43 Dose: 100 mls/hr Documented by: [id number] Insulin Aspart (Insulin Aspart 100 Units/Ml 3 Ml Pen) 0 units SC ACHS ZOEY Stop: 07/22/21 21:29 Last Admin: 06/24/21 17:03 Dose: 5 units Documented by: [id number] Cosigned by: [id number] Admin: 06/24/21 13:49 Dose: Not Given Documented by: [id number] Cosigned by: [id number] Admin: 06/24/21 08:35 Dose: 1 units Documented by: [id number] Cosigned by: [id number] Admin: 06/23/21 20:59 Dose: 1 units Documented by: [id number] Cosigned by: [id number] Admin: 06/23/21 20:01 Dose: Not Given Documented by: [id number] Admin: 06/23/21 12:56 Dose: 4 units Documented by: [id number] Cosigned by: [id number] Admin: 06/23/21 09:13 Dose: 3 units Documented by: [id number] Cosigned by: [id number] Admin: 06/22/21 22:36 Dose: 9 units Documented by: [id number] Cosigned by: [id number] Insulin Glargine (Insulin Glargine Solostar 100 Units/Ml 3 Ml Pen) 15 units SQ HS ZOEY Stop: 07/22/21 21:29 Last Admin: 06/23/21 20:52 Dose: 15 units Documented by: [id number] Cosigned by: [id number] Admin: 06/22/21 22:37 Dose: 15 units Documented by: [id number] Cosigned by: [id number] Magnesium Oxide (Magnesium Oxide 400 Mg Tab) 400 mg PO BID ZOEY Stop: 07/22/21 21:29 Last Admin: 06/24/21 10:24 Dose: 400 mg Documented by: [id number] Admin: 06/23/21 20:35 Dose: 400 mg Documented by: [id number] Admin: 06/23/21 09:14 Dose: 400 mg Documented by: [id number] Admin: 06/22/21 22:35 Dose: 400 mg Documented by: [id number] Multivitamins (Multivitamin Tab) 1 tab PO QAM ZOEY Stop: 07/23/21 08:59 Last Admin: 06/24/21 10:24 Dose: 1 tab Documented by: [id number] Admin: 06/23/21 09:15 Dose: 1 tab Documented by: [id number] Mycophenolate Mofetil (Mycophenolate Mofetil 250 Mg Cap) 750 mg PO BID ZOEY Stop: 07/22/21 21:29 Last Admin: 06/24/21 10:24 Dose: 750 mg Documented by: [id number] Admin: 06/23/21 20:36 Dose: 750 mg Documented by: [id number] Admin: 06/23/21 09:15 Dose: 750 mg Documented by: [id number] Admin: 06/22/21 22:34 Dose: 750 mg Documented by: [id number] Tacrolimus (Tacrolimus 0.5 Mg Cap) 0.5 mg PO Q12 ZOEY Stop: 07/22/21 21:29 Last Admin: 06/24/21 10:24 Dose: 0.5 mg Documented by: [id number] Admin: 06/23/21 20:36 Dose: 0.5 mg Documented by: [id number] Admin: 06/23/21 09:15 Dose: 0.5 mg Documented by: [id number] Admin: 06/22/21 22:33 Dose: 0.5 mg Documented by: [id number] Discontinued Medications Carvedilol (Carvedilol 6.25 Mg Tab) 18.75 mg PO BID ZOEY Stop: 07/22/21 21:29 Last Admin: 06/23/21 20:34 Dose: 18.75 mg Documented by: [id number] Admin: 06/23/21 09:14 Dose: 18.75 mg Documented by: [id number] Admin: 06/22/21 22:32 Dose: 18.75 mg Documented by: [id number] Famotidine (Famotidine 10 Mg Tablet) 10 mg PO QAM ZOEY Stop: 07/23/21 08:59 Last Admin: 06/23/21 09:15 Dose: 10 mg Documented by: [id number] Pantoprazole Sodium 80 mg/ (Dextrose) 120 mls @ 480 mls/hr IV ONE ONE Stop: 06/22/21 15:59 Last Infusion: 06/22/21 17:07 Dose: 0 mls/hr Documented by: [id number] Admin: 06/22/21 16:52 Dose: 480 mls/hr Documented by: [id number] Pantoprazole Sodium 40 mg/ (Dextrose) 100 mls @ 20 mls/hr IV Q5H ZOEY Stop: 07/22/21 15:59 Last Admin: 06/22/21 21:56 Dose: Not Given Documented by: [id number] Infusion: 06/22/21 21:50 Dose: 8 mg/hr, 20 mls/hr Documented by: [id number] Admin: 06/22/21 17:12 Dose: 8 mg/hr, 20 mls/hr Documented by: [id number] Ceftriaxone Sodium (Rocephin) 2,000 mg in 70 mls @ 140 mls/hr IV NOW STA Stop: 06/22/21 16:08 Last Infusion: 06/22/21 17:07 Dose: 0 mls/hr Documented by: [id number] Infusion: 06/22/21 16:52 Dose: 0 mls/hr Documented by: [id number] Admin: 06/22/21 16:36 Dose: 140 mls/hr Documented by: [id number] Piperacillin Sod/Tazobactam (Sod 3.375 gm/ Dextrose) 115 mls @ 28.75 mls/hr IV Q12H ZOEY; Protocol Stop: 07/03/21 05:59 Last Infusion: 06/24/21 10:39 Dose: 0 mls/hr Documented by: [id number] Admin: 06/24/21 05:55 Dose: 28.8 mls/hr Documented by: [id number] Infusion: 06/24/21 04:28 Dose: 0 mls/hr Documented by: [id number] Admin: 06/23/21 20:01 Dose: 28.8 mls/hr Documented by: [id number] Infusion: 06/23/21 10:23 Dose: 0 mls/hr Documented by: [id number] Admin: 06/23/21 06:17 Dose: 28.8 mls/hr Documented by: [id number] Piperacillin Sod/Tazobactam (Sod 3.375 gm/ Dextrose) 115 mls @ 230 mls/hr IV NOW ONE; Protocol Stop: 06/22/21 21:59 Last Infusion: 06/22/21 23:15 Dose: 0 mls/hr Documented by: [id number] Admin: 06/22/21 22:41 Dose: 230 mls/hr Documented by: [id number] Pantoprazole Sodium 40 mg/ (Syringe) 10 mls @ 5 mls/min IV BID ZOEY Stop: 07/23/21 09:44 Last Admin: 06/23/21 20:06 Dose: 5 mls/min Documented by: [id number] Admin: 06/23/21 11:03 Dose: 5 mls/min Documented by: [id number] Sodium Bicarbonate 150 meq/ (Sterile Water) 1,150 mls @ 100 mls/hr IV .[id number] ZOEY Stop: 06/23/21 21:44 Last Infusion: 06/24/21 04:43 Dose: 0 mls/hr Documented by: [id number] Admin: 06/23/21 11:51 Dose: 100 mls/hr Documented by: [id number] Tranexamic Acid (Tranexamic Acid / 0.7% Nacl) 1,000 mg in 100 mls @ 600 mls/hr IV 1315 ZOEY Stop: 06/23/21 16:00 Last Infusion: 06/23/21 14:51 Dose: 0 mls/hr Documented by: [id number] Admin: 06/23/21 14:40 Dose: 600 mls/hr Documented by: [id number] Calcium Gluconate 2,000 mg/ (Sodium Chloride) 70 mls @ 280 mls/hr IV NOW ONE Stop: 06/23/21 14:14 Last Infusion: 06/23/21 14:40 Dose: 0 mls/hr Documented by: [id number] Admin: 06/23/21 14:25 Dose: 280 mls/hr Documented by: [id number] Critical Care Time Critical Care Time: Yes Total Critical Care Time: 45 I have personally spent greater than 45 minutes of critical care time in the direct management of this patient. This includes bedside care, interpretation of diagnostic studies, and testing, discussion with consultants, patient, and family members, and other required patient management activities. This 45 minutes is in excess of all separately billable procedures. Medical Decision Making Differential Diagnosis Upper GI bleed, lower GI bleed, hypercoagulable state, hypocoagulated state anemia Medical Records Attestation: I reviewed the patient's medical records. Home Medications Current Medication List: was personally reviewed by me Laboratory Data CBC, chemistry panel, troponin, and type and screen were obtained. CBC shows a low H&H of 7.9 and 23.4. Mildly elevated white count at 14.1. I suspect this is from demargination. Patient has 1+ acanthocytes. Initial [id number] electrolytes showed sodium 126 and potassium 6.2. This was rechecked patient has sodium 130 and potassium 4.8. CO2 16. Creatinine 3.36. BUN 121. Glucose 242. LFTs are relatively unremarkable. Troponin at 0.110. Patient is B+ with antibody screen negative. Result diagrams: 06/24/21 16:08 06/24/21 04:50 Lab Results 06/22/21 06/22/21 06/22/21 Range/Units 14:20 15:06 15:06 WBC 14.08 H (4.8-10.8) K/uL RBC 2.49 L (4.7-6.1) M/uL Hgb 7.9 L (14.0-18.0) g/dL POC Hgb 8.5 L (14.0-18.0) g/dl Hct 23.4 L (42-52) % POC Hct 25 L (42-52) % MCV 94.0 (80-100) fL MCH 31.7 (25-34) pg MCHC 33.8 (32-36) g/dL RDW Std Deviation 44.6 (36.4-46.3) fL RDW Coeff of Mir 12.8 (11.5-14.5) % Plt Count 210 (130-400) K/uL MPV 11.4 H (7.4-10.4) fL Immature Gran % (Auto) 0.2 % Neut % (Auto) 93.6 % Lymph % (Auto) 4.1 % [place] % (Auto) 2.1 % Eos % (Auto) 0.0 % Baso % (Auto) 0.0 % Neut # (Auto) 13.18 H (1.4-6.5) K/uL Lymph # (Auto) 0.58 L (1.2-3.4) K/uL [place] # (Auto) 0.29 (0.11-0.59) K/uL Eos # (Auto) 0.00 (0-0.5) K/uL Baso # (Auto) 0.00 (0-0.2) K/uL Immature Gran # (Auto) 0.03 H (0.00-0.02) K/uL Acanthocytes (Spur) 1+ POC Sodium 126 L (135-144) mmol/L Sodium (136-145) mmol/L POC Potassium 6.2 H* (3.3-5.0) mmol/L Potassium (3.5-5.1) mmol/L POC Chloride 101 (101-112) mmol/L Chloride (98-107) mmol/L Carbon Dioxide (21-32) mmol/L POC Total CO2 17 L (24-31) mmol/L Anion Gap (3-11) POC Anion Gap 15.0 L (16-25) mmol/L POC BUN > 140 H* (7-18) mg/dl BUN (7-18) mg/dl Creatinine (0.6-1.4) mg/dl POC Creatinine 3.7 H (0.6-1.3) mg/dl Est Cr Clr Drug Dosing Est GFR ( Amer) ml/min Est GFR (Non-Af Amer) ml/min BUN/Creatinine Ratio (10-20) Glucose (70-99) mg/dl POC Glucose (other) 240 H (70-99) mg/dl Calcium (8.5-10.1) mg/dl POC Ioniz Calcium Maren 1.28 (1.12-1.32) mmol/l Total Bilirubin (0.2-1) mg/dl Direct Bilirubin (0-0.2) mg/dl AST (15-37) U/L ALT (12-78) U/L Alkaline Phosphatase (45-117) U/L Troponin I (0-0.045) ng/ml Total Protein (6.4-8.2) gm/dl Albumin (3.4-5.0) gm/dl Globulin (2.5-4.0) gm/dl Albumin/Globulin Ratio (0.9-2) Blood Type B Positive Antibody Screen NEGATIVE Crossmatch See Detail 06/22/21 Range/Units 15:06 WBC (4.8-10.8) K/uL RBC (4.7-6.1) M/uL Hgb (14.0-18.0) g/dL POC Hgb (14.0-18.0) g/dl Hct (42-52) % POC Hct (42-52) % MCV (80-100) fL MCH (25-34) pg MCHC (32-36) g/dL RDW Std Deviation (36.4-46.3) fL RDW Coeff of Mir (11.5-14.5) % Plt Count (130-400) K/uL MPV (7.4-10.4) fL Immature Gran % (Auto) % Neut % (Auto) % Lymph % (Auto) % [place] % (Auto) % Eos % (Auto) % Baso % (Auto) % Neut # (Auto) (1.4-6.5) K/uL Lymph # (Auto) (1.2-3.4) K/uL [place] # (Auto) (0.11-0.59) K/uL Eos # (Auto) (0-0.5) K/uL Baso # (Auto) (0-0.2) K/uL Immature Gran # (Auto) (0.00-0.02) K/uL Acanthocytes (Spur) POC Sodium (135-144) mmol/L Sodium 130 L (136-145) mmol/L POC Potassium (3.3-5.0) mmol/L Potassium 4.8 (3.5-5.1) mmol/L POC Chloride (101-112) mmol/L Chloride 101 (98-107) mmol/L Carbon Dioxide 16 L (21-32) mmol/L POC Total CO2 (24-31) mmol/L Anion Gap 13.0 H (3-11) POC Anion Gap (16-25) mmol/L POC BUN (7-18) mg/dl BUN 121 H (7-18) mg/dl Creatinine 3.36 H (0.6-1.4) mg/dl POC Creatinine (0.6-1.3) mg/dl Est Cr Clr Drug Dosing Not Reportable Est GFR ( Amer) 20.8 ml/min Est GFR (Non-Af Amer) 17.9 ml/min BUN/Creatinine Ratio 36.0 H (10-20) Glucose 242 H (70-99) mg/dl POC Glucose (other) (70-99) mg/dl Calcium 8.6 (8.5-10.1) mg/dl POC Ioniz Calcium Maren (1.12-1.32) mmol/l Total Bilirubin 0.3 (0.2-1) mg/dl Direct Bilirubin 0.1 (0-0.2) mg/dl AST 17 (15-37) U/L ALT 18 (12-78) U/L Alkaline Phosphatase 51 (45-117) U/L Troponin I 0.110 H* (0-0.045) ng/ml Total Protein 4.2 L (6.4-8.2) gm/dl Albumin 1.9 L (3.4-5.0) gm/dl Globulin 2.3 L (2.5-4.0) gm/dl Albumin/Globulin Ratio 0.8 L (0.9-2) Blood Type Antibody Screen Crossmatch Imaging Data My Impression: CT scan imaging of his head was obtained today. This shows interval placement of left bur holes with decreased size of the subdural hematoma and decreased mass-effect. He has significant pneumocephalus, left greater than right. No significant midline shift is seen. Films were compared to his films of 06/07, which was prior to his craniotomy. CT scan imaging of the abdomen and pelvis shows a large stool burden in the sigmoid colon. Diffuse diverticulosis without diverticulitis. Numerous cysts in the liver. Bibasilar atelectasis. No acute abnormality within the abdomen. All films were reviewed by me and read by radiology. Radiologist's Impression: Head CT 06/22/21 14:30 CT head/brain wo con CLINICAL HISTORY: hx of intracranial bleed with hematoma extraction Technique: Contiguous axial CT images of the head were acquired from the base of the skull to the vertex without intravenous contrast administration. Images were viewed in brain, subdural and bone windows. Automated dose lowering techniques and/or adjustment according to patient size were utilized for this exam. Comparison: Comparison is made to CT head 06/07/2021 Findings: Poststernotomy changes are again seen on the right. There is interval placement of a jami holes on the left. Overall the amount of hematoma is decreased, with decrease in mass effect on the right. Right hematoma measures 16 mm, compared 25 mm on prior exam, left hematoma measures approximately 10 mm, compared to 12 mm on prior exam. Increased pneumocephalus is seen, left greater than right. Imaged portions of the paranasal sinuses and mastoid air cells are clear. The orbits appear normal. There are no acute fractures of the calvaria or scalp swelling. Impression: Interval placement of left jami holes with decreased size of subdural hematoma and decreased mass effect. Significant pneumocephalus has developed in the interval, left greater than right. No significant midline shift is seen. ACT 112: Negative or not required by law. Electronically signed by: Will Wadsworth M.D. 06/22/2021 3:43 PM Abdomen/Pelvis CT 06/22/21 15:00 CT abd pelvis wo con CLINICAL HISTORY: gi bleed TECHNIQUE: Helical axial images of the abdomen and pelvis were obtained. Automated dose lowering techniques and/or adjustment according to patient size were utilized for this exam. This exam was performed without intravenous contrast. COMPARISON: Comparison is made to CT abdomen and pelvis 03/26/2021 FINDINGS: Lower chest: Bibasilar atelectasis is seen. Liver: Redemonstration of innumerable cysts in the liver. Gallbladder and biliary tree: No calcified gallstones. Normal caliber wall. No intra- or extrahepatic biliary ductal dilation. Pancreas: Unremarkable, no focal lesions. Spleen: Unremarkable. Adrenals: Unremarkable. Kidneys and ureters: Innumerable bilateral renal cysts and calcifications are seen. Bladder: Unremarkable. Reproductive organs: Prostatomegaly is seen. Bowel: Large stool burden is seen in the sigmoid colon. Diffuse diverticulosis is seen without evidence of diverticulitis. A small hiatal hernia is seen. Lymph nodes Retroperitoneal: Unremarkable. Mesenteric: Unremarkable. Pelvic: Unremarkable. Peritoneum: Normal Vessels: Atherosclerotic calcifications are seen. Abdominal wall: Unremarkable. Bones: Degenerative changes in the visualized spine. IMPRESSION: 1. No acute abnormalities. Within the limits of a noncontrast exam, no evidence of large gastrointestinal bleed. 2. Diverticulosis without diverticulitis. 3. Redemonstration of hepatic and renal cysts compatible with history of polycystic renal disease. ACT 112: Negative or not required by law. Electronically signed by: Will Wadsworth M.D. 06/22/2021 4:07 PM Blood Pressure Blood Pressure Findings: Normal blood pressure MDM Narrative Patient was evaluated in room C9. His was present. Physical exam was pe rformed. Patient has visible blood from his rectum. It is darker in nature. IV was established. Labs were obtained. IV team was called in for IV access. He was found to be a very difficult stick. EKG obtained today shows atrial fibrillation with a rate of 64. This was reviewed with Dr. Quintana. Patient was given Protonix 80 mg IV and then a Protonix drip. He was also given Rocephin 2 g IV to cover any potential infection in the lower intestinal tract. Noncontrast CT scan imaging of his head and abdomen/pelvis was also obtained. Patient was found to have no significant intra-abdominal abnormality. Head film shows pneumocephalus without midline shift. There is improvement of his hematoma. Pneumocephalus is clearly explained by his recent craniotomy. Patient was found to be anemic on lab work. There is a significant elevation in his BUN and creatinine. He had not eaten anything since early this morning. I did speak with Dr. Waters regarding his bleed. He recommended taking the patient to the OR immediately for endoscopy. Patient was reviewed by anesthesia and given his recent craniotomy and pneumocephalus, they did not feel comfortable doing general anesthesia on this patient without neurosurgery backup. They recommended transfer to [facility] for the procedure to be done there. Given that there were no beds available at [place], I did speak with the neurosurgery attending electronic integrated systems mechanic, Dr. Bowen. Patient did have a head CT performed there on June 14, after his craniotomy. I did forward our images to [place], and Dr. Bowen and I reviewed them at the same time over the phone. His pneumocephalus has actually improved, and his hematoma also improved. Dr. Bowen did not see any contraindication to general anesthesia with the improved imaging, and did perform a literature search about contraindication with pneumocephalus and general anesthesia. He did not find any. Again he reiterated that anesthesia is fine in this patient. After speaking with our anesthesiologist, the recommendation remain the same to have the patient transferred to [place]. With no bed space available, the hospitalist team was consulted for admission and medical management. Please see Dr. Erickson's note for final management. Patient remained stable while in the ED. patient was typed and crossed in case he required transfusion while in the department. Extensive discussion was held with he and his regarding his anticoagulation. It will be a fine line to stop his anticoagulation in order to stop his bleed, while also ensuring that his mural thrombus does not increase, nor have recurrence of his subdural hematoma. Patient verbalized a clear understanding and was grateful for the honesty and care. He was seen in conjunction with Dr. Quintana, who also evaluated the patient and concurred with today's diagnosis and treatment plan. Impression & Plan Acute kidney injury superimposed on CKD, S/P subdural hematoma evacuation, Left ventricular apical thrombus, GI bleed Admission to [facility] for medical management of his GI bleed. Anticipate transfer to [facility] for further care when a bed becomes available. Discharge Plan Visit Data Chief Complaint: GI Bleed Stated Complaint: GI Bleed ED Provider: Aashish Quintana ED Midlevel Provider: Philippe Draper Discharge Problem: Acute kidney injury superimposed on CKD, S/P subdural hematoma evacuation, Left ventricular apical thrombus, GI bleed Patient Disposition: Admitted As Inpatient Condition: Fair Discharge Instructions Interventions: ED Discharge Assessment Last Done: 06/22/21 21:45
[2021-06-22 15:17] LABS: Hematocrit (blood only) 23.4 % (42-52); Hemoglobin 7.9 g/dL (14.0-18.0); Immature Granulocytes # (auto) 0.03 K/uL (0.00-0.02); Immature Granulocytes % (auto) 0.2 %; Lymphocytes # (auto) 0.58 K/uL (1.2-3.4); Lymphocytes % (auto) 4.1 %; Mean Corpuscular Hemoglobin 31.7 pg (25-34); Mean Corpuscular Hgb Conc 33.8 g/dL (32-36); Mean Platelet Volume 11.4 fL (7.4-10.4); Monocytes # (auto) 0.29 K/uL (0.11-0.59); Monocytes % (auto) 2.1 %; Neutrophils # (auto) 13.18 K/uL (1.4-6.5); Neutrophils % (auto) 93.6 %; Platelet Count 210 K/uL (130-400); RDW Coefficient of Variation 12.8 % (11.5-14.5); RDW Standard Deviation 44.6 fL (36.4-46.3); Red Blood Count 2.49 M/uL (4.7-6.1); White Blood Count 14.08 K/uL (4.8-10.8)
[2021-06-22 15:36] LABS: Alanine Aminotransferase 18 U/L (12-78); Albumin Level 1.9 gm/dl (3.4-5.0); Aspartate Aminotransferase 17 U/L (15-37); Bilirubin Direct 0.1 mg/dl (0-0.2); Blood Urea Nitrogen 121 mg/dl (7-18); Calcium 8.6 mg/dl (8.5-10.1); Carbon Dioxide 16 mmol/L (21-32); Chloride 101 mmol/L (98-107); Est GFR (African American) 20.8 ml/min; Est GFR (Non-African American) 17.9 ml/min; Glucose 242 mg/dl (70-99); Potassium 4.8 mmol/L (3.5-5.1); Sodium 130 mmol/L (136-145)
--- NOTE | 2021-06-22 15:37 | Gastrointestinal Consultation ---
Date of Consultation June 22, 2021 Assessment & Plan (1) Hematochezia: (2) GI bleed: GI bleed on eliquis, could be diverticular bleed vs. PUD or AVM. He is undergoing imaging now to rule out hematomas intracranially Recs: await imaging results if imaging negative, then EGD now to further evaluate NPO Protonix drip trend H/H, transfuse prn supportive care Thank you for allowing me to participate in the care of this patient History of Present Illness History of Present Illness 66 yo male with hx diverticulosi, acute on chronic intracranial subdural hematoma x3, brain compression, acute encephalopathy, left hemiparesis, pneumocephalus, left ventricular mural thrombus without TX, CAD, cardiac stents, ventricular cardiomyopathy, diabetes, renal transplant, and 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 He developed hematochezia this morning around 11 am with multiple clots per rectum, he is on eliquis and was previously on xarelto. currently undergoing CT to rule out any intracranial hemorrhage. anemia noted with hgb 7.9 from baseline around 9. labs reviewed. VSS. Allergies Allergy/AdvReac Type Severity Reaction Status Date / Time No Known Allergies Allergy Verified 06/20/21 00:07 Home Medications Medication Instructions Recorded Confirmed Type famotidine 10 mg tablet (Acid 10 mg PO QAM 03/03/19 06/20/21 History Pitch Worker (famotidine)) magnesium oxide 250 mg PO BID tab 03/03/19 06/20/21 History multivitamin (Multiple Vitamins) 1 tab PO QAM 03/03/19 06/20/21 History prednisone 5 mg tablet 5 mg PO QAM #90 tab 03/03/19 06/20/21 History atorvastatin 40 mg tablet (Lipitor) 40 mg PO HS 09/13/19 06/20/21 History tacrolimus 0.5 mg capsule, 0.5 mg PO Q12H cap 01/24/21 06/20/21 History immediate-release (Prograf) allopurinol 300 mg tablet 300 mg PO HS 01/31/21 06/20/21 History mycophenolate mofetil 250 mg 750 mg PO BID 01/31/21 06/20/21 History capsule (CellCept) glipizide 10 mg tablet (Glucotrol) 10 mg PO QAM tab 03/16/21 06/20/21 History mecobalamin (vitamin B12) 1,000 1,000 mcg PO QPM 03/26/21 06/20/21 History mcg chewable tablet (B12 Active) glipizide 5 mg tablet 2.5 mg PO HS #45 tab 05/30/21 06/20/21 Rx amlodipine 10 mg tablet 10 mg PO DAILY 06/18/21 06/20/21 History carvedilol 6.25 mg tablet See Rx Instructions PO BID 06/18/21 06/20/21 History dexamethasone 4 mg tablet 4 mg PO BID 06/18/21 06/20/21 History rivaroxaban 20 mg tablet (Xarelto) 20 mg PO QPM 06/18/21 06/20/21 History Ubiquinol Cap 100 mg PO BID 06/19/21 06/20/21 History nitroglycerin 0.4 mg sublingual 0.4 mg SUBLINGUAL DIRECTED PRN 06/19/21 06/20/21 History tablet omega-3 fatty acids-fish oil 684 1 cap PO DAILY 06/19/21 06/20/21 History mg-1,200 mg capsule,delayed release polyethylene glycol 3350 17 17 g PO DAILY 06/19/21 06/20/21 History gram/dose oral powder (Miralax) apixaban 5 mg tablet (Eliquis) 5 mg PO BID #30 tab 06/20/21 Rx insulin aspart U-100 100 unit/mL 1 sliding scale dose SUBCUT 06/20/21 Rx (3 mL) subcutaneous pen USEASDIRECTD #15 ml pen needle, diabetic 31 gauge x #100 ea 06/20/21 Rx " rivaroxaban 20 mg tablet (Xarelto) 15 mg PO BID 06/20/21 06/20/21 History insulin glargine 100 unit/mL (3 15 unit SUBCUT HS #45 ml 06/21/21 Rx mL) subcutaneous pen (Basaglar KwikPen U-100 Insulin) Patient History Medical History WERNER (acute kidney injury) Anaplasmosis CHF (congestive heart failure) Chronic subdural hematoma COVID-19 vaccine administered Dehydration Diarrhea Diverticulosis Dizziness Elevated troponin Gout, joint Head ache Headache Hypercholesterolemia Hypoglycemia Myocardial Infarction Nausea Polycystic kidney ST elevation myocardial infarction (STEMI) Weakness Surgical History History of jami hole surgery Left jami hole drainage of subdural hematoma, placement of subdural drain 06/09/21 History of heart artery stent Hx of craniotomy redo right craniotomy for evacuation for subdural hematoma 06/07/21 [facility] [place] for evacuation of subdural hematoma 03/27/21, 04/23/21 [facility] [place] Renal transplant recipient Family History Mother Breast cancer Father Stroke Polycystic kidney disease Denies family history of Ovarian cancer Prostate cancer Myocardial infarction Colorectal cancer Social History Smoking Status: Never smoker Second Hand Exposure: No; Hx Alcohol Use: No Hx Substance Use: No Preferred Language: Georgian Communication Ability: Effective Powder Monkey Required: No Beliefs That Will Affect Care: None marital status: Current Living Situation: Alone 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 Feels Safe at Home: Yes Dental Care, Regularly: Yes Physical Activity Frequency: 3-4 Times per Week Seatbelt Use: always Assistive Devices: Glasses and Walker Review of Systems Constitutional: no fever, no chills and no weight loss Eyes: as per Subjective / HPI Ear, Nose, Mouth, Throat: as per Subjective / HPI Respiratory: no dyspnea and no dyspnea on exertion Cardiovascular: no chest pain and no palpitations Gastrointestinal: as per Subjective / HPI Musculoskeletal: no joint pain and no swelling Integumentary: no rash and no lesions Neurologic: no numbness and no paresthesia Psychiatric: no depression and no anxiety Endocrine: no fatigue Hematologic / Lymphatic: no easy bleeding and no easy bruising Physical Exam Constitutional: WD/WN, vitals as above Eyes: EOM intact bilaterally Neck: normal visual inspection Respiratory: normal respiratory effort, lungs clear to auscultation Cardiovascular: RRR, no murmur, no edema Gastrointestinal (Abdomen): Inspection/Auscultation: abdomen normal to inspection; abdomen not distended Percussion/Palpation: abdomen soft; abdomen nontender and no hepatosplenomegaly Musculoskeletal: Extremities: no cyanosis Gait: normal gait Skin: no rashes, warm and dry Neurologic: moves all extremities Psychiatric: A+Ox3, euthymic affect Results & Data ([place]) Vital Signs (Past 12 Hours) Vital Signs Temp Pulse Resp BP Pulse Ox 06/22/21 14:45 65 9 L 99 06/22/21 14:34 66 12 100 06/22/21 14:23 36.4 C L 66 14 101/61 99 PG Care Time/CCT Total # of Minutes Spent Total Time Spent with Patient: Total time spent is greater than 50% in coordination of care (as documented) at patient's floor/unit and/or counseling patient: Coding Level of Care Code 71649 Initial Inpt Care Lvl 3 Diagnoses Hematochezia K92.1 GI bleed K92.2
[2021-06-22] MEDS ORDERED: cefTRIAXone SODIUM 2,000 MG/70 ML BAG IV STA (15:39)
--- NOTE | 2021-06-22 15:44 | CT Scan Report ---
CT head/brain wo con CLINICAL HISTORY: hx of intracranial bleed with hematoma extraction Technique: Contiguous axial CT images of the head were acquired from the base of the skull to the edwin brittany without intravenous contrast administration. Images were viewed in brain, [facility] Automated dose lowering techniques and/or adjustment according to patient size were utilized for this exam. Comparison: Comparison is made to CT head 06/07/2021 Findings: Poststernotomy changes are again seen on the right. There is interval placement of a jami holes on th e left. Overall the amount of hematoma is decreased, with decrease in mass effect on the right. Right hematoma measures 16 mm, compared 25 mm on prior exam, left hematoma measures approximately 10 mm, c ompared to 12 mm on prior exam. Increased pneumocephalus is seen, left greater than right. Imaged portions of the paranasal sinuses and mastoid air cells are clear. The orbits appear normal. There are no acute fractures of the calvaria or scalp swelling. Impression: Interval placement of left jami holes with decreased size of subdural hematoma and decreased mass eff ect. Significant pneumocephalus has developed in the interval, left greater than right. No significan t midline shift is seen. ACT 112: Negative or not required by law. Electronically signed by: Will Wadsworth M.D. 06/22/2021 3:43 PM
[2021-06-22] MEDS ORDERED: PANTOprazole 80 MG in DEXTROSE 5% 100 ML IV ONE (15:45)
[2021-06-22 15:52] LABS: Albumin Globulin Ratio 0.8 (0.9-2); Alkaline Phosphatase 51 U/L (45-117); Bilirubin,Total 0.3 mg/dl (0.2-1); Globulin 2.3 gm/dl (2.5-4.0); Total Protein 4.2 gm/dl (6.4-8.2)
[2021-06-22 15:53] LABS: Acanthocytes 1+
--- NOTE | 2021-06-22 16:08 | CT Scan Report ---
CT abd pelvis wo con CLINICAL HISTORY: gi bleed TECHNIQUE: Helical axial images of the abdomen and pelvis were obtained. Automated dose lowering tech niques and/or adjustment according to patient size were utilized for this exam. This exam was perfor med without intravenous contrast. COMPARISON: Comparison is made to CT abdomen and pelvis 03/26/2021 FINDINGS: Lower chest: Bibasilar atelectasis is seen. Liver: Redemonstration of innumerable cysts in the liver. Gallbladder and biliary tree: No calcified gallstones. Normal caliber wall. No intra- or extrahepatic biliary ductal dilation. Pancreas: Unremarkable, no focal lesions. Spleen: Unremarkable. Adrenals: Unremarkable. Kidneys and ureters: Innumerable bilateral renal cysts and calcifications are seen. Bladder: Unremarkable. Reproductive organs: Prostatomegaly is seen. Bowel: Large stool burden is seen in the sigmoid colon. Diffuse diverticulosis is seen without eviden ce of diverticulitis. A small hiatal hernia is seen. Lymph nodes Retroperitoneal: Unremarkable. Mesenteric: Unremarkable. Pelvic: Unremarkable. Peritoneum: Normal Vessels: Atherosclerotic calcifications are seen. Abdominal wall: Unremarkable. Bones: Degenerative changes in the visualized spine. IMPRESSION: 1. No acute abnormalities. Within the limits of a noncontrast exam, no evidence of large gastrointes tinal bleed. 2. Diverticulosis without diverticulitis. 3. Redemonstration of hepatic and renal cysts compatible with history of polycystic renal disease. ACT 112: Negative or not required by law. Electronically signed by: Will Wadsworth M.D. 06/22/2021 4:07 PM
[2021-06-22] MEDS: PANTOprazole 40 MG in DEXTROSE 5% 100 ML IV SCH ×3 (17:12→21:56)
--- NOTE | 2021-06-22 17:34 | History & Physical Report ---
Date of Service June 22, 2021 Assessment & Plan (1) GI bleed: Plan: Patient presents with a now suspected upper GI bleed with markedly elevated BUN, on bid protonix, recently changed to Eliquis due to renal function by nephrology, last dose of Eliquis was this morning. Patient be transfused 2 units packed red blood cells with little rise in HGB, recheck hgb in afternoon and transfuse if needed Continued on Zosyn therapy for consideration of lower GI bleed on immunosuppression for renal transplant If the patient appears to rebleed consider bleeding scan to localize bleeding and and consider interventional radiology for embolization if the patient has a life-threatening bleed may need to consider surgical intervention however at this time is hemodynamically stable patient is family were updated on these choices given the fact that there is no bed availability [facility] and inability to perform anesthesia here they are accepting of the situation (2) Insulin dependent diabetes mellitus: Plan: Patient will have his glipizide held he will be on insulin sliding scale continue his glargine (3) Left ventricular apical thrombus: Plan: Patient has a large left ventricular apical thrombus identified on echocardiogram in [facility]. On admitting EKG appears to have background atrial flutter. However given the concern for life-threatening GI bleed with hemoglobin dropping 3 g we are stopping anticoagulation at this point time considering reinstituting anticoagulation in short fashion perhaps on the and may be considering heparin products with coagulation clinic consultation (4) S/P subdural hematoma evacuation: Plan: Patient with persistent subdural hematoma evacuations will need silvestre removed on the (5) CKD (chronic kidney disease), stage IV: Plan: Follows with Dr. Pitts for chronic kidney disease stage IV does have a fistula in place in case dialysis is needed potassium is stable at this point time patient appears to be euvolemic, continue his rejection medications of mycophenolate dexamethasone which is also for his cerebral edema and tacrolimus, elevated BUN likely from GIB, will have nephrology see (6) Bilateral leg edema: Plan: Patient has minor bilateral leg edema since starting his steroid therapy will attempt to use SCDs and teds History of Present Illness Primary Care Provider: Shelli Ashraf MD 66-year-old male presents by [facility] for evaluation of a GI bleed while anticoagulated with Eliquis for left ventricular thrombus. He has a recent concerning history of acute on chronic intracranial subdural hematoma with for surgical interventions at [facility] with Dr. Trujillo, Persistent left hemiplegia, resultant pneumocephalus, recently discovered left ventricular mural thrombus without MD, CAD, cardiac stents, Patient is a renal transplant recipient secondary to effects of diabetes and has a fistula in the left forearm. Patient states he was at home today and had bloody diarrhea around 11 AM. And again at 1 PM. He states he passed several large clots. This patient was switched to Eliquis 2 days ago by his power regulator. He denies abdominal pain, nausea, vomiting. He states there is a history of transfusion 6 years ago and was consented for blood transfusion by ER staff. Patient was reportedly going to go to urgent colonoscopy however anesthesia reviewed his recent cranial imaging and concern for pneumocephalus has them feel he is contraindicated to perform anesthesia for colonoscopy in our facility. After this decision emergency room physicians bakery assistant Mr. Castaneda once again reconnected with Maggie and Maggie seems to feel contrary to that decision however her anesthesia feel without back up with neurosurgery or cardiothoracic surgery pursuing anesthesia would not be prudent in our facility. Subsequently the patient will be admitted to our facility to care for him for acute blood loss anemia considered coming from a lower GI source. Transfusion antibiotics and consideration of alternative anticoagulant in the future perhaps a heparin product that could be more easily reversed and has a shorter half-life Allergies Allergy/AdvReac Type Severity Reaction Status Date / Time No Known Allergies Allergy Verified 06/20/21 00:07 Home Medications Medication Instructions Recorded Confirmed Type famotidine 10 mg tablet (Acid 10 mg PO QAM 03/03/19 06/22/21 History Aerospace Physiological Technician (famotidine)) magnesium oxide 250 mg PO BID tab 03/03/19 06/22/21 History multivitamin (Multiple Vitamins) 1 tab PO QAM 03/03/19 06/22/21 History atorvastatin 40 mg tablet (Lipitor) 40 mg PO HS 09/13/19 06/22/21 History tacrolimus 0.5 mg capsule, 0.5 mg PO Q12H cap 01/24/21 06/22/21 History immediate-release (Prograf) allopurinol 300 mg tablet 300 mg PO HS 01/31/21 06/22/21 History mycophenolate mofetil 250 mg 750 mg PO BID 01/31/21 06/22/21 History capsule (CellCept) glipizide 10 mg tablet (Glucotrol) 10 mg PO QAM tab 03/16/21 06/22/21 History mecobalamin (vitamin B12) 1,000 1,000 mcg PO QPM 03/26/21 06/22/21 History mcg chewable tablet (B12 Active) glipizide 5 mg tablet 2.5 mg PO HS #45 tab 05/30/21 06/22/21 Rx amlodipine 10 mg tablet 10 mg PO DAILY 06/18/21 06/22/21 History carvedilol 6.25 mg tablet 18.75 mg PO BID 06/18/21 06/22/21 History dexamethasone 4 mg tablet 4 mg PO BID 06/18/21 06/22/21 History nitroglycerin 0.4 mg sublingual 0.4 mg SUBLINGUAL DIRECTED PRN 06/19/21 06/22/21 History tablet omega-3 fatty acids-fish oil 684 1 cap PO DAILY 06/19/21 06/22/21 History mg-1,200 mg capsule,delayed release polyethylene glycol 3350 17 17 g PO DAILY PRN 06/19/21 06/22/21 History gram/dose oral powder (Miralax) apixaban 5 mg tablet (Eliquis) 5 mg PO BID #30 tab 06/20/21 06/22/21 Rx insulin aspart U-100 100 unit/mL 1 sliding scale dose SUBCUT 06/20/21 06/22/21 Rx (3 mL) subcutaneous pen USEASDIRECTD #15 ml pen needle, diabetic 31 gauge x #100 ea 06/20/21 06/22/21 Rx 32" insulin glargine 100 unit/mL (3 15 unit SUBCUT HS #45 ml 06/21/21 06/22/21 Rx mL) subcutaneous pen (Basaglar KwikPen U-100 Insulin) coenzyme Q10 100 mg capsule 100 mg PO BID 06/22/21 06/22/21 History (CoQ-10) Past Med/Surg History Medical History WERNER (acute kidney injury) Anaplasmosis CHF (congestive heart failure) Chronic subdural hematoma COVID-19 vaccine administered Dehydration Diarrhea Diverticulosis Dizziness Elevated troponin Gout, joint Head ache Headache Hypercholesterolemia Hypoglycemia Myocardial Infarction Nausea Polycystic kidney ST elevation myocardial infarction (STEMI) Weakness Surgical History History of jami hole surgery Left jami hole drainage of subdural hematoma, placement of subdural drain 06/09/21 History of heart artery stent Hx of craniotomy redo right craniotomy for evacuation for subdural hematoma [place]07/[place] [facility] [place] for evacuation of subdural hematoma 03/27/21, 04/23/21 [facility] [place] Renal transplant recipient Family History Mother Breast cancer Father Stroke Polycystic kidney disease Denies family history of Ovarian cancer Prostate cancer Myocardial infarction Colorectal cancer Social History Smoking Status: Never smoker Second Hand Exposure: No; Do You Dip or Chew Tobacco: No; Hx Alcohol Use: No Hx Substance Use: No Preferred Language: Sinhala Communication Ability: Effective Rug Touch Up Painter Required: No Beliefs That Will Affect Care: None marital status: Current Living Situation: Spouse 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 Other Information That Helps Us Care for You: No Feels Safe at Home: Yes Safety Concerns: Feels Safe At This Time Dental Care, Regularly: Yes Physical Activity Frequency: 3-4 Times per Week Seatbelt Use: always Assistive Devices: Glasses and Walker Review of Systems Review of Systems: Moderate distress and fatigue no headache, no visual changes no speech or swallowing issues no chest pain, pressure or palpitations no shortness of breath, cough or wheezes no abdominal pain, nausea or vomiting, bloody diarrhea x2 no dysuria, hematuria or frequency no focal joint pain persistent lower extremity swelling no back pain, CVA tenderness or radicular pain no bruising, bleeding or rashes has sutures on his righttemporal area and silvestre on his left temporal area Left-sided weakness no complaints of anxiety or depression.. Physical Exam Physical Exam: The patient appeared well nourished and normally developed. Vital signs as documented. Head exam is normocephalic sutures on the right are clean dry and intact silvestre in left are clean dry and intact reportedly silvestre are to come out on 25 June Neck is without JVD, thyromegaly, or carotid bruits. Lungs are clear to auscultation, but diminished at the bases Cardiac exam, Rhythm is regular.. No murmurs, rubs or gallops. Abdominal exam reveals normal bowel sounds, soft non tender, no masses specifically in the left lower quadrant discomfort Extremities are 1+ bilaterally edematous and both pedal pulses are present Neurologic exam is alert and oriented, has persistent focal left-sided weakness Skin is without bruises or rashes craniotomy wounds are clean dry and intact Psychologically is without concerns for anxiety or depression.. Results & Data Results & Data ([facility]) Vital Signs (Past 12 Hours) Vital Signs Temp Pulse Resp BP Pulse Ox 06/22/21 16:30 63 11 L 99 06/22/21 16:15 66 10 L 98 06/22/21 16:00 65 10 L 99 06/22/21 15:45 66 7 L 98 06/22/21 15:33 66 12 122/72 100 06/22/21 15:15 64 14 99 06/22/21 15:00 65 12 93 06/22/21 14:45 65 9 L 99 06/22/21 14:34 66 12 100 06/22/21 14:23 97.5 F L 66 14 101/[address] the head without contrast performed 06/22/2021 shows interval placement of bur holes with decreased size of the subdural hematoma and decreased mass- effect. Significant pneumocephalus has developed since our last study but upon review from her she feels it is consistent with his post procedure pneumocephalus most recently. CT abdomen pelvis 06/22/2021 no acute abnormalities noncontrast exam no large GI bleed seen, diverticular bleed diverticulosis without diverticulitis re demonstration of hepatic and renal cyst compatible with history of polycystic renal disease ECG Additional Comments: Atrial flutter at 300 with ventricular rate controlled at 64 PG Care Time/CCT Total # of Minutes Spent Total Time Spent with Patient: Total time spent is greater than 50% in coordination of care (as documented) at patient's floor/unit and/or counseling patient: Coding Level of Care Code 89375 Initial Inpt Care Lvl 3 Diagnoses GI bleed K92.2 Insulin dependent diabetes mellitus Left ventricular apical thrombus I51.3 S/P subdural hematoma evacuation Z98.890; Z86.79 CKD (chronic kidney disease), stage IV N18.4 Bilateral leg edema R60.0
[2021-06-22] MEDS ORDERED: GLUCOSE 40% GEL 15 GM TUBE PO PRN (21:19)
[2021-06-22] MEDS ORDERED: POLYETHYLENE (MIRALAX) 17 GM PACK PO PRN (21:19)
[2021-06-22] MEDS ORDERED: DEXTROSE 50% 50 ML SYRINGE IV PRN (21:19)
[2021-06-22] MEDS ORDERED: ONDANSETRON INJ 2 MG/ML 2 ML VIAL IV PRN (21:19)
[2021-06-22] MEDS ORDERED: SODIUM CHLORIDE 0.9% 250 ML IV PRN (21:19)
[2021-06-22] MEDS ORDERED: CARBOHYDRATES FOR HYPOGLYCEMIA PO PRN (21:19)
[2021-06-22] MEDS ORDERED: PIPERACILL/TAZOBAC CONSULT ACTIVE PRN (21:19)
[2021-06-22] MEDS ORDERED: GLUCAGON FOR INJ 1 MG VIAL SQ PRN (21:19)
[2021-06-22] MEDS ORDERED: GLUCOSE 10 TABS/TUBE PO PRN (21:19)
[2021-06-22] MEDS ORDERED: ACETAMINOPHEN 325 MG TAB PO PRN (21:19)
[2021-06-22] MEDS ORDERED: PIPERACILLIN/TAZOBACTAM 3.375 GM in DEXTROSE 5% 100 ML IV ONE (21:30)
[2021-06-22] MEDS ORDERED: PATIENT'S HEIGHT AND/OR WEIGHT NEEDED SCH (21:31)
[2021-06-22] MEDS: carvediloL 6.25 MG TAB PO SCH (22:32)
[2021-06-22] MEDS: TACROLIMUS 0.5 MG CAP PO SCH (22:33)
[2021-06-22] MEDS: MYCOPHENOLATE MOFETIL 250 MG CAP PO SCH (22:34)
[2021-06-22] MEDS: MAGNESIUM OXIDE 400 MG TAB PO SCH (22:35)
[2021-06-22] MEDS: dexAMETHasone 4 MG TAB PO SCH (22:35)
[2021-06-22] MEDS: ATORVASTATIN 40 MG TAB PO SCH (22:35)
[2021-06-22] MEDS: allopurinoL 100 MG TAB PO SCH (22:35)
[2021-06-22] MEDS: INSULIN ASPART 100 UNITS/ML 3 ML PEN SC SCH (22:36)
[2021-06-22] MEDS: INSULIN GLARGINE SOLOSTAR 100 UNITS/ML 3 ML PEN SQ SCH (22:37)
--- NOTE | 2021-06-22 22:50 | Emergency Department Note ---
ED Visit Note The patient was seen and examined with Philippe Draper PA-C. I agree with the history, physical and findings. Please see the note for disposition and details. The patient has findings consistent with GI bleed. He was typed and crossed. The patient's history is complicated. [place] did discuss his CT findings with neurosurgery. GI was consulted. Patient was started on Protonix. He had a benign abdominal examination. Further management will be necessary in the hospital. Consultation was made with the hospitalist service and the patient was admitted. .
[2021-06-23] MEDS: PIPERACILLIN/TAZOBACTAM 3.375 GM in DEXTROSE 5% 100 ML IV SCH ×2 (06:17→20:01)
[2021-06-23 06:41] LABS: Hematocrit (blood only) 22.8 % (42-52); Mean Corpuscular Hemoglobin 31.6 pg (25-34); Mean Corpuscular Hgb Conc 35.1 g/dL (32-36); Mean Corpuscular Volume 90.1 fL (80-100); Mean Platelet Volume 12.3 fL (7.4-10.4); Platelet Count 166 K/uL (130-400); RDW Coefficient of Variation 14.2 % (11.5-14.5); RDW Standard Deviation 47.2 fL (36.4-46.3); Red Blood Count 2.53 M/uL (4.7-6.1); White Blood Count 16.68 K/uL (4.8-10.8)
[2021-06-23 07:15] LABS: BUN Creatinine Ratio 40.1 (10-20); Calcium 8.7 mg/dl (8.5-10.1); Est GFR (Non-African American) 17.2 ml/min; Potassium 5.2 mmol/L (3.5-5.1)
[2021-06-23] MEDS ORDERED: FAMOTIDINE 10 MG TABLET PO SCH (09:00)
[2021-06-23] MEDS ORDERED: amLODIPine BESYLATE 5 MG TAB PO SCH (09:00)
[2021-06-23] MEDS: INSULIN ASPART 100 UNITS/ML 3 ML PEN SC SCH ×4 (09:13→20:59)
[2021-06-23] MEDS: MAGNESIUM OXIDE 400 MG TAB PO SCH ×2 (09:14→20:35)
[2021-06-23] MEDS: dexAMETHasone 4 MG TAB PO SCH ×2 (09:14→20:35)
[2021-06-23] MEDS: carvediloL 6.25 MG TAB PO SCH ×2 (09:14→20:34)
[2021-06-23] MEDS: TACROLIMUS 0.5 MG CAP PO SCH ×2 (09:15→20:36)
[2021-06-23] MEDS: MULTIVITAMIN TAB PO SCH (09:15)
[2021-06-23] MEDS: MYCOPHENOLATE MOFETIL 250 MG CAP PO SCH ×2 (09:15→20:36)
--- NOTE | 2021-06-23 10:03 | Nephrology Consultation ---
Date of Consultation June 23, 2021 Assessment & Plan (1) Renal transplant recipient: * MEAL TEMPERER function is stable at this time (baseline cr 3.2) * Will provide IV NaHCO3 for correction of metabolic acidosis and mild hyperkalemia * Azotemia related to upper GIB. Currently no uremic symptoms. No acute indication for HD * Note that L wrist AVF is clotted. If HD becomes necessary, patient will require IJ THC * Continue current immunosuppressive regimen of Prograf, Mycophenolate and Prednisone * Monitor PRP, UO (2) CKD (chronic kidney disease), stage IV: * Baseline Cr 3.2. Kidney function remains stable at this time (3) Anemia: * Anticoagulation has been held * Recommend transfusion to maintain Hgb > 8.0 * Will need endoscopy History of Present Illness Reason for Consultation: MEAL TEMPERER, CKD Attending Physician: Ziggy Erickson MD History of Present Illness Mr. Andrea is a 66 year old white male who is seen at the request of [facility] Hospitalist for evaluation of MEAL TEMPERER. Medical records in the EMR were reviewed today and are summarized as follows: Mr. Andrea has a complex medical history. His primary Economic Consultant is Dr. Grissom. The patient has ADPKD. In 1992 he progress to ESRD and was started on HD. In 1996 he underwent MEAL TEMPERER w/ L eklutna nephrectomy at [facility]. Post transplant Cr was 1.5. Immunosuppressive regimen consisted of Tacrolimus, Cellcept and Prednisone. Mr. Andrea developed PTDM and was started on oral hypoglycemic agents. Insulin was added ~ 1.5 years ago. In 11/21 renal allograft biopsy was performed at [facility] due to progressive CKD w/ proteinuria. 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 Losartan was added to his medical regimen. Despite these measures, Cr increased to 3.2 and evaluation for possible second transplant has been initiated at [facility]. 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 He required mini- craniotomy at [facility]. Evaluation during 06/23 hospitalization revealed atrial flutter and a large LV mural thrombus. He was started on anticoagulation therapy. Mr. Andrea was evaluated in the [facility] EMD 06/20 - 06/21 due to steroid induced hyperglycemia and dehydration. His insulin regimen was adjusted and he was discharged to home. Mr. Andrea returned to the EMD 06/22 for evaluation of new onset bloody diarrhea. Apixaban was held and 2 U PRBC transfused. Consultation w/ Gastroenterology was obtained but Anesthesia recommended transfer to tertiary center due to recent neurosurgical procedure. [facility] is unable to accept transfer due to lack of bed availability. Mr. 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, SDH s/p R mini-craniotomy at [facility] 03/23 Allergies Allergy/AdvReac Type Severity Reaction Status Date / Time No Known Allergies Allergy Verified 06/20/21 00:07 Home Medications Medication Instructions Recorded Confirmed Type famotidine 10 mg tablet (Acid 10 mg PO QAM 03/03/19 06/22/21 History Heat Treatment Technician (famotidine)) magnesium oxide 250 mg PO BID tab 03/03/19 06/22/21 History multivitamin (Multiple Vitamins) 1 tab PO QAM 03/03/19 06/22/21 History atorvastatin 40 mg tablet (Lipitor) 40 mg PO HS 09/13/19 06/22/21 History tacrolimus 0.5 mg capsule, 0.5 mg PO Q12H cap 01/24/21 06/22/21 History immediate-release (Prograf) allopurinol 300 mg tablet 300 mg PO HS 01/31/21 06/22/21 History mycophenolate mofetil 250 mg 750 mg PO BID 01/31/21 06/22/21 History capsule (CellCept) glipizide 10 mg tablet (Glucotrol) 10 mg PO QAM tab 03/16/21 06/22/21 History mecobalamin (vitamin B12) 1,000 1,000 mcg PO QPM 03/26/21 06/22/21 History mcg chewable tablet (B12 Active) glipizide 5 mg tablet 2.5 mg PO HS #45 tab 05/30/21 06/22/21 Rx amlodipine 10 mg tablet 10 mg PO DAILY 06/18/21 06/22/21 History carvedilol 6.25 mg tablet 18.75 mg PO BID 06/18/21 06/22/21 History dexamethasone 4 mg tablet 4 mg PO BID 06/18/21 06/22/21 History nitroglycerin 0.4 mg sublingual 0.4 mg SUBLINGUAL DIRECTED PRN 06/19/21 06/22/21 History tablet omega-3 fatty acids-fish oil 684 1 cap PO DAILY 06/19/21 06/22/21 History mg-1,200 mg capsule,delayed release polyethylene glycol 3350 17 17 g PO DAILY PRN 06/19/21 06/22/21 History gram/dose oral powder (Miralax) apixaban 5 mg tablet (Eliquis) 5 mg PO BID #30 tab 06/20/21 06/22/21 Rx insulin aspart U-100 100 unit/mL 1 sliding scale dose SUBCUT 06/20/21 06/22/21 Rx (3 mL) subcutaneous pen USEASDIRECTD #15 ml pen needle, diabetic 31 gauge x #100 ea 06/20/21 06/22/21 Rx " insulin glargine 100 unit/mL (3 15 unit SUBCUT HS #45 ml 06/21/21 06/22/21 Rx mL) subcutaneous pen (Basaglar KwikPen U-100 Insulin) coenzyme Q10 100 mg capsule 100 mg PO BID 06/22/21 06/22/21 History (CoQ-10) Patient History Medical History WERNER (acute kidney injury) Anaplasmosis CHF (congestive heart failure) Chronic subdural hematoma COVID-19 vaccine administered Dehydration Diarrhea Diverticulosis Dizziness Elevated troponin Gout, joint Head ache Headache Hypercholesterolemia Hypoglycemia Myocardial Infarction Nausea Polycystic kidney ST elevation myocardial infarction (STEMI) Weakness Surgical History History of jami hole surgery Left jami hole drainage of subdural hematoma, placement of subdural drain 06/09/21 History of heart artery stent Hx of craniotomy redo right craniotomy for evacuation for subdural hematoma 06/07/21 [facility] right minicraniotomy for evacuation of subdural hematoma 03/27/21, 04/23/21 [facility] Renal transplant recipient Family History Mother Breast cancer Father Stroke Polycystic kidney disease Denies family history of Ovarian cancer Prostate cancer Myocardial infarction Colorectal cancer Social History Smoking Status: Never smoker Second Hand Exposure: No; Do You Dip or Chew Tobacco: No; Hx Alcohol Use: No Hx Substance Use: No Preferred Language: Turkish Communication Ability: Effective Survey Questionnaire Designer Required: No Beliefs That Will Affect Care: None marital status: Current Living Situation: Spouse 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 Other Information That Helps Us Care for You: No Feels Safe at Home: Yes Safety Concerns: Feels Safe At This Time Dental Care, Regularly: Yes Physical Activity Frequency: 3-4 Times per Week Seatbelt Use: always Assistive Devices: Glasses and Walker Review of Systems Constitutional: + weakness; no fever Eyes: no problem reported Ear, Nose, Mouth, Throat: no problem reported Respiratory: no cough and no dyspnea Cardiovascular: no chest pain Gastrointestinal: + diarrhea/loose stools; no abdominal pain, no nausea and no vomiting Genitourinary: no dysuria, no urinary hesitancy or no hematuria Musculoskeletal: no back pain Integumentary: no rash Neurologic: no confusion Physical Exam Constitutional: + ill appearing; not in distress Eyes: PERRL, conjunctivae normal, anicteric sclerae ENMT: external ear and nose normal, oropharynx normal Neck: trachea midline, no thyromegaly Respiratory: normal respiratory effort, lungs clear to auscultation Cardiovascular: RRR, no murmur, no edema Extremities: + AV fistula (no bruit) Gastrointestinal (Abdomen): normal bowel sounds, soft, nontender, no hepatosplenomegaly Skin: no rashes, warm and dry Neurologic: awake; not confused Results & Data ([facility]) Vital Signs (Past 12 Hours) Vital Signs Temp Pulse Pulse Resp BP BP Pulse Ox 06/23/21 07:00 60 12 98 06/23/21 06:24 60 18 118/58 L 98 06/23/21 06:00 59 L 20 118/58 L 98 06/23/21 03:15 36.5 C 60 16 115/60 98 06/23/21 02:50 36.5 C 60 20 111/57 L 98 06/23/21 02:20 36.5 C 60 18 98/55 L 98 06/23/21 02:05 36.5 C 60 20 111/57 L 98 06/23/21 01:50 36.4 C L 61 20 108/61 99 06/23/21 01:30 36.4 C L 62 20 136/68 99 06/23/21 00:30 36.7 C 62 20 110/57 L 97 06/23/21 00:00 36.7 C 72 18 110/53 L 100 06/22/21 23:30 36.7 C 65 65 20 124/57 L 124/87 97 06/22/21 23:00 65 16 120/59 L 06/22/21 22:45 66 14 95 06/22/21 22:30 64 10 L 06/22/21 22:15 65 8 L Laboratory Results Laboratory Tests 06/22/21 06/23/21 06/23/21 15:06 06:24 06:24 WBC 16.68 H Hgb 8.0 L Hct 22.8 L Plt Count 166 Sodium 130 L Potassium 5.2 H Chloride 104 Carbon Dioxide 16 L BUN 139 H Creatinine 3.47 H Glucose 191 H Albumin 1.9 L PG Care Time/CCT Total # of Minutes Spent Total Time Spent with Patient: Total time spent is greater than 50% in coordination of care (as documented) at patient's floor/unit and/or counseling patient: Coding Level of Care Code 98130 Inpt Consult Level 5 Diagnoses CKD (chronic kidney disease), stage IV N18.4 Renal transplant recipient Z94.0 Anemia D64.9 Anemia type: unspecified type (1) Anemia Anemia type: unspecified type Qualified Code(s): D64.9 - Anemia, unspecified
--- NOTE | 2021-06-23 10:04 | Electrocardiogram Report ---
Test Reason : Blood Pressure : / mmHG Vent. Rate : 064 BPM Atrial Rate : 375 BPM P-R Int : 000 ms QRS Dur : 096 ms QT Int : 388 ms P-R-T Axes : 000 -09 082 degrees QTc Int : 400 ms Poor data quality, interpretation may be adversely affected Atrial fibrillation Cannot rule out Anterior infarct (cited on or before 22-JUN-2021) T wave abnormality, consider lateral ischemia Abnormal ECG When compared with ECG of 20-JUN-2021 00:00, No significant change Confirmed by Barry Palm ([id number]) on 06/23/2021 10:04:41 AM Referred By: REFERRED SELF Confirmed By:Barry Palm
[2021-06-23] MEDS: PANTOprazole 40 MG in SYRINGE 0 ML IV SCH ×2 (11:03→20:06)
--- NOTE | 2021-06-23 11:03 | Gastroenterology Progress Note ---
Date of Service June 23, 2021 Assessment & Plan (1) GI bleed: (2) Hematochezia: Plan: concern for peptic ulcer/UGI bleed; unable to do endoscopic procedures under anesthesia here for him as there is no neurosurgical backup available with his pneumocephalus and multiple craniotomies. recs: recommend urgent transfer to tertiary care center with neurosurgery capability for further treatment protonix drip NPO IVFs trend H/H, transfuse prn Admission and Anticipated Discharge Date Admission Date: June 22, 2021 Subjective continues to have hematochezia, received 2 units PRBC overnight. Has not been accepted for transfer to tertiary care center yet. on PPI. labs reviewed. BUN 139. Review of Systems Constitutional: no fever and no chills Respiratory: no cough, no dyspnea and no dyspnea on exertion Cardiovascular: no chest pain and no dyspnea Gastrointestinal: as per Subjective / HPI Psychiatric: no depression and no anxiety Physical Exam Constitutional: WD/WN, vitals as above Respiratory: normal respiratory effort, lungs clear to auscultation Cardiovascular: RRR, no murmur, no edema Gastrointestinal (Abdomen): normal bowel sounds, soft, nontender, no hepat osplenomegaly Musculoskeletal: no lower extremity edema Psychiatric: A+Ox3, euthymic affect Results & Data Results & Data ([facility]) Vital Signs (Past 12 Hours) Vital Signs Temp Pulse Pulse Resp BP BP Pulse Ox 06/23/21 10:28 62 13 89/54 L 100 06/23/21 10:00 63 13 100 06/23/21 09:00 63 19 96 06/23/21 08:00 62 16 98 06/23/21 07:00 60 12 98 06/23/21 06:24 60 18 118/58 L 98 06/23/21 06:00 59 L 20 118/58 L 98 06/23/21 03:15 36.5 C 60 16 115/60 98 06/23/21 02:50 36.5 C 60 20 111/57 L 98 06/23/21 02:20 36.5 C 60 18 98/55 L 98 06/23/21 02:05 36.5 C 60 20 111/57 L 98 06/23/21 01:50 36.4 C L 61 20 108/61 99 06/23/21 01:30 36.4 C L 62 20 136/68 99 06/23/21 00:30 36.7 C 62 20 110/57 L 97 06/23/21 00:00 36.7 C 72 18 110/53 L 100 06/22/21 23:30 36.7 C 65 65 20 124/57 L 124/87 97 06/22/21 23:00 65 16 120/59 L PG Care Time/CCT Total # of Minutes Spent Total Time Spent with Patient: Total time spent is greater than 50% in coordination of care (as documented) at patient's floor/unit and/or counseling patient: Coding Level of Care Code 53058 Subseq Hosp Care Lvl 3 Diagnoses GI bleed K92.2 Hematochezia K92.1
[2021-06-23] MEDS ORDERED: SODIUM BICARBONATE 8.4% 150 MEQ in WATER, STERILE 1,000 ML IV SCH (11:45)
[2021-06-23] MEDS ORDERED: SODIUM CHLORIDE 0.9% 250 ML IV PRN ×3 (12:20→13:50)
--- NOTE | 2021-06-23 12:22 | Hospitalist Progress Note ---
Date of Service June 23, 2021 Assessment & Plan (1) GI bleed: Plan: Patient presents with a now suspected upper GI bleed with markedly elevated BUN, on bid protonix, recently changed to Eliquis due to renal function by nephrology, last dose of Eliquis was this morning. Patient be transfused 2 units packed red blood cells with little rise in HGB, recheck hgb in afternoon and transfuse if needed Patient has acute blood loss anemia due to GI bleed now concern for upper GI bleed which has been influenced by circulating anticoagulant. Patient will get transexamined acid 1 g as his last Eliquis dose was 06/22/2021 in the morning Continued on Zosyn therapy for consideration of lower GI bleed on immunosuppression for renal transplant After discussion with Dr. Waters, anesthesia feels they will not feel comfortable performing sedation here and now with rising BUN concern for upper GI bleed is more considered. Once laboratory returns on recheck of hemoglobin will call [facility] we discussed possible transfer for high risk anesthesia for upper GI endoscopy (2) Insulin dependent diabetes mellitus: Plan: Patient will have his glipizide held he will be on insulin sliding scale continue his glargine (3) Left ventricular apical thrombus: Plan: Patient has a large left ventricular apical thrombus identified on echocardiogram in [facility]. On admitting EKG appears to have background atrial flutter. However given the concern for life-threatening GI bleed with hemoglobin dropping 3 g we are stopping anticoagulation at this point time considering reinstituting anticoagulation in short fashion perhaps on the and may be considering heparin products with coagulation clinic consulta tion (4) S/P subdural hematoma evacuation: Plan: Patient with persistent subdural hematoma evacuations will need silvestre removed on the (5) CKD (chronic kidney disease), stage IV: Plan: Follows with Dr. Pitts for chronic kidney disease stage IV does have a fistula in place in case dialysis is needed potassium is stable at this point time patient appears to be euvolemic, continue his rejection medications of mycophenolate dexamethasone which is also for his cerebral edema and tacrolimus, elevated BUN likely from GIB Dr. Stokes from nephrology recommends bicarbonate and some infusion of water (6) Bilateral leg edema: Plan: Patient has minor bilateral leg edema since starting his steroid therapy will attempt to use SCDs and teds Admission and Anticipated Discharge Date Admission Date: June 22, 2021 Subjective continues to have hematochezia, received 2 units PRBC overnight. HGB remains at 8 gms, I have spoken to GI recommending transfer to tertiary care center. labs reviewed. BUN 139. Review of Systems Review of Systems: Moderate distress and fatigue no headache, no visual changes no speech or swallowing issues no chest pain, pressure or palpitations no shortness of breath, cough or wheezes no abdominal pain, nausea or vomiting, bloody diarrhea x2 no dysuria, hematuria or frequency no focal joint pain persistent lower extremity swelling no back pain, CVA tenderness or radicular pain no bruising, bleeding or rashes has sutures on his righttemporal area and silvestre on his left temporal area Left-sided weakness no complaints of anxiety or depression.. Physical Exam Physical Exam: The patient appeared well nourished and normally developed. Vital signs as documented. Head exam is normocephalic sutures on the right are clean dry and intact silvestre in left are clean dry and intact reportedly silvestre are to come out on 25 June Neck is without JVD, thyromegaly, or carotid bruits. Lungs are clear to auscultation, but diminished at the bases Cardiac exam, Rhythm is regular.. No murmurs, rubs or gallops. Abdominal exam reveals normal bowel sounds, soft non tender, no masses specifically in the left lower quadrant discomfort Extremities are 1+ bilaterally edematous and both pedal pulses are present Neurologic exam is alert and oriented, has persistent focal left-sided weakness Skin is without bruises or rashes craniotomy wounds are clean dry and intact Psychologically is without concerns for anxiety or depression.. Results & Data Results & Data ([facility]) Vital Signs (Past 12 Hours) Vital Signs Temp Pulse Pulse Resp BP BP Pulse Ox 06/23/21 10:28 62 13 89/54 L 100 06/23/21 10:00 63 13 100 06/23/21 09:00 63 19 96 06/23/21 08:00 62 16 98 06/23/21 07:00 60 12 98 06/23/21 06:24 60 18 118/58 L 98 06/23/21 06:00 59 L 20 118/58 L 98 06/23/21 03:15 97.7 F 60 16 115/60 98 06/23/21 02:50 97.7 F 60 20 111/57 L 98 06/23/21 02:20 97.7 F 60 18 98/55 L 98 06/23/21 02:05 97.7 F 60 20 111/57 L 98 06/23/21 01:50 97.5 F L 61 20 108/61 99 06/23/21 01:30 97.5 F L 62 20 136/68 99 06/23/21 00:30 98.1 F 62 20 110/57 L 97 PG Care Time/CCT Total # of Minutes Spent Total Time Spent with Patient: Total time spent is greater than 50% in coordination of care (as documented) at patient's floor/unit and/or counseling patient: Coding Level of Care Code 58805 Subseq Hosp Care Lvl 3 Diagnoses GI bleed K92.2 Insulin dependent diabetes mellitus Left ventricular apical thrombus I51.3 S/P subdural hematoma evacuation Z98.890; Z86.79 CKD (chronic kidney disease), stage IV N18.4 Bilateral leg edema R60.0
[2021-06-23] MEDS ORDERED: TRANEXAMIC ACID 100 MG/ML 10 ML VIAL IV ONE (12:45)
[2021-06-23] MEDS ORDERED: TRANEXAMIC ACID 1,000 MG **IV Pre-op IV SCH (13:15)
[2021-06-23] MEDS ORDERED: CALCIUM GLUCONATE 10% 2,000 MG in SODIUM CHLORIDE 0.9% 50 ML IV ONE (14:00)
--- NOTE | 2021-06-23 16:59 | Gastrointestinal Consultation ---
Date of Consultation June 23, 2021 Assessment & Plan (1) GI bleed: Likely UGI bleed. EGD is indicated. Patient and recognizes higher risk with procedure given recent head surgery. Pt has been reevaluated by anesthesiologist. He is on ait list to be transferred to [facility]. Given this we will proceed with an upper scope. they have given consent, appreciating the higher risk for sever complications related to sedation. Any G complications could necessitate and emergent surgery, which again would be high risk. D/d include PUD and avms in the small gut given polycystic kidney disease. IV PPI bid Hold anticoagulation, the need for this will have to be reassessed. Will proceed with EGD History of Present Illness Reason for Consultation: active GI bleed Attending Physician: Ziggy Erickson MD History of Present Illness BRBPR starting yesterday. Go two units with not an appropriate hct response. He continues to have bloody stool. Increase in BUN. Primary GI at hazard reluctant to scope due to higher risk. I was called in as a second opinion and to offer endoscopy. [facility] has accepted patient but is on divert. No prior UGI bleed. 2016 has may be lower GI bleed, but without definite conclusion. He had diverticulosis. PMH of polycystic kidney noted, risk of avms, but not aware of its presence. Last brain surgery was couple week before, to drain a blood clot, unclear source of bleeding. His left side is still week and affects his mobility. Was better after the first surgery, this was the third. Pt is immunosuppressed after kidney transplant, remote. Allergies Allergy/AdvReac Type Severity Reaction Status Date / Time No Known Allergies Allergy Verified 06/20/21 00:07 Home Medications Medication Instructions Recorded Confirmed Type famotidine 10 mg tablet (Acid 10 mg PO QAM 03/03/19 06/22/21 History Service Dispatcher (famotidine)) magnesium oxide 250 mg PO BID tab 03/03/19 06/22/21 History multivitamin (Multiple Vitamins) 1 tab PO QAM 03/03/19 06/22/21 History atorvastatin 40 mg tablet (Lipitor) 40 mg PO HS 09/13/19 06/22/21 History tacrolimus 0.5 mg capsule, 0.5 mg PO Q12H cap 01/24/21 06/22/21 History immediate-release (Prograf) allopurinol 300 mg tablet 300 mg PO HS 01/31/21 06/22/21 History mycophenolate mofetil 250 mg 750 mg PO BID 01/31/21 06/22/21 History capsule (CellCept) glipizide 10 mg tablet (Glucotrol) 10 mg PO QAM tab 03/16/21 06/22/21 History mecobalamin (vitamin B12) 1,000 1,000 mcg PO QPM 03/26/21 06/22/21 History mcg chewable tablet (B12 Active) glipizide 5 mg tablet 2.5 mg PO HS #45 tab 05/30/21 06/22/21 Rx amlodipine 10 mg tablet 10 mg PO DAILY 06/18/21 06/22/21 History carvedilol 6.25 mg tablet 18.75 mg PO BID 06/18/21 06/22/21 History dexamethasone 4 mg tablet 4 mg PO BID 06/18/21 06/22/21 History nitroglycerin 0.4 mg sublingual 0.4 mg SUBLINGUAL DIRECTED PRN 06/19/21 06/22/21 History tablet omega-3 fatty acids-fish oil 684 1 cap PO DAILY 06/19/21 06/22/21 History mg-1,200 mg capsule,delayed release polyethylene glycol 3350 17 17 g PO DAILY PRN 06/19/21 06/22/21 History gram/dose oral powder (Miralax) apixaban 5 mg tablet (Eliquis) 5 mg PO BID #30 tab 06/20/21 06/22/21 Rx insulin aspart U-100 100 unit/mL 1 sliding scale dose SUBCUT 06/20/21 06/22/21 Rx (3 mL) subcutaneous pen USEASDIRECTD #15 ml pen needle, diabetic 31 gauge x #100 ea 06/20/21 06/22/21 Rx 5/32" insulin glargine 100 unit/mL (3 15 unit SUBCUT HS #45 ml 06/21/21 06/22/21 Rx mL) subcutaneous pen (Basaglar KwikPen U-100 Insulin) coenzyme Q10 100 mg capsule 100 mg PO BID 06/22/21 06/22/21 History (CoQ-10) Patient History Medical History WERNER (acute kidney injury) Anaplasmosis CHF (congestive heart failure) Chronic subdural hematoma COVID-19 vaccine administered Dehydration Diarrhea Diverticulosis Dizziness Elevated troponin Gout, joint Head ache Headache Hypercholesterolemia Hypoglycemia Myocardial Infarction Nausea Polycystic kidney ST elevation myocardial infarction (STEMI) Weakness Surgical History History of jami hole surgery Left jami hole drainage of subdural hematoma, placement of subdural drain 06/09/21 History of heart artery stent Hx of craniotomy redo right craniotomy for evacuation for subdural hematoma 06/07/21 [facility] [place] minicraniotomy for evacuation of subdural hematoma 03/27/21, 04/23/21 [facility] [place] Renal transplant recipient Family History Mother Breast cancer Father Stroke Polycystic kidney disease Denies family history of Ovarian cancer Prostate cancer Myocardial infarction Colorectal cancer Social History Smoking Status: Never smoker Second Hand Exposure: No; Do You Dip or Chew Tobacco: No; Hx Alcohol Use: No Hx Substance Use: No Preferred Language: Lithuanian Communication Ability: Effective Concession Worker Required: No Beliefs That Will Affect Care: None marital status: Current Living Situation: Spouse 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 Other Information That Helps Us Care for You: No Feels Safe at Home: Yes Safety Concerns: Feels Safe At This Time Dental Care, Regularly: Yes Physical Activity Frequency: 3-4 Times per Week Seatbelt Use: always Assistive Devices: Walker Review of Systems Constitutional: + fatigue, + weakness and + anorexia; no fever Respiratory: no cough and no dyspnea Gastrointestinal: + nausea and + blood in stools; no abdominal pain, no vomiting and no cramping Neurologic: as per Subjective / HPI Physical Exam Physical Exam: NAD Constitutional: WD/WN, vitals as above except bradycardia ( beta blocked) Respiratory: normal respiratory effort, lungs clear to auscultation Cardiovascular: Rate/Rhythm: regular rate and + bradycardic Gastrointestinal (Abdomen): normal bowel sounds, soft, nontender, no hepatosplenomegaly Skin: pale Neurologic: reported weakness, on left side, not examined in detail. Inicision site on the patients head. Psychiatric: Orientation: alert, oriented to person, oriented to place, oriented to time and cooperative Apperance: appropriately dressed Eye Contact: good eye contact Affect: euthymic affect Results & Data ([facility]) Vital Signs (Past 12 Hours) Vital Signs Temp Pulse Pulse Resp BP BP Pulse Ox 06/23/21 14:30 58 L 7 L 106/57 L 99 06/23/21 14:28 56 L 14 106/57 L 97 06/23/21 14:13 61 16 104/56 L 99 06/23/21 14:00 58 L 7 L 94/54 L 98 06/23/21 13:54 36.5 C 59 L 17 98/51 L 100 06/23/21 13:30 58 L 10 L 98/55 L 98 06/23/21 13:00 60 19 94/58 L 100 06/23/21 12:30 57 L 12 102/52 L 99 06/23/21 12:00 56 L 12 97/51 L 98 06/23/21 11:30 58 L 13 95/51 L 98 06/23/21 11:00 57 L 16 92/51 L 96 06/23/21 10:30 59 L 16 89/54 L 99 06/23/21 10:28 62 13 89/54 L 100 06/23/21 10:00 63 13 100 06/23/21 09:00 63 19 96 06/23/21 08:00 62 16 98 06/23/21 07:00 60 12 98 06/23/21 06:24 60 18 118/58 L 98 06/23/21 06:00 59 L 20 118/58 L 98 Laboratory Results Hct remains low
--- NOTE | 2021-06-23 17:07 | Procedure Note ---
Procedure Note Date of Service June 23, 2021 1700 Note INTERNAL JUGULAR CENTRAL LINE PROCEDURE NOTE: Procedure: Internal Jugular Central Line Placement Attending: Dr. Erickson APC: Hubert Estrada Indication: Central Drug Administration, Poor Venous Access, Multiple Lab Draws Necessary, etc. Anesthesia: [x]Lidocaine 1% [x]Consent was signed and placed on the chart prior to procedure. Indication, risks, and benefits were explained at length. A time-out was completed verifying correct patient, procedure, site, positioning, and implants(s) or special equipment if applicable. Patients Right Neck was cleansed and draped in the typical sterile fashion using Chloraprep. The Internal Jugular Vein and Carotid Artery were identified using ultrasound. The superficial tissue was anesthetized using 5 mL of 1% lidocaine without epinephrine under direct visualization with the ultrasound. After adequate anesthetization was achieved, the RIGHT Internal Jugular vein was cannulated under direct ultrasound guidance using an introducer needle on a syringe. Good venous blood return was maintained prior to removal of syringe from introducer needle. Using Seldinger Technique, a guide wire was advanced through the introducer needle without resistance. The introducer needle was removed and ultrasound was used to visualize the guide wire within the Internal Jugular Vein. A small incision was made in penetrating fashion at the guide wire insertion site utilizing an 11 blade scalpel. The dilator was advanced to the vessel without resistance. The dilator was exchanged for the triple lumen catheter which was advanced into the vessel without resistance. The guide wire was removed intact from the catheter without issue. Claves were placed on each catheter tip with confirmation of good blood flow from each lumen. Each port was easily flushed with sterile saline. The catheter was placed at 16 cm and sutured in place. BioPatch was applied to the catheter and a sterile Tegaderm dressing was applied over the catheter with careful attention to sterility. Patient tolerated procedure well. No immediate complications were met. Post procedure x-ray was completed, placement was appropriate and no pneumothorax was noted. Images obtained are saved for permanent record Procedural Ultrasound Guidance: Procedure Date: Indication: UGI bleed, vasopressor, Attending: Dr. Erickson Artery AND Vein visualized: YES Compressible Vein: YES Guidewire or Short Catheter seen in vein prior to dilation: YES Line confirmed in Vein with ultrasound: YES Images were not saved to permanent record electronically due to technical software. Coding CPT Codes Tubes, Drains, and Vasc Access - Tubes, Drains, and Vasc Access: [id number] Place catheter in vein superior or inferior vena cava ([id number]) [facility] Procedure Codes (Charges) Tubes, Drains, and Vasc Access Procedure 1: Tubes, Drains, and Vasc Access: [id number] Place catheter in vein superior or inferior vena cava
--- NOTE | 2021-06-23 17:31 | Anesthesiology Consultation ---
Date of Service June 23, 2021 Assessment & Plan Chart Review Chart Review: Acceptable Risk for Surgery and Patient NOT seen in Pre Admission Testing Consults Requested none ASA [id number] Proposed Anesthesia Anesthesia Type: General Risk / Benefits Reviewed With: PT / POA / Parent / Guardian, Accepts Plan and Informed Consent Obtained History Surgery Operation Date: 06/22/21 15:30 Proposed Procedures p EGD Hemostasis - Anthony Waters MD Operation Date: 06/23/21 17:40 Proposed Procedures p Esophagogastroduodenoscopy - oJhn Vieyra Height/Weight Height: 6 ft 5 in Weight: 94.35 kg Allergies Allergy/AdvReac Type Severity Reaction Status Date / Time No Known Allergies Allergy Verified 06/20/21 00:07 Medications Home Medications Medication Instructions Recorded Confirmed Last Taken famotidine 10 mg tablet (Acid 10 mg PO QAM 03/03/19 06/22/21 06/19/21 Nail Galvanizer (famotidine)) magnesium oxide 250 mg PO BID tab 03/03/19 06/22/21 06/19/21 08:00 multivitamin (Multiple Vitamins) 1 tab PO QAM 03/03/19 06/22/21 06/19/21 atorvastatin 40 mg tablet (Lipitor) 40 mg PO HS 09/13/19 06/22/21 06/18/21 tacrolimus 0.5 mg capsule, 0.5 mg PO Q12H cap 01/24/21 06/22/21 06/19/21 08:00 immediate-release (Prograf) allopurinol 300 mg tablet 300 mg PO HS 01/31/21 06/22/21 06/18/21 mycophenolate mofetil 250 mg 750 mg PO BID 01/31/21 06/22/21 06/19/21 08:00 capsule (CellCept) glipizide 10 mg tablet (Glucotrol) 10 mg PO QAM tab 03/16/21 06/22/21 06/19/21 mecobalamin (vitamin B12) 1,000 1,000 mcg PO QPM 03/26/21 06/22/21 06/18/21 mcg chewable tablet (B12 Active) glipizide 5 mg tablet 2.5 mg PO HS #45 tab 05/30/21 06/22/21 06/18/21 amlodipine 10 mg tablet 10 mg PO DAILY 11/06/22/21 06/19/21 carvedilol 6.25 mg tablet 18.75 mg PO BID 06/18/21 06/22/21 06/19/21 08:00 dexamethasone 4 mg tablet 4 mg PO BID 06/18/21 06/22/21 06/19/21 08:00 nitroglycerin 0.4 mg sublingual 0.4 mg SUBLINGUAL DIRECTED PRN 06/19/21 06/22/21 Unknown tablet omega-3 fatty acids-fish oil 684 1 cap PO DAILY 06/19/21 06/22/21 06/19/21 mg-1,200 mg capsule,delayed release polyethylene glycol 3350 17 17 g PO DAILY PRN 06/19/21 06/22/21 06/19/21 gram/dose oral powder (Miralax) apixaban 5 mg tablet (Eliquis) 5 mg PO BID #30 tab 06/20/21 06/22/21 Unknown insulin aspart U-100 100 unit/mL 1 sliding scale dose SUBCUT 06/20/21 06/22/21 Unknown (3 mL) subcutaneous pen USEASDIRECTD #15 ml pen needle, diabetic 31 gauge x #100 ea 06/20/21 06/22/21 Unknown 5/32" insulin glargine 100 unit/mL (3 15 unit SUBCUT HS #45 ml 06/21/21 06/22/21 Unknown mL) subcutaneous pen (Basaglar KwikPen U-100 Insulin) coenzyme Q10 100 mg capsule 100 mg PO BID 06/22/21 06/22/21 Unknown (CoQ-10) Active Medications Generic Name Dose Route Start Last Admin Trade Name Thiago PRN Reason Stop Dose Admin Allopurinol 100 mg 06/22/21 21:30 06/22/21 22:35 Allopurinol 100 Mg Tab PO 07/22/21 21:29 100 mg HS ZOEY Administration Amlodipine Besylate 10 mg 06/23/21 09:00 06/23/21 09:14 Amlodipine Besylate 5 Mg Tab PO 07/23/21 08:59 10 mg DAILY ZOEY Administration Atorvastatin Calcium 40 mg 06/22/21 21:30 06/22/21 22:35 Atorvastatin 40 Mg Tab PO 07/22/21 21:29 40 mg HS ZOEY Administration Carvedilol 18.75 mg 06/22/21 21:30 06/23/21 09:14 Carvedilol 6.25 Mg Tab PO 07/22/21 21:29 18.75 mg BID ZOEY Administration Dexamethasone 4 mg 06/22/21 21:30 06/23/21 09:14 Dexamethasone 4 Mg Tab PO 07/22/21 21:29 4 mg BID ZOEY Administration Famotidine 10 mg 06/23/21 09:00 06/23/21 09:15 Famotidine 10 Mg Tablet PO 07/23/21 08:59 10 mg QAM ZOEY Administration Piperacillin Sod/Tazobactam 115 mls @ 28.75 mls/hr 06/23/21 06:00 06/23/21 10:23 Sod 3.375 gm/ Dextrose IV 07/03/21 05:59 Infused Q12H ZOEY Infusion Protocol Pantoprazole Sodium 40 mg/ 10 mls @ 5 mls/min 06/23/21 09:45 06/23/21 11:03 Syringe IV 07/23/21 09:44 5 mls/min BID ZOEY Administration Sodium Bicarbonate 150 meq/ 1,150 mls @ 100 mls/hr 06/23/21 11:45 06/23/21 11:51 Sterile Water IV 06/23/21 21:44 100 mls/hr .[id number] ZOEY Administration Insulin Aspart 0 units 06/22/21 21:30 06/23/21 12:56 Insulin Aspart 100 Units/Ml 3 Ml Pen SC 07/22/21 21:29 4 units ACHS ZOEY Administration Insulin Glargine 15 units 06/22/21 21:30 06/22/21 22:37 Insulin Glargine Solostar 100 Units/Ml 3 Ml Pen SQ 07/22/21 21:29 15 units HS ZOEY Administration Magnesium Oxide 400 mg 06/22/21 21:30 06/23/21 09:14 Magnesium Oxide 400 Mg Tab PO 07/22/21 21:29 400 mg BID ZOEY Administration Multivitamins 1 tab 06/23/21 09:00 06/23/21 09:15 Multivitamin Tab PO 07/23/21 08:59 1 tab QAM ZOEY Administration Mycophenolate Mofetil 750 mg 06/22/21 21:30 06/23/21 09:15 Mycophenolate Mofetil 250 Mg Cap PO 07/22/21 21:29 750 mg BID ZOEY Administration Tacrolimus 0.5 mg 06/22/21 21:30 06/23/21 09:15 Tacrolimus 0.5 Mg Cap PO 07/22/21 21:29 0.5 mg Q12 ZOEY Administration Past Medical History Medical History WERNER (acute kidney injury) Anaplasmosis CHF (congestive heart failure) Chronic subdural hematoma COVID-19 vaccine administered Dehydration Diarrhea Diverticulosis Dizziness Elevated troponin Gout, joint Head ache Headache Hypercholesterolemia Hypoglycemia Myocardial Infarction Nausea Polycystic kidney ST elevation myocardial infarction (STEMI) Weakness Exercise / Class Metabolic Activity II 4-5 Yardwork/Stairs/Walk up hill Past Family History Family History Mother Breast cancer Father Stroke Polycystic kidney disease Denies family history of Ovarian cancer Prostate cancer Myocardial infarction Colorectal cancer Past Surgical History Surgical History History of jami hole surgery Left jami hole drainage of subdural hematoma, placement of subdural drain 06/09/21 History of heart artery stent Hx of craniotomy redo right craniotomy for evacuation for subdural hematoma 06/07/21 [facility] [place] right minicraniotomy for evacuation of subdural hematoma 03/27/21, 04/23/21 [facility] [place] Renal transplant recipient Past Anesthesia History No Hx of Anesthesia Complications and No Family Hx of Anesthesia Complications History of PONV No Hx of PONV and No Hx of Motion Sickness Social History Smoking Status: Never smoker Do You Dip or Chew Tobacco: No Hx Alcohol Use: No Alcohol type: wine alcohol intake frequency: a few times a week Hx Substance Use: No substance use type: does not use Physical Exam Vital Signs Last Vital Signs Temp 36.5 C 06/23/21 13:54 Pulse 62 06/23/21 17:00 Resp 13 06/23/21 17:00 BP 109/59 L 06/23/21 17:00 Pulse Ox 99 06/23/21 17:00 ENMT Mouth: no dentition abnormality Thyromental Distance: > or= 3.5 Finger Breadths Mallampati Class: III Neck normal visual inspection and + facial hair Respiratory normal respiratory effort Auscultation: lungs clear to auscultation bilaterally Cardiovascular Rate/Rhythm: regular rate; + abnormal rhythm (afib) Chest (Breasts) Chest: + vascular access device or port (RIJ Triple leumen) Neurologic moves all extremities Psychiatric Orientation: alert Testing Laboratory Results 06/23/21 12:34 06/23/21 06:24 Blood Type B Positive 06/22/21 15:06 Antibody Screen NEGATIVE 06/22/21 15:06 06/23/21 06/23/21 11:54 07:42 POC Glucose 211 H 197 H
[2021-06-23] MEDS ORDERED: SUGAMMADEX SODIUM 200 MG/2 ML VIAL IV ONE (17:44)
--- NOTE | 2021-06-23 18:05 | XRay Report ---
XR chest 1V portable HISTORY: 66 years-old Male s/p central line placment to R. IJ- r/o pthx status post placement of a right IJ central venous catheter COMPARISON: Chest radiograph 06/03/2021 TECHNIQUE: Portable AP view of the chest FINDINGS: The cardiac silhouette is mildly enlarged. Right IJ central venous catheter distal tip is noted in th e expected location of the inferior SVC. No pneumothorax. Small pleural effusions with mild bibasilar densities. Suggested pulmonary vascular congestion. Degenerative changes of the shoulders and spine. IMPRESSION: 1. Status post placement of a right IJ central venous catheter with distal tip in the expected locati on of the inferior SVC. No pneumothorax. 3. Small pleural effusions with mild bibasilar opacities. ACT 112: Negative or not required by law. The above report was generated using voice recognition software. It may contain grammatical, syntax o r spelling errors. Electronically signed by: Geovanni Murillo M.D. 06/23/2021 6:04 PM
[2021-06-23] MEDS ORDERED: PROPOFOL IV EMULSION 10 MG/ML 20 ML VIAL IV ONE (18:50)
[2021-06-23] MEDS ORDERED: LIDOCAINE 2% 20 MG/ML 5 ML SYR IV ONE (18:50)
[2021-06-23] MEDS ORDERED: NOREPINEPHRINE BITARTRATE 1 MG/ML 4 ML VIAL IV ONE (18:53)
[2021-06-23] MEDS ORDERED: GLYCOPYRROLATE 0.2 MG/ML VIAL ONE (18:53)
[2021-06-23] MEDS ORDERED: ePHEDrine sulfate 50 MG/ML SYR ONE (18:53)
[2021-06-23] MEDS ORDERED: ROCURONIUM BROMIDE 10 MG/ML 5 ML VIAL IV ONE (18:53)
[2021-06-23] MEDS ORDERED: VASOPRESSIN 20 UNIT/ML VIAL ONE (18:53)
--- NOTE | 2021-06-23 18:57 | Anesthesiology Progress Note ---
Date of Service June 23, 2021 Anesthesia Post Procedure Vital Signs Vital Signs: Temp Pulse Pulse Resp BP BP Pulse Ox 06/23/21 17:00 62 13 109/59 L 99 06/23/21 16:45 62 13 106/57 L 99 06/23/21 16:30 62 13 96/57 L 99 06/23/21 16:00 61 8 L 99 06/23/21 15:30 62 9 L 99 06/23/21 15:00 60 12 96 06/23/21 14:30 58 L 7 L 106/57 L 99 06/23/21 14:28 56 L 14 106/57 L 97 06/23/21 14:13 61 16 104/56 L 99 06/23/21 14:00 58 L 7 L 94/54 L 98 06/23/21 13:54 97.7 F 59 L 17 98/51 L 100 06/23/21 13:30 58 L 10 L 98/55 L 98 06/23/21 13:00 60 19 94/58 L 100 06/23/21 12:30 57 L 12 102/52 L 99 06/23/21 12:00 56 L 12 97/51 L 98 06/23/21 11:30 58 L 13 95/51 L 98 06/23/21 11:00 57 L 16 92/51 L 96 06/23/21 10:30 59 L 16 89/54 L 99 06/23/21 10:28 62 13 89/54 L 100 06/23/21 10:00 63 13 100 06/23/21 09:00 63 19 96 06/23/21 08:00 62 16 98 06/23/21 07:00 60 12 98 06/23/21 06:24 60 18 118/58 L 98 06/23/21 06:00 59 L 20 118/58 L 98 06/23/21 03:15 97.7 F 60 16 115/60 98 06/23/21 02:50 97.7 F 60 20 111/57 L 98 06/23/21 02:20 97.7 F 60 18 98/55 L 98 06/23/21 02:05 97.7 F 60 20 111/57 L 98 06/23/21 01:50 97.5 F L 61 20 108/61 99 06/23/21 01:30 97.5 F L 62 20 136/68 99 06/23/21 00:30 98.1 F 62 20 110/57 L 97 06/23/21 00:00 98.1 F 72 18 110/53 L 100 06/22/21 23:30 98.1 F 65 65 20 124/57 L 124/87 97 06/22/21 23:00 65 16 120/59 L 06/22/21 22:45 66 14 95 06/22/21 22:30 64 10 L 06/22/21 22:15 65 8 L 06/22/21 22:00 64 7 L 99 06/22/21 21:45 65 11 L 06/22/21 21:40 97.9 F 65 13 159/129 H 99 06/22/21 21:30 65 11 L 06/22/21 21:15 67 9 L 136/88 06/22/21 21:00 64 8 L 06/22/21 20:45 67 7 L 99 06/22/21 20:30 64 11 L 99 06/22/21 20:15 62 8 L 97 06/22/21 20:00 63 9 L 99 06/22/21 19:45 63 7 L 99 06/22/21 19:30 63 7 L 98 06/22/21 19:15 67 7 L 99 06/22/21 19:00 63 9 L 118/65 98 Transfer of Care Handoff Completed per policy Notes Mental Status: alert / awake / arousable and participated in evaluation Patient Amnestic to Procedure: Yes Nausea / Vomiting: adequately controlled Pain: adequately controlled Airway Patency, RR, SpO2: stable & adequate BP & HR: stable & adequate Hydration State: stable & adequate Anesthetic Complications: no major complications apparent and Pt Satisfied with anesthetic care
--- NOTE | 2021-06-23 20:03 | Critical Care Consultation ---
Date of Consultation June 23, 2021 Assessment & Plan (1) GI bleed: Reason Critically Ill: 66-year-old male with complex medical history and recent admission at [place] for subdural hematoma, presents to the ICU with acute GI bleed and acute blood loss anemia. He is s/p EGD without intervention. He is admitted to ICU and awaiting transfer to [facility] which is currently on diversion. Neuro - Subdural hematomaunderwent right craniotomy and left bur holes at [facility]. No is anitra at this time. Monitor Cardiac - Currently hemodynamically stable. Underlying atrial flutter, rate controlled. Hold antihypertensives for now. Continuous monitoring on telemetry Left ventricle apical thrombuswas identified at [facility] on echocardiogram. Anticoagulation stopped considering GI bleed Respiratory - Currently maintaining oxygen saturation on room air, lungs clear to auscultation . No history of pulmonary disease. Monitor on pulse ox GI - Acute GI bleedpatient underwent EGD where Per conversation with Dr. Tom, was found to have gastritis and nonbleeding diverticulosis. No identifiable source of bleeding, recommended transfer to tertiary center. -Patient on apixaban due to left ventricular apical thrombus. Last dose 06/22. Received TXA in ED -Continue PPI drip -Acute blood loss anemia treatment as seen below -Hold anticoagulation and transfuse as indicated RENAL/LYTES - WERNER on CKDpatient with renal insufficiency following renal transplant 1996. Creatinine 3.5 -Nephrology following, appreciate recommendations -Continue IV bicarb drip -Potassium 5.2, will repeat BMP -Left wrist aVF clotted, would need hemodialysis catheter if requires HD -Continue immunosuppressive regimen Prograf, mycophenolate, prednisone -Continue to monitor BMPs and urine output - Foleystrict I's and Os ENDO - DM type IIcontinue insulin glargine, aspart -ICU hyperglycemic protocol HEME - Acute blood loss anemialast hemoglobin 8.3, repeating CBC and coags following 3 units RBCs and 1 unit FFP -We will check fibrinogen -Monitor frequent CBC, transfuse as indicated ID - No indication for infectious process at this time LINES/IV ACCESS - Right IJ CVC DVT PROPHYLAXIS - SCDs, hold anticoagulation in setting of acute GI bleed I have personally spent 45 minutes of critical care time in the direct management of this patient. This is a life/limb threatening event. This includes time spent evaluating patient, direct bedside care, chart review, placing orders, interpretation of diagnostic studies, discussion with consultants, patient, and family members, as well as other required patient management activities. This time is exclusive of all separately billable procedures, and teaching time and separate from and in addition to any other critical care service time. Thank you for allowing us to participate in the care of this patient. Please r efer to my attending physician's documentation for any further recommendations. (2) S/P subdural hematoma evacuation: (3) Left ventricular apical thrombus: (4) Insulin dependent diabetes mellitus: (5) Hematochezia: (6) Acute kidney injury superimposed on CKD: (7) Immunosuppression: (8) Coronary artery disease: (9) HTN (hypertension): (10) Hypercholesterolemia: (11) Renal transplant recipient: History of Present Illness Attending Physician: Ziggy Erickson MD Allergies Allergy/AdvReac Type Severity Reaction Status Date / Time No Known Allergies Allergy Verified 06/20/21 00:07 Home Medications Medication Instructions Recorded Confirmed Type famotidine 10 mg tablet (Acid 10 mg PO QAM 03/03/19 06/22/21 History Implementation Advisor (famotidine)) magnesium oxide 250 mg PO BID tab 03/03/19 06/22/21 History multivitamin (Multiple Vitamins) 1 tab PO QAM 03/03/19 06/22/21 History atorvastatin 40 mg tablet (Lipitor) 40 mg PO HS 09/13/19 06/22/21 History tacrolimus 0.5 mg capsule, 0.5 mg PO Q12H cap 01/24/21 06/22/21 History immediate-release (Prograf) allopurinol 300 mg tablet 300 mg PO HS 01/31/21 06/22/21 History mycophenolate mofetil 250 mg 750 mg PO BID 01/31/21 06/22/21 History capsule (CellCept) glipizide 10 mg tablet (Glucotrol) 10 mg PO QAM tab 03/16/21 06/22/21 History mecobalamin (vitamin B12) 1,000 1,000 mcg PO QPM 03/26/21 06/22/21 History mcg chewable tablet (B12 Active) glipizide 5 mg tablet 2.5 mg PO HS #45 tab 05/30/21 06/22/21 Rx amlodipine 10 mg tablet 10 mg PO DAILY 06/18/21 06/22/21 History carvedilol 6.25 mg tablet 18.75 mg PO BID 06/18/21 06/22/21 History dexamethasone 4 mg tablet 4 mg PO BID 06/18/21 06/22/21 History nitroglycerin 0.4 mg sublingual 0.4 mg SUBLINGUAL DIRECTED PRN 06/19/2106/22 History tablet omega-3 fatty acids-fish oil 684 1 cap PO DAILY 06/19/21 06/22/21 History mg-1,200 mg capsule,delayed release polyethylene glycol 3350 17 17 g PO DAILY PRN 06/19/21 06/22/21 History gram/dose oral powder (Miralax) apixaban 5 mg tablet (Eliquis) 5 mg PO BID #30 tab 06/20/21 06/22/21 Rx insulin aspart U-100 100 unit/mL 1 sliding scale dose SUBCUT 06/20/21 06/22/21 Rx (3 mL) subcutaneous pen USEASDIRECTD #15 ml pen needle, diabetic 31 gauge x #100 ea 06/20/21 06/22/21 Rx 5/32" insulin glargine 100 unit/mL (3 15 unit SUBCUT HS #45 ml 06/21/21 06/22/21 Rx mL) subcutaneous pen (Basaglar KwikPen U-100 Insulin) coenzyme Q10 100 mg capsule 100 mg PO BID 06/22/21 06/22/21 History (CoQ-10) Patient History Medical History WERNER (acute kidney injury) Anaplasmosis CHF (congestive heart failure) Chronic subdural hematoma COVID-19 vaccine administered Dehydration Diarrhea Diverticulosis Dizziness Elevated troponin Gout, joint Head ache Headache Hypercholesterolemia Hypoglycemia Myocardial Infarction Nausea Polycystic kidney ST elevation myocardial infarction (STEMI) Weakness Surgical History History of jami hole surgery Left jami hole drainage of subdural hematoma, placement of subdural drain 06/09/21 History of heart artery stent Hx of craniotomy redo right craniotomy for evacuation for subdural hematoma 06/07/21 [facility] right minicraniotomy for evacuation of subdural hematoma 03/27/21, 04/23/21 [facility] Renal transplant recipient Family History Mother Breast cancer Father Stroke Polycystic kidney disease Denies family history of Ovarian cancer Prostate cancer Myocardial infarction Colorectal cancer Social History Smoking Status: Never smoker Second Hand Exposure: No; Hx Alcohol Use: No Hx Substance Use: No Preferred Language: Albanian Communication Ability: Effective Cornice Upholsterer Required: No Beliefs That Will Affect Care: None marital status: Current Living Situation: Spouse 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 Feels Safe at Home: Yes Dental Care, Regularly: Yes Physical Activity Frequency: 3-4 Times per Week Seatbelt Use: always Assistive Devices: Walker Results & Data Results & Data ([facility]) Vital Signs (Past 12 Hours) Vital Signs Temp Pulse Pulse Resp BP BP Pulse Ox 06/23/21 19:37 36.4 C L 60 12 109/62 96 06/23/21 19:20 59 L 12 114/61 98 06/23/21 19:10 36.6 C 59 L 12 104/62 98 06/23/21 19:00 61 13 115/60 100 06/23/21 18:50 61 14 112/58 L 96 06/23/21 18:40 36.7 C 63 12 107/68 98 06/23/21 17:00 62 13 109/59 L 99 06/23/21 16:45 62 13 106/57 L 99 06/23/21 16:30 62 13 96/57 L 99 06/23/21 16:00 61 8 L 99 06/23/21 15:30 62 9 L 99 06/23/21 15:00 60 12 96 06/23/21 14:30 58 L 7 L 106/57 L 99 06/23/21 14:28 56 L 14 106/57 L 97 06/23/21 14:13 61 16 104/56 L 99 06/23/21 14:00 58 L 7 L 94/54 L 98 06/23/21 13:54 36.5 C 59 L 17 98/51 L 100 06/23/21 13:30 58 L 10 L 98/55 L 98 06/23/21 13:00 60 19 94/58 L 100 06/23/21 12:30 57 L 12 102/52 L 99 06/23/21 12:00 56 L 12 97/51 L 98 06/23/21 11:30 58 L 13 95/51 L 98 06/23/21 11:00 57 L 16 92/51 L 96 06/23/21 10:30 59 L 16 89/54 L 99 06/23/21 10:28 62 13 89/54 L 100 06/23/21 10:00 63 13 100 06/23/21 09:00 63 19 96 06/23/21 08:00 62 16 98 Coding Level of Care Code Critical Care 1st 30-74 mins Diagnoses S/P subdural hematoma evacuation Z98.890; Z86.79 Left ventricular apical thrombus I51.3 Insulin dependent diabetes mellitus Hematochezia K92.1 GI bleed K92.2 Acute kidney injury superimposed on CKD N17.9; N18.9 Immunosuppression D84.9 Coronary artery disease I25.10 HTN (hypertension) I10 Hypercholesterolemia E78.00 Renal transplant recipient Z94.0
[2021-06-23 20:13] LABS: Hematocrit (blood only) 27.4 % (42-52); Hemoglobin 9.6 g/dL (14.0-18.0); Mean Corpuscular Hemoglobin 31.2 pg (25-34); Mean Platelet Volume 12.4 fL (7.4-10.4); Platelet Count 134 K/uL (130-400); RDW Standard Deviation 48.9 fL (36.4-46.3); Red Blood Count 3.08 M/uL (4.7-6.1); White Blood Count 15.14 K/uL (4.8-10.8)
[2021-06-23 20:29] LABS: INR 1.1 (0.9-1.1); Prothrombin Time 11.2 Seconds (9.0-12.0)
[2021-06-23 20:30] LABS: BUN Creatinine Ratio 39.5 (10-20); Calcium 8.4 mg/dl (8.5-10.1); Creatinine Clr Calc Pharmacy 25.6 ml/min; Est GFR (African American) 19.6 ml/min; Est GFR (Non-African American) 16.9 ml/min; Potassium 5.4 mmol/L (3.5-5.1)
[2021-06-23] MEDS: allopurinoL 100 MG TAB PO SCH (20:35)
[2021-06-23] MEDS: ATORVASTATIN 40 MG TAB PO SCH (20:35)
[2021-06-23 20:49] LABS: Fibrinogen 167 mg/dl (184-400)
[2021-06-23] MEDS: PANTOprazole 40 MG in DEXTROSE 5% 100 ML IV SCH (20:52)
[2021-06-23] MEDS ORDERED: ICU PROTOCOL FOR HYPERGLYCEMIA PRN (20:52)
[2021-06-23] MEDS: INSULIN GLARGINE SOLOSTAR 100 UNITS/ML 3 ML PEN SQ SCH (20:52)
[2021-06-23] MEDS ORDERED: STAT IV STA (20:57)
[2021-06-23] MEDS ORDERED: SODIUM BICARBONATE 8.4% 75 MEQ in SODIUM CHLORIDE 0.45 % 1,000 ML IV SCH (21:00)
--- NOTE | 2021-06-23 21:26 | Hospitalist Progress Note ---
Date of Service June 23, 2021 Assessment & Plan (1) GI bleed: Plan: Patient presents with GI bleed with markedly elevated BUN, on bid protonix, recently changed to Eliquis due to renal function by nephrology, last dose of Eliquis was morning of 05/22/21. Patient be transfused 4 units packed red blood cells, ffp tranexamic acid and calcium Patient has acute blood loss anemia due to GI bleed, much time was spent coordinating endoscopy. INitally Dr Waters and Dr Chau felt the pt was too high risk to have EGD and anesthesia here I called [facility] who informed me they were on divert I called [facility] and they informed that they would not have bed for 24-48 hrs I spoke to [facility] and they accepted but would not have a bed for 24 hours since the pt had lower blood pressures and was still with bloody bowel movements I flet he needed attention to try to control an upper gi bleed, I re contacted Dr Chau from anesthesia who felt that if there was no other choice would consider doing anesthesia even with recent neurosurgery and pneuomcephalus. I contacted Dr Waters who states he felt uncomfortable and wound not be willing to perform the procedure. I then called Dr Vieyra, exhibition designer for [facility] and explained the situation, he said he would see the patient if Dr Waters felt it would be reasonable. I then re contacted Dr Waters and he gave permission for Dr Arthur to see the patient, he arrived in the ER and after charu will took the pt to have upper endoscopy, unfortunately did not find any significant bleeding source and recommends continued pursuit of tertiary referral. I did contact [facility] and they have him on urgent list but no timeline in place for transfer , Dr Beebe accepting physician Continued on Zosyn therapy for consideration of lower GI bleed on immunosuppression for renal transplant (2) Insulin dependent diabetes mellitus: Plan: Patient will have his glipizide held he will be on insulin sliding scale continue his glargine (3) Left ventricular apical thrombus: Plan: Patient has a large left ventricular apical thrombus identified on echocardiogr am in [facility]. On admitting EKG appears to have background atrial flutter. However given the concern for life-threatening GI bleed with hemoglobin dropping 3 g we are stopping anticoagulation at this point time considering reinstituting anticoagulation in short fashion with coagulation clinic consultation. I did speak to Dr Neumann and she agrees to heparin product perhaps once a day lovenox and eventually warfarin but will need to have bleeding controlled prior to starting. ECG concern for rate controlled aflutter, plus LV thrombus will have cardiology consult (4) S/P subdural hematoma evacuation: Plan: Patient with persistent subdural hematoma evacuations will need silvestre removed on the (5) CKD (chronic kidney disease), stage IV: Plan: Follows with Dr. Pitts for chronic kidney disease stage IV does have a fistula in place in case dialysis is needed potassium is stable at this point time patient appears to be euvolemic, continue his rejection medications of mycophenolate dexamethasone which is also for his cerebral edema and tacrolimus, elevated BUN likely from GIB Dr. Stokes from nephrology recommends bicarbonate and some infusion of water (6) Bilateral leg edema: Plan: Patient has minor bilateral leg edema since starting his steroid therapy will attempt to use SCDs and teds Plan: I spent an additional 2 hours of critical care time with this patient today Admission and Anticipated Discharge Date Admission Date: June 22, 2021 Subjective Patient had lower blood pressure drop today due to significant bowel movement with clots of blood and melena. Not complain of abdominal pain at the days is present at the bedside initially consented to central line placement which was done in his right IJ Results & Data Results & Data ([facility]) Vital Signs (Past 12 Hours) Vital Signs Temp Pulse Pulse Resp BP BP Pulse Ox 06/23/21 19:37 97.5 F L 60 12 109/62 96 06/23/21 19:20 59 L 12 114/61 98 06/23/21 19:10 97.9 F 59 L 12 104/62 98 06/23/21 19:00 61 13 115/60 100 06/23/21 18:50 61 14 112/58 L 96 06/23/21 18:40 98.1 F 63 12 107/68 98 06/23/21 17:00 62 13 109/59 L 99 06/23/21 16:45 62 13 106/57 L 99 06/23/21 16:30 62 13 96/57 L 99 06/23/21 16:00 61 8 L 99 06/23/21 15:30 62 9 L 99 06/23/21 15:00 60 12 96 06/23/21 14:30 58 L 7 L 106/57 L 99 06/23/21 14:28 56 L 14 106/57 L 97 06/23/21 14:13 61 16 104/56 L 99 06/23/21 14:00 58 L 7 L 94/54 L 98 06/23/21 13:54 97.7 F 59 L 17 98/51 L 100 06/23/21 13:30 58 L 10 L 98/55 L 98 06/23/21 13:00 60 19 94/58 L 100 06/23/21 12:30 57 L 12 102/52 L 99 06/23/21 12:00 56 L 12 97/51 L 98 06/23/21 11:30 58 L 13 95/51 L 98 06/23/21 11:00 57 L 16 92/51 L 96 06/23/21 10:30 59 L 16 89/54 L 99 06/23/21 10:28 62 13 89/54 L 100 06/23/21 10:00 63 13 100 PG Care Time/CCT Total # of Minutes Spent Total Time Spent with Patient: Total time spent is greater than 50% in coordination of care (as documented) at patient's floor/unit and/or counseling patient: Coding Level of Care Code 07860 Subseq Hosp Care Lvl 3 Diagnoses GI bleed K92.2 Insulin dependent diabetes mellitus Left ventricular apical thrombus I51.3 S/P subdural hematoma evacuation Z98.890; Z86.79 CKD (chronic kidney disease), stage IV N18.4 Bilateral leg edema R60.0 Time Spent (min) 120 Comment critical care time
[2021-06-24 01:34] LABS: Hematocrit (blood only) 24.9 % (42-52); Hemoglobin 8.7 g/dL (14.0-18.0)
[2021-06-24 05:40] LABS: BUN Creatinine Ratio 39.1 (10-20); Creatinine Clr Calc Pharmacy 25.2 ml/min; Est GFR (African American) 19.2 ml/min; Est GFR (Non-African American) 16.6 ml/min; Potassium 4.8 mmol/L (3.5-5.1)
[2021-06-24 05:53] LABS: Prothrombin Time 10.5 Seconds (9.0-12.0)
[2021-06-24] MEDS: PIPERACILLIN/TAZOBACTAM 3.375 GM in DEXTROSE 5% 100 ML IV SCH (05:55)
[2021-06-24] MEDS: PANTOprazole 40 MG in DEXTROSE 5% 100 ML IV SCH ×5 (05:56→21:19)
[2021-06-24 05:59] LABS: Hematocrit (blood only) 26.3 % (42-52); Hemoglobin 9.3 g/dL (14.0-18.0); Mean Corpuscular Hgb Conc 35.4 g/dL (32-36); Mean Corpuscular Volume 87.7 fL (80-100); Mean Platelet Volume 12.7 fL (7.4-10.4); Platelet Count 130 K/uL (130-400); Platelet Estimate Decreased (Normal); RDW Coefficient of Variation 15.3 % (11.5-14.5); RDW Standard Deviation 49.4 fL (36.4-46.3); White Blood Count 16.21 K/uL (4.8-10.8)
[2021-06-24 06:21] LABS: Fibrinogen 209 mg/dl (184-400)
[2021-06-24] MEDS: SODIUM BICARBONATE 8.4% 150 MEQ in WATER, STERILE 1,000 ML IV SCH ×2 (07:43→18:37)
[2021-06-24 07:58] LABS: Estimated Average Glucose 183 mg/dl
--- NOTE | 2021-06-24 08:20 | Critical Care Progress Note ---
Date of Service June 24, 2021 Assessment & Plan (1) GI bleed: (2) Insulin dependent diabetes mellitus: (3) Left ventricular apical thrombus: (4) S/P subdural hematoma evacuation: (5) Acute kidney injury superimposed on CKD: (6) Anemia: Plan: Impression: 66-year-old male with history of kidney transplant on immunosuppression recently treated for acute on chronic subdural hematoma with bur hole placement. He has a known left ventricular thrombus and presented with GI bleeding. He received 3 units of packed cells and 1 unit of FFP. There was initial concern that given his neurological status, anesthesia could not sedate him so there was discussion to transfer the patient to a higher level of care. Beds were not available and given the acuity of the situation the patient underwent EGD yesterday. No acute bleeding was identified. His hemoglobin and hematocrit of been stable. He was observed in the ICU overnight as there was concern about potential clinical deterioration however he has been relatively stable. 24-hour events: Status post EGD with gastritis. Hemodynamically stable. Maintains on pressors. Bicarb initiated per nephrology. Recommendations: 1. Neurologic: Acute on chronic subdural status post bur hole placement. He appears neurologically at baseline. He does have paraplegia at baseline. Continue to follow neurological status. 2. Cardiovascular: Hemodynamically stable. History of LV thrombus. Will need to reinitiate anticoagulation judiciously within the next 24 hours as the patient is at high risk for stroke. A flutter rate controlled. Holding antihypertensives given his hemodynamic issues. 3. Pulmonary: No current issues. Wean oxygen as tolerated. Pulmonary toilet as needed. 4. Renal: Nephrology consultation pending. Continue bicarb pending their evaluation. Will defer immunosuppression to them. Defer electrolyte replacement to nephrology as well. 5. GI: Status post endoscopy with no obvious signs of bleeding. Continue to trend hemoglobin and hematocrit. Transfuse as needed. Continue Protonix drip. There is initial concern about transferring the patient to [place] however this appeared to be motivated by concerns about anesthesia's ability to sedate the patient for an EGD given his neurological issues. As the EGD has been accomplished, I am not sure that he requires transfer to a higher level of care and the patient is unsure if he requires transfer. He has been made n.p.o. and will defer diet to GI. 6. Heme-onc: Mild anemia, suspect blood loss. Stable currently. 7. Endo: Glycemic control per protocol. 8. ID: Currently day #2 Zosyn. Do not see a clear infectious source and given the fact that no varices were identified I think this can be discontinued at this time. Patient is hemodynamically stable and his critical care issues have resolved. Think he can be safely transferred out of the intensive care unit for now. Discussed with hospitalist service. Critical care will sign off. Feel free to contact us with questions or concerns Admission and Anticipated Discharge Date Admission Date: June 22, 2021 Subjective Patient seen and examined. EMR reviewed. He is awake alert and conversant. He denies any abdominal pain. No nausea. He has an NG tube in place. He has not required transfusion or pressor agents. Review of Systems Review of Systems: All systems reviewed & are unremarkable except as noted in Subjective Physical Exam Constitutional: WD/WN, vitals as above Respiratory: normal respiratory effort, lungs clear to auscultation Cardiovascular: RRR, no murmur, no edema Gastrointestinal (Abdomen): normal bowel sounds, soft, nontender, no hepatosplenomegaly Musculoskeletal: no lower extremity edema Psychiatric: A+Ox3, euthymic affect Results & Data Results & Data ([facility]) Vital Signs (Past 12 Hours) Vital Signs Temp Pulse Resp BP Pulse Ox Pulse Ox 06/24/21 04:00 66 129/68 94 06/24/21 03:00 71 125/65 95 06/24/21 02:00 70 116/65 96 06/24/21 01:00 68 122/68 98 06/24/21 00:30 68 125/69 96 06/24/21 00:00 73 118/65 95 06/23/21 23:30 69 116/66 97 06/23/21 23:00 67 129/68 96 06/23/21 22:45 67 06/23/21 22:30 72 20 123/67 98 06/23/21 22:00 69 18 128/64 96 06/23/21 21:48 37 C 63 20 125/64 94 06/23/21 21:47 36.4 C L 64 20 116/63 95 06/23/21 21:36 37 C 66 18 115/67 98 06/23/21 21:22 36.4 C L 64 20 119/61 98 06/23/21 21:19 98 06/23/21 20:48 36.4 C L 69 22 124/70 06/23/21 20:18 36.5 C 66 20 124/74 Critical Care Results & Data Vital Signs (Past 12 Hours) Vital Signs Temp Pulse Resp BP Pulse Ox Pulse Ox 06/24/21 04:00 66 129/68 94 06/24/21 03:00 71 125/65 95 06/24/21 02:00 70 116/65 96 06/24/21 01:00 68 122/68 98 06/24/21 00:30 68 125/69 96 06/24/21 00:00 73 118/65 95 06/23/21 23:30 69 116/66 97 06/23/21 23:00 67 129/68 96 06/23/21 22:45 67 06/23/21 22:30 72 20 123/67 98 06/23/21 22:00 69 18 128/64 96 06/23/21 21:48 37 C 63 20 125/64 94 06/23/21 21:47 36.4 C L 64 20 116/63 95 06/23/21 21:36 37 C 66 18 115/67 98 06/23/21 21:22 36.4 C L 64 20 119/61 98 06/23/21 21:19 98 06/23/21 20:48 36.4 C L 69 22 124/70 06/23/21 20:18 36.5 C 66 20 124/74 Lab & Micro Results (Past 24 Hours) RBC 3.00 M/uL (4.7-6.1) L 06/24/21 WBC 16.21 K/uL (4.8-10.8) H 06/24/21 Hgb 9.3 g/dL (14.0-18.0) L 06/24/21 Hct 26.3 % (42-52) L 06/24/21 MCV 87.7 fL (80-100) 06/24/21 MCH 31.0 pg (25-34) 06/24/21 MCHC 35.4 g/dL (32-36) 06/24/21 RDW Standard Deviation 49.4 fL (36.4-46.3) H 06/24/21 RDW Coefficient of Variation 15.3 % (11.5-14.5) H 06/24/21 Plt Count 130 K/uL (130-400) 06/24/21 MPV 12.7 fL (7.4-10.4) H 06/24/21 Na 130 mmol/L (136-145) L 06/24/21 K 4.8 mmol/L (3.5-5.1) 06/24/21 Cl 101 mmol/L (98-107) 06/24/21 CO2 19 mmol/L (21-32) L 06/24/21 Anion Gap 10.0 (3-11) 06/24/21 BUN 140 mg/dl (7-18) H 06/24/21 Creatinine 3.58 mg/dl (0.6-1.4) H 06/24/21 Estimated GFR ( Amer) 19.2 ml/min 06/24/21 Estimated GFR (Non-Af Amer) 16.6 ml/min 06/24/21 BUN/Creatinine Ratio 39.1 (10-20) H 06/24/21 Glu 135 mg/dl (70-99) H 06/24/21 Ca 9.0 mg/dl (8.5-10.1) 06/24/21 Calcium Level 9.0 mg/dl (8.5-10.1) 06/24/21 04:50 06/24/21 Prothromb Time International Ratio 1.0 (0.9-1.1) 06/24/21 04:50 06/24/21 Diagnostic Findings (Past 24 Hours) Chest X-Ray 06/23/21 17:01 XR chest 1V portable HISTORY: 66 years-old Male s/p central line placment to R. IJ- r/o pthx status post placement of a right IJ central venous catheter COMPARISON: Chest radiograph 06/03/2021 TECHNIQUE: Portable AP view of the chest FINDINGS: The cardiac silhouette is mildly enlarged. Right IJ central venous catheter distal tip is noted in the expected location of the inferior SVC. No pneumothorax. Small pleural effusions with mild bibasilar densities. Suggested pulmonary vascular congestion. Degenerative changes of the shoulders and spine. IMPRESSION: 1. Status post placement of a right IJ central venous catheter with distal tip in the expected location of the inferior SVC. No pneumothorax. 3. Small pleural effusions with mild bibasilar opacities. ACT 112: Negative or not required by law. The above report was generated using voice recognition software. It may contain grammatical, syntax or spelling errors. Electronically signed by: Geovanni Murillo M.D. 06/23/2021 6:04 PM I & O Totals 24 Hours 06/23/21 06/24/21 06/25/21 06:59 06:59 06:59 Intake Total 737.667 / 699.312 0766 / 3365 Output Total 200 / 200 875 / 875 Balance 537.667 / 982.021 8975 / 2490 Cumulative 06/22/21 13:54 thru 06/24/21 06:00 Intake Total 4102.667 Output Total 1075 Balance 3027.667 RT Ventilator Mngmt (Last Documented) Ventilator Ordered Settings Respiratory Rate 20 06/23/21 22:30 Ventilator - PT Measurements Respiratory Rate 20 Coding Level of Care Code 71879 Subseq Hosp Care Lvl 3 Diagnoses GI bleed K92.2 Insulin dependent diabetes mellitus Left ventricular apical thrombus I51.3 S/P subdural hematoma evacuation Z98.890; Z86.79 Acute kidney injury superimposed on CKD N17.9; N18.9 Anemia D64.9 Anemia type: unspecified type (1) Anemia Anemia type: unspecified type Qualified Code(s): D64.9 - Anemia, unspecified
[2021-06-24] MEDS: INSULIN ASPART 100 UNITS/ML 3 ML PEN SC SCH ×4 (08:35→20:13)
--- NOTE | 2021-06-24 08:50 | Gastroenterology Progress Note ---
Date of Service June 24, 2021 Assessment & Plan (1) GI bleed: Plan: GI bleeding: Status post endoscopy with no obvious signs of bleeding. Continue to trend hemoglobin and hematocrit. Transfuse as needed. Continue Protonix drip. He will likely require double balloon enteroscopy in follow-up to further assess small intestine for bleeding. This will need done at tertiary care. Patient is currently NPO. Okay to advance to clear liquid diet. Please refer to supervising physician addendum for further recommendations. Admission and Anticipated Discharge Date Admission Date: June 22, 2021 Supervising Physician Co-Signing Physician Notes I have seen and examined the patient. I agree with note above by TAQUERIA Lancaster except as noted below. HPI Pt denies abd pain. Stool output decreased with small red stool this am. PE Abdomen pos bs, soft, no guarding nor rebound A/P GI bleed---EGD no explanation for this bleeding. He will need further workup at a tertiary center to determine etiology. Discussed with DR Galvan that is anticoagulation is critical and cannot be delayed for 2-3 months for outpt tertiary referral then would try to get him to tertiary center as inpatient. At this point he is stable with reduced stools and stable H and H. Can DC NG and start clear liquids. esophagitis--can DC IV protonix and place him on oral 40 mg po once daily Subjective The patient is awake alert and oriented this morning lying in bed and position of comfort. EMR is reviewed and spoke to patient's nurse this morning. Patient denies any nausea or vomiting. Denies abdominal pain. He reports no bowel movement overnight or this morning. He is currently n.p.o. He began having bright red rectal bleeding beginning on Thursday prompting inpatient admission. EGD completed yesterday demonstrated no significant source of GI bleeding. He is a nonsmoker. Denies alcohol intake. Denies use of recreational drugs including marijuana. He is a retired [employer]. He retired in 2013. He is and lives at home with his . Review of Systems Review of Systems: All systems reviewed & are unremarkable except as noted in Subjective Physical Exam Constitutional: WD/WN, vitals as above Respiratory: normal respiratory effort, lungs clear to auscultation Cardiovascular: RRR, no murmur, no edema Gastrointestinal (Abdomen): normal bowel sounds, soft, nontender, no hepatosplenomegaly Musculoskeletal: no lower extremity edema Psychiatric: A+Ox3, euthymic affect Results & Data ([facility]) Vital Signs (Past 12 Hours) Vital Signs Temp Pulse Resp BP Pulse Ox Pulse Ox 06/24/21 04:00 66 129/68 94 06/24/21 03:00 71 125/65 95 06/24/21 02:00 70 116/65 96 06/24/21 01:00 68 122/68 98 06/24/21 00:30 68 125/69 96 06/24/21 00:00 73 118/65 95 06/23/21 23:30 69 116/66 97 06/23/21 23:00 67 129/68 96 06/23/21 22:45 67 06/23/21 22:30 72 20 123/67 98 06/23/21 22:00 69 18 128/64 96 06/23/21 21:48 37 C 63 20 125/64 94 06/23/21 21:47 36.4 C L 64 20 116/63 95 06/23/21 21:36 37 C 66 18 115/67 98 06/23/21 21:22 36.4 C L 64 20 119/61 98 06/23/21 21:19 98 06/23/21 20:48 36.4 C L 69 22 124/70 Laboratory Results Laboratory Results - last 24 hr 06/22/21 06/23/21 06/23/21 15:06 06:24 11:54 WBC RBC Hgb Hct MCV MCH MCHC RDW Std Deviation RDW Coeff of Mir Plt Count MPV Platelet Estimate PT INR APTT PTT Ratio Fibrinogen Sodium Potassium Chloride Carbon Dioxide Anion Gap BUN Creatinine Est Cr Clr Drug Dosing Est GFR ( Amer) Est GFR (Non-Af Amer) BUN/Creatinine Ratio Glucose POC Glucose 211 H Estimat Average Glucose 183 Hemoglobin A1c 8.0 H Lactate Calcium Total Creatine Kinase Nasal Screen MRSA (PCR) Blood Type B Positive Antibody Screen NEGATIVE Crossmatch See Detail 06/23/21 06/23/21 06/23/21 12:34 18:45 19:20 WBC RBC Hgb 7.6 L Hct MCV MCH MCHC RDW Std Deviation RDW Coeff of Mir Plt Count MPV Platelet Estimate PT INR APTT PTT Ratio Fibrinogen Sodium Potassium Chloride Carbon Dioxide Anion Gap BUN Creatinine Est Cr Clr Drug Dosing Est GFR ( Amer) Est GFR (Non-Af Amer) BUN/Creatinine Ratio Glucose POC Glucose 158 H Estimat Average Glucose Hemoglobin A1c Lactate Calcium Total Creatine Kinase Nasal Screen MRSA (PCR) Negative Blood Type Antibody Screen Crossmatch 06/23/21 06/23/21 06/23/21 20:03 20:03 20:03 WBC 15.14 H RBC 3.08 L Hgb 9.6 L Hct 27.4 L MCV 89.0 MCH 31.2 MCHC 35.0 RDW Std Deviation 48.9 H RDW Coeff of Mir 15.0 H Plt Count 134 MPV 12.4 H Platelet Estimate PT 11.2 INR 1.1 APTT 27.0 PTT Ratio 1.0 Fibrinogen Cancelled Sodium 132 L Potassium 5.4 H Chloride 103 Carbon Dioxide 16 L Anion Gap 13.0 H BUN 139 H Creatinine 3.53 H Est Cr Clr Drug Dosing 25.6 Est GFR ( Amer) 19.6 Est GFR (Non-Af Amer) 16.9 BUN/Creatinine Ratio 39.5 H Glucose 158 H POC Glucose Estimat Average Glucose Hemoglobin A1c Lactate Calcium 8.4 L Total Creatine Kinase 48 Nasal Screen MRSA (PCR) Blood Type Antibody Screen Crossmatch 06/23/21 06/23/21 06/23/21 20:03 20:03 20:59 WBC RBC Hgb Hct MCV MCH MCHC RDW Std Deviation RDW Coeff of Mir Plt Count MPV Platelet Estimate PT INR APTT PTT Ratio Fibrinogen 167 L Sodium Potassium Chloride Carbon Dioxide Anion Gap BUN Creatinine Est Cr Clr Drug Dosing Est GFR ( Amer) Est GFR (Non-Af Amer) BUN/Creatinine Ratio Glucose POC Glucose 157 H Estimat Average Glucose Hemoglobin A1c Lactate 0.8 Calcium Total Creatine Kinase Nasal Screen MRSA (PCR) Blood Type Antibody Screen Crossmatch 06/24/21 06/24/21 06/24/21 01:11 04:50 04:50 WBC 16.21 H RBC 3.00 L Hgb 8.7 L 9.3 L Hct 24.9 L 26.3 L MCV 87.7 MCH 31.0 MCHC 35.4 RDW Std Deviation 49.4 H RDW Coeff of Mir 15.3 H Plt Count 130 MPV 12.7 H Platelet Estimate Decreased L PT INR APTT PTT Ratio Fibrinogen Sodium 130 L Potassium 4.8 Chloride 101 Carbon Dioxide 19 L Anion Gap 10.0 BUN 140 H Creatinine 3.58 H Est Cr Clr Drug Dosing 25.2 Est GFR ( Amer) 19.2 Est GFR (Non-Af Amer) 16.6 BUN/Creatinine Ratio 39.1 H Glucose 135 H POC Glucose Estimat Average Glucose Hemoglobin A1c Lactate Calcium 9.0 Total Creatine Kinase Nasal Screen MRSA (PCR) Blood Type Antibody Screen Crossmatch 06/24/21 06/24/21 04:50 08:15 WBC RBC Hgb Hct MCV MCH MCHC RDW Std Deviation RDW Coeff of Mir Plt Count MPV Platelet Estimate PT 10.5 INR 1.0 APTT 25.0 PTT Ratio 1.0 Fibrinogen 209 D Sodium Potassium Chloride Carbon Dioxide Anion Gap BUN Creatinine Est Cr Clr Drug Dosing Est GFR ( Amer) Est GFR (Non-Af Amer) BUN/Creatinine Ratio Glucose POC Glucose 154 H Estimat Average Glucose Hemoglobin A1c Lactate Calcium Total Creatine Kinase Nasal Screen MRSA (PCR) Blood Type Antibody Screen Crossmatch Diagnostic Findings 06/23/2021: EGD was performed by Dr. Vieyra due to history of bleeding which demonstrated moderate severe reflux esophagitis not thought to be source of patient's bleeding; small hiatal hernia; 3 nonbleeding duodenal diverticulum noted in the jejunum about 55 cm from the ligament of treitz; there were no specimens collected. It noted that it is suspected that the patient has a deeper small bowel bleed.
--- NOTE | 2021-06-24 09:55 | Nephrology Progress Note ---
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 Currently no uremic symptoms. No acute indication for HD * Note that L wrist AVF is clotted. If HD becomes necessary, patient will require IJ THC * Continue current immunosuppressive regimen of Prograf, Mycophenolate and Prednisone (2) CKD (chronic kidney disease), stage IV: Plan: * Baseline Cr 3.2. Kidney function remains relatively stable at this time (3) Anemia: Plan: * Anticoagulation has been held * Patient was transfused 4 units PRBC, 1 unit FFP, 1 unit cryoprecipitate yesterday * EGD 06/23/21 was negative for active bleed. GI recommended double balloon enteroscopy at tertiary center Admission and Anticipated Discharge Date Admission Date: June 22, 2021 Subjective Mr. Andrea was evaluated in the ICU this morning. He underwent EGD yesterday. No active bleeding was identified. Mr. Andrea currently denies fever, abdominal pain or angina. Review of Systems Constitutional: + weakness; no fever Eyes: no problem reported Ear, Nose, Mouth, Throat: no problem reported Respiratory: no cough and no dyspnea Cardiovascular: no chest pain Gastrointestinal: + diarrhea/loose stools; no abdominal pain, no nausea and no vomiting Genitourinary: no dysuria, no urinary hesitancy or no hematuria Musculoskeletal: no back pain Integumentary: no rash Neurologic: no confusion Physical Exam Constitutional: + ill appearing; not in distress Eyes: PERRL, conjunctivae normal, anicteric sclerae ENMT: external ear and nose normal, oropharynx normal Neck: trachea midline, no thyromegaly Respiratory: normal respiratory effort, lungs clear to auscultation Cardiovascular: RRR, no murmur, no edema Extremities: + AV fistula (no bruit) Gastrointestinal (Abdomen): normal bowel sounds, soft, nontender, no hepatosplenomegaly Skin: no rashes, warm and dry Neurologic: awake; not confused Results & Data ([facility]) Vital Signs (Past 12 Hours) Vital Signs Pulse Resp BP Pulse Ox 11/22/21 04:00 66 129/68 94 06/24/21 03:00 71 125/65 95 06/24/21 02:00 70 116/65 96 06/24/21 01:00 68 122/68 98 06/24/21 00:30 68 125/69 96 06/24/21 00:00 73 118/65 95 06/23/21 23:30 69 116/66 97 06/23/21 23:00 67 129/68 96 06/23/21 22:45 67 06/23/21 22:30 72 20 123/67 98 06/23/21 22:00 69 18 128/64 96 Laboratory Results Laboratory Tests 06/24/21 06/24/21 04:50 04:50 WBC 16.21 H Hgb 9.3 L Hct 26.3 L Plt Count 130 Sodium 130 L Potassium 4.8 Chloride 101 Carbon Dioxide 19 L BUN 140 H Creatinine 3.58 H Glucose 135 H PG Care Time/CCT Total # of Minutes Spent Total Time Spent with Patient: Total time spent is greater than 50% in coordination of care (as documented) at patient's floor/unit and/or counseling patient: Coding Level of Care Code 94057 Subseq Hosp Care Lvl 3 Diagnoses Renal transplant recipient Z94.0 CKD (chronic kidney disease), stage IV N18.4 Anemia D64.9 Anemia type: unspecified type (1) Anemia Anemia type: unspecified type Qualified Code(s): D64.9 - Anemia, unspecified
[2021-06-24] MEDS: TACROLIMUS 0.5 MG CAP PO SCH ×2 (10:24→20:16)
[2021-06-24] MEDS: MULTIVITAMIN TAB PO SCH (10:24)
[2021-06-24] MEDS: dexAMETHasone 4 MG TAB PO SCH ×2 (10:24→20:16)
[2021-06-24] MEDS: MAGNESIUM OXIDE 400 MG TAB PO SCH ×2 (10:24→20:18)
[2021-06-24] MEDS: MYCOPHENOLATE MOFETIL 250 MG CAP PO SCH ×2 (10:24→20:16)
[2021-06-24 10:36] LABS: Hematocrit (blood only) 25.5 % (42-52)
--- NOTE | 2021-06-24 11:30 | Cardiology Consultation ---
Date of Consultation June 24, 2021 Assessment & Plan (1) GI bleed: (2) Left ventricular apical thrombus: (3) Atrial flutter: (4) S/P subdural hematoma evacuation: (5) CKD (chronic kidney disease), stage IV: (6) Coronary artery disease: (7) Cardiomyopathy: Mr. Andrea appears comfortable in bed. He is hemodynamically stable. Concerning the question of anticoagulation for his apical thrombus and atrial flutter, would recommend he hold off for now. He has required quite a bit of blood so far and no source has been found or intervened upon. Along with his chronic subdurals, he is very high bleeding risk. We would need to be more certain of control of bleeding before starting any anticoagulation. His atrial flutter is new. He has spontaneously reverted to SR with PVCs so I will start amiodarone 400 mg bid to attempt to keep him in sinus rhythm which will hopefully reduce his stroke risk in the setting of no anticoagulation. I reviewed his EKG from this morning. He has a history of LAD stent and CAD. He can continue with statin. ASA is on hold. Coreg is on hold due to low normal blood pressures with acute blood loss. His EF had worsened with new global hypokinsesis on his echo this month in [place]. CXR yesterday showed pleural effusions and mild vascular congestion. Nephrology is on board but no indication for HD at this time. Will need to continue to keep close watch on fluid balance. His care was discussed with Dr. Kirkland. History of Present Illness Attending Physician: Man Galvan MD History of Present Illness Mr. Andrea presented to the ED on 06/22 for GI bleed in the setting of Eliquis for left ventricular thrombus. He has had multiple admissions since March for chronic subdural hematoma following a fall, recurrent bilateral (right>left) chronic subdural hematomas (has had two prior surgeries 03/27 and 04/23). He has persistent left hemiplegia and pneumocephalus. At his most recent hospitalization in [place] earlier this month he was found to have a left ventricular mural thrombus. 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 He then developed BRBPR with clots. He has received 4 units packed red blood cells, ffp, tranexamic acid, and calcium this admission. On admission he was found to be in atrial flutter which is a new finding. He is awaiting transfer to [place] as anesthesia recommended tertiary care for his colonoscopy given his pneumocephalus on recent imaging. His most recent inpatient admission to [facility] was at the beginning of the month for repeat craniotomy. He had elevated troponins and a TTE was performed and found a small apical thrombus. His echo also showed global hypokinesis, a newly reduced EF of 35%, and possible non compaction. Today he is in sinus rhythm on the monitor. He has no chest pain, sob, or palpitations. Allergies Allergy/AdvReac Type Severity Reaction Status Date / Time No Known Allergies Allergy Verified 06/20/21 00:07 Home Medications Medication Instructions Recorded Confirmed Type famotidine 10 mg tablet (Acid 10 mg PO QAM 03/03/19 06/22/21 History Coat Checker (famotidine)) magnesium oxide 250 mg PO BID tab 03/03/19 06/22/21 History multivitamin (Multiple Vitamins) 1 tab PO QAM 03/03/19 06/22/21 History atorvastatin 40 mg tablet (Lipitor) 40 mg PO HS 09/13/19 06/22/21 History tacrolimus 0.5 mg capsule, 0.5 mg PO Q12H cap 01/24/21 06/22/21 History immediate-release (Prograf) allopurinol 300 mg tablet 300 mg PO HS 01/31/21 06/22/21 History mycophenolate mofetil 250 mg 750 mg PO BID 01/31/21 06/22/21 History capsule (CellCept) glipizide 10 mg tablet (Glucotrol) 10 mg PO QAM tab 03/16/21 06/22/21 History mecobalamin (vitamin B12) 1,000 1,000 mcg PO QPM 03/26/21 06/22/21 History mcg chewable tablet (B12 Active) glipizide 5 mg tablet 2.5 mg PO HS #45 tab 05/30/21 06/22/21 Rx amlodipine 10 mg tablet 10 mg PO DAILY 06/18/21 06/22/21 History carvedilol 6.25 mg tablet 18.75 mg PO BID 06/18/21 06/22/21 History dexamethasone 4 mg tablet 4 mg PO BID 06/18/21 06/22/21 History polyethylene glycol 3350 17 17 g PO DAILY PRN 06/19/21 06/22/21 History gram/dose oral powder (Miralax) apixaban 5 mg tablet (Eliquis) 5 mg PO BID #30 tab 06/20/21 06/22/21 Rx insulin aspart U-100 100 unit/mL 1 sliding scale dose SUBCUT 06/20/21 06/22/21 Rx (3 mL) subcutaneous pen USEASDIRECTD #15 ml pen needle, diabetic 31 gauge x #100 ea 06/20/21 06/22/21 Rx 5/32" insulin glargine 100 unit/mL (3 15 unit SUBCUT HS #45 ml 06/21/21 06/22/21 Rx mL) subcutaneous pen (Basaglar KwikPen U-100 Insulin) coenzyme Q10 100 mg capsule 100 mg PO BID 06/22/21 06/22/21 History (CoQ-10) Patient History Medical History WERNER (acute kidney injury) Anaplasmosis CHF (congestive heart failure) Chronic subdural hematoma COVID-19 vaccine administered Dehydration Diarrhea Diverticulosis Dizziness Elevated troponin Gout, joint Head ache Headache Hypercholesterolemia Hypoglycemia Myocardial Infarction Nausea Polycystic kidney ST elevation myocardial infarction (STEMI) Weakness Surgical History History of jami hole surgery Left jami hole drainage of subdural hematoma, placement of subdural drain 06/09/21 History of heart artery stent Hx of craniotomy redo right craniotomy for evacuation for subdural hematoma 06/07/21 [facility] right minicraniotomy for evacuation of subdural hematoma 03/27/21, 04/23/21 [facility] Renal transplant recipient Family History Mother Breast cancer Father Stroke Polycystic kidney disease Denies family history of Ovarian cancer Prostate cancer Myocardial infarction Colorectal cancer Social History Smoking Status: Never smoker Second Hand Exposure: No; Hx Alcohol Use: No Hx Substance Use: No Preferred Language: Salvadorean Communication Ability: Effective Program Director Scouting Required: No Beliefs That Will Affect Care: None marital status: Current Living Situation: Spouse 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 Feels Safe at Home: Yes Dental Care, Regularly: Yes Physical Activity Frequency: 3-4 Times per Week Seatbelt Use: always Assistive Devices: Walker Review of Systems Review of Systems: All systems reviewed & are unremarkable except as noted in HPI & below Physical Exam Constitutional: WD/WN, vitals as above Respiratory: normal respiratory effort, lungs clear to auscultation Cardiovascular: RRR, no murmur, no edema Skin: no rashes, warm and dry Neurologic: awake Psychiatric: Orientation: alert and oriented x 3 Affect: + flat affect Results & Data ([facility]) Vital Signs (Past 12 Hours) Vital Signs Temp Pulse Resp BP Pulse Ox 06/24/21 04:00 66 129/68 94 06/24/21 03:00 71 125/65 95 06/24/21 02:00 70 116/65 96 06/24/21 01:00 68 122/68 98 06/24/21 00:30 68 125/69 96 06/24/21 00:00 73 118/65 95 06/23/21 23:30 69 116/66 97 06/23/21 23:00 67 129/68 96 06/23/21 22:45 67 06/23/21 22:30 72 20 123/67 98 06/23/21 22:00 69 18 128/64 96 06/23/21 21:48 37 C 63 20 125/64 94 06/23/21 21:47 36.4 C L 64 20 116/63 95 06/23/21 21:36 37 C 66 18 115/67 98
--- NOTE | 2021-06-24 11:36 | Hospitalist Progress Note ---
Date of Service June 24, 2021 Assessment & Plan (1) GI bleed: Plan: Patient presented with GI bleed with markedly elevated BUN, on bid protonix, recently changed to Eliquis due to renal function by nephrology, last dose of Eliquis was morning of 05/22/21. - Required transfusion 4 units packed red blood cells, ffp tranexamic acid and calcium. - Initally Dr Waters and Dr Chau felt the pt was too high risk to have EGD and anesthesia here - [place] [facility] [place], called [facility] and they informed that they would not have bed for 24-48 hrs, [facility] and they accepted but would not have a bed for 24 hours Per 06/22- documentation: "since the pt had lower blood pressures and was still with bloody bowel movements I flet he needed attention to try to control an upper gi bleed, I re contacted Dr Chau from anesthesia who felt that if there was no other choice would consider doing anesthesia even with recent neurosurgery and pneuomcephalus. I contacted Dr Waters who states he felt uncomfortable and wound not be willing to perform the procedure. I then called Dr Vieyra, conservation science teacher for [facility] and explained the situation, he said he would see the patient if Dr Waters felt it would be reasonable. I then re contacted Dr Waters and he gave permission for Dr Arthur to see the patient, he arrived in the ER and after review took the pt to have upper endoscopy, unfortunately did not find any significant bleeding source and recommends continued pursuit of tertiary referral. I did contact [facility] and they have him on urgent list but no timeline in place for transfer , Dr Beebe accepting physician" Patient has continued to have some dark red bowel movements, hemoglobin recheck is stable. Anticoagulation continues to be held for red/dark red bowel movements with GI bleed as noted above, however patient is also at high risk of stroke and complications from known left atrial thrombus. See anticoagulation discussion below EGD 06/23/2021: No signs of active bleeding. Source of bleeding unclear, GI recommending double-balloon enteroscopy at tertiary care center for small intestine bleeding. Diet advanced to clears, continue to follow. -06/24: Discussed care with cardiology and gastroenterology. Patient is high risk for anticoagulation with known apical thrombus within the last week, but anticoagulation is not recommended right now due to his recent bleed requiring multiple units with suboptimal rise, and continued slight downtrend. No source identified on upper endoscopy. Started on amnio to stroke risk, see cardiology note. Appreciate recommendations. Recommend continued observation, if hemoglobin uptrending/remained stable may consider trial of heparin gtt however patient still at bleeding risk and would likely benefit from IR/balloon en doscopy evaluation. We will continue to follow for bed availability at tertiary care, and follow clinically at this time (2) Insulin dependent diabetes mellitus: Plan: Glipizide held Continue insulin sliding scale Continue glargine 15 units nightly Glucose checks AC/at bedtime (3) Left ventricular apical thrombus: Plan: Large left ventricular apical thrombus identified [place] [facility] [place] E[place]: Atrial flutter Eliquis held due to concern for life-threatening GI bleed with hemoglobin drop of 3 g on admission Case was discussed with Dr. Neumann over the weekend, agree that patient would be appropriate for heparin products daily that eventually warfarin, but GI bleeding should be controlled prior to starting Cardiology consult placed given LV thrombus Anticoagulation continues to be held at this time due to GI bleed and continued red/dark red bowel movements, however patient is at high risk for stroke given known LV apical thrombus and a flutter See above (4) S/P subdural hematoma evacuation: Plan: Patient with persistent subdural hematoma evacuations will need silvestre removed on the (5) CKD (chronic kidney disease), stage IV: Plan: Follows with Dr. Pitts CKD 4 Left AV fistula in place, but clotted and not suitable for access. History of transplant, continue mycophenolate, dexamethasone, tacrolimus Patient appears euvolemic at morning assessment Nephrology consulted. No improvement of hyperkalemia following bicarb infusion. Recommend holding IVF, BMP daily, continue monitoring, no acute dialysis at this time. Of note left wrist aVF is clotted, patient would require IJ hemodialysis catheter placement if hemodialysis is required. Appreciate recommendations. (6) Bilateral leg edema: Plan: Following steroid treatment SCD/teds Admission and Anticipated Discharge Date Admission Date: June 22, 2021 Subjective Rafael is seen at the bedside this morning. He reports he feels okay, has had some dark red tinge to his bowel movement today but no large melanotic/maroon bowel movements. He denies lightheadedness, dizziness, chest pain, chest pressure, shortness of breath, difficulty breathing this morning. He reports he feels slightly fatigued, but better than he did last night. He reports he is concerned that the switch to Eliquis may have preceded his symptoms and his bleeding, is aware that having a left atrial thrombus puts him at very high risk of stroke and that this is likely necessary to minimize this risk, but that it is also temporarily held in the setting of his acute GI bleed. Review of Systems Review of Systems: All systems reviewed & are unremarkable except as noted in Subjective Physical Exam Physical Exam: General: A&Ox3. NAD. Cooperative. HEENT: Surgical closure of cranial incisions C/D/I. Otherwise atraumatic, normocephalic. Visual acuity and hearing grossly intact. Pupils equal and reactive to light. Pulm: CTAB A&P. -wheezes, -rales, -rhonchi. Symmetrical chest rise. No increase work of breathing. No respiratory distress. Cardiac: RRR, -mrg. Radial pulses intact and symmetrical. Abdominal: Nontender, nondistended, soft. BS present. Extremities: Wireless Consultant strength, ankle dorsiflexion/plantar flexion intact without asymmetry. No lower extremity edema appreciated. Results & Data Results & Data ([facility]) Vital Signs (Past 12 Hours) Vital Signs Pulse BP Pulse Ox 06/24/21 04:00 66 129/68 94 06/24/21 03:00 71 125/65 95 06/24/21 02:00 70 116/65 96 06/24/21 01:00 68 122/68 98 06/24/21 00:30 68 125/69 96 06/24/21 00:00 73 118/65 95 06/23/21 23:30 69 116/66 97 PG Care Time/CCT Total # of Minutes Spent Total Time Spent with Patient: Total time spent is greater than 50% in coordination of care (as documented) at patient's floor/unit and/or counseling patient: Coding Level of Care Code 25182 Subseq Hosp Care Lvl 3 Diagnoses GI bleed K92.2 Insulin dependent diabetes mellitus Left ventricular apical thrombus I51.3 S/P subdural hematoma evacuation Z98.890; Z86.79 CKD (chronic kidney disease), stage IV N18.4 Bilateral leg edema R60.0
--- NOTE | 2021-06-24 12:49 | Nuclear Medicine Report ---
NM GI bleeding HISTORY: GI bleed. eval for source of gi bleeding TECHNIQUE: Immediately following the intravenous administration of 22.3 mCi of technetium 99 M autolo gous rbc suspension, dynamic images of the abdomen and pelvis were performed for a total 60 minutes. COMPARISON STUDY: Abdomen and pelvis CT 06/22/2021. FINDINGS: Focal area of radiotracer uptake seen within the lower pelvis which is partially imaged on this study. This is unchanged in position throughout the examination. Therefore, this favors penile u ptake in a male. Otherwise, no abnormal areas of radiotracer uptake to suggest a GI bleed. IMPRESSION: No evidence for GI bleed. ACT 112: Negative or not required by law. Electronically signed by: Kennedy Castellanos M.D. 06/24/2021 12:47 PM
[2021-06-24 16:19] LABS: Hemoglobin 9.2 g/dL (14.0-18.0)
[2021-06-24] MEDS ORDERED: AMIODARONE 200 MG TAB PO SCH (17:00)
[2021-06-24] MEDS: AMIODARONE 200 MG TAB PO SCH (17:07)
[2021-06-24] MEDS: INSULIN GLARGINE SOLOSTAR 100 UNITS/ML 3 ML PEN SQ SCH (20:15)
[2021-06-24] MEDS: ATORVASTATIN 40 MG TAB PO SCH (20:16)
[2021-06-24] MEDS: allopurinoL 100 MG TAB PO SCH (20:18)
[2021-06-24 21:58] LABS: Hemoglobin 9.2 g/dL (14.0-18.0)
[2021-06-25] MEDS: PANTOprazole 40 MG in DEXTROSE 5% 100 ML IV SCH ×5 (02:19→22:53)
[2021-06-25 05:07] LABS: INR 1.1 (0.9-1.1); Partial Thromboplastin Time 27.6 Seconds (21.0-31.0); Prothrombin Time 10.7 Seconds (9.0-12.0)
[2021-06-25 05:09] LABS: Hemoglobin 9.1 g/dL (14.0-18.0); Mean Corpuscular Hemoglobin 30.7 pg (25-34); Mean Corpuscular Volume 87.8 fL (80-100); Mean Platelet Volume 12.7 fL (7.4-10.4); Platelet Count 120 K/uL (130-400); RDW Standard Deviation 48.4 fL (36.4-46.3); Red Blood Count 2.96 M/uL (4.7-6.1); White Blood Count 11.35 K/uL (4.8-10.8)
[2021-06-25 05:16] LABS: BUN Creatinine Ratio 35.3 (10-20); Calcium 8.6 mg/dl (8.5-10.1); Creatinine Clr Calc Pharmacy 26.3 ml/min; Est GFR (African American) 20.2 ml/min; Est GFR (Non-African American) 17.4 ml/min; Potassium 4.3 mmol/L (3.5-5.1)
[2021-06-25] MEDS: SODIUM BICARBONATE 8.4% 150 MEQ in WATER, STERILE 1,000 ML IV SCH (07:47)
[2021-06-25] MEDS: INSULIN ASPART 100 UNITS/ML 3 ML PEN SC SCH ×4 (08:41→21:03)
[2021-06-25] MEDS: dexAMETHasone 4 MG TAB PO SCH ×2 (08:42→22:13)
[2021-06-25] MEDS: MYCOPHENOLATE MOFETIL 250 MG CAP PO SCH ×2 (08:42→22:12)
[2021-06-25] MEDS: TACROLIMUS 0.5 MG CAP PO SCH ×2 (08:42→22:30)
[2021-06-25] MEDS: MULTIVITAMIN TAB PO SCH (08:42)
[2021-06-25] MEDS: AMIODARONE 200 MG TAB PO SCH ×2 (08:43→17:33)
[2021-06-25] MEDS: MAGNESIUM OXIDE 400 MG TAB PO SCH ×2 (08:43→22:13)
--- NOTE | 2021-06-25 09:15 | Cardiology Progress Note ---
Date of Service June 25, 2021 Assessment & Plan Admission and Anticipated Discharge Date Admission Date: June 22, 2021 Subjective Rafael denies any chest pain chest pressure chest heaviness. He denies any shortness of breath. He is talking comfortably in sentences. He denies any palpitations or fluttering. He has no lightheadedness or dizziness. He has not had any additional bloody bowel movements. He denies any abdominal pain he is currently on a clear liquid diet. In reviewing his chart both here and at [facility] he actually looks remarkably better than one would anticipate. Results & Data ([facility]) Vital Signs (Past 12 Hours) Vital Signs Pulse Resp BP Pulse Ox 06/25/21 00:13 78 06/25/21 00:00 75 13 142/83 H 96 06/24/21 22:00 79 11 L 98 he is awake alert and oriented x3 is chronically ill HEENT 1+ carotid upstrokes Lungs: Clear to auscultation bilaterally no rales rhonchi or wheezing Heart: Regular rate and rhythm no appreciable murmurs rubs or gallops Abdomen: Soft nontender distended positive bowel sounds Extremities: No clubbing clubbing cyanosis or edema Psychiatric: His affect appeared appropriate IMPRESSIONS: (1) lower GI bleed: (2) small left ventricular apical thrombus: (3) Atrial flutter maintaining sinus rhythm on amiodarone started this admission (4) S/P subdural hematoma evacuation secondary to a fall (5) CKD (chronic kidney disease), stage IV status post renal transplantation (6) Coronary artery disease: (7) moderate cardiomyopathy with an LVEF of 35% He seems to be maintaining sinus rhythm with amiodarone. This reduces the need and concern that he is going to have a cardioembolic event from atrial arrhythmias. The bigger issue is his LV apical thrombus. I think the risk of anticoagulation at this point leading to a recurrent GI bleed is much higher than the benefit of anticoagulation. We just will need to accept that there is a small chance with his LV apical clot that he could have an embolic event. He notes 5 years ago he had a GI bleed and they were unable to determine the source. It does raise the question as to whether he has AVMs which were exacerbated again by anticoagulation. I think he needs a colonoscopy before being discharged to determine if there is a reversible source of his bleeding. Additionally the bleeding is described as bright red blood and we do not see a source of based on his upper endoscopy. \ If you look back at his [place] echocardiograms the one in early June suggested a small LV apical thrombus. His echocardiogram prior to that was and did not suggest a thrombus. His EF at her she had been declining for unknown reasons with minimal troponin elevations. This was discussed with the nephrology service.
--- NOTE | 2021-06-25 09:38 | Gastroenterology Progress Note ---
Date of Service June 25, 2021 Assessment & Plan (1) GI bleed: Plan: GI bleeding: Status post egd with no obvious signs of bleeding. Continue to trend hemoglobin and hematocrit. Transfuse as needed. Continue Protonix po. He will likely require double balloon enteroscopy in follow-up to further assess small intestine for bleeding to determine etiology at tertiary care. Continue clear liquid diet. Okay to discontinue NGT. Dr Recio discussed with hospital ist anticoagulation use - if anticoagulation is critical and cannot be delayed 2-3 months for outpatient tertiary referral, would consider inpatient transfer for further evaluation and treatment. Please refer to supervising physician addendum for further recommendations. Admission and Anticipated Discharge Date Admission Date: June 22, 2021 Supervising Physician Co-Signing Physician Notes I have seen and examined the patient. I agree with note above by TAQUERIA Lancaster except as noted below. HPI Pt denies abd pain. Per patient no stools overnight nor today yet. PE Abdomen pos bs, soft, no guarding nor rebound A/P GI bleeding---seems to have stopped clinically. EGD not explanatory. Cardiology feels that further GI workup should be done prior to DC. Anesthesia here views this patient high risk. If anesthesia feels the patient is too high risk them would need to be transferred to tertiary center. Tertiary center has double balloon enteroscopy available also is that is needed. If patient deemed ok for procedures here then colonoscopy is available but no furthe exam of SB then what was done by DR Vieyra on the weekend esophagitis--continue PPI Dr Bailey is covering starting tomorrow 06/26 at 0700 until 07/01 at 0700. Subjective The patient is awake alert and oriented this morning lying in bed and position of comfort. EMR is reviewed and spoke to patient's nurse this morning. Patient denies any nausea or vomiting. Denies abdominal pain. He reports no bowel movement overnight or this morning. He is currently tolerating clear liquids. NGT remains intact but not connected to suction. Review of Systems Review of Systems: All systems reviewed & are unremarkable except as noted in Subjective Physical Exam Gastrointestinal (Abdomen): normal bowel sounds, soft, nontender, no hepatosplenomegaly Results & Data ([facility]) Vital Signs (Past 12 Hours) Vital Signs Pulse Resp BP Pulse Ox 06/25/21 00:13 78 06/25/21 00:00 75 13 142/83 H 96 06/24/21 22:00 79 11 L 98 Laboratory Results Laboratory Results - last 24 hr 06/22/21 06/24/21 06/24/21 15:06 10:09 13:40 WBC RBC Hgb 9.0 L Hct 25.5 L MCV MCH MCHC RDW Std Deviation RDW Coeff of Mir Plt Count MPV PT INR APTT PTT Ratio Sodium Potassium Chloride Carbon Dioxide Anion Gap BUN Creatinine Est Cr Clr Drug Dosing Est GFR ( Amer) Est GFR (Non-Af Amer) BUN/Creatinine Ratio Glucose POC Glucose 140 H Calcium Blood Type B Positive Antibody Screen NEGATIVE Crossmatch See Detail 06/24/21 06/24/21 06/24/21 16:08 16:36 20:12 WBC RBC Hgb 9.2 L Hct 26.0 L MCV MCH MCHC RDW Std Deviation RDW Coeff of Mir Plt Count MPV PT INR APTT PTT Ratio Sodium Potassium Chloride Carbon Dioxide Anion Gap BUN Creatinine Est Cr Clr Drug Dosing Est GFR ( Amer) Est GFR (Non-Af Amer) BUN/Creatinine Ratio Glucose POC Glucose 149 H 200 H Calcium Blood Type Antibody Screen Crossmatch 06/24/21 06/25/21 06/25/21 21:51 04:42 04:42 WBC 11.35 H RBC 2.96 L Hgb 9.2 L 9.1 L Hct 26.0 L 26.0 L MCV 87.8 MCH 30.7 MCHC 35.0 RDW Std Deviation 48.4 H RDW Coeff of Mir 15.0 H Plt Count 120 L MPV 12.7 H PT INR APTT PTT Ratio Sodium 130 L Potassium 4.3 Chloride 98 Carbon Dioxide 25 Anion Gap 7.0 BUN 122 H Creatinine 3.44 H Est Cr Clr Drug Dosing 26.3 Est GFR ( Amer) 20.2 Est GFR (Non-Af Amer) 17.4 BUN/Creatinine Ratio 35.3 H Glucose 192 H POC Glucose Calcium 8.6 Blood Type Antibody Screen Crossmatch 06/25/21 06/25/21 04:42 08:37 WBC RBC Hgb Hct MCV MCH MCHC RDW Std Deviation RDW Coeff of Mir Plt Count MPV PT 10.7 INR 1.1 APTT 27.6 PTT Ratio 1.0 Sodium Potassium Chloride Carbon Dioxide Anion Gap BUN Creatinine Est Cr Clr Drug Dosing Est GFR ( Amer) Est GFR (Non-Af Amer) BUN/Creatinine Ratio Glucose POC Glucose 213 H Calcium Blood Type Antibody Screen Crossmatch Diagnostic Findings GI Bleed Scan Nuclear Medicine 06/24/21 10:00 NM GI bleeding HISTORY: GI bleed. eval for source of gi bleeding TECHNIQUE: Immediately following the intravenous administration of 22.3 mCi of technetium 99 M autologous rbc suspension, dynamic images of the abdomen and pelvis were performed for a total 60 minutes. COMPARISON STUDY: Abdomen and pelvis CT 06/22/2021. FINDINGS: Focal area of radiotracer uptake seen within the lower pelvis which is partially imaged on this study. This is unchanged in position throughout the examination. Therefore, this favors penile uptake in a male. Otherwise, no abnormal areas of radiotracer uptake to suggest a GI bleed. IMPRESSION: No evidence for GI bleed. ACT 112: Negative or not required by law. Electronically signed by: Kennedy Castellanos M.D. 06/24/2021 12:47 PM (1) GI bleed GI bleed type/associated pathology: unspecified gastrointestinal hemorrhage type Qualified Code(s): K92.2 - Gastrointestinal hemorrhage, unspecified
--- NOTE | 2021-06-25 11:22 | Nephrology Progress Note ---
Date of Service June 25, 2021 Assessment & Plan (1) Renal transplant recipient: Plan: * INFORMATION BROKER function remains relatively stable at this time (baseline cr 3.2) * Hyperkalemia has corrected following NaHCO3 infusion * Patient was transfused 4 units PRBC, 1 unit FFP, 1 unit cryoprecipitate 06/23/21 * Patient is nonoliguric. I&O's matched last 24 hours. Hold IVF and monitor PRP, UO * Azotemia related to upper GIB and steroid therapy. Currently no uremic symptoms. No acute indication for HD * Note that L wrist AVF is clotted. If HD becomes necessary, patient will require IJ THC * Continue current immunosuppressive regimen of Prograf, Mycophenolate and Prednisone (2) CKD (chronic kidney disease), stage IV: Plan: * Baseline Cr 3.2. Kidney function remains relatively stable at this time (3) Anemia: Plan: * Anticoagulation has been held * Patient was transfused 4 units PRBC, 1 unit FFP, 1 unit cryoprecipitate 06/23/21 * EGD 06/23/21 was negative for active bleed. GI recommended double balloon enteroscopy at tertiary center * Cardiology has been consulted to determine whether residential anticoagulation is needed Admission and Anticipated Discharge Date Admission Date: June 22, 2021 Subjective Mr. Andrea was evaluated in the ICU this morning. He denied fever, abdominal pain or angina. Review of Systems Constitutional: + weakness; no fever Eyes: no problem reported Ear, Nose, Mouth, Throat: no problem reported Respiratory: no cough and no dyspnea Cardiovascular: no chest pain Gastrointestinal: + diarrhea/loose stools; no abdominal pain, no nausea and no vomiting Genitourinary: no dysuria, no urinary hesitancy or no hematuria Musculoskeletal: no back pain Integumentary: no rash Neurologic: no confusion Physical Exam Constitutional: + ill appearing; not in distress Eyes: PERRL, conjunctivae normal, anicteric sclerae ENMT: external ear and nose normal, oropharynx normal Neck: trachea midline, no thyromegaly Respiratory: normal respiratory effort, lungs clear to auscultation Cardiovascular: RRR, no murmur, no edema Extremities: + AV fistula (no bruit) Gastrointestinal (Abdomen): normal bowel sounds, soft, nontender, no hepatosplenomegaly Skin: no rashes, warm and dry Neurologic: awake; not confused Results & Data ([facility]) Vital Signs (Past 12 Hours) Vital Signs Temp Pulse Pulse Resp BP BP Pulse Ox 06/25/21 10:26 36.7 C 64 12 137/78 06/25/21 08:00 75 06/25/21 00:13 78 06/25/21 00:00 75 13 142/83 H 96 Laboratory Results Laboratory Tests 06/25/21 06/25/21 04:42 04:42 WBC 11.35 H Hgb 9.1 L Hct 26.0 L Plt Count 120 L Sodium 130 L Potassium 4.3 Chloride 98 Carbon Dioxide 25 BUN 122 H Creatinine 3.44 H PG Care Time/CCT Total # of Minutes Spent Total Time Spent with Patient: Total time spent is greater than 50% in coordination of care (as documented) at patient's floor/unit and/or counseling patient: Coding Level of Care Code 46325 Subseq Hosp Care Lvl 3 Diagnoses Renal transplant recipient Z94.0 CKD (chronic kidney disease), stage IV N18.4 Anemia D64.9 Anemia type: unspecified type (1) Anemia Anemia type: unspecified type Qualified Code(s): D64.9 - Anemia, unspecified
--- NOTE | 2021-06-25 19:13 | Hospitalist Progress Note ---
Date of Service June 25, 2021 Assessment & Plan (1) GI bleed: Plan: Patient presented with GI bleed with markedly elevated BUN, on bid protonix, recently changed to Eliquis due to renal function by nephrology, last dose of Eliquis was morning of 05/22/21. - Required transfusion 4 units packed red blood cells, ffp tranexamic acid and calcium. - Initally Dr Waters and Dr Chau felt the pt was too high risk to have EGD and anesthesia here - Prior Provider called [facility] who informed they were on divert, called [facility] and they informed that they would not have bed for 24-48 hrs, [facility] and they accepted but would not have a bed for 24 hours Per 06/22- documentation: "since the pt had lower blood pressures and was still with bloody bowel movements I flet he needed attention to try to control an upper gi bleed, I re contacted Dr Chau from anesthesia who felt that if there was no other choice would consider doing anesthesia even with recent neurosurgery and pneuomcephalus. I contacted Dr Waters who states he felt uncomfortable and wound not be willing to perform the procedure. I then called Dr Vieyra, director of recruitment and admissions for [facility] and explained the situation, he said he would see the patient if Dr Waters felt it would be reasonable. I then re contacted Dr Waters and he gave permission for Dr Arthur to see the patient, he arrived in the ER and after review took the pt to have upper endoscopy, unfortunately did not find any significant bleeding source and recommends continued pursuit of tertiary referral. I did contact [facility] and they have him on urgent list but no timeline in place for transfer , Dr Beebe accepting physician" Patient has continued to have some dark red bowel movements, hemoglobin recheck is stable. Anticoagulation continues to be held for red/dark red bowel movements with GI bleed as noted above, however patient is also at high risk of stroke and complications from known left atrial thrombus. See anticoagulation discussion below EGD 06/23/2021: No signs of active bleeding. Source of bleeding unclear, GI recommending double-balloon enteroscopy at tertiary care center for small intestine bleeding. Diet advanced to clears, continue to follow. -06/24: Discussed care with cardiology and gastroenterology. Patient is high risk for anticoagulation with known apical thrombus within the last week, but anticoagulation is not recommended right now due to his recent bleed requiring multiple units with suboptimal rise, and continued slight downtrend. No source identified on upper endoscopy. Started on amnio to stroke risk, see cardiology note. Appreciate recommendations. Recommend continued observation, if hemoglobin uptrending/remained stable may consider trial of heparin gtt however patient still at bleeding risk and would likely benefit from IR/balloon en doscopy evaluation. We will continue to follow for bed availability at [facility], and follow clinically at this time 06/25: Patient has had a bleed with no source prior to this episode, that he is very high risk of rebleeding, and is at high risk of complications especially due to his recent subdural hematomas requiring surgical evacuation Bleeding is suspicious for potential AVM. Risk of stroke is high due to his known atrial thrombus with less than 1 month of treatment, and should patient have a stroke his history precludes TPA use. Would not recommend delaying anticoagulation for 2 to 3 months for outpatient tertiary referral. Case reviewed reviewed, has been accepted at [facility] for transfer but bed not yet available. Need to follow. (2) Insulin dependent diabetes mellitus: Plan: Glipizide held Continue insulin sliding scale Continue glargine 15 units nightly Glucose checks AC/at bedtime (3) Left ventricular apical thrombus: Plan: Large left ventricular apical thrombus identified on echocardiogram at [facility] Admitting EKG: Atrial flutter Eliquis held due to concern for life-threatening GI bleed with hemoglobin drop of 3 g on admission Case was discussed with Dr. Neumann over the weekend, agree that patient would be appropriate for heparin products daily that eventually warfarin, but GI bleeding should be controlled prior to starting Cardiology consult placed given LV thrombus Anticoagulation continues to be held at this time due to GI bleed and continued red/dark red bowel movements, however patient is at high risk for stroke given known LV apical thrombus and a flutter. Anticoagulation not recommended at this time due to bleeding risk, s repeat recommendations See above (4) S/P subdural hematoma evacuation: Plan: Patient with recent subdural hematoma evacuations, sutures OK for removal. (5) CKD (chronic kidney disease), stage IV: Plan: Follows with Dr. Pitts CKD 4 Left AV fistula in place, but clotted and not suitable for access. History of transplant, continue mycophenolate, dexamethasone, tacrolimus Patient appears euvolemic at morning assessment Nephrology consulted. Hyperkalemia improved. Recommend holding IVF, BMP daily, continue monitoring, no acute dialysis at this time. Of note left wrist aVF is clotted, patient would require IJ hemodialysis catheter placement if hemodialysis is required. Appreciate recommendations. (6) Bilateral leg edema: Plan: Following steroid treatment SCD/teds Admission and Anticipated Discharge Date Admission Date: June 22, 2021 Subjective Seen at bedside. He reports that he is fatigued, but otherwiseFeels similar to yesterday. Nurses bright red blood in bowel movements, no dark red blood. No lightheadedness/dizziness/chest pain/chest pressure/shortness of breath/difficulty breathing. Discussed plan of care with patient at bedside, discussed high risk for anticoagulation but risk of thrombus progression or embolization causing stroke while off anticoagulation. Patient expresses an understanding of this risk. Hemoglobin remained stable today. Review of Systems Review of Systems: All systems reviewed & are unremarkable except as noted in Subjective Physical Exam Physical Exam: General: A&Ox3. NAD. Cooperative. HEENT: Surgical closure of cranial incisions with running suture, C/D/I. Otherwise atraumatic, normocephalic. Visual acuity and hearing grossly intact. Pupils equal and reactive to light. Pulm: CTAB A&P. -wheezes, -rales, -rhonchi. Symmetrical chest rise. No increase work of breathing. No respiratory distress. Cardiac: RRR, -mrg. Radial pulses intact and symmetrical. Abdominal: Nontender, nondistended, soft. BS present. Extremities: Station Engineer strength, ankle dorsiflexion/plantar flexion intact without asymmetry. No lower extremity edema appreciated. Results & Data Results & Data ([facility]) Vital Signs (Past 12 Hours) Vital Signs Temp Pulse Pulse Resp BP Pulse Ox 06/25/21 15:58 36.3 C L 75 18 134/73 99 06/25/21 11:50 36.8 C 73 18 148/66 H 97 06/25/21 10:26 36.7 C 64 12 137/78 06/25/21 08:00 75 PG Care Time/CCT Total # of Minutes Spent Total Time Spent with Patient: Total time spent is greater than 50% in coordination of care (as documented) at patient's floor/unit and/or counseling patient: Coding Level of Care Code 69757 Subseq Hosp Care Lvl 3 Diagnoses GI bleed K92.2 GI bleed type/associated pathology: unspecified gastrointestinal hemorr tanner type Insulin dependent diabetes mellitus Left ventricular apical thrombus I51.3 S/P subdural hematoma evacuation Z98.890; Z86.79 CKD (chronic kidney disease), stage IV N18.4 Bilateral leg edema R60.0 (1) GI bleed GI bleed type/associated pathology: unspecified gastrointestinal hemorrhage type Qualified Code(s): K92.2 - Gastrointestinal hemorrhage, unspecified
[2021-06-25] MEDS: INSULIN GLARGINE SOLOSTAR 100 UNITS/ML 3 ML PEN SQ SCH (21:03)
[2021-06-25] MEDS: ATORVASTATIN 40 MG TAB PO SCH (22:14)
[2021-06-25] MEDS: allopurinoL 100 MG TAB PO SCH (22:14)
[2021-06-26] MEDS: PANTOprazole 40 MG in DEXTROSE 5% 100 ML IV SCH (04:10)
--- NOTE | 2021-06-26 06:24 | Electrocardiogram Report ---
Test Reason : Blood Pressure : / mmHG Vent. Rate : 075 BPM Atrial Rate : 075 BPM P-R Int : 186 ms QRS Dur : 104 ms QT Int : 372 ms P-R-T Axes : 008 -17 128 degrees QTc Int : 415 ms Sinus rhythm with occasional Premature ventricular complexes Left ventricular hypertrophy with repolarization abnormality Poor R wave progression, consider anterior MA vs. lead placement vs. LVH Abnormal ECG When compared with ECG of 22-JUN-2021 14:17, Significant artifact is no longer present Confirmed by Pato Hobbs ([id number]) on 06/26/2021 6:23:59 AM Referred By: REFERRED SELF Confirmed By:Pato Hobbs
[2021-06-26 08:15] LABS: BUN Creatinine Ratio 30.4 (10-20); Calcium 8.6 mg/dl (8.5-10.1); Creatinine Clr Calc Pharmacy 27.7 ml/min; Est GFR (African American) 21.5 ml/min; Est GFR (Non-African American) 18.6 ml/min; Hematocrit (blood only) 26.7 % (42-52); Hemoglobin 9.4 g/dL (14.0-18.0); Mean Corpuscular Hemoglobin 31.2 pg (25-34); Mean Corpuscular Hgb Conc 35.2 g/dL (32-36); Mean Corpuscular Volume 88.7 fL (80-100); Mean Platelet Volume 12.9 fL (7.4-10.4); Platelet Count 128 K/uL (130-400); RDW Coefficient of Variation 14.6 % (11.5-14.5); Red Blood Count 3.01 M/uL (4.7-6.1); White Blood Count 12.33 K/uL (4.8-10.8)
[2021-06-26] MEDS: dexAMETHasone 4 MG TAB PO SCH ×2 (08:35→18:55)
[2021-06-26] MEDS: MAGNESIUM OXIDE 400 MG TAB PO SCH ×2 (08:36→18:54)
[2021-06-26] MEDS: MYCOPHENOLATE MOFETIL 250 MG CAP PO SCH ×2 (08:36→18:53)
[2021-06-26] MEDS: MULTIVITAMIN TAB PO SCH (08:37)
[2021-06-26] MEDS: AMIODARONE 200 MG TAB PO SCH ×2 (08:38→17:43)
[2021-06-26] MEDS: TACROLIMUS 0.5 MG CAP PO SCH ×2 (08:43→18:53)
[2021-06-26] MEDS: INSULIN ASPART 100 UNITS/ML 3 ML PEN SC SCH ×4 (08:49→20:22)
--- NOTE | 2021-06-26 09:34 | Cardiology Progress Note ---
Date of Service June 26, 2021 Assessment & Plan Admission and Anticipated Discharge Date Admission Date: June 22, 2021 Subjective Feeling better. No BM. No bleeding. No dizziness, CP or SOB. No palpitations Results & Data ([facility]) Vital Signs (Past 12 Hours) Vital Signs Temp Pulse Pulse Resp BP Pulse Ox Pulse Ox 06/26/21 07:30 36.5 C 65 18 157/67 H 100 06/26/21 04:06 36.4 C L 67 18 159/76 H 99 06/26/21 00:00 73 96 06/25/21 23:43 36.7 C 68 18 148/73 H 98 he is awake alert and oriented x3 is chronically ill but better than yesterday HEENT 1+ carotid upstrokes Lungs: Clear to auscultation bilaterally no rales rhonchi or wheezing Heart: Regular rate and rhythm no appreciable murmurs rubs or gallops Abdomen: Soft nontender distended positive bowel sounds Extremities: No clubbing clubbing cyanosis or edema Psychiatric: His affect appeared appropriate IMPRESSIONS: (1) lower GI bleed: (2) small left ventricular apical thrombus: (3) Atrial flutter maintaining sinus rhythm on amiodarone started this admission (4) S/P subdural hematoma evacuation secondary to a fall (5) CKD (chronic kidney disease), stage IV status post renal transplantation (6) Coronary artery disease: (7) moderate cardiomyopathy with an LVEF of 35% He is maintaining sinus rhythm with amiodarone. This reduces the need and concern that he is going to have a cardioembolic event from atrial arrhythmias. This is day three of five for 400mg BID then 200mg BID x 1 month then 200 mg daily The bigger issue is his LV apical thrombus. I think the risk of anticoagulation at this point leading to a recurrent GI bleed is much higher than the benefit of anticoagulation. We just will need to accept that there is a small chance with his LV apical clot that he could have an embolic event. He notes 5 years ago he had a GI bleed and they were unable to determine the source. It does raise the question as to whether he has AVMs which were exacerbated again by anticoagulation. I think he needs a colonoscopy and small bowel evaluation before being discharged to determine if there is a reversible source of his bleeding. Additionally the bleeding is described as bright red blood and we do not see a source of based on his upper endoscopy. \ If you look back at his [facility] echocardiograms the one in early June suggested a small LV apical thrombus. His echocardiogram prior to that was and did not suggest a thrombus. His EF at her she had been declining for unknown reasons with minimal troponin elevations. Hgb and renal fxn stable
[2021-06-26] MEDS: PANTOprazole 40 MG TAB PO SCH ×2 (10:59→18:54)
--- NOTE | 2021-06-26 12:45 | Hospitalist Progress Note ---
Date of Service June 26, 2021 Assessment & Plan (1) GI bleed: Plan: Patient presented with GI bleed with markedly elevated BUN, on bid protonix, recently changed to Eliquis due to renal function by nephrology, last dose of Eliquis was morning of 05/22/21. - Required transfusion 4 units packed red blood cells, ffp tranexamic acid and calcium. - Initally Dr Waters and Dr Chau felt the pt was too high risk to have EGD and anesthesia here - Prior Provider called [facility] who informed they were on divert, called [facility] and they informed that they would not have bed for 24-48 hrs, [facility] and they accepted but would not have a bed for 24 hours Per 06/22- documentation: "since the pt had lower blood pressures and was still with bloody bowel movements I flet he needed attention to try to control an upper gi bleed, I re contacted Dr Chau from anesthesia who felt that if there was no other choice would consider doing anesthesia even with recent neurosurgery and pneuomcephalus. I contacted Dr Waters who states he felt uncomfortable and wound not be willing to perform the procedure. I then called Dr Vieyra, middleware consultant for [facility] and explained the situation, he said he would see the patient if Dr Waters felt it would be reasonable. I then re contacted Dr Waters and he gave permission for Dr Arthur to see the patient, he arrived in the ER and after review took the pt to have upper endoscopy, unfortunately did not find any significant bleeding source and recommends continued pursuit of tertiary referral. I did contact [facility] and they have him on urgent list but no timeline in place for transfer , Dr Beebe accepting physician" Patient has continued to have some dark red bowel movements, hemoglobin recheck is stable. Anticoagulation continues to be held for red/dark red bowel movements with GI bleed as noted above, however patient is also at high risk of stroke and complications from known left atrial thrombus. See anticoagulation discussion below EGD 06/23/2021: No signs of active bleeding. Source of bleeding unclear, GI recommending double-balloon enteroscopy at tertiary care center for small intestine bleeding. Diet advanced to clears, continue to follow. -06/24: Discussed care with cardiology and gastroenterology. Patient is high risk for anticoagulation with known apical thrombus within the last week, but anticoagulation is not recommended right now due to his recent bleed requiring multiple units with suboptimal rise, and continued slight downtrend. No source identified on upper endoscopy. Started on amnio to stroke risk, see cardiology note. Appreciate recommendations. Recommend continued observation, if hemoglobin uptrending/remained stable may consider trial of heparin gtt however patient still at bleeding risk and would likely benefit from IR/balloon en doscopy evaluation. We will continue to follow for bed availability at tertiary care, and follow clinically at this time 06/25: Patient has had a bleed with no source prior to this episode, that he is very high risk of rebleeding, and is at high risk of complications especially due to his recent subdural hematomas requiring surgical evacuation Bleeding is suspicious for potential AVM. Risk of stroke is high due to his known atrial thrombus with less than 1 month of treatment, and should patient have a stroke his history precludes TPA use. Would not recommend delaying anticoagulation for 2 to 3 months for outpatient tertiary referral. Case reviewed reviewed, has been accepted at tertiary [facility] for transfer but bed not yet available. Need to follow. 06/26: Patient's hemoglobin remains stable, although has continued to have report of bright red blood in bowel movement and one potentially darker red bowel movement. Hemodynamically stable. We will continue to trend H&H. Bleeding suspicious for AVM, remains high risk of both bleeding and stroke as noted above. Called [facility] and reviewed the case with their medicine and gastroenterology team. Based on patient's presentation and hemoglobin stability transfer still recommended tertiary care for additional localization of bleeding source, however as long as he remains dynamically stable he would qualify for there medical floor with telemetry monitoring which may increase bed availability. Has been accepted, will continue to wait for bed at this time. (2) Insulin dependent diabetes mellitus: Plan: Glipizide held Continue insulin sliding scale Continue glargine 15 units nightly Glucose checks AC/at bedtime (3) Left ventricular apical thrombus: Plan: Large left ventricular apical thrombus identified on echocardiogram at [facility] Admitting EKG: Atrial flutter Eliquis held due to concern for life-threatening GI bleed with hemoglobin drop of 3 g on admission Case was discussed with Dr. Neumann over the weekend, agree that patient would be appropriate for heparin products daily that eventually warfarin, but GI bleeding should be controlled prior to starting Cardiology consult placed given LV thrombus Anticoagulation continues to be held at this time due to GI bleed and continued red/dark red bowel movements, h at some point this does not become helpful as above on the crystal is at high risk for stroke given known LV apical thrombus and a flutter. Anticoagulation not recommended at this time due to bleeding risk, s repeat recommendations See above (4) S/P subdural hematoma evacuation: Plan: Patient with recent subdural hematoma evacuations, sutures OK for removal. (5) CKD (chronic kidney disease), stage IV: Plan: Follows with Dr. Pitts CKD 4 Left AV fistula in place, but clotted and not suitable for access. History of transplant, continue mycophenolate, dexamethasone, tacrolimus Patient appears euvolemic at morning assessment Nephrology consulted. Hyperkalemia improved. Recommend holding IVF, BMP daily, continue monitoring, no acute dialysis at this time. Of note left wrist aVF is clotted, patient would require IJ hemodialysis catheter placement if hemodialysis is required. Appreciate recommendations. (6) Bilateral leg edema: Plan: Following steroid treatment SCD/teds Admission and Anticipated Discharge Date Admission Date: June 22, 2021 Subjective Patient seen at bedside. Clinically unchanged. Fatigued, somewhat demoralized by his hospital course but reports he has no change in symptoms today. Does not have lightheadedness, dizziness, chest pain, chest pressure, lightheadedness, dizziness, abdominal pain today. Endorses bright red blood in bowel movements, one episode of darker red bowel movement yesterday. Discussed case with [facility], see H&P for further Review of Systems Review of Systems: All systems reviewed & are unremarkable except as noted in Subjective Physical Exam Physical Exam: General: A&Ox3. NAD. Cooperative. HEENT: Surgical closure of cranial incisions with running suture, C/D/I. Left cranial incisions x2 with silvestre in place, C/D/I without overlying erythema or discharge. Otherwise atraumatic, normocephalic. Visual acuity and hearing grossly intact. Pupils equal and reactive to light. Pulm: CTAB A&P. -wheezes, -rales, -rhonchi. Symmetrical chest rise. No increase work of breathing. No respiratory distress. Cardiac: RRR, -mrg. Radial pulses intact and symmetrical. Abdominal: Nontender, nondistended, soft. BS present. Extremities: Warm, dry. Results & Data Results & Data ([place]) Vital Signs (Past 12 Hours) Vital Signs Temp Pulse Pulse Resp BP Pulse Ox 06/26/21 11:07 36.3 C L 71 16 142/77 H 98 06/26/21 11:00 67 06/26/21 07:30 36.5 C 65 18 157/67 H 100 06/26/21 04:06 36.4 C L 67 18 159/76 H 99 PG Care Time/CCT Total # of Minutes Spent Total Time Spent with Patient: Total time spent is greater than 50% in coordination of care (as documented) at patient's floor/unit and/or counseling patient: Coding Level of Care Code 71087 Subseq Hosp Care Lvl 3 Diagnoses GI bleed K92.2 GI bleed type/associated pathology: unspecified gastrointestinal hemorrhage type Insulin dependent diabetes mellitus Left ventricular apical thrombus I51.3 S/P subdural hematoma evacuation Z98.890; Z86.79 CKD (chronic kidney disease), stage IV N18.4 Bilateral leg edema R60.0 (1) GI bleed GI bleed type/associated pathology: unspecified gastrointestinal hemorrhage type Qualified Code(s): K92.2 - Gastrointestinal hemorrhage, unspecified
--- NOTE | 2021-06-26 16:05 | Nephrology Progress Note ---
Date of Service June 26, 2021 Assessment & Plan (1) Renal transplant recipient: Plan: * DIGITAL DESIGNER function remains relatively stable at this time (baseline cr 3.2) * Hyperkalemia has corrected following NaHCO3 infusion * Patient was transfused 4 units PRBC, 1 unit FFP, 1 unit cryoprecipitate 06/23/21 * Patient is nonoliguric. I&O's matched last 24 hours. Hold IVF and monitor PRP, UO * Azotemia related to upper GIB and steroid therapy. Currently no uremic symptoms. No acute indication for HD * Note that L wrist AVF is clotted. If HD becomes necessary, patient will require IJ THC * Continue current immunosuppressive regimen of Prograf, Mycophenolate and Prednisone (2) CKD (chronic kidney disease), stage IV: Plan: * Baseline Cr 3.2. Kidney function remains relatively stable at this time (3) Anemia: Plan: * Anticoagulation has been held * Patient was transfused 4 units PRBC, 1 unit FFP, 1 unit cryoprecipitate 06/23/21 * EGD 06/23/21 was negative for active bleed. GI recommended double balloon enteroscopy at tertiary center * Cardiology has been consulted to determine whether supervisor intermediates anticoagulation is needed - risks may outweigh benefit Admission and Anticipated Discharge Date Admission Date: June 22, 2021 Subjective Mr. Andrea was evaluated in his hospital room this morning. He denied fever, abdominal pain or angina. He has had no further hematochezia Review of Systems Constitutional: + weakness; no fever Eyes: no problem reported Ear, Nose, Mouth, Throat: no problem reported Respiratory: no cough and no dyspnea Cardiovascular: no chest pain Gastrointestinal: no abdominal pain, no nausea and no vomiting Genitourinary: no dysuria, no urinary hesitancy or no hematuria Musculoskeletal: no back pain Integumentary: no rash Neurologic: no confusion Physical Exam Constitutional: + ill appearing; not in distress Eyes: PERRL, conjunctivae normal, anicteric sclerae ENMT: external ear and nose normal, oropharynx normal Neck: trachea midline, no thyromegaly Respiratory: normal respiratory effort, lungs clear to auscultation Cardiovascular: RRR, no murmur, no edema Extremities: + AV fistula (no bruit) Gastrointestinal (Abdomen): normal bowel sounds, soft, nontender, no hepatosplenomegaly Skin: no rashes, warm and dry Neurologic: awake; not confused Results & Data ([facility]) Vital Signs (Past 12 Hours) Vital Signs Temp Pulse Pulse Resp BP Pulse Ox 06/26/21 11:07 36.3 C L 71 16 142/77 H 98 06/26/21 11:00 67 06/26/21 07:30 36.5 C 65 18 157/67 H 100 06/26/21 04:06 36.4 C L 67 18 159/76 H 99 Laboratory Results Laboratory Tests 06/26/21 06/26/21 07:08 07:08 WBC 12.33 H Hgb 9.4 L Hct 26.7 L Plt Count 128 L Sodium 133 L Potassium 4.0 Chloride 99 Carbon Dioxide 24 BUN 99 H Creatinine 3.26 H Glucose 118 H PG Care Time/CCT Total # of Minutes Spent Total Time Spent with Patient: Total time spent is greater than 50% in coordination of care (as documented) at patient's floor/unit and/or counseling patient: Coding Level of Care Code 51122 Subseq Hosp Care Lvl 3 Diagnoses Renal transplant recipient Z94.0 CKD (chronic kidney disease), stage IV N18.4 Anemia D64.9 Anemia type: unspecified type (1) Anemia Anemia type: unspecified type Qualified Code(s): D64.9 - Anemia, unspecified
--- NOTE | 2021-06-26 18:24 | Discharge Summary ---
Date of Service June 26, 2021 Admission HPI Per Admitting Provider 66-year-old male presents by ALS ambulance for evaluation of a GI bleed while anticoagulated with Eliquis for left ventricular thrombus. He has a recent concerning history of acute on chronic intracranial subdural he matoma with for surgical interventions at [facility] with Dr. 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 Patient states he was at home today and had bloody diarrhea around 11 AM. And again at 1 PM. He states he passed several large clots. This patient was switched to Eliquis 2 days ago by his timber selector. He denies abdominal pain, nausea, vomiting. He states there is a history of transfusion 6 years ago and was consented for blood transfusion by ER staff. Patient was reportedly going to go to urgent colonoscopy however anesthesia reviewed his recent cranial imaging and concern for pneumocephalus has them feel he is contraindicated to perform anesthesia for colonoscopy in our facility. After this decision emergency room physicians guest services assistant Mr. Castaneda once again reconnected with Maggie and Maggie seems to feel contrary to that decision however her anesthesia feel without back up with neurosurgery or cardiothoracic surgery pursuing anesthesia would not be prudent in our facility. Subsequently the patient will be admitted to our facility to care for him for acute blood loss anemia considered coming from a lower GI source. Transfusion antibiotics and consideration of alternative anticoagulant in the future perhaps a heparin product that could be more easily reversed and has a shorter half-life Admission Exam Per Admitting Provider The patient appeared well nourished and normally developed. Vital signs as documented. Head exam is normocephalic sutures on the right are clean dry and intact silvestre in left are clean dry and intact reportedly silvestre are to come out on 25 June Neck is without JVD, thyromegaly, or carotid bruits. Lungs are clear to auscultation, but diminished at the bases Cardiac exam, Rhythm is regular.. No murmurs, rubs or gallops. Abdominal exam reveals normal bowel sounds, soft non tender, no masses specifically in the left lower quadrant discomfort Extremities are 1+ bilaterally edematous and both pedal pulses are present Neurologic exam is alert and oriented, has persistent focal left-sided weakness Skin is without bruises or rashes craniotomy wounds are clean dry and intact Psychologically is without concerns for anxiety or depression.. Principal Diagnosis Acute GI Bleed LV Mural Thrombus History of Subdural Hematoma with surgical evacuation Discharge Exam General: A&Ox3. NAD. Cooperative. HEENT: Surgical closure of cranial incisions and 1X right, 2 short incisions on left cranium intact without dehiscence, sutures and silvestre removed. Without overlying erythema or discharge. Otherwise atraumatic, normocephalic. Visual acuity and hearing grossly intact. Pupils equal and reactive to light. Pulm: CTAB A&P. -wheezes, -rales, -rhonchi. Symmetrical chest rise. No increase work of breathing. No respiratory distress. Cardiac: RRR, -mrg. Radial pulses intact and symmetrical. Abdominal: Nontender, nondistended, soft. BS present. Extremities: Warm, dry. Discharge Data Allergies Allergy/AdvReac Type Severity Reaction Status Date / Time No Known Allergies Allergy Verified 06/20/21 00:07 Consultations 06/22/21 17:17 ED Decision to Admit Stat 06/22/21 21:19 Consult Gastroenterology Routine 06/23/21 09:43 Consult Nephrology Routine 06/23/21 18:28 Consult Gastroenterology Routine 06/23/21 21:17 Consult Occupational Therapist Routine 06/23/21 21:26 Consult Cardiology Routine Procedures Performed Operation Date: 06/22/21 15:30 <No data on this case meets the specified criteria> Operation Date: 06/23/21 17:40 Actual Procedures p Esophagogastroduodenoscopy(Not Applicable) - John Vieyra Ordered Studies 06/22/21 14:30 CT head/brain wo con Stat 06/22/21 15:00 CT abd pelvis wo con Stat Hospital Course (1) GI bleed: Patient presented with GI bleed with markedly elevated BUN, on bid proton ix, recently changed to Eliquis due to renal function by nephrology, last dose of Eliquis was morning of 05/22/21. - Required transfusion 4 units packed red blood cells, ffp tranexamic acid and c alcium. - Initally Dr Waters and Dr Chau felt the pt was too high risk to have EGD and anesthesia here - Prior Provider called [facility] who informed they were on divert, called [facility] and they informed that they would not have bed for 24-48 hrs, formerly [facility], [facility] and they accepted but would not have a bed for 24 hours Per 06/22- documentation: "since the pt had lower blood pressures and was still with bloody bowel movements I flet he needed attention to try to control an upper gi bleed, I re contacted Dr Chau from anesthesia who felt that if there was no other choice would consider doing anesthesia even with recent neurosurgery and pneuomcephalus. I contacted Dr Waters who states he felt uncomfortable and wound not be willing to perform the procedure. I then called Dr Vieyra, search engine optimization consultant for [facility] and explained the situation, he said he would see the patient if Dr Waters felt it would be reasonable. I then re contacted Dr Waters and he gave permission for Dr Arthur to see the patient, he arrived in the ER and after review took the pt to have upper endoscopy, unfortunately did not find any significant bleeding source and recommends continued pursuit of tertiary referral. I did contact [facility] and they have him on urgent list but no timeline in place for transfer , Dr Beebe accepting physician" Patient has continued to have some dark red bowel movements, hemoglobin recheck is stable. Anticoagulation continues to be held for red/dark red bowel movements with GI bleed as noted above, however patient is also at high risk of stroke and co mplications from known left atrial thrombus. See anticoagulation discussion below EGD 06/23/2021: No signs of active bleeding. Source of bleeding unclear, GI recommending double-balloon enteroscopy at tertiary care center for small intestine bleeding. Diet advanced to clears, continue to follow. -06/24: Discussed care with cardiology and gastroenterology. Patient is high risk for anticoagulation with known apical thrombus within the last week, but anticoagulation is not recommended right now due to his recent bleed requiring multiple units with suboptimal rise, and continued slight downtrend. No source identified on upper endoscopy. Started on amnio to stroke risk, see cardiology note. Appreciate recommendations. Recommend continued observation, if hemoglobin uptrending/remained stable may consider trial of heparin gtt however patient still at bleeding risk and would likely benefit from IR/balloon endoscopy evaluation. We will continue to follow for bed availability at [facility], and follow clinically at this time 06/25: Patient has had a bleed with no source prior to this episode, that he is very high risk of rebleeding, and is at high risk of complications especially due to his recent subdural hematomas requiring surgical evacuation Bleeding is suspicious for potential AVM. Risk of stroke is high due to his known atrial thrombus with less than 1 month of treatment, and should patient have a stroke his history precludes TPA use. Would not recommend delaying anticoagulation for 2 to 3 months for outpatient tertiary referral. Case reviewed reviewed, has be en accepted at tertiary care for transfer but bed not yet available. Need to follow. 06/26: Patient's hemoglobin remains stable, although has continued to have report of bright red blood in bowel movement and one potentially darker red bowel movement. Hemodynamically stable. We will continue to trend H&H. Bleeding suspicious for AVM, remains high risk of both bleeding and stroke as noted above. Called [facility] and reviewed the case with their medicine and gastroenterology team. Based on patient's presentation and hemoglobin stability transfer still recommended tertiary care for additional localization of bleeding source, however as long as he remains dynamically stable he would qualify for there medical floor with telemetry monitoring which may increase bed availability. Was accepted and transferred evening of 06/26. (2) Insulin dependent diabetes mellitus: Glipizide held Continue insulin sliding scale Continue glargine 15 units nightly Glucose checks AC/at bedtime (3) Left ventricular apical thrombus: Large left ventricular apical thrombus identified on echocardiogram at [facility] Admitting EKG: Atrial flutter Eliquis held due to concern for life-threatening GI bleed with hemoglobin drop of 3 g on admission Case was discussed with Dr. Neumann over the weekend, agree that patient would be appropriate for heparin products daily that eventually warfarin, but GI bleeding should be controlled prior to starting Cardiology consult placed given LV thrombus Anticoagulation continues to be held at this time due to GI bleed and continued red/dark red bowel movements, h at some point this does not become helpful as above on the crystal is at high risk for stroke given known LV apical thrombus and a flutter. Anticoagulation not recommended at this time due to bleeding risk, s repeat recommendations See above (4) S/P subdural hematoma evacuation: Patient with recent subdural hematoma evacuations, sutures OK for removal. (5) CKD (chronic kidney disease), stage IV: Follows with Dr. Pitts CKD 4 Left AV fistula in place, but clotted and not suitable for access. History of transplant, continue mycophenolate, dexamethasone, tacrolimus Patient appears euvolemic at morning assessment Nephrology consulted. Hyperkalemia improved. Recommend holding IVF, BMP daily, continue monitoring, no acute dialysis at this time. Of note left wrist aVF is clotted, patient would require IJ hemodialysis catheter placement if hemodialysis is required. Appreciate recommendations. (6) Bilateral leg edema: Following steroid treatment SCD/teds Total Time Total Time Spent Total Time Spent (In Minutes): Total time spent day of discharge preparing discharge/transfer 75 minutes including documentation, coordination of care, direct patient care, and review of labs and images. Discharge Plan Discharge Items Patient Disposition: Transfer Acute Care Hospital Reason For Visit: GI Bleed Discharge Diagnosis: Acute GI bleed Left ventricular apical thrombus History of subdural hematoma requiring surgical evacuation Condition on Discharge: Fair Activity: Per Instructions section Non-emergency contact: Specialist Call non-emergency contact if: you have any medication questions, your symptoms worsen, your pain is not controlled and your pain is unusual for you Follow-up/Referrals: Shelli Ashraf MD [Primary Care Provider] - Diet: Regular Addtl Attending Provider Instructions: Patient is transferred to [facility] for additional care. Patient experienced a acute GI bleed requiring 4 units of packed red blood cells. Emergency EGD did not reveal a source of bleeding. He would had 1 episode of spontaneous GI bleeding without source prior. Your history was potentially concerning for an AVM. You also experienced continued small amounts of bright red bleeding while your hemoglobin remained stable, colonoscopy was not performed due to concern for periprocedural risk. Your case was reviewed with cardiology, they did not recommend resuming anticoagulation due to very high risk of bleeding but noted that your risk of stroke from LV thrombus was high and that should you experience a stroke from this you would not be able to receive clot busting agents due to your recent subdural hematomas. As result patient is recommended for transfer to tertiary care for additional GI bleeding evaluation, this was discussed with GI and general medicine services at [facility] day of discharge. Patient with med reconciliation as noted below. Of note patient to receive immunosuppressive agents for transplant status evening doses prior to transfer. Pending Studies at Discharge: No Stand-Alone Forms: [facility] Skilled Items Patient informed of condition?: Yes DNR: No Discharge Level of Care: Other Communicable Disease: No Discharge Prognosis: Stable Lines: Peripheral IV Urinary Catheter: No Medications and DC Order Prescriptions: Continued glipizide 5 mg tablet 2.5 mg PO HS Qty: 45 RF: 3 Hold Instructions: stopped Basaglar KwikPen U-100 Insulin 100 unit/mL (3 mL) insulin pen 15 unit subcut HS Qty: 45 RF: 3 tacrolimus [Prograf] 0.5 mg capsule 0.5 mg PO Q12H RF: 0 glipizide [Glucotrol] 10 mg tablet 10 mg PO QAM RF: 0 Hold Instructions: stopped magnesium oxide 250 mg magnesium tablet 250 mg PO BID RF: 0 famotidine [Acid Link Machine Operator (famotidine)] 10 mg tablet 10 mg PO QAM RF: 0 multivitamin [Multiple Vitamins] tablet 1 tab PO QAM RF: 0 atorvastatin [Lipitor] 40 mg tablet 40 mg PO HS RF: 0 dexamethasone 4 mg tablet 4 mg PO BID RF: 0 amlodipine 10 mg tablet 10 mg PO DAILY RF: 0 carvedilol 6.25 mg tablet 18.75 mg PO BID RF: 0 mycophenolate mofetil [CellCept] 250 mg capsule 750 mg PO BID RF: 0 allopurinol 300 mg tablet 300 mg PO HS RF: 0 B12 Active 1,000 mcg tablet,chewable 1,000 mcg PO QPM RF: 0 polyethylene glycol 3350 [Miralax] 17 gram/dose Powder 17 g PO DAILY PRN (Reason: Constipation) RF: 0 Eliquis 5 mg tablet 5 mg PO BID Qty: 30 RF: 1 (DME) pen needle, diabetic 31 gauge x 5/32" needle See Rx Instructions .Route Qty: 100 RF: 0 insulin aspart U-100 100 unit/mL (3 mL) insulin pen 1 sliding scale dose subcut USEASDIRECTD Qty: 15 RF: 0 coenzyme Q10 [CoQ-10] 100 mg Capsule 100 mg PO BID RF: 0 Discharge Orders: Discharge Order (Routine); Ordered 06/26/21 Ordered By: Man Terry/Other Patient Handouts: A1C, Managing Type 2 Diabetes Admission Data Admit Date/Time: 06/22/21 17:53 Attending Provider: Man Galvan Admit Provider: Ziggy Erickson Primary Care Provider: Shelli Ashraf Other Providers: [facility] ; Ziggy Erickson ; Anthony Waters ; Larry Stokes ; John Vieyra ; Nicho Benson ; Girma Kirkland Coding Level of Care Code D/C DAY MANAGEMENT >30 MINS Diagnoses Insulin dependent diabetes mellitus Left ventricular apical thrombus I51.3 S/P subdural hematoma evacuation Z98.890; Z86.79 CKD (chronic kidney disease), stage IV N18.4 GI bleed K92.2 GI bleed type/associated pathology: unspecified gastrointestinal hemorrhage type Bilateral leg edema R60.0
[2021-06-26] MEDS: allopurinoL 100 MG TAB PO SCH (18:54)
[2021-06-26] MEDS: ATORVASTATIN 40 MG TAB PO SCH (18:54)
[2021-06-26] MEDS: INSULIN GLARGINE SOLOSTAR 100 UNITS/ML 3 ML PEN SQ SCH (20:22)
--- NOTE | 2021-07-06 07:49 | GI REPORT ---
Patient Name: Rafael Andrea Procedure Date: 06/23/2021 5:37 PM Date of : 1955 Admit Type: Inpatient Age: 66 Gender: Male Attending MD: John Vieyra MD Procedure: Upper GI endoscopy Providers: John Vieyra MD Referring MD: Ziggy Erickson, Rod Recio MD Indications: Melena Medicines: General Anesthesia Complications: No immediate complications. Estimated blood loss: None. Estimated Blood Loss: Estimated blood loss was minimal. Procedure: Pre-Anesthesia Assessment: - Prior to the procedure, a History and Physical was performed, and patient medications and allergies were reviewed. The patient's tolerance of previous anesthesia was also reviewed. The risks and benefits of the procedure and the sedation options and risks were discussed with the patient. All questions were answered, and informed consent was obtained. Prior Anticoagulants: The patient has taken Eliquis (apixaban), last dose was 1 day prior to procedure. ASA Grade Assessment: III - A patient with severe systemic disease. After reviewing the risks and benefits, the patient was deemed in satisfactory condition to undergo the procedure. After obtaining informed consent, the endoscope was passed under direct vision. Throughout the procedure, the patient's blood pressure, pulse, and oxygen saturations were monitored continuously. The Endoscope was introduced through the mouth, and advanced to the second part of duodenum. The Colonoscope was introduced through the and advanced to the. The upper GI endoscopy was accomplished without difficulty. The patient tolerated the procedure well. Findings: Moderately severe esophagitis with no bleeding was found at the gastroesophageal junction. A small hiatal hernia was present. A 30 mm non-bleeding diverticulum was found in the first portion of the duodenum. A 25 mm non-bleeding diverticulum was found in the second portion of the duodenum. A non-bleeding diverticulum was found in the third portion of the duodenum. The examined jejunum was normal. Bile seen in the stomach. Retained food seen in the diverticulum. No bleed clots or hematin noted. Note: an upper, followed by a pediatric colon scope used for a deeper exam. Chose to palce and NG tube One 8 mm sessile red and polypoid area with no bleeding was found in the second portion of the duodenum. Suspect it is the papilla, but could not be verified Impression: - Moderately severe reflux esophagitis. Not to suffcient to explain the melena - Small hiatal hernia. - 3 Non-bleeding duodenal diverticulum. - Normal examined jejunum about 55 cm past ligament of treitz. Significant looping could not go past that area. - No specimens collected. Suspect deeper SB bleed, emanuel be an AVM. Recommendation: - Return patient to ICU for ongoing care. - Clear liquid diet today. - Continue present medications. John Vieyra M.D. John Viyera MD 07/06/2021 7:48:53 AM This report has been signed electronically. Note Initiated On: 06/23/2021 5:37 PM Number of Addenda: 0 I attest to the content of the Intraoperative Record and orders documented therein, exceptions below {[id number]}
== END 2021-06-26 20:26 | disposition short-term general hospital (02) | DRG 377 ==
LOC: ED 14:03 → EDINP 17:53 → SUATTDRO 17:53 → EDINP 21:45 → 1E 06-23 18:27 → 2S 06-24 15:27